=== PATIENT | female | born 1935 | race Caucasian/White ===

== ENCOUNTER 2017-03-21 13:17 | Emergency (ER) | payer MEDICARE ==
--- NOTE | 2017-03-21 16:05 | XRay Report ---
RIGHT KNEE RADIOGRAPHS INDICATION: Fall with right knee injury. COMPARISON: None similar at this institution. FINDINGS: AP, lateral and oblique right knee radiographs demonstrate at least 2 horizontal proximal to mid patellar fractures with maximum separation of approximately 0.8 cm superiorly. Prepatellar swelling and suprapatellar effusion suspected. Atherosclerotic vascular calcifications posteriorly. Few posteromedial surgical clips at the knee also noted. Slight valgus appearance of the knee joint. CONCLUSION: Right patellar acute fractures with prepatellar swelling/hematoma, suprapatellar effusion and few other incidental findings, as described. Please correlate. Thank you for the opportunity to participate in this patient's care.
--- NOTE | 2017-03-21 16:13 | Emergency Department Report ---
ED Fall HPI - General Chief Complaint: Fall Stated Complaint: Knee Injury Time Seen by Provider: 03/21/17 15:43 Source: patient, family Mode of arrival: Wheelchair - History of Present Illness Initial Comments: Patient relates she was shopping with her daughter grocery store and had a trip and fall landing on her right knee. Patient's complaining of right knee pain and mild right hip pain. Patient denies any loss of consciousness, chest pain, confusion, dizziness, nausea vomiting, blurred vision or syncope. MD Complaint: fall -: Sudden Fall From: standing When Fall Occurred: [address] Fall Witnessed: yes, by family Place Fall Occurred: other Loss of Consciousness: none (grocery store) Prolonged Down Time?: no Symptoms Prior to Fall: none Location - Extremities: Right: Knee Severity: severe Severity scale (0 -10): 8 Quality: sharp, stabbing, aching Context: tripped/slipped Associated Symptoms: denies - Related Data Home Medications Medication Instructions Recorded Confirmed Last Taken Aspirin EC [Aspirin Enteric Coated 81 mg PO QDAY 03/21/17 03/21/17 03/21/17 TAB] AtorvaSTATin [Lipitor] 20 mg PO QHS 03/21/17 03/21/17 03/21/17 Bumetanide [Bumex 1 mg tab] 1 mg PO BID 03/21/17 03/21/17 03/21/17 Carvedilol [Coreg] 3.125 mg PO BID 03/21/17 03/21/17 03/21/17 Folic Acid [Folvite] 1 mg PO QDAY 03/21/17 03/21/17 03/21/17 Lisinopril [Zestril] 5 mg PO BID 03/21/17 03/21/17 03/21/17 [place]-3 Fatty Acids/Fish Oil [Fish 1 each PO DAILY 03/21/17 03/21/17 03/21/17 Oil] Omeprazole 40 mg PO DAILY 03/21/17 03/21/17 03/21/17 Spironolactone [Aldactone] 25 mg PO QDAY 03/21/17 03/21/17 03/21/17 hydrALAZINE [Apresoline] 25 mg PO PRN 03/21/17 03/21/17 Unknown Previous Rx's Medication Instructions Recorded Last Taken Type HYDROcodone/APAP 5-325 [[place] 1 each PO Q4HR PRN #12 tablet 03/21/17 Unknown Rx 5/325] Allergies Allergy/AdvReac Type Severity Reaction Status Date / Time No Known Allergies Allergy Unverified 03/21/17 13:55 ED Review of Systems ROS: Stated complaint: Knee Injury Other details as noted in HPI Constitutional: denies: chills, fever Eyes: denies: eye pain, eye discharge, vision change ENT: denies: ear pain, throat pain Respiratory: denies: cough, shortness of breath, wheezing Cardiovascular: denies: chest pain, palpitations Endocrine: no symptoms reported Gastrointestinal: denies: abdominal pain, nausea, vomiting, diarrhea, constipation Genitourinary: denies: urgency, dysuria, frequency, hematuria, discharge Musculoskeletal: joint swelling. denies: back pain, arthralgia Skin: denies: rash, lesions Neurological: denies: headache, weakness, numbness, paresthesias, confusion, abnormal gait, vertigo Psychiatric: denies: anxiety, depression Hematological/Lymphatic: denies: easy bleeding, easy bruising ED Past Medical Hx - Past Medical History Previous Medical History?: Yes Hx Hypertension: Yes - Surgical History Past Surgical History?: No - Social History Smoking Status: Never Smoker Substance Use Type: Prescribed - Medications Home Medications: Home Medications Medication Instructions Recorded Confirmed Last Taken Type Aspirin EC [Aspirin Enteric Coated 81 mg PO QDAY 03/21/17 03/21/17 03/21/17 History TAB] AtorvaSTATin [Lipitor] 20 mg PO QHS 03/21/17 03/21/17 03/21/17 History Bumetanide [Bumex 1 mg tab] 1 mg PO BID 03/21/17 03/21/17 03/21/17 History Carvedilol [Coreg] 3.125 mg PO BID 03/21/17 03/21/17 03/21/17 History Folic Acid [Folvite] 1 mg PO QDAY 03/21/17 03/21/17 03/21/17 History HYDROcodone/APAP 5-325 [[place] 1 each PO Q4HR PRN #12 tablet 03/21/17 Unknown Rx 5/325] Lisinopril [Zestril] 5 mg PO BID 03/21/17 03/21/17 03/21/17 History [place]-3 Fatty Acids/Fish Oil [Fish 1 each PO DAILY 03/21/17 03/21/17 03/21/17 History Oil] Omeprazole 40 mg PO DAILY 03/21/17 03/21/17 03/21/17 History Spironolactone [Aldactone] 25 mg PO QDAY 03/21/17 03/21/17 03/21/17 History hydrALAZINE [Apresoline] 25 mg PO PRN 03/21/17 03/21/17 Unknown History ED Physical Exam - General Limitations: Language Barrier General appearance: alert, in no apparent distress - Head Head exam: Present: atraumatic, normocephalic - Eye Eye exam: Present: normal appearance, PERRL, EOMI - ENT ENT exam: Present: normal exam, mucous membranes moist - Neck Neck exam: Present: normal inspection, full ROM, other (no vertebral point tenderness). Absent: tenderness, meningismus - Respiratory Respiratory exam: Present: normal lung sounds bilaterally. Absent: respiratory distress, wheezes, rales, rhonchi, stridor - Cardiovascular Cardiovascular Exam: Present: regular rate. Absent: systolic murmur, diastolic murmur, rubs, gallop - GI/Abdominal GI/Abdominal exam: Present: soft, normal bowel sounds. Absent: distended, tenderness, guarding, rebound, rigid - Extremities Exam Extremities exam: Present: normal inspection - Expanded Lower Extremity Exam Right Hip exam: Present: tenderness (mild tenderness, pelvis stable no pelvic tenderness), pelvic stability. Absent: swelling, deformity, crepidus, dislocation, external rotation, internal rotation, shortening Knee exam: Present: tenderness (severe patellar tenderness on mild palpation), swelling, ecchymosis, deformity, erythema, effusion. Absent: dislocation Lower Leg exam: Present: normal inspection Ankle exam: Present: normal inspection Foot/Toe exam: Present: normal inspection Neuro vascular tendon exam: Present: no vascular compromise. Absent: pulse deficit, abnormal cap refill, motor deficit, sensory deficit, extremity cold to touch, pallor, abnormal 2-point discrimination, decreased fine/light touch - Back Exam Back exam: Present: normal inspection - Neurological Exam Neurological exam: Present: alert, oriented X3 - Psychiatric Psychiatric exam: Present: normal affect, normal mood - Skin Skin exam: Present: warm, dry, intact, normal color. Absent: rash ED Course Vital Signs 03/21/17 13:55 Temperature 98.3 F Pulse Rate 55 L Respiratory 20 Rate Blood Pressure 196/63 O2 Sat by Pulse 100 Oximetry Critical care attestation.: If time is entered above; I have spent that time in minutes in the direct care of this critically ill patient, excluding procedure time. ED Disposition Clinical Impression: Right patella fracture Disposition: DISCHARGED TO HOME OR SELFCARE Is pt being admited?: No Condition: Stable Instructions: Patellar Fracture (ED) Prescriptions: HYDROcodone/APAP 5-325 [[place] 5/325] 1 each PO Q4HR PRN #12 tablet PRN Reason: Pain Referrals: TARIK MCKENNA MD [Primary Care Provider] - 3-5 Days CHLOÉ ANDRADE MD [Staff Physician] - 3-5 Days
[2017-03-21 16:25] VITALS: BP 175/66
--- NOTE | 2017-03-21 17:55 | XRay Report ---
FINAL REPORT EXAM: XR HIP 2-3V RT HISTORY: fall with pain in the right hip TECHNIQUE: AP view of the pelvis and a single coned-down view of the right hip. PRIORS: None. FINDINGS: No evidence for acute fracture or dislocation is seen. Joint spaces are maintained. The soft tissues demonstrate vascular calcifications and several surgical clips in the right thigh. Bony mineralization is normal. IMPRESSION: No acute soft tissue or bony abnormality noted in the right hip.
[2017-03-21] MEDS ORDERED: MORPHINE IM ONE (18:12)
== END 2017-03-21 19:50 | disposition home or self-care (01) ==
LOC: ED 13:17
DX: S82.001A Unspecified fracture of right patella, initial encounter for closed fracture (principal); I10 Essential (primary) hypertension; Z79.82 Long term (current) use of aspirin; W01.0XXA Fall on same level from slipping, tripping and stumbling without subsequent striking against object, initial encounter; Y93.89 Activity, other specified; Y99.9 Unspecified external cause status; Y92.512 Supermarket, store or market as the place of occurrence of the external cause
CPT/HCPCS: 29505; 73502; 73562; 96372; 99283; J2270

== ENCOUNTER 2017-03-29 09:14 | Day surgery (SDC) | payer MEDICARE ==
[~2017-03-29 09:14] MED LIST: VANCOMYCIN/NS 1 GM/250 ML 1 GM/250 ML BAG IV NR
[2017-03-29] MEDS ORDERED: NACL BACTERIOSTATIC INFILTRATI ONE (09:58)
--- NOTE | 2017-03-29 10:19 | Anesthesia Consultation ---
Anesthesia Consult and Med Hx Date of service: 03/29/17 - Airway Anesthetic Teeth Evaluation: Good ROM Head & Neck: Adequate Mental/Hyoid Distance: Adequate Mallampati Class: Class II Intubation Access Assessment: Probably Good - Pulmonary Exam CTA: Yes - Cardiac Exam Cardiac Exam: RRR - Pre-Operative Health Status ASA Pre-Surgery Classification: ASA2 Proposed Anesthetic Plan: General Nerve Block: Femoral - Pulmonary Hx Smoking: No Hx Sleep Apnea: No (CHRISSY PRE SCREEN HIGH RISK) - Cardiovascular System Hx Hypertension: Yes (X 30 YRS) Hx Heart Attack/AMI: No Hx Valvular Heart Disease: Yes (AORTIC VALVE REPLACEMENT) - Other Systems Hx Cancer: No
--- NOTE | 2017-03-29 10:19 | Anesthesia Day of Surgery ---
Anesthesia Day of Surgery - Day of Surgery Patient Examined: Yes Patient H&P Reviewed: Yes Patient is NPO: Yes Beta Blockers: Yes
[2017-03-29] MEDS ORDERED: DECADRON ONE ×2 (10:22→11:56)
[2017-03-29] MEDS ORDERED: MARCAINE-EPI/PF 0.5%-1:200,000 INFILTRATI ONE ×2 (10:22→11:07)
[2017-03-29 10:50] LABS: Basophils % (Auto) 0.5 % (0.0-1.8); Eosinophils % (Auto) 1.2 % (0.0-4.3); Hematocrit 31.5 % (30.3-42.9); Hemoglobin 10.3 gm/dl (10.1-14.3); Mean Corpuscular HGB Conc 33 % (30-34); Mean Corpuscular Hemoglobin 27 pg (28-32); Mean Corpuscular Volume 82 fl (79-97); Platelet Count 249 K/mm3 (140-440); Red Blood Count 3.83 M/mm3 (3.65-5.03); Red Cell Distribution Width 15.1 % (13.2-15.2); White Blood Count 12.4 K/mm3 (4.5-11.0)
[2017-03-29 10:51] LABS: Anion Gap 17 mmol/L; BUN/Creatinine Ratio 31.42; Blood Urea Nitrogen 22 mg/dL (7-17); Calcium 9.1 mg/dL (8.4-10.2); Carbon Dioxide 25 mmol/L (22-30); Chloride 95.2 mmol/L (98-107); Glucose 123 mg/dL (65-100); Sodium 132 mmol/L (137-145)
[2017-03-29] MEDS ORDERED: NACL 0.9% 1000 ML 1,000 ML IV SCH (11:00)
[2017-03-29] MEDS ORDERED: VERSED IV NR (11:00)
[2017-03-29] MEDS ORDERED: NACL P/F VIAL (10 ML) 0 ML ONE (11:06)
[2017-03-29] MEDS ORDERED: NACL ONE (11:06)
[2017-03-29] MEDS ORDERED: DIPRIVAN 10 MG/ML IV ONE (11:19)
[2017-03-29] MEDS ORDERED: SUBLIMAZE ONE (11:19)
[2017-03-29] MEDS ORDERED: XYLOCAINE MPF 2% ONE (11:20)
[2017-03-29] MEDS ORDERED: ZOFRAN ONE (11:56)
[2017-03-29] MEDS ORDERED: ePHEDrine SULFATE ONE (12:06)
[2017-03-29] MEDS ORDERED: NEO SYNEPHRINE ONE (12:15)
[2017-03-29] MEDS ORDERED: NACL 0.9% 100 ML ONE (12:15)
[2017-03-29] MEDS ORDERED: ROBINUL ONE (12:26)
--- NOTE | 2017-03-29 13:38 | XRay Report ---
RIGHT KNEE, ONE VIEW History: Right patella fracture. Findings: A single AP fluoroscopic image of the right knee was obtained during surgery which demonstrates open reduction and internal fixation of a right patella fracture. No obvious acute abnormality.
--- NOTE | 2017-03-29 14:18 | Short Stay Summary ---
Short Stay Documentation Date of service: 03/29/17 - History H&P: obtained from office - Allergies and Medications Current Medications: Allergies Penicillins Allergy (Verified 08/20/14 21:20) Rash Sulfa (Sulfonamide Antibiotics) Allergy (Verified 08/20/14 21:20) Rash Home Medications Medication Instructions Recorded Confirmed Last Taken Type Carvedilol [Coreg] 12.5 mg PO BID 08/20/14 03/29/17 03/29/17 08:00 History Aspirin EC [Aspirin Enteric Coated 81 mg PO QDAY 03/21/17 03/29/17 03/24/17 History TAB] AtorvaSTATin [Lipitor] 20 mg PO QHS 03/21/17 03/29/17 03/28/17 20:00 History Bumetanide [Bumex 1 mg tab] 1 mg PO DAILY 03/21/17 03/29/17 03/21/17 History Folic Acid [Folvite] 1 mg PO QDAY 03/21/17 03/29/17 03/21/17 History Lisinopril [Zestril] 5 mg PO DAILY 03/21/17 03/29/17 03/29/17 08:00 History [place]-3 Fatty Acids/Fish Oil [Fish 1 each PO DAILY 03/21/17 03/29/17 03/21/17 History Oil] Spironolactone [Aldactone] 25 mg PO QDAY 03/21/17 03/29/17 03/21/17 History hydrALAZINE [Apresoline] 25 mg PO PRN PRN 03/21/17 03/25/17 Unknown History Active Medications Vancomycin HCl (Vancomycin/Ns 1 Gm/250 Ml) 1 gm in 250 mls @ 166.667 mls/hr IV PREOP NR PRN Reason: Protocol Stop: 03/29/17 23:59 Last Admin: 03/29/17 11:15 Dose: 166.667 mls/hr Sodium Chloride (Nacl 0.9% 1000 Ml) 1,000 mls @ 100 mls/hr IV DIRECT TEX Last Admin: 03/29/17 10:37 Dose: 100 mls/hr Midazolam HCl (Versed) 2 mg IV PREOP NR Stop: 03/29/17 23:59 Last Admin: 03/29/17 10:42 Dose: 2 mg - Brief post op/procedure progress note Date of procedure: 03/29/17 Pre-op diagnosis: Right patella fracture Post-op diagnosis: same Procedure: ORIF patella fracture Anesthesia: ILSA Surgeon: JOSUE RAMIREZ Engineer Chief: VARSHA PAIGE Estimated blood loss: minimal Pathology: none Specimen disposition: discarded Condition: stable - Disposition Condition at discharge: Stable Disposition: DC-01 TO HOME OR SELFCARE Short Stay Discharge Plan Follow up with: TARIK MCKENNA MD [Primary Care Provider] - 7 Days
[2017-03-29] MEDS ORDERED: DILAUDID IV PRN (14:22)
[2017-03-29] MEDS ORDERED: NORCO 10/325 PO PRN (14:26)
[2017-03-29 14:50] VITALS: BP 136/48
--- NOTE | 2017-03-29 15:05 | Post Anesthesia Evaluation ---
- Post Anesthesia Evaluation Patient Participated: Yes Airway Patent: Yes Stable Respiratory Function: Yes Nausea/Vomiting: No Temp > 96.8F: Yes Pain Manageable: Yes Adequeate Hydration: Yes Anesthesia Complications: No Block Receding Appropriately: Not Applicable Patient on Ventilator: No
--- NOTE | 2017-03-29 17:21 | Operative Report ---
PREOPERATIVE DIAGNOSES: Patellar fracture, displaced right knee. POSTOPERATIVE DIAGNOSES: Patellar fracture, displaced right knee. PROCEDURES: Exploration of right knee, open reduction internal fixation of the patellar fracture with screws and ____ wire. SURGEON: Odessa Jorge MD TOOL DESIGNER APPRENTICE: Stanford Woodruff RN COMPLICATIONS: None. PROCEDURE IN DETAIL: Once the patient was in surgical room, a time-out was carried out to identify the patient and procedure, prepping and draping of the patient was done in usual fashion. The procedure was carried out without any problems or complications. The leg was elevated and exsanguination was carried out. The tourniquet was elevated to 300 mmHg. The procedure was carried out by making a 10 cm straight incision in front of the patella. Dissection was carried out through the subcutaneous tissue to expose the patellar fracture. The flaps were elevated medially and laterally, following that the patient underwent irrigation of the wound, irrigation of fracture ____. Once the fracture ____ was identified, the patient was found to have a transverse fracture with a small threaded fiber that was loose. The ____ that was loose was removed. Once this was done, they proceeded with continue to do a medial arthrotomy into which point ____ the knee was irrigated. The patella was aligned by palpation and reduced. Once this was done two K-wires were passed from distal to proximal through the knee. Once the two K-wires were in place, the procedure was continued by the application of cerclage of the patella. This was done using 4 mm FiberTape ____ with needle and it was passed ____ the suture all around the periosteum around the distal ____ patella. This suture was tied to maintain the fracture in place. Once this was done, the ____ was placed over the guidewires, the guidewires were measured and two compression screws cannulated were inserted. Once this was done, the guidewires was removed, x-ray demonstrated anatomic reduction, following that using the same tape suture multiple suture for ____ to repair the tear on the retinaculum on the lateral side, and closed the arthrotomy on the medial side. Once this was done, the procedure was terminated. The wound was infiltrated with ____ Afrin. Closure of the wound was carried out by closing the skin with good anesthesia for ____ all the way up to skin. The skin was closed with skin clips. Compression ____ where knee brace applied in extension. The patient tolerated the procedure well. There were no complications. JOB# [id number] LUIS E/JACOBO
== END 2017-03-29 16:06 | disposition home or self-care (01) ==
LOC: OR 09:14
DX: S82.001A Unspecified fracture of right patella, initial encounter for closed fracture (principal); I11.0 Hypertensive heart disease with heart failure; I50.9 Heart failure, unspecified; K21.9 Gastro-esophageal reflux disease without esophagitis; Z90.710 Acquired absence of both cervix and uterus; Z95.2 Presence of prosthetic heart valve; Z95.1 Presence of aortocoronary bypass graft; Z88.2 Allergy status to sulfonamides; Z88.0 Allergy status to penicillin; Z79.899 Other long term (current) drug therapy; Z82.3 Family history of stroke; Z83.3 Family history of diabetes mellitus; Z82.49 Family history of ischemic heart disease and other diseases of the circulatory system; W19.XXXA Unspecified fall, initial encounter
CPT/HCPCS: 27524; 36415; 64447; 73560; 80048; 85025; C1713; J1100; J2250; J2370; J2405; J2704; J3010; J3370; J7030

== ENCOUNTER 2017-05-08 14:01 | Emergency (ER) | payer MEDICARE ==
[2017-05-08] MEDS ORDERED: MORPHINE ONE (14:40)
[2017-05-08] MEDS ORDERED: ZOFRAN ONE (14:40)
[2017-05-08] MEDS ORDERED: MORPHINE IV ONE (14:51)
[2017-05-08] MEDS ORDERED: ZOFRAN IV ONE (14:51)
--- NOTE | 2017-05-08 14:56 | Emergency Department Report ---
ED Upper Extremity Inj HPI - General Chief Complaint: Extremity Injury, Upper Stated Complaint: ARM PAIN Time Seen by Provider: 05/08/17 14:41 Source: patient, family Mode of arrival: Wheelchair Limitations: Language Barrier - History of Present Illness MD Complaint: Injury to:: left, shoulder, arm -: This morning Context: fall - Related Data Home Medications Medication Instructions Recorded Confirmed Last Taken Carvedilol [Coreg] 12.5 mg PO BID 08/20/14 03/29/17 03/29/17 08:00 Aspirin EC [Aspirin Enteric Coated 81 mg PO QDAY 03/21/17 03/29/17 03/24/17 TAB] AtorvaSTATin [Lipitor] 20 mg PO QHS 03/21/17 03/29/17 03/28/17 20:00 Bumetanide [Bumex 1 mg tab] 1 mg PO DAILY 03/21/17 03/29/17 03/21/17 Folic Acid [Folvite] 1 mg PO QDAY 03/21/17 03/29/17 03/21/17 Lisinopril [Zestril] 5 mg PO DAILY 03/21/17 03/29/17 03/29/17 08:00 [place]-3 Fatty Acids/Fish Oil [Fish 1 each PO DAILY 03/21/17 03/29/17 03/21/17 Oil] Spironolactone [Aldactone] 25 mg PO QDAY 03/21/17 03/29/17 03/21/17 hydrALAZINE [Apresoline] 25 mg PO PRN PRN 03/21/17 03/25/17 Unknown Previous Rx's Medication Instructions Recorded Last Taken Type Ondansetron [Zofran Odt] 4 mg PO Q8HR PRN #14 tab.rapdis 05/08/17 Unknown Rx oxyCODONE /ACETAMINOPHEN [Percocet 1 tab PO Q6HR PRN #14 tablet 05/08/17 Unknown Rx 5/325] Allergies Allergy/AdvReac Type Severity Reaction Status Date / Time Penicillins Allergy Rash Verified 08/20/14 21:20 Sulfa (Sulfonamide Allergy Rash Verified 08/20/14 21:20 Antibiotics) ED Review of Systems ROS: Stated complaint: ARM PAIN Other details as noted in HPI Comment: All other systems reviewed and negative Constitutional: denies: fever Respiratory: denies: cough, shortness of breath, SOB with exertion Cardiovascular: denies: chest pain, palpitations Gastrointestinal: denies: abdominal pain, nausea, vomiting Genitourinary: denies: dysuria, hematuria Neurological: denies: headache ED Past Medical Hx - Past Medical History Hx Hypertension: Yes Hx CVA: No Hx Heart Attack/AMI: No Hx Congestive Heart Failure: Yes (9 YRS AGO) Hx Diabetes: No Hx Renal Disease: No Hx Arthritis: No Hx Seizures: No Hx Asthma: No - Surgical History Hx Open Heart Surgery: Yes (CABG 2008) Hx Pacemaker: No Additional Surgical History: open heart surgery right knee replacement - Social History Smoking Status: Never Smoker Substance Use Type: None - Medications Home Medications: Home Medications Medication Instructions Recorded Confirmed Last Taken Type Carvedilol [Coreg] 12.5 mg PO BID 08/20/14 03/29/17 03/29/17 08:00 History Aspirin EC [Aspirin Enteric Coated 81 mg PO QDAY 03/21/17 03/29/17 03/24/17 History TAB] AtorvaSTATin [Lipitor] 20 mg PO QHS 03/21/17 03/29/17 03/28/17 20:00 History Bumetanide [Bumex 1 mg tab] 1 mg PO DAILY 03/21/17 03/29/17 03/21/17 History Folic Acid [Folvite] 1 mg PO QDAY 03/21/17 03/29/17 03/21/17 History Lisinopril [Zestril] 5 mg PO DAILY 03/21/17 03/29/17 03/29/17 08:00 History [place]-3 Fatty Acids/Fish Oil [Fish 1 each PO DAILY 03/21/17 03/29/17 03/21/17 History Oil] Spironolactone [Aldactone] 25 mg PO QDAY 03/21/17 03/29/17 03/21/17 History hydrALAZINE [Apresoline] 25 mg PO PRN PRN 03/21/17 03/25/17 Unknown History Ondansetron [Zofran Odt] 4 mg PO Q8HR PRN #14 tab.rapdis 05/08/17 Unknown Rx oxyCODONE /ACETAMINOPHEN [Percocet 1 tab PO Q6HR PRN #14 tablet 05/08/17 Unknown Rx 5/325] ED Physical Exam - General Limitations: No Limitations General appearance: alert, in distress (SECONDARY TO PAIN) - Head Head exam: Present: atraumatic - Eye Eye exam: Present: normal appearance Pupils: Present: normal accommodation - ENT ENT exam: Present: normal exam - Neck Neck exam: Present: normal inspection - Respiratory Respiratory exam: Present: normal lung sounds bilaterally. Absent: rales, rhonchi, chest wall tenderness, prolonged expiratory - Cardiovascular Cardiovascular Exam: Present: regular rate, normal heart sounds - GI/Abdominal GI/Abdominal exam: Present: soft - Expanded Upper Extremity Exam Left Shoulder Exam: Present: tenderness. Absent: swelling, abrasion, laceration, ecchymosis, deformity, crepidus, dislocation, erythema, tenderness over AC joint Upper Arm exam: Present: tenderness. Absent: swelling, dislocation Elbow exam: Present: normal inspection, full ROM Forearm Wrist exam: Present: normal inspection, full ROM. Absent: tenderness Hand Wrist exam: Present: normal inspection, full ROM. Absent: tenderness Neuro motor exam: Present: wrist extension intact, thumb opposition intact, thumb IP flexion intact, thumb adduction intact, fingers 2-5 abduction intact Neurosensory exam: Present: 2-point discrimination, radial nerve intact, ulnar nerve intact, median nerve intact Vascular: Absent: vascular compromise, pulse deficit brachial art - Back Exam Back exam: Present: normal inspection - Neurological Exam Neurological exam: Present: alert, oriented X3, CN II-XII intact - Skin Skin exam: Present: warm, intact ED Course Vital Signs 05/08/17 05/08/17 05/08/17 14:12 14:40 14:55 Temperature 98.3 F Pulse Rate 61 58 L Respiratory 22 18 22 Rate Blood Pressure 182/60 Blood Pressure 164/48 [Right] O2 Sat by Pulse 98 97 98 Oximetry - Reevaluation(s) Reevaluation #1: 05/08/17 16:19 PATIENT STATED THAT SHE IS FEELING MUCH BETTER. D/W DR SHIRLEY ADVISED PATIENT CAN FOLLOW UP WITH HIM IN HIS OFFICE THIS WEEK. ED Medical Decision Making - Lab Data Result diagrams: 05/08/17 15:19 05/08/17 15:19 Critical care attestation.: If time is entered above; I have spent that time in minutes in the direct care of this critically ill patient, excluding procedure time. ED Disposition Clinical Impression: Humeral fracture Disposition: DC-01 TO HOME OR SELFCARE Is pt being admited?: No Does the pt Need Aspirin: No Condition: Stable Instructions: Arm Fracture in Adults (ED) Prescriptions: Ondansetron [Zofran Odt] 4 mg PO Q8HR PRN #14 tab.rapdis PRN Reason: Vomiting oxyCODONE /ACETAMINOPHEN [Percocet 5/325] 1 tab PO Q6HR PRN #14 tablet PRN Reason: Pain Referrals: JOUSE RAMIREZ MD [Staff Physician] - 3-5 Days
--- NOTE | 2017-05-08 15:31 | XRay Report ---
FINAL REPORT PROCEDURE: XR HUMERUS 1V LT TECHNIQUE: Single view of the left humerus is submitted. HISTORY: r/o fx COMPARISON: None FINDINGS: There is a comminuted fracture of the left humeral head. No other fractures are identified. IMPRESSION: Comminuted humeral head fracture
[2017-05-08 15:47] LABS: Basophils % (Auto) 0.3 % (0.0-1.8); Eosinophils % (Auto) 0.5 % (0.0-4.3); Hematocrit 30.1 % (30.3-42.9); Hemoglobin 9.9 gm/dl (10.1-14.3); Mean Corpuscular HGB Conc 33 % (30-34); Mean Corpuscular Hemoglobin 28 pg (28-32); Mean Corpuscular Volume 84 fl (79-97); Platelet Count 279 K/mm3 (140-440); Red Blood Count 3.59 M/mm3 (3.65-5.03); Red Cell Distribution Width 15.8 % (13.2-15.2); White Blood Count 10.8 K/mm3 (4.5-11.0)
[2017-05-08 15:56] LABS: Alanine Aminotransferase 11 units/L (7-56); Albumin 3.8 g/dL (3.9-5); Albumin/Globulin Ratio 1.5 %; Alkaline Phosphatase 100 units/L (35-129); Anion Gap 19 mmol/L; BUN/Creatinine Ratio 28.75; Blood Urea Nitrogen 23 mg/dL (7-17); Calcium 8.8 mg/dL (8.4-10.2); Carbon Dioxide 23 mmol/L (22-30); Glucose 124 mg/dL (65-100); Potassium 5.4 mmol/L (3.6-5.0); Sodium 133 mmol/L (137-145); Total Protein 6.3 g/dL (6.3-8.2)
[2017-05-08 15:59] LABS: INR 0.99 (0.87-1.13)
[2017-05-08 16:00] LABS: Partial Thromboplastin Time 27.8 Sec. (24.2-36.6)
[2017-05-08] MEDS ORDERED: PERCOCET 5/325 ONE (16:39)
[2017-05-08] MEDS ORDERED: PERCOCET 5/325 PO ONE (16:41)
--- NOTE | 2017-05-08 16:45 | XRay Report ---
FINAL REPORT PROCEDURE: XR CHEST 1V AP TECHNIQUE: Chest radiograph anteroposterior view. CPT 08973 HISTORY: FEVER,COUGH, HIV COMPARISON: None FINDINGS: Prior median sternotomy is noted. The heart is top-normal in size. There is mild central vascular congestion. Mild increased interstitial markings are present without focal consolidation. There is no pneumothorax. Pleural thickening of the right lower thorax laterally is present. Old fracture of the left humeral head is seen. Diffuse osteopenia and degenerative changes of the spine and shoulders is seen. Mild thoracic dextroscoliosis is present. IMPRESSION: Prior median sternotomy. Mild central vascular congestion. Mild increased interstitial markings possibly chronic. An element of bronchitis, interstitial pneumonia as well as pulmonary edema is not excluded..
[2017-05-08 16:47] VITALS: BP 169/46
== END 2017-05-08 16:58 | disposition home or self-care (01) ==
LOC: ED 14:01
DX: S42.302A Unspecified fracture of shaft of humerus, left arm, initial encounter for closed fracture (principal); X58.XXXA Exposure to other specified factors, initial encounter; Y93.89 Activity, other specified; Y92.89 Other specified places as the place of occurrence of the external cause; Y99.8 Other external cause status; Z88.0 Allergy status to penicillin; Z88.2 Allergy status to sulfonamides
CPT/HCPCS: 29105; 36415; 71010; 73060; 80053; 85025; 85610; 85730; 96374; 96375; 99284; J2270; J2405

== ENCOUNTER 2019-01-16 04:03 | Inpatient (IN) | payer MEDICARE ==
[2019-01-16] MEDS ORDERED: CARDIZEM IV ONE (04:22)
[2019-01-16] MEDS ORDERED: LASIX IV ONE (04:37)
[2019-01-16 04:53] LABS: Basophils # (Auto) 0.1 K/mm3 (0.0-0.1); Basophils % (Auto) 0.4 % (0.0-1.8); Eosinophils % (Auto) 0.2 % (0.0-4.3); Hematocrit 35.4 % (30.3-42.9); Hemoglobin 11.1 gm/dl (10.1-14.3); Lymphocytes # (Auto) 4.2 K/mm3 (1.2-5.4); Lymphocytes % (Auto) 25.6 % (13.4-35.0); Mean Corpuscular HGB Conc 31 % (30-34); Mean Corpuscular Volume 88 fl (79-97); Monocytes # (Auto) 1.3 K/mm3 (0.0-0.8); Monocytes % (Auto) 7.9 % (0.0-7.3); Platelet Count 226 K/mm3 (140-440); Red Blood Count 4.05 M/mm3 (3.65-5.03); Red Cell Distribution Width 16.2 % (13.2-15.2)
--- NOTE | 2019-01-16 04:55 | XRay Report ---
PROCEDURE: XR CHEST 1V AP TECHNIQUE: AP portable chest radiograph HISTORY: Chest Pain COMPARISONS: 08/27/2018 FINDINGS: No mediastinal shift. Cardiac silhouette is not enlarged for portable technique. Overlying sternotomy wires. Diffuse interstitial prominence. Minimal blunting of the costophrenic angles. Thickening of t he right lower lung pleural appears unchanged from prior. No pneumothorax or focal airspace disease. IMPRESSION: Suggested mild pulmonary interstitial edema with small pleural effusions. Chronic right pleural thickening is unchanged from prior. This document is electronically signed by Rishabh Garcia MD., January 16 2019 04:53:18 AM ET
[2019-01-16] MEDS ORDERED: CARDIZEM 100 MG in D5W 80 ML IV SCH (05:00)
[2019-01-16 05:18] LABS: Albumin 3.6 g/dL (3.9-5); Calcium 8.6 mg/dL (8.4-10.2)
--- NOTE | 2019-01-16 05:18 | Emergency Department Report ---
ED Shortness of Breath HPI - General Chief Complaint: Dyspnea/Respdistress Stated Complaint: CHEST PAIN Time Seen by Provider: 01/16/19 05:14 Source: patient Mode of arrival: Wheelchair Limitations: No Limitations - History of Present Illness Initial Comments: Mrs. Burgess is a very pleasant Croatian speaking female with hx of CHF, atrial fibrillation on Eliquis, AVR with bovine valve who presents with pallor and severe shortness of breath. She returned from a short trip to [place] this past weekend. Daughter noticed cold symptoms. Today daughter noticed severe shortness of breath and wheezing. Daughter concerned for CHF. Dry cough. Subjective fever. Patient denies chest pain. PCP Dr. Lee Under Presser Dr. Jose Luis RAPP Complaint: shortness of breath, cough -: Gradual, days(s) (2) Severity: severe Consistency: constant Worsens With: exertion Known History Of: congestive heart failure Context: recent URI, recent travel Associated Symptoms: cough - Related Data Home Medications Medication Instructions Recorded Confirmed Last Taken Aspirin EC [Aspirin Enteric Coated 81 mg PO QDAY 03/21/17 11/10/17 08/27/18 TAB] AtorvaSTATin [Lipitor] 20 mg PO QHS 03/21/17 11/10/17 08/26/18 Bumetanide [Bumex 1 mg tab] 1 mg PO DAILY 03/21/17 11/10/17 08/27/18 Folic Acid [Folvite] 1 mg PO QDAY 03/21/17 11/10/17 08/27/18 Lisinopril [Zestril TAB] 40 mg PO DAILY 03/21/17 08/27/18 08/27/18 [place]-3 Fatty Acids/Fish Oil [Fish 1 each PO DAILY 03/21/17 11/10/17 08/27/18 Oil] Spironolactone [Aldactone] 25 mg PO QDAY 03/21/17 11/10/17 08/25/18 hydrALAZINE [Apresoline TAB] 25 mg PO PRN PRN 03/21/17 11/10/17 08/27/18 Previous Rx's Medication Instructions Recorded Last Taken Type Apixaban [Eliquis] 2.5 mg PO Q12HR #60 tablet 11/15/17 08/27/18 Rx Metoprolol [Lopressor TAB] 100 mg PO BID #120 tablet 11/15/17 08/27/18 Rx Bumetanide [Bumex 1 mg tab] 1.5 mg PO DAILY #14 tab 08/27/18 Unknown Rx Nitrofurantoin [place]/M-Cryst 100 mg PO Q12HR #14 capsule 08/27/18 Unknown Rx [Macrobid CAP] Allergies Allergy/AdvReac Type Severity Reaction Status Date / Time Penicillins Allergy Rash Verified 08/20/14 21:20 Sulfa (Sulfonamide Allergy Rash Verified 08/20/14 21:20 Antibiotics) levofloxacin [From Levaquin] AdvReac Shortness Verified 11/11/17 18:31 of Breath ED Review of Systems ROS: Stated complaint: CHEST PAIN Other details as noted in HPI Comment: Unobtainable due to pts medical conditions (severe work of breathing) Constitutional: malaise. denies: fever Respiratory: cough, shortness of breath ED Past Medical Hx - Past Medical History Previous Medical History?: Yes Hx Hypertension: Yes Hx CVA: No Hx Heart Attack/AMI: No Hx Congestive Heart Failure: Yes (9 YRS AGO) Hx Diabetes: No Hx Renal Disease: No Hx Arthritis: No Hx Seizures: No Hx Asthma: No - Surgical History Past Surgical History?: Yes Hx Open Heart Surgery: Yes (CABG 2008-valve replacements-2 stents) Hx Pacemaker: No Additional Surgical History: open heart surgery /right knee replacement - Social History Smoking Status: Never Smoker Substance Use Type: None Other Social History: , house , 4 children, lives with and daughter - Medications Home Medications: Home Medications Medication Instructions Recorded Confirmed Last Taken Type Aspirin EC [Aspirin Enteric Coated 81 mg PO QDAY 03/21/17 11/10/17 08/27/18 History TAB] AtorvaSTATin [Lipitor] 20 mg PO QHS 03/21/17 11/10/17 08/26/18 History Bumetanide [Bumex 1 mg tab] 1 mg PO DAILY 03/21/17 11/10/17 08/27/18 History Folic Acid [Folvite] 1 mg PO QDAY 03/21/17 11/10/17 08/27/18 History Lisinopril [Zestril TAB] 40 mg PO DAILY 03/21/17 08/27/18 08/27/18 History [place]-3 Fatty Acids/Fish Oil [Fish 1 each PO DAILY 03/21/17 11/10/17 08/27/18 History Oil] Spironolactone [Aldactone] 25 mg PO QDAY 03/21/17 11/10/17 08/25/18 History hydrALAZINE [Apresoline TAB] 25 mg PO PRN PRN 03/21/17 11/10/17 08/27/18 History Apixaban [Eliquis] 2.5 mg PO Q12HR #60 tablet 11/15/17 08/27/18 Rx Metoprolol [Lopressor TAB] 100 mg PO BID #120 tablet 11/15/17 08/27/18 Rx Bumetanide [Bumex 1 mg tab] 1.5 mg PO DAILY #14 tab 08/27/18 Unknown Rx Nitrofurantoin [place]/M-Cryst 100 mg PO Q12HR #14 capsule 08/27/18 Unknown Rx [Macrobid CAP] ED Physical Exam - General Limitations: No Limitations General appearance: alert, in distress (respiratory distress, sternal retrac tions, tachypnea) - Head Head exam: Present: atraumatic, normocephalic - Eye Eye exam: Present: normal appearance - ENT ENT exam: Present: mucous membranes moist - Neck Neck exam: Present: normal inspection - Respiratory Respiratory exam: Present: respiratory distress, rales, accessory muscle use, prolonged expiratory. Absent: wheezes, rhonchi - Cardiovascular Cardiovascular Exam: Present: tachycardia, irregular rhythm, JVD (at 90 degrees). Absent: systolic murmur, diastolic murmur - GI/Abdominal GI/Abdominal exam: Present: soft, normal bowel sounds. Absent: distended, tenderness, guarding, rebound - Extremities Exam Extremities exam: Present: normal inspection - Back Exam Back exam: Present: normal inspection - Neurological Exam Neurological exam: Present: alert, oriented X3 - Psychiatric Psychiatric exam: Present: normal affect, normal mood - Skin Skin exam: Present: warm, dry, intact, pallor. Absent: rash ED Course Vital Signs 01/16/19 01/16/19 01/16/19 04:13 04:16 04:43 Temperature 97.9 F 97.9 F Pulse Rate 142 H 149 H 133 H Respiratory 22 18 34 H Rate Blood Pressure 146/77 146/77 O2 Sat by Pulse 68 L 66 L 88 Oximetry 01/16/19 01/16/19 01/16/19 04:45 04:47 04:50 Temperature Pulse Rate 146 H 167 H Respiratory 44 H 43 H Rate Blood Pressure 127/69 127/69 O2 Sat by Pulse 90 87 87 Oximetry 01/16/19 01/16/19 01/16/19 04:56 05:00 05:05 Temperature Pulse Rate 144 H 84 102 H Respiratory 30 H 40 H 34 H Rate Blood Pressure 130/55 97/37 98/46 O2 Sat by Pulse 89 88 88 Oximetry 01/16/19 01/16/19 05:10 05:15 Temperature Pulse Rate 103 H 92 H Respiratory 36 H 36 H Rate Blood Pressure 104/60 113/45 O2 Sat by Pulse 92 Oximetry ED Medical Decision Making - Lab Data Result diagrams: 01/16/19 04:19 01/16/19 04:19 - Radiology Data Radiology results: report reviewed, image reviewed pulmonary edema - Medical Decision Making Mrs. Burgess presents with acute respiratory failure hypoxia, acute CHF exacerbation, ACS/NSTEMI, afib RVR. Treated with rate control diltiazem bolus/infusion, diuresis. Requiring venti mask for oxygenation. oxygen saturation still decreased on 4 L NC O2 89%. HR 160's at mask, suspect ACS due to demand ischemia Did consider pulmonary embolism, however, lung exam and CXR will account for hypoxia. She is compliant with Eliquis which should decrease PE risk Dr. [place] cone winder consulted Dr. Marroquin hospitalist accepted patient to inpatient service Respiratory therapist brought BiPAP to bedside, now on Venturi mask. After treatment, HR 90-100 bpm, normotensive, oxygen saturation improved to 95% from 68% RA on Venturi mask. Mrs. Burgess feels better subjectively. RR decrease d from 39 to 28 breaths per minute Critical Care Time: Yes Critical care time in (mins) excluding proc time.: 40 Critical care attestation.: If time is entered above; I have spent that time in minutes in the direct care of this critically ill patient, excluding procedure time. 65 minutes of critical care time excluding procedures were used in the care of the patient. I was at the bedside during the entire first 75 minutes of ED treatment. I was concerned for worsening respiratory failure. I asked RT to bring BiPAP to bedside. Venturi mask applied. I monitored diltiazem administration. Mild transient hypotension did ensue. I kept daughter and updated. I reviewed EMR. I spoke with consultants. I also requested urgent bed assignment through charge nurse. ED Disposition Clinical Impression: Acute respiratory failure with hypoxemia, Acute exacerbation of CHF (congestive heart failure), Atrial fibrillation with rapid ventricular response Disposition: OP ADMIT IP TO THIS HOSP Is pt being admited?: Yes Does the pt Need Aspirin: No Condition: Fair
[2019-01-16] MEDS ORDERED: ZOFRAN IV PRN (05:53)
[2019-01-16] MEDS ORDERED: MORPHINE IV PRN (05:53)
[2019-01-16] MEDS ORDERED: NORCO 5/325 PO PRN (05:53)
[2019-01-16] MEDS ORDERED: SODIUM CHLORIDE FLUSH SYRINGE 10 ML IV PRN (05:53)
[2019-01-16] MEDS ORDERED: MILK OF MAGNESIA PO PRN (05:53)
[2019-01-16] MEDS ORDERED: TYLENOL PO PRN (05:53)
[2019-01-16] MEDS ORDERED: ALUM-MAG HYDROX-SIMETH 200-200-20MG/5ML PO PRN (05:53)
[2019-01-16 05:59] LABS: Chol/HDL Ratio 2.1 %
--- NOTE | 2019-01-16 06:11 | History and Physical Report ---
History of Present Illness Date of examination: 01/16/19 Chief complaint: Shortness of breath History of present illness: Pt is a 83 year old female with history of CHF and at bedtime fibrillation who presented to the ED on account of a day history of shortness of breath. She has associated wheezing, dry cough, pleuritic chest pain, palpitation, nausea without vomiting and generalized weakness. She denies fever, chills, sore throat, runny nose or congestion, diaphoresis, leg swelling, orthopnea or PND. No headaches, lightheadedness, syncope or loss of consciousness. She has positive history of constipation but no abdominal pain, dysuria or frequency. Past History Past Medical History: CAD, heart failure, hypertension, other (atrial fibrillation on oral anticoagulation) Past Surgical History: CABG, Other (aortic valve replacement, cardiac stents placement) Social history: no significant social history (she denies tobacco, alcohol or illicit drug use) Family history: hypertension Medications and Allergies Allergies Allergy/AdvReac Type Severity Reaction Status Date / Time Penicillins Allergy Rash Verified 08/20/14 21:20 Sulfa (Sulfonamide Allergy Rash Verified 08/20/14 21:20 Antibiotics) levofloxacin [From Levaquin] AdvReac Shortness Verified 11/11/17 18:31 of Breath Home Medications Medication Instructions Recorded Confirmed Last Taken Type Aspirin EC [Aspirin Enteric Coated 81 mg PO QDAY 03/21/17 01/16/19 08/27/18 History TAB] AtorvaSTATin [Lipitor] 20 mg PO QHS 03/21/17 01/16/19 08/26/18 History Bumetanide [Bumex 1 mg tab] 1 mg PO DAILY 03/21/17 01/16/19 08/27/18 History Lisinopril [Zestril TAB] 40 mg PO DAILY 03/21/17 01/16/19 08/27/18 History Apixaban [Eliquis] 2.5 mg PO Q12HR #60 tablet 11/15/17 01/16/19 08/27/18 Rx Amlodipine Besylate 5 mg PO DAILY 01/16/19 01/16/19 Unknown History Metoprolol [Lopressor TAB] 100 mg PO DAILY 01/16/19 01/16/19 Unknown History Active Meds: Active Medications Acetaminophen (Tylenol) 650 mg PO Q4H PRN PRN Reason: Pain MILD(1-3)/Fever >100.5/ALICEA Acetaminophen/Hydrocodone Bitart ([place] 5/325) 1 each PO Q6H PRN PRN Reason: Pain, Moderate (4-6) Al Hydrox/Mg Hydrox/Simethicone (Alum-Mag Hydrox-Simeth 600-004-31tt/5ml) 30 ml PO Q4H PRN PRN Reason: Indigestion Apixaban (Eliquis) 2.5 mg PO Q12HR TEX; Protocol Aspirin (Halfprin Ec) 81 mg PO QDAY TEX Atorvastatin Calcium (Lipitor) 20 mg PO QHS TEX Docusate Sodium (Colace) 100 mg PO BID TEX Diltiazem HCl 100 mg/ Dextrose 100 mls @ 5 mls/hr IV DIRECT TEX; Protocol Last Admin: 01/16/19 05:15 Dose: 5 mg/hr, 5 mls/hr Documented by: Magnesium Hydroxide (Milk Of Magnesia) 30 ml PO Q4H PRN PRN Reason: Constipation Metoprolol Tartrate (Lopressor) 25 mg PO BID TEX Morphine Sulfate (Morphine) 2 mg IV Q4H PRN PRN Reason: Pain, Moderate (4-6) Ondansetron HCl (Zofran) 4 mg IV Q8H PRN PRN Reason: Nausea And Vomiting Sodium Chloride (Sodium Chloride Flush Syringe 10 Ml) 10 ml IV BID TEX Sodium Chloride (Sodium Chloride Flush Syringe 10 Ml) 10 ml IV PRN PRN PRN Reason: LINE FLUSH Review of Systems All systems: negative (except as documented in the HPI, all other systems were reviewed and negative) Exam - Constitutional Vitals: Temp Pulse Resp BP Pulse Ox 97.9 F 121 H 34 H 114/46 93 01/16/19 04:16 01/16/19 05:25 01/16/19 05:25 01/16/19 05:25 01/16/19 05:25 General appearance: Present: no acute distress, other (on Ventimask) - EENT Eyes: Present: PERRL, EOM intact ENT: hearing intact, clear oral mucosa - Neck Neck: Present: supple, normal ROM - Respiratory Respiratory effort: normal Respiratory: bilateral: diminished (bibasilar crackles) - Cardiovascular Rhythm: irregularly irregular Heart Sounds: Present: S1 & S2. Absent: rub, click - Extremities Extremities: No edema Peripheral Pulses: within normal limits - Abdominal General gastrointestinal: Present: soft, non-tender, non-distended, normal bowel sounds Female genitourinary: Present: deferred - Integumentary Integumentary: Present: clear, warm, dry - Musculoskeletal Musculoskeletal: generalized weakness - Psychiatric Psychiatric: appropriate mood/affect, intact judgment & insight - Neurologic Neurologic: CNII-XII intact, moves all extremities Results - Labs CBC & Chem 7: 01/16/19 04:19 01/16/19 04:19 Labs: Laboratory Last Values WBC 16.3 K/mm3 (4.5-11.0) H 01/16/19 04:19 RBC 4.05 M/mm3 (3.65-5.03) 01/16/19 04: Hgb 11.1 gm/dl (10.1-14.3) 01/16/19 04:19 Hct 35.4 % (30.3-42.9) 01/16/19 04:19 MCV 88 fl (79-97) 01/16/19 04:19 MCH 27 pg (28-32) L 01/16/19 04:19 MCHC 31 % (30-34) 01/16/19 04:19 RDW 16.2 % (13.2-15.2) H 01/16/19 04:19 Plt Count 226 K/mm3 (140-440) 01/16/19 04:19 Lymph % (Auto) 25.6 % (13.4-35.0) 01/16/19 04:19 [place] % (Auto) 7.9 % (0.0-7.3) H 01/16/19 04:19 Eos % (Auto) 0.2 % (0.0-4.3) 01/16/19 04:19 Baso % (Auto) 0.4 % (0.0-1.8) 01/16/19 04:19 Lymph # 4.2 K/mm3 (1.2-5.4) 01/16/19 04:19 [place] # 1.3 K/mm3 (0.0-0.8) H 01/16/19 04:19 Eos # 0.0 K/mm3 (0.0-0.4) 01/16/19 04:19 Baso # 0.1 K/mm3 (0.0-0.1) 01/16/19 04:19 Seg Neutrophils % 65.9 % (40.0-70.0) 01/16/19 04:19 Seg Neutrophils # 10.7 K/mm3 (1.8-7.7) H 01/16/19 04:19 Sodium 135 mmol/L (137-145) L 01/16/19 04:19 Potassium 4.8 mmol/L (3.6-5.0) 01/16/19 04:19 Chloride 97.8 mmol/L (98-107) L 01/16/19 04:19 Carbon Dioxide 18 mmol/L (22-30) L 01/16/19 04:19 Anion Gap 24 mmol/L 01/16/19 04:19 BUN 22 mg/dL (7-17) H 01/16/19 04:19 Creatinine 1.0 mg/dL (0.7-1.2) 01/16/19 04:19 Estimated GFR 53 ml/min 01/16/19 04:19 BUN/Creatinine Ratio 22 % 01/16/19 04:19 Glucose 270 mg/dL (65-100) H 01/16/19 04:19 Lactic Acid 4.00 mmol/L (0.7-2.0) H* 01/16/19 04:46 Calcium 8.6 mg/dL (8.4-10.2) 01/16/19 04:19 Total Bilirubin 0.40 mg/dL (0.1-1.2) 01/16/19 04:19 AST 225 units/L (5-40) H 01/16/19 04:19 ALT 79 units/L (7-56) H 01/16/19 04:19 Alkaline Phosphatase 226 units/L (35-129) H 01/16/19 04:19 Troponin T 0.951 ng/mL (0.00-0.029) H* 01/16/19 04:19 NT-Pro-B Natriuret Pep 83493 pg/mL (0-900) H 01/16/19 04:46 Total Protein 6.8 g/dL (6.3-8.2) 01/16/19 04:19 Albumin 3.6 g/dL (3.9-5) L 01/16/19 04:19 Albumin/Globulin Ratio 1.1 % 01/16/19 04:19 Triglycerides 55 mg/dL (2-149) 01/16/19 04:19 Cholesterol 126 mg/dL (50-199) 01/16/19 04:19 LDL Cholesterol Direct 67 mg/dL (50-130) 01/16/19 04:19 HDL Cholesterol 60 mg/dL (40-59) H 01/16/19 04:19 Cholesterol/HDL Ratio 2.10 % 01/16/19 04:19 Assessment and Plan Assessment and plan: Acute on chronic diastolic heart failure with EF of 50-55% -On CHF protocol -Last echo was in 10/2017, will repeat Atrial fibrillation with RVR -On IV Cardizem drip -Home oral anticoagulation with eliquis resumed Acute respiratory failure with hypoxia -Likely secondary to CHF exacerbation -Continue oxygen supplementation as needed Elevated troponin -Probably secondary to demand ischemia due to the CHF -Continue serial troponin and EKG monitoring -Cardiology consulted SIRS with lactic acidosis -Exact source of infection unknown -On empiric IV antibiotic -Urinalysis and blood cultures pending -Chest x-ray negative for acute infiltrates Hyperglycemia -We'll check hemoglobin A1c level Transaminitis -Probably secondary to the acute process, will monitor -Hepatitis panel and abdominal ultrasound pending Hypertension, stable Disposition: Patient will be admitted to the stepdown unit. Discharge will depend on clinical course Time spent: 45 minutes
[2019-01-16] MEDS ORDERED: D50W (25GM) Syringe IV PRN (06:17)
[2019-01-16] MEDS ORDERED: VANCOMYCIN/NS 1 GM/250 ML 1 GM/250 ML BAG IV ONE (07:00)
[2019-01-16] MEDS ORDERED: VANCOMYCIN PHARMACY TO DOSE IV SCH (07:00)
[2019-01-16] MEDS ORDERED: LASIX IV SCH (07:00)
[2019-01-16] MEDS: HumaLOG SUB-Q SCH ×3 (07:52→22:00)
--- NOTE | 2019-01-16 07:54 | Ultrasound Report ---
ULTRASOUND ABDOMEN COMPLETE: TECHNIQUE: Transabdominal ultrasound with color Doppler interrogation. HISTORY: Elevated liver function tests. COMPARISON: none. FINDINGS: LIVER: Within normal limits. BILIARY SYSTEM: The gallbladder is poorly visualized secondary to body habitus. There appears to be a small amount of sludge in the fundus of the gallbladder. No evidence for gallbladder wall thickening or surrounding fluid. The CBD measures 3.4 mm. PANCREAS: Obscured by bowel gas. SPLEEN: Within normal limits. 9.3 cm in length. KIDNEYS: Both kidneys demonstrate mild diffuse cortical thinning and increased renal parenchymal echotexture. This probably represents mild chronic renal parenchymal disease. There are scattered simple cysts in both kidneys. No obvious mass, calculus or hydronephrosis. AORTA/IVC: Normal. ASCITES: None. IMPRESSION: Limited exam. A small amount of sludge is identified in the gallbladder but no obvious findings of acute cholecystitis although the gallbladder is poorly imaged on this exam. Unremarkable liver. Mild chronic renal parenchymal disease with scattered renal cysts.
[2019-01-16 08:35] LABS: Bacteria,Urine 1+ /HPF (Negative); Bilirubin,Urine NEG (Negative); Blood,Urine NEG (Negative); Color,Urine Yellow (Yellow); Protein,Urine <15 mg/dL mg/dL (Negative); Urobilinogen,Urine < 2.0 mg/dL (<2.0)
[2019-01-16 09:03] LABS: Hepatitis B Surface Antigen Non-Reactive (Negative); Hepatitis C Virus Antibody Non-Reactive (NonReactive)
--- NOTE | 2019-01-16 09:49 | Consultation ---
History of Present Illness Consult date: 01/16/19 Requesting physician: ABHISHEK POOLE Consult reason: elevated troponin History of present illness: The pt is an 83 YO female with a past medical history of CAD s/p CABG x2 (saphenous to mid obtuse marginal and saphenous to posterior descending coronary) in 01/2008, s/p aortic valve replacement with bioprosthetic valve in 01/2008, atrial fibrillation, anticoagulated with Eliquis, HTN, HLP. She is followed in our office by Dr. Amaya. She presented with complaints of cold-like symptoms (SOB, wheezing, fever, dry cough, lethargy) since Tuesday. This morning, pt c/o midsternal chest pain and thus her daughter decided to have pt evaluated. Following arrival, pt was found to have acute respiratory failure, HF, UTI, fe nini, leukocytosis and AFib with RVR. She was initiated on cardizem gtt. She was also noted to have significantly elevated troponin (0.951 -> 1.740). Echo done 10/2017 showed mild LVH, LV motion and contractility WNL, LA mildly dilated, s/p bioprosthetic AV functioning well, mild AR, mean gradient of AV 14mmHg, mild to mod MR, mod TR, RVSP 47mmHg. Lexiscan MPI stress test done 10/2015 was negative for ischemia, fixed anteroapical defect, EF 53%. Past History Past Medical History: atrial fib, CAD, hypertension, hyperlipidemia Past Surgical History: CABG, Other (aortic valve replacement) Social history: no significant social history (she denies tobacco, alcohol or illicit drug use), lives with family Family history: hypertension Medications and Allergies Allergies Allergy/AdvReac Type Severity Reaction Status Date / Time Penicillins Allergy Rash Verified 08/20/14 21:20 Sulfa (Sulfonamide Allergy Rash Verified 08/20/14 21:20 Antibiotics) levofloxacin [From Levaquin] AdvReac Shortness Verified 11/11/17 18:31 of Breath Home Medications Medication Instructions Recorded Confirmed Last Taken Type Aspirin EC [Aspirin Enteric Coated 81 mg PO QDAY 03/21/17 01/16/19 08/27/18 History TAB] AtorvaSTATin [Lipitor] 20 mg PO QHS 03/21/17 01/16/19 08/26/18 History Bumetanide [Bumex 1 mg tab] 1 mg PO DAILY 03/21/17 01/16/19 08/27/18 History Lisinopril [Zestril TAB] 40 mg PO DAILY 03/21/17 01/16/19 08/27/18 History Apixaban [Eliquis] 2.5 mg PO Q12HR #60 tablet 11/15/17 01/16/19 08/27/18 Rx Amlodipine Besylate 5 mg PO DAILY 01/16/19 01/16/19 Unknown History Metoprolol [Lopressor TAB] 100 mg PO DAILY 01/16/19 01/16/19 Unknown History Active Meds: Active Medications Acetaminophen (Tylenol) 650 mg PO Q4H PRN PRN Reason: Pain MILD(1-3)/Fever >100.5/ALICEA Acetaminophen/Hydrocodone Bitart ([place] 5/325) 1 each PO Q6H PRN PRN Reason: Pain, Moderate (4-6) Al Hydrox/Mg Hydrox/Simethicone (Alum-Mag Hydrox-Simeth [id number]/5ml) 30 ml PO Q4H PRN PRN Reason: Indigestion Apixaban (Eliquis) 2.5 mg PO Q12HR TEX; Protocol Aspirin (Halfprin Ec) 81 mg PO QDAY TEX Atorvastatin Calcium (Lipitor) 20 mg PO QHS TEX Dextrose (D50w (25gm) Syringe) 50 ml IV PRN PRN PRN Reason: Hypoglycemia Docusate Sodium (Colace) 100 mg PO BID TEX Furosemide (Lasix) 40 mg IV Q8HR TEX Last Admin: 01/16/19 07:52 Dose: Not Given Documented by: Diltiazem HCl 100 mg/ Dextrose 100 mls @ 5 mls/hr IV DIRECT TEX; Protocol Last Infusion: 01/16/19 08:56 Dose: 7.5 mg/hr, 7.5 mls/hr Documented by: Vancomycin HCl (Vancomycin/Ns 1 Gm/250 Ml) 1 gm in 250 mls @ 166.667 mls/hr IV Q24HR TEX Insulin Human Lispro (Humalog) 0 unit SUB-Q ACHS TEX; Protocol Last Admin: 01/16/19 07:52 Dose: Not Given Documented by: Magnesium Hydroxide (Milk Of Magnesia) 30 ml PO Q4H PRN PRN Reason: Constipation Metoprolol Tartrate (Lopressor) 25 mg PO BID [facility] Morphine Sulfate (Morphine) 2 mg IV Q4H PRN PRN Reason: Pain, Moderate (4-6) Ondansetron HCl (Zofran) 4 mg IV Q8H PRN PRN Reason: Nausea And Vomiting Sodium Chloride (Sodium Chloride Flush Syringe 10 Ml) 10 ml IV BID [facility] Sodium Chloride (Sodium Chloride Flush Syringe 10 Ml) 10 ml IV PRN PRN PRN Reason: LINE FLUSH Review of Systems Constitutional: fever, chills Ears, nose, mouth and throat: no ear pain, no nose pain, no sinus pressure, no sinus pain Cardiovascular: chest pain, shortness of breath, dyspnea on exertion, no orthopnea, no palpitations, no rapid/irregular heart beat, no edema, no syncope, no lightheadedness, no leg edema Respiratory: cough, shortness of breath, dyspnea on exertion, wheezing, no cough with sputum, no congestion, no pain on inspiration Gastrointestinal: no abdominal pain, no nausea, no vomiting, no diarrhea, no constipation, no change in bowel habits Genitourinary Female: no pelvic pain, no flank pain Musculoskeletal: no neck stiffness, no neck pain, no shooting arm pain, no arm numbness/tingling, no low back pain, no shooting leg pain Integumentary: no rash, no pruritis, no redness, no sores, no wounds Neurological: no head injury, no paralysis, no parathesias, no numbness, no tingling, no seizures, no syncope Psychiatric: no anxiety Endocrine: no cold intolerance, no heat intolerance Hematologic/Lymphatic: no easy bruising, no easy bleeding Allergic/Immunologic: wheezing, no urticaria Physical Examination Vital Signs Temp Pulse Resp BP Pulse Ox 97.9 F 142 H 22 146/77 68 L 01/16/19 04:13 01/16/19 04:13 01/16/19 04:13 01/16/19 04:13 01/16/19 04:13 General appearance: other (lethargic ) HEENT: Positive: PERRL, Normocephaly, Mucus Membranes Moist Cardiac: Positive: irregularly irregular, S1/S2, Systolic Murmur, Tachycardia Lungs: Positive: Decreased Breath Sounds, Rales Neuro: Positive: Grossly Intact Abdomen: Negative: Tender Skin: Negative: Rash Musculoskeletal: No Pain Extremities: Absent: edema Results 01/16/19 04:19 01/16/19 04:19 Cardiac Enzymes 01/16/19 Range/Units 04:19 AST 225 H (5-40) units/L Lipids 01/16/19 Range/Units 04:19 Triglycerides 55 (2-149) mg/dL Cholesterol 126 (50-199) mg/dL HDL Cholesterol 60 H (40-59) mg/dL Cholesterol/HDL Ratio 2.10 % CBC 01/16/19 Range/Units 04:19 WBC 16.3 H (4.5-11.0) K/mm3 RBC 4.05 (3.65-5.03) M/mm3 Hgb 11.1 (10.1-14.3) gm/dl Hct 35.4 (30.3-42.9) % Plt Count 226 (140-440) K/mm3 Lymph # 4.2 (1.2-5.4) K/mm3 [place] # 1.3 H (0.0-0.8) K/mm3 Eos # 0.0 (0.0-0.4) K/mm3 Baso # 0.1 (0.0-0.1) K/mm3 Comprehensive Metabolic Panel 01/16/19 Range/Units 04:19 Sodium 135 L (137-145) mmol/L Potassium 4.8 (3.6-5.0) mmol/L Chloride 97.8 L (98-107) mmol/L Carbon Dioxide 18 L (22-30) mmol/L BUN 22 H (7-17) mg/dL Creatinine 1.0 (0.7-1.2) mg/dL Glucose 270 H (65-100) mg/dL Calcium 8.6 (8.4-10.2) mg/dL AST 225 H (5-40) units/L ALT 79 H (7-56) units/L Alkaline Phosphatase 226 H (35-129) units/L Total Protein 6.8 (6.3-8.2) g/dL Albumin 3.6 L (3.9-5) g/dL - Imaging and Cardiology Echo: pending, report reviewed (10/2017 showed mild LVH, LV motion and contractility WNL, LA mildly dilated, s/p bioprosthetic AV functioning well, mild AR, mean gradient of AV 14mmHg, mild to mod MR, mod TR, RVSP 47mmHg. ) EKG: report reviewed, image reviewed EKG interpretations - Telemetry EKG Rhythm: Atrial Fibrillation - EKG Supraventricular dysrhythmia: atrial fibrillation Assessment and Plan Cont lopressor and IV diuresis as tolerated. Wean cardizem gtt. Suspect NSTEMI type I. Cont to trend Efe and repeat ECG in AM. Pt's reported last dose of Eliquis was last night. Cont to hold home Eliquis and initiate heparin gtt. Optimize anti-ischemic regimen. Plan for coronary angiography in AM. NPO after MN. Indications, potential risks and benefits of LHC reviewed with pt and pt's family members at bedside and they are agreeable to proceed with LHC. F/u echo. The patient has been seen in conjunction with Dr. Sanchez who agrees with the assessment and plan of care. - Patient Problems (1) NSTEMI (non-ST elevated myocardial infarction) Current Visit: Yes Status: Acute (2) Acute respiratory failure Current Visit: Yes Status: Acute (3) Atrial fibrillation with rapid ventricular response Current Visit: Yes Status: Acute (4) Acute heart failure with preserved ejection fraction Current Visit: Yes Status: Acute (5) HTN (hypertension) Current Visit: Yes Status: Chronic (6) Hyperlipidemia Current Visit: Yes Status: Chronic (7) CAD (coronary artery disease) Current Visit: Yes Status: Chronic (8) S/P CABG (coronary artery bypass graft) Current Visit: Yes Status: Chronic (9) S/P aortic valve replacement with bioprosthetic valve Current Visit: Yes Status: Chronic (10) UTI (urinary tract infection) Current Visit: Yes Status: Acute (11) Sepsis Current Visit: Yes Status: Suspected
[2019-01-16] MEDS ORDERED: HALFPRIN EC PO SCH (10:00)
[2019-01-16] MEDS ORDERED: VANCOMYCIN/NS 1 GM/250 ML 1 GM/250 ML BAG IV SCH (10:00)
[2019-01-16] MEDS ORDERED: LOPRESSOR PO SCH (10:00)
[2019-01-16] MEDS ORDERED: ELIQUIS PO SCH (10:00)
[2019-01-16] MEDS: SODIUM CHLORIDE FLUSH SYRINGE 10 ML IV SCH ×2 (10:23→21:46)
[2019-01-16] MEDS ORDERED: HEPARIN 10,000 UNITS/10 ML IV ONE (10:30)
[2019-01-16 10:41] LABS: Hematocrit 32.4 % (30.3-42.9); Hemoglobin 10.6 gm/dl (10.1-14.3)
[2019-01-16 10:50] LABS: INR 1.17 (0.87-1.13)
[2019-01-16 10:51] LABS: Partial Thromboplastin Time 31.9 Sec. (24.2-36.6)
[2019-01-16] MEDS ORDERED: HEPARIN/ 0.45% NACL-25,000 UNIT/500 ML 25,000 UNIT/500 ML BAG IV SCH (11:00)
[2019-01-16] MEDS ORDERED: ASPIRIN ONE (12:34)
[2019-01-16] MEDS ORDERED: HEPARIN 10,000 UNITS/10 ML ONE (12:34)
[2019-01-16] MEDS ORDERED: HEPARIN/ 0.45% NACL-25,000 UNIT/500 ML 25,000 UNIT/500 ML BAG ONE (12:34)
[2019-01-16] MEDS: COLACE PO SCH ×2 (12:47→21:45)
[2019-01-16] MEDS: ASPIRIN PO SCH (12:47)
[2019-01-16] MEDS ORDERED: LOPRESSOR ONE (16:06)
[2019-01-16] MEDS: LOPRESSOR PO SCH ×2 (16:10→20:38)
--- NOTE | 2019-01-16 16:11 | Event Note ---
Date: 01/16/19 SEEN AND EXAMINED, DAUGHTER AT BEDSIDE,. AWAITING CARDIAC CATH. CONTINUE CURRENT MANAGEMENT
[2019-01-16] MEDS: NACL 0.9% 500 ML 500 ML IV SCH (19:23)
[2019-01-16] MEDS: LASIX IV SCH (21:46)
[2019-01-17 04:48] LABS: Basophils % (Auto) 0.4 % (0.0-1.8); Eosinophils % (Auto) 0.1 % (0.0-4.3); Hematocrit 29.5 % (30.3-42.9); Hemoglobin 9.6 gm/dl (10.1-14.3); Lymphocytes # (Auto) 1.6 K/mm3 (1.2-5.4); Lymphocytes % (Auto) 21.7 % (13.4-35.0); Mean Corpuscular HGB Conc 33 % (30-34); Mean Corpuscular Volume 85 fl (79-97); Monocytes # (Auto) 0.8 K/mm3 (0.0-0.8); Monocytes % (Auto) 10.7 % (0.0-7.3); Platelet Count 162 K/mm3 (140-440); Red Blood Count 3.47 M/mm3 (3.65-5.03); Red Cell Distribution Width 15.4 % (13.2-15.2)
[2019-01-17 04:54] LABS: INR 1.17 (0.87-1.13)
[2019-01-17] MEDS ORDERED: NACL 0.9% 500 ML 500 ML ONE ×3 (05:04→11:31)
[2019-01-17 05:15] LABS: Albumin 2.9 g/dL (3.9-5); Calcium 7.8 mg/dL (8.4-10.2)
[2019-01-17] MEDS: HumaLOG SUB-Q SCH ×3 (07:54→16:17)
[2019-01-17] MEDS: LOPRESSOR PO SCH ×3 (08:02→21:37)
[2019-01-17] MEDS: ASPIRIN PO SCH (08:13)
[2019-01-17] MEDS ORDERED: HEPARIN 10,000 UNITS/10 ML ONE (08:35)
[2019-01-17] MEDS ORDERED: HEPARIN/NS 5000 UNIT/500ML(CATH LAB) 1,000 ML IR ONE (08:35)
[2019-01-17] MEDS ORDERED: VERSED ONE (08:35)
[2019-01-17] MEDS ORDERED: XYLOCAINE 2% INFILTRATI ONE (08:36)
[2019-01-17] MEDS ORDERED: NITROGLYCERIN SYRINGE 3 ML ONE (08:36)
[2019-01-17] MEDS ORDERED: CALAN ONE (08:36)
[2019-01-17] MEDS: NACL 0.9% 500 ML 500 ML IV SCH (09:00)
[2019-01-17] MEDS: SUBLIMAZE ONE ×2 (09:16→10:24)
[2019-01-17] MEDS ORDERED: PLAVIX ONE (09:55)
[2019-01-17] MEDS ORDERED: ALUM-MAG HYDROX-SIMETH 200-200-20MG/5ML ONE (09:56)
--- NOTE | 2019-01-17 10:38 | Progress Note ---
Assessment and Plan pt had nstemi type 1 and with occlusion of sv tg om and unable to stent om1 secondary to calcium and private sector executive of lad and patent svg to pda and right to left collaterals to lad (mid) and normal lv function, transfer to [facility] and for afib will add dig for better rate control and discuss with patient and daughter in detail about cardiac status and plan. - Patient Problems (1) Afib Current Visit: Yes Status: Chronic Qualifiers: Atrial fibrillation type: chronic Qualified Code(s): I48.2 - Chronic atrial fibrillation (2) Acute exacerbation of CHF (congestive heart failure) Current Visit: Yes Status: Acute Qualifiers: Heart failure type: combined systolic and diastolic Qualified Code(s): I50.43 - Acute on chronic combined systolic (congestive) and diastolic (congestive) heart failure (3) NSTEMI (non-ST elevated myocardial infarction) Current Visit: Yes Status: Acute (4) HTN (hypertension) Current Visit: Yes Status: Chronic Qualifiers: Hypertension type: essential hypertension Qualified Code(s): I10 - Essential (primary) hypertension (5) Hyperlipidemia Current Visit: Yes Status: Chronic Qualifiers: Hyperlipidemia type: mixed hyperlipidemia Qualified Code(s): E78.2 - Mixed hyperlipidemia (6) S/P CABG (coronary artery bypass graft) Current Visit: Yes Status: Chronic (7) S/P aortic valve replacement with bioprosthetic valve Current Visit: Yes Status: Chronic Subjective Date of service: 01/17/19 Principal diagnosis: nstemi Interval history: no chest pain and sob has improved Objective Vital Signs Temp Pulse Pulse Resp BP Pulse Ox 01/17/19 08:00 100.2 F H 122 H 127 H 20 116/57 98 01/17/19 07:00 100.2 F H 130 H 27 H 105/54 99 01/17/19 06:30 129 H 25 H 105/54 98 01/17/19 06:20 129 H 19 105/54 98 01/17/19 06:10 132 H 20 105/54 99 01/17/19 06:00 125 H 19 105/54 97 01/17/19 05:50 135 H 22 91/55 97 01/17/19 05:40 113 H 21 91/55 96 01/17/19 05:30 110 H 22 91/55 97 01/17/19 05:20 135 H 22 91/55 99 01/17/19 05:10 116 H 17 91/55 99 01/17/19 05:00 137 H 25 H 97/46 81 L 01/17/19 04:50 119 H 28 H 97/46 82 L 01/17/19 04:40 134 H 24 97/46 87 01/17/19 04:30 154 H 14 97/46 92 01/17/19 04:20 116 H 23 97/46 92 01/17/19 04:10 128 H 19 97/46 96 01/17/19 04:00 99.3 F 125 H 20 97/46 93 01/17/19 03:50 116 H 16 107/52 93 01/17/19 03:40 101 H 21 107/52 93 01/17/19 03:30 111 H 17 107/52 97 01/17/19 03:20 106 H 20 107/52 96 01/17/19 03:10 111 H 21 107/52 96 01/17/19 03:00 124 H 22 107/52 97 01/17/19 02:50 121 H 21 104/48 98 01/17/19 02:40 114 H 21 104/48 99 01/17/19 02:30 108 H 17 104/48 98 01/17/19 02:20 115 H 19 104/48 98 01/17/19 02:10 121 H 19 104/48 96 01/17/19 02:00 105 H 19 104/48 98 01/17/19 01:50 120 H 18 100/47 97 01/17/19 01:40 120 H 19 100/47 97 01/17/19 01:30 110 H 18 100/47 99 01/17/19 01:20 108 H 18 100/47 99 01/17/19 01:10 108 H 20 100/47 97 01/17/19 01:00 124 H 19 100/47 97 01/17/19 00:50 120 H 22 96/39 97 01/17/19 00:40 24 96/39 97 01/17/19 00:30 112 H 17 96/39 97 01/17/19 00:20 109 H 20 96/39 97 01/17/19 00:10 115 H 17 96/39 98 01/17/19 00:00 100.1 F H 101 H 21 96/39 98 01/16/19 23:50 113 H 22 95/53 98 01/16/19 23:40 104 H 17 95/53 98 01/16/19 23:34 122 H 19 95/53 96 01/16/19 23:30 111 H 22 95/53 96 01/16/19 23:29 119 H 20 95/53 98 01/16/19 23:20 116 H 24 95/53 98 01/16/19 23:10 119 H 18 95/53 97 01/16/19 23:00 107 H 21 132/52 94 01/16/19 22:50 102 H 24 132/52 95 01/16/19 22:40 121 H 22 132/52 98 01/16/19 22:30 139 H 23 132/52 98 01/16/19 22:20 134 H 21 132/52 96 01/16/19 22:10 110 H 21 132/52 98 01/16/19 22:00 133 H 23 132/52 97 01/16/19 21:50 134 H 26 H 117/50 97 01/16/19 21:40 112 H 27 H 117/50 96 01/16/19 21:30 127 H 32 H 117/50 96 01/16/19 21:20 104 H 25 H 117/50 99 01/16/19 21:10 121 H 23 117/50 96 01/16/19 21:00 117 H 30 H 117/50 96 01/16/19 20:50 131 H 22 119/60 95 01/16/19 20:40 115 H 17 119/60 95 01/16/19 20:38 77 119/60 01/16/19 20:30 114 H 28 H 119/60 96 01/16/19 20:20 115 H 29 H 119/60 97 01/16/19 20:10 102 H 26 H 119/60 95 01/16/19 20:00 100.6 F H 117 H 28 H 97/51 96 01/16/19 19:50 111 H 33 H 97/51 95 01/16/19 19:40 125 H 19 97/51 93 01/16/19 19:30 124 H 29 H 94/55 94 01/16/19 19:20 117 H 28 H 94/55 93 01/16/19 19:10 108 H 34 H 94/55 96 01/16/19 19:00 108 H 24 94/55 93 01/16/19 18:50 106 H 33 H 94/55 94 01/16/19 18:40 105 H 36 H 94/55 94 01/16/19 18:30 94 H 26 H 94/55 91 01/16/19 18:20 105 H 31 H 94/55 92 01/16/19 18:10 110 H 28 H 94/55 94 01/16/19 18:01 136 H 01/16/19 16:50 91 H 21 105/52 97 01/16/19 16:45 94 H 29 H 105/52 98 01/16/19 16:30 99 H 29 H 111/44 97 01/16/19 16:15 86 30 H 114/49 97 01/16/19 16:10 89 01/16/19 16:00 88 19 95/51 90 01/16/19 15:46 78 31 H 95/51 93 01/16/19 15:30 107 H 20 99/49 97 01/16/19 15:15 90 25 H 99/41 98 01/16/19 15:00 86 24 98/38 98 01/16/19 14:45 103 H 27 H 94/33 98 01/16/19 14:30 98 H 24 136/43 98 01/16/19 14:15 96 H 28 H 136/43 97 01/16/19 14:00 85 27 H 114/48 94 01/16/19 13:45 100 H 23 114/48 93 01/16/19 13:30 93 H 16 107/49 90 01/16/19 13:15 96 H 27 H 107/49 97 01/16/19 13:00 92 H 30 H 109/49 98 01/16/19 12:46 77 15 99/41 94 01/16/19 12:30 83 14 98/46 93 01/16/19 12:15 88 29 H 106/39 99 01/16/19 12:00 88 29 H 109/40 98 01/16/19 11:45 97 H 27 H 99/36 98 01/16/19 11:30 110 H 31 H 118/55 96 - Physical Examination General: Appears Well HEENT: Positive: PERRL, Normocephaly, Mucus Membranes Moist Cardiac: Positive: Irregularly Regular, Tachycardia Lungs: Positive: clear to auscultation Neuro: Positive: Grossly Intact Abdomen: Negative: Tender Skin: Negative: Rash Musculoskeletal: No Pain Extremities: Absent: edema - Labs and Meds Cardiac Enzymes 01/17/19 Range/Units 04:15 AST 160 H (5-40) units/L Coagulation 01/16/19 01/17/19 Range/Units 10:30 04:15 PT 15.6 H 15.6 H (12.2-14.9) Sec. INR 1.17 H 1.17 H (0.87-1.13) APTT 31.9 (24.2-36.6) Sec. CBC 01/16/19 01/17/19 Range/Units 10:30 04:15 WBC 7.3 (4.5-11.0) K/mm3 RBC 3.47 L (3.65-5.03) M/mm3 Hgb 10.6 9.6 L (10.1-14.3) gm/dl Hct 32.4 29.5 L (30.3-42.9) % Plt Count 181 162 (140-440) K/mm3 Lymph # 1.6 (1.2-5.4) K/mm3 [place] # 0.8 (0.0-0.8) K/mm3 Eos # 0.0 (0.0-0.4) K/mm3 Baso # 0.0 (0.0-0.1) K/mm3 Comprehensive Metabolic Panel 01/17/19 Range/Units 04:15 Sodium 139 (137-145) mmol/L Potassium 3.8 D (3.6-5.0) mmol/L Chloride 101.5 (98-107) mmol/L Carbon Dioxide 23 (22-30) mmol/L BUN 25 H (7-17) mg/dL Creatinine 0.9 (0.7-1.2) mg/dL Glucose 107 H (65-100) mg/dL Calcium 7.8 L (8.4-10.2) mg/dL AST 160 H (5-40) units/L ALT 59 H (7-56) units/L Alkaline Phosphatase 149 H (35-129) units/L Total Protein 5.9 L (6.3-8.2) g/dL Albumin 2.9 L (3.9-5) g/dL - Imaging and Cardiology EKG: report reviewed, image reviewed Echo: pending, report reviewed (10/2017 showed mild LVH, LV motion and contractility WNL, LA mildly dilated, s/p bioprosthetic AV functioning well, mild AR, mean gradient of AV 14mmHg, mild to mod MR, mod TR, RVSP 47mmHg. ) Cardiac cath: report reviewed (lt main mid 20%, lad proximal 100%, lcx patent om1 proximal 80%, ca2#, rca osital 90%, svg to pda patent with right to left collaterals to lad and normal lv function, svg to om1 100%, private sector executive of lad, and calcified om1 poba with 2.75 x 8 mm and unable to reduce stenosis and will transfer to cathay for rota of om) - Telemetry EKG Rhythm: Atrial Fibrillation
[2019-01-17] MEDS ORDERED: LANOXIN IV ONE (10:41)
[2019-01-17] MEDS: LANOXIN IV SCH ×2 (11:01→17:10)
[2019-01-17] MEDS ORDERED: NACL 0.9% 500 ML 500 ML IV SCH (12:00)
--- NOTE | 2019-01-17 14:51 | Cardiac Catherization Report ---
LEFT HEART CATHETERIZATION/PERCUTANEOUS CORONARY INTERVENTION/INTRAVASCULAR ULTRASOUND WITH BYPASS GRAFTS PROCEDURE DONE BY: Cam Wetzel MD CLINICAL INFORMATION: This is an 83-year-old female in 2006, had bypass surgery, SVG to OM and SVG to PDA with a bypass of aortic valve presents to ED with AFib with RVR with an acute heart failure, systolic with non-ST elevation myocardial infarction. Procedure was done with moderate sedation supervised 0.5 mg Versed and 25 mcg of fentanyl. Sedation time started at 9:16 a.m., finished at 10:01 a.m. Total of 45 minutes supervises sedation. DESCRIPTION OF PROCEDURE: 1. Left heart catheterization was done via the right femoral artery, sterile technique, local anesthesia, 5-[place] groin sheath inserted. 2. Left system engaged, JL4 catheter is calcified, aorta is noted and calcification noted of the coronary system. Left main is large and patent with 20%, mid LAD proximal 100%, circumflex proximal is large caliber, patent with mild irregularities, goes into a medium caliber OM1 that has proximal 80%, calcified and prior to a trifurcation of upper, middle and lower branches. 3. RCA engaged with JR4 ostial 80% with a large caliber vessel that is patent with mild to moderate luminal irregularities. SVG to PDA engaged with JR4 catheter, it is a large caliber graft with mild luminal irregularities and mild ectasia from proximally and distally, feeds into the distal PDA and feeds into a medium caliber PDA and PLV, which has extensive collaterals via the septal's feeding into the mid to distal LAD with flow all the way up to the mid LAD calcified vessel. 4. SVG to OM is 100% engaged with JR4 catheter. 5. CASIANO was subselective and it was not used medium caliber vessel. 6. LV gram shows normal LV function, EF 55% with LVEDP 9 mmHg, LV is 118, aortic is 113/50. No gradient across the bioprosthetic valve. 7. Attempted PCI of the LAD: 8. changed out the 5-[place] groin sheath for a 6-[place] groin sheath. 9. Engaged the left system with an EBU 3.75 guiding catheter. 10. Unable to cross the LAD with a run-through or a Detail Supervisor 50 so it's the chronicity of the vessel. 11. PCI and IVUS of the OM using the same 6-[place] EBU 3.75 guide. 12. Crossed and distal OM with a short run-through wire. 13. Ballooned with 2.5 x 12 balloon but unable to expand it because of calcification then used another 2.75 x 8 balloon, still unable to expanded. 14. Angiogram showed continued ANITA 3 flow, no dissection or perforation cont 80% but calcified vessel. 15. Waited 10 minutes and repeat angiogram, continued ANITA 3 flow, no dissection or perforation or embolization noted. 16. Coronary wire was removed. Continued ANITA 3 flow with the left main, mid 20%, LAD proximal 100%, circumflex is patent, OM1, proximal 80%, calcified. 17. A 6-[place] guiding catheter taken over guidewire, 6-[place] groin sewn in. No hematoma, no bleeding. SUMMARY: 1. Unsuccessful PCI of LAD because of chronic total occlusion and unsuccessful PCI of OM1. We did balloon, but because of the calcification, unable to deliver stent. Did intravascular ultrasound, which showed left main calcified, but [id number] stenosis and circumflex is reference vessel, calcified with 3-0 vessel. 2. The patient will be transferred to [place] for rotational atherectomy of the OM and then possible staged PCI for TRAVEL AGENCY MANAGER of LAD. 3. Normal LV function. 4. Patent SVG to OM with collaterals, right to left, feeding the mid to distal LAD, normal LV function. 5. The patient was loaded with Plavix or aspirin, Plavix, hold off Eliquis at this time until PCI and heart rate control with. [facility]# [id number] ANJEL/JACOBO PEREIRA
[2019-01-17] MEDS ORDERED: TYLENOL ONE (14:54)
--- NOTE | 2019-01-17 15:33 | Cat Scan Report ---
CT scan of abdomen and pelvis without IV contrast: History: Right flank pain. Retroperitoneal bleed. Findings: Bilateral pleural effusion. Small hiatal hernia. Normal liver spleen gallbladder and pancreas. Normal adrenals. Bilateral renal cysts. Contrast-filled bladder probably from previous study. Gaseous colon with stool in colon. No significant bowel distention. Diverticulosis colon. Suspected small left ovarian cyst. No retroperitoneal bleed. Impression: No retroperitoneal bleed. Additional findings as detailed above.
[2019-01-17] MEDS: COLACE PO SCH ×2 (16:18→21:38)
[2019-01-17] MEDS: SODIUM CHLORIDE FLUSH SYRINGE 10 ML IV SCH ×2 (16:21→21:38)
--- NOTE | 2019-01-17 18:30 | Progress Note ---
Assessment and Plan Assessment and plan: Pt is a 83 year old female with history of CHF and at bedtime fibrillation who presented to the ED on account of a day history of shortness of breath. She has associated wheezing, dry cough, pleuritic chest pain, palpitation, nausea without vomiting and generalized weakness. She denies fever, chills, sore throat, runny nose or congestion, diaphoresis, leg swelling, orthopnea or PND. No headaches, lightheadedness, syncope or loss of consciousness. She has positive history of constipation but no abdominal pain, dysuria or frequency. * Patient underwent cardiac cath with findings as noted below by Cardiology "pt had nstemi type 1 and with occlusion of sv tg om and unable to stent om1 secondary to calcium and center director of lad and patent svg to pda and right to left collaterals to lad (mid) and normal lv function, transfer to [facility] and for afib will add dig for better rate control and discuss with patient and daughter in detail about cardiac status and plan. 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% -On CHF protocol -Last echo was in 10/2017, Atrial fibrillation with RVR -On IV Cardizem drip -Digoxin added -Hold Eliquis due to possible cardiac procedure Acute respiratory failure with hypoxia -Likely secondary to CHF exacerbation -Continue oxygen supplementation as needed NSTEMI Type 1 -As noted above Acute Cystitis with no clear evidence of sepsis -Continue abx -Cultures negative so far Hyperglycemia -A1C 5.7 Hyperlipidemia Transaminitis -Resolving Hypertension, stable s/p CABG S/P aortic valve replacement with bioprosthetic valve Disposition: IMCU History Interval history: Patient seen and examined, no acute distress. Resting. Had cath done today. Hospitalist Physical - Physical exam Narrative exam: VITAL SIGNS: Reviewed. GENERAL: The patient appeared well nourished and normally developed, Vital signs as documented. HEAD: No signs of head trauma. EYES: Pupils are equal. Extraocular motions intact. EARS: Hearing grossly intact. MOUTH: Oropharynx is normal. NECK: No adenopathy, no JVD. CHEST: Chest with clear breath sounds bilaterally. No wheezes, rales, or rhonchi. CARDIAC: Irregularly irregular. S1 and S2, without murmurs, gallops, or rubs. VASCULAR: No Edema. Peripheral pulses normal and equal in all extremities. ABDOMEN: Soft, non tender and non distended. No rebound or guarding, and no masses palpated. Bowel Sounds normal. MUSCULOSKELETAL: Good range of motion of all major joints. Extremities without clubbing, cyanosis or edema. NEUROLOGIC EXAM: Alert and oriented x 3 No focal sensory or strength deficit s. Speech normal. Follows commands. PSYCHIATRIC: Mood normal. SKIN: No rash or lesions. - Constitutional Vitals: Temp Pulse Resp BP Pulse Ox 99.4 F 112 H 14 116/64 95 01/17/19 16:00 01/17/19 17:01 01/17/19 17:01 01/17/19 17:01 01/17/19 17:01 General appearance: Present: other (lethargic ) Results - Labs CBC & Chem 7: 01/17/19 04:15 01/17/19 04:15 Labs: Laboratory Last Values WBC 7.3 K/mm3 (4.5-11.0) 01/17/19 04:15 RBC 3.47 M/mm3 (3.65-5.03) L 01/17/19 04:15 Hgb 9.6 gm/dl (10.1-14.3) L 01/17/19 04:15 Hct 29.5 % (30.3-42.9) L 01/17/19 04:15 MCV 85 fl (79-97) 01/17/19 04:15 MCH 28 pg (28-32) 01/17/19 04:15 MCHC 33 % (30-34) 01/17/19 04:15 RDW 15.4 % (13.2-15.2) H 01/17/19 04:15 Plt Count 162 K/mm3 (140-440) 01/17/19 04:15 Lymph % (Auto) 21.7 % (13.4-35.0) 01/17/19 04:15 Bertie % (Auto) 10.7 % (0.0-7.3) H 01/17/19 04:15 Eos % (Auto) 0.1 % (0.0-4.3) 01/17/19 04:15 Baso % (Auto) 0.4 % (0.0-1.8) 01/17/19 04:15 Lymph # 1.6 K/mm3 (1.2-5.4) 01/17/19 04:15 Bertie # 0.8 K/mm3 (0.0-0.8) 01/17/19 04:15 Eos # 0.0 K/mm3 (0.0-0.4) 01/17/19 04:15 Baso # 0.0 K/mm3 (0.0-0.1) 01/17/19 04:15 Seg Neutrophils % 67.1 % (40.0-70.0) 01/17/19 04:15 Seg Neutrophils # 4.9 K/mm3 (1.8-7.7) 01/17/19 04:15 PT 15.6 Sec. (12.2-14.9) H 01/17/19 04:15 INR 1.17 (0.87-1.13) H 01/17/19 04:15 APTT 31.9 Sec. (24.2-36.6) 01/16/19 10:30 Activated Clotting Time 180 (74-137) H 01/17/19 12:17 Heparin Anti-Xa Level 1.54 U.I./ml (0.3-0.7) H 01/17/19 04:15 Sodium 139 mmol/L (137-145) 01/17/19 04:15 Potassium 3.8 mmol/L (3.6-5.0) D 01/17/19 04:15 Chloride 101.5 mmol/L (98-107) 01/17/19 04:15 Carbon Dioxide 23 mmol/L (22-30) 01/17/19 04:15 Anion Gap 18 mmol/L 01/17/19 04:15 BUN 25 mg/dL (7-17) H 01/17/19 04:15 Creatinine 0.9 mg/dL (0.7-1.2) 01/17/19 04:15 Estimated GFR 60 ml/min 01/17/19 04:15 BUN/Creatinine Ratio 28 % 01/17/19 04:15 Glucose 107 mg/dL (65-100) H 01/17/19 04:15 POC Glucose 96 (70-105) 01/17/19 16:21 Hemoglobin A1c 5.7 % (4-6) 01/16/19 07:33 Lactic Acid 1.90 mmol/L (0.7-2.0) 01/16/19 07:33 Calcium 7.8 mg/dL (8.4-10.2) L 01/17/19 04:15 Magnesium 2.20 mg/dL (1.7-2.3) 01/16/19 07:33 Total Bilirubin 0.40 mg/dL (0.1-1.2) 01/17/19 04:15 AST 160 units/L (5-40) H 01/17/19 04:15 ALT 59 units/L (7-56) H 01/17/19 04:15 Alkaline Phosphatase 149 units/L (35-129) H 01/17/19 04:15 Troponin T 1.790 ng/mL (0.00-0.029) H* 01/16/19 10:12 NT-Pro-B Natriuret Pep 18615 pg/mL (0-900) H 01/16/19 04:46 Total Protein 5.9 g/dL (6.3-8.2) L 01/17/19 04:15 Albumin 2.9 g/dL (3.9-5) L 01/17/19 04:15 Albumin/Globulin Ratio 1.0 % 01/17/19 04:15 Triglycerides 55 mg/dL (2-149) 01/16/19 04:19 Cholesterol 126 mg/dL (50-199) 01/16/19 04:19 LDL Cholesterol Direct 67 mg/dL (50-130) 01/16/19 04:19 HDL Cholesterol 60 mg/dL (40-59) H 01/16/19 04:19 Cholesterol/HDL Ratio 2.10 % 01/16/19 04:19 Urine Color Yellow (Yellow) 01/16/19 07:54 Urine Turbidity Clear (Clear) 01/16/19 07:54 Urine pH 5.0 (5.0-7.0) 01/16/19 07:54 Ur Specific [place] 1.010 (1.003-1.030) 01/16/19 07:54 Urine Protein <15 mg/dl mg/dL (Negative) 01/16/19 07:54 Urine Glucose (UA) 50 mg/dL (Negative) 01/16/19 07:54 Urine Ketones Neg mg/dL (Negative) 01/16/19 07:54 Urine Blood Neg (Negative) 01/16/19 07:54 Urine Nitrite Neg (Negative) 01/16/19 07:54 Urine Bilirubin Neg (Negative) 01/16/19 07:54 Urine Urobilinogen < 2.0 mg/dL (<2.0) 01/16/19 07:54 Ur Leukocyte Esterase Lg (Negative) 01/16/19 07:54 Urine WBC (Auto) 12.0 /HPF (0.0-6.0) H 01/16/19 07:54 Urine RBC (Auto) 2.0 /HPF (0.0-6.0) 01/16/19 07:54 U Epithel Cells (Auto) 1.0 /HPF (0-13.0) 01/16/19 07:54 Urine Bacteria (Auto) 1+ /HPF (Negative) 01/16/19 07:54 Hepatitis A IgM Ab Non-reactive (NonReactive) 01/16/19 07:33 Hep Bs Antigen Non-reactive (Negative) 01/16/19 07:33 Hep B Core IgM Ab Non-reactive (NonReactive) 01/16/19 07:33 Hepatitis C Antibody Non-reactive (NonReactive) 01/16/19 07:33 Active Medications - Current Medications Current Medications: Generic Name Dose Route Start Last Admin Trade Name Freq PRN Reason Stop Dose Admin Acetaminophen 650 mg 01/16/19 05:53 01/17/19 14:54 Tylenol PO 650 mg Q4H PRN Administration Pain MILD(1-3)/Fever >100.5/ALICEA Acetaminophen/Hydrocodone Bitart 1 each 01/16/19 05:53 [place] 5/325 PO Q6H PRN Pain, Moderate (4-6) Al Hydrox/Mg Hydrox/Simethicone 30 ml 01/16/19 05:53 Alum-Mag Hydrox-Simeth 241-555-32cx/5ml PO Q4H PRN Indigestion Aspirin 81 mg 01/18/19 10:00 Baby Aspirin PO QDAY TEX Atorvastatin Calcium 20 mg 01/16/19 22:00 01/16/19 21:45 Lipitor PO 20 mg QHS TEX Administration Clopidogrel Bisulfate 75 mg 01/18/19 10:00 Plavix PO QDAY TEX Dextrose 50 ml 01/16/19 06:17 D50w (25gm) Syringe IV PRN PRN Hypoglycemia Digoxin 0.25 mg 01/17/19 12:00 01/17/19 17:10 Lanoxin IV 01/18/19 06:01 0.25 mg Q6HR TEX Administration Docusate Sodium 100 mg 01/16/19 10:00 01/17/19 16:18 Colace PO Not Given BID TEX Sodium Chloride 500 mls @ 50 mls/hr 01/17/19 12:00 01/17/19 11:32 Nacl 0.9% 500 Ml IV 50 mls/hr DIRECT TEX Administration Insulin Human Lispro 0 unit 01/16/19 07:30 01/17/19 16:17 Humalog SUB-Q Not Given ACHS [facility] Protocol Magnesium Hydroxide 30 ml 01/16/19 05:53 Milk Of Magnesia PO Q4H PRN Constipation Metoprolol Tartrate 25 mg 01/16/19 14:00 01/17/19 17:10 Lopressor PO 25 mg TID TEX Administration Morphine Sulfate 2 mg 01/16/19 05:53 Morphine IV Q4H PRN Pain, Moderate (4-6) Ondansetron HCl 4 mg 01/16/19 05:53 Zofran IV Q8H PRN Nausea And Vomiting Sodium Chloride 10 ml 01/16/19 10:00 01/17/19 16:21 Sodium Chloride Flush Syringe 10 Ml IV Not Given BID TEX Sodium Chloride 10 ml 01/16/19 05:53 Sodium Chloride Flush Syringe 10 Ml IV PRN PRN LINE FLUSH Nutrition/Malnutrition Assess - Dietary Evaluation Nutrition/Malnutrition Findings: Nutrition Notes Start: 01/17/19 10:23 Freq: Status: Active Protocol: Document 01/17/19 10:23 EB (Rec: 01/17/19 10:24 [id number]) Co-Sign 01/17/19 10:23 LP Nutrition Notes Need for Assessment generated from: almond paste mixer Initial or Follow up Brief Note Height 5 ft 2 in Weight 56.245 kg Leon Body Weight (kg) 50.00 BMI 22.6 Subjective/Other Information Pt screened for Skin Risk, however, Andrea score >18 (20) . Nutrition Intervention Revisit per MD consult or patient Sign Off request:
[2019-01-18] MEDS: HumaLOG SUB-Q SCH ×2 (00:35→02:17)
[2019-01-18] MEDS: LANOXIN IV SCH (01:00)
[2019-01-18] MEDS: LASIX IV SCH (02:16)
[2019-01-18] MEDS: ASPIRIN PO SCH (02:16)
[2019-01-18 04:15] VITALS: BP 115/44
[2019-01-18 05:24] LABS: Basophils % (Auto) 0.3 % (0.0-1.8); Eosinophils % (Auto) 0.1 % (0.0-4.3); Hematocrit 28.5 % (30.3-42.9); Hemoglobin 9.3 gm/dl (10.1-14.3); Lymphocytes % (Auto) 19.9 % (13.4-35.0); Mean Corpuscular HGB Conc 33 % (30-34); Mean Corpuscular Volume 84 fl (79-97); Monocytes # (Auto) 0.6 K/mm3 (0.0-0.8); Monocytes % (Auto) 13.1 % (0.0-7.3); Platelet Count 170 K/mm3 (140-440); Red Blood Count 3.38 M/mm3 (3.65-5.03); Red Cell Distribution Width 15.1 % (13.2-15.2)
[2019-01-18 05:42] LABS: Creatine Kinase MB 6.4 ng/mL (0.0-4.0)
[2019-01-18 05:44] LABS: BUN/Creatinine Ratio 27; Blood Urea Nitrogen 19 mg/dL (7-17); Calcium 7.8 mg/dL (8.4-10.2); Hemolysis Index 3
[2019-01-18] MEDS ORDERED: BABY ASPIRIN PO SCH (10:00)
[2019-01-18] MEDS ORDERED: PLAVIX PO SCH (10:00)
--- NOTE | 2019-01-18 17:22 | Discharge Summary ---
Providers - Providers Date of Admission: 01/16/19 05:53 Attending physician: MARIBELL THRASHER MD 01/17/19 Consult to Cardiac Rehabilitation [CONS] Routine Reason For Exam: post pci Primary care physician: DYLAN ROBLES Hospitalization Reason for admission: chest pain Condition: Fair Hospital course: Pt is a 83 year old female with history of CHF and at bedtime fibrillation who presented to the ED on account of a day history of shortness of breath. She has associated wheezing, dry cough, pleuritic chest pain, palpitation, nausea without vomiting and generalized weakness. She denies fever, chills, sore throat, runny nose or congestion, diaphoresis, leg swelling, orthopnea or PND. No headaches, lightheadedness, syncope or loss of consciousness. She has positive history of constipation but no abdominal pain, dysuria or frequency. * Patient underwent cardiac cath with findings as noted below by Cardiology "pt had nstemi type 1 and with occlusion of sv tg om and unable to stent om1 secondary to calcium and inspector outside production of lad and patent svg to pda and right to left collaterals to lad (mid) and normal lv function, transfer to [place] tommorow and for afib will add dig for better rate control and discuss with patient and daughter in detail about cardiac status and plan. 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% -On CHF protocol -Last echo was in 10/2017, Atrial fibrillation with RVR -On IV Cardizem drip -Digoxin added -Hold Eliquis due to possible cardiac procedure Acute respiratory failure with hypoxia -Likely secondary to CHF exacerbation -Continue oxygen supplementation as needed NSTEMI Type 1 -As noted above Acute Cystitis with no clear evidence of sepsis -Continue abx -Cultures negative so far Hyperglycemia -A1C 5.7 Hyperlipidemia Transaminitis -Resolving Hypertension, stable s/p CABG S/P aortic valve replacement with bioprosthetic valve Patient transferred to [place] based on cardiac cath finding from the lean specialist. Transfer was arranged by the lean specialist. [facility] IP Time spent for discharge: 35 mins Core Measure Documentation - Palliative Care Palliative Care/ Comfort Measures: Not Applicable - Core Measures Any of the following diagnoses?: none Exam - Physical Exam Narrative exam: VITAL SIGNS: Reviewed. GENERAL: The patient appeared well nourished and normally developed, Vital signs as documented. HEAD: No signs of head trauma. EYES: Pupils are equal. Extraocular motions intact. EARS: Hearing grossly intact. MOUTH: Oropharynx is normal. NECK: No adenopathy, no JVD. CHEST: Chest with clear breath sounds bilaterally. No wheezes, rales, or rhon chi. CARDIAC: Irregularly irregular. S1 and S2, without murmurs, gallops, or rubs. VASCULAR: No Edema. Peripheral pulses normal and equal in all extremities. ABDOMEN: Soft, non tender and non distended. No rebound or guarding, and no masses palpated. Bowel Sounds normal. MUSCULOSKELETAL: Good range of motion of all major joints. Extremities without clubbing, cyanosis or edema. NEUROLOGIC EXAM: Alert and oriented x 3 No focal sensory or strength deficits. Speech normal. Follows commands. PSYCHIATRIC: Mood normal. SKIN: No rash or lesions. - Constitutional Vitals: Temp Pulse Resp BP Pulse Ox 101.8 F H 104 H 16 115/44 99 01/18/19 00:00 01/18/19 04:00 01/18/19 04:00 01/18/19 04:00 01/18/19 04:00 Plan Follow up with: PRIMARY CARE, [Referring] - 3-5 Days
== END 2019-01-17 18:00 | disposition short-term general hospital (02) | DRG 280 ==
LOC: SUATTDRO 04:03 → ED 04:03 → 4A 05:53 → IMCU 07:34
PROVIDERS: ADMIT Internal Medicine; ATTEND Internal Medicine
PROC: 02JA3ZZ Inspection of Heart, Percutaneous Approach (ICD-10-PCS; principal; 2019-01-17)
PROC: 4A023N7 Measurement of Cardiac Sampling and Pressure, Left Heart, Percutaneous Approach (ICD-10-PCS; 2019-01-17)
PROC: B2111ZZ Fluoroscopy of Multiple Coronary Arteries using Low Osmolar Contrast (ICD-10-PCS; 2019-01-17)
PROC: B2151ZZ Fluoroscopy of Left Heart using Low Osmolar Contrast (ICD-10-PCS; 2019-01-17)
PROC: B240ZZ3 Ultrasonography of Single Coronary Artery, Intravascular (ICD-10-PCS; 2019-01-17)
DX: T82.898A Other specified complication of vascular prosthetic devices, implants and grafts, initial encounter (principal); I21.4 Non-ST elevation (NSTEMI) myocardial infarction; J96.01 Acute respiratory failure with hypoxia; I50.43 Acute on chronic combined systolic (congestive) and diastolic (congestive) heart failure; N30.00 Acute cystitis without hematuria; R65.10 Systemic inflammatory response syndrome (SIRS) of non-infectious origin without acute organ dysfunction; I48.91 Unspecified atrial fibrillation; E78.2 Mixed hyperlipidemia; R73.9 Hyperglycemia, unspecified; I25.10 Atherosclerotic heart disease of native coronary artery without angina pectoris; I25.82 Chronic total occlusion of coronary artery; Y83.2 Surgical operation with anastomosis, bypass or graft as the cause of abnormal reaction of the patient, or of later complication, without mention of misadventure at the time of the procedure; I11.0 Hypertensive heart disease with heart failure; Z79.01 Long term (current) use of anticoagulants; Z82.49 Family history of ischemic heart disease and other diseases of the circulatory system; Z88.0 Allergy status to penicillin; Z88.2 Allergy status to sulfonamides; Z88.1 Allergy status to other antibiotic agents; Z95.1 Presence of aortocoronary bypass graft; Z95.4 Presence of other heart-valve replacement; Z79.82 Long term (current) use of aspirin; Y92.098 Other place in other non-institutional residence as the place of occurrence of the external cause
CPT/HCPCS: 36415; 71045; 74176; 76700; 80048; 80053; 80061; 80074; 81001; 82140; 82550; 82553; 82962; 83036; 83735; 83880; 84484; 85014; 85018; 85025; 85049; 85347; 85520; 85610; 85730; 87040; 87086; 92920; 92978; 93005; 93010; 93306; 93458; 94760; G0378; A9270-GY; C1725; C1753; C1769; C1887; C1894; J1160; J1644; J1940; J2250; J3010; J3370; J7040; Q9967

== ENCOUNTER 2019-01-24 20:54 | Inpatient (IN) | payer MEDICARE ==
--- NOTE | 2019-01-24 21:20 | Emergency Department Report ---
Blank Doc - Documentation Documentation: This is a 83-year-old female that presents with SOB. Dr. Amaya sent patient to the ED. HX of LA and stents. This initial assessment/diagnostic orders/clinical plan/treatment(s) is/are subject to change based on patient's health status, clinical progression and re- assessment by fellow clinical providers in the ED. Further treatment and workup at subsequent clinical providers discretion. Patient/guardians urged not to elope from the ED as their condition may be serious if not clinically assessed and managed. Initial orders include: 1- Patient sent to MAIN ED for further evaluation and treatment 2- labs 3- EKG 4- CXR
[2019-01-24 21:48] LABS: Hematocrit 30.6 % (30.3-42.9); Hemoglobin 9.7 gm/dl (10.1-14.3); Mean Corpuscular HGB Conc 32 % (30-34); Mean Corpuscular Volume 84 fl (79-97); Platelet Count 409 K/mm3 (140-440); Red Blood Count 3.64 M/mm3 (3.65-5.03); Red Cell Distribution Width 14.8 % (13.2-15.2)
[2019-01-24 21:57] LABS: INR 1.04 (0.87-1.13)
[2019-01-24 21:58] LABS: Partial Thromboplastin Time 32.1 Sec. (24.2-36.6)
[2019-01-24 22:06] LABS: Creatine Kinase MB 2.3 ng/mL (0.0-4.0)
[2019-01-24 22:09] LABS: BUN/Creatinine Ratio 23; Blood Urea Nitrogen 18 mg/dL (7-17); Calcium 8.8 mg/dL (8.4-10.2); Hemolysis Index 1
[2019-01-24 22:23] LABS: RBC Morphology Normal; Total Cells Counted 100
--- NOTE | 2019-01-24 23:11 | Emergency Department Report ---
ED Shortness of Breath HPI - General Chief Complaint: Dyspnea/Respdistress Stated Complaint: SOB Time Seen by Provider: 01/24/19 21:18 Source: family Mode of arrival: Ambulatory Limitations: No Limitations - History of Present Illness Initial Comments: 83-year-old female with history of CAD with recent stent placement one week ago, CHF, atrial fibrillation, presents to ED with intermittent, brief episodes of shortness of breath. Patient was seen here in this facility 8 days ago and admitted for an NSTEMI. The patient was unable to be stented here due to severe calcification, so pt was transferred to [place], where coronary stent was placed. Patient was discharged from [place] a few days ago, but has been having intermittent episodes of shortness of breath. Denies chest pain. Patient currently on aspirin, Plavix, and also Eliquis. MD Complaint: shortness of breath -: days(s) (5) Severity: mild Consistency: intermittent Improves With: nothing Worsens With: nothing Known History Of: congestive heart failure Associated Symptoms: denies other symptoms Treatments Prior to Arrival: none - Related Data Home Oxygen Therapy: No Home Medications Medication Instructions Recorded Confirmed Last Taken AtorvaSTATin [Lipitor] 20 mg PO QHS 03/21/17 01/24/19 08/26/18 Bumetanide [Bumex 1 mg tab] 1 mg PO DAILY 03/21/17 01/24/19 08/27/18 Lisinopril [Zestril TAB] 40 mg PO DAILY 03/21/17 01/24/19 08/27/18 Amlodipine Besylate 5 mg PO DAILY 01/16/19 01/24/19 Unknown Metoprolol [Lopressor TAB] 100 mg PO DAILY 01/16/19 01/24/19 Unknown Clopidogrel [Plavix] 75 mg PO QDAY 01/24/19 01/24/19 Unknown hydrALAZINE [Apresoline] 25 mg PO Q8HR PRN 01/24/19 01/24/19 Unknown Previous Rx's Medication Instructions Recorded Last Taken Type Apixaban [Eliquis] 2.5 mg PO Q12HR #60 tablet 11/15/17 08/27/18 Rx Allergies Allergy/AdvReac Type Severity Reaction Status Date / Time Penicillins Allergy Rash Verified 08/20/14 21:20 Sulfa (Sulfonamide Allergy Rash Verified 08/20/14 21:20 Antibiotics) levofloxacin [From Levaquin] AdvReac Shortness Verified 11/11/17 18:31 of Breath ED Review of Systems ROS: Stated complaint: SOB Other details as noted in HPI Comment: All other systems reviewed and negative Constitutional: denies: chills, fever Respiratory: shortness of breath. denies: cough Cardiovascular: denies: chest pain Gastrointestinal: denies: nausea, vomiting ED Past Medical Hx - Past Medical History Previous Medical History?: Yes Hx Hypertension: Yes Hx CVA: No Hx Heart Attack/AMI: No Hx Congestive Heart Failure: Yes (9 YRS AGO) Hx Diabetes: No Hx Renal Disease: No Hx Arthritis: No Hx Seizures: No Hx Asthma: No - Surgical History Past Surgical History?: Yes Hx Open Heart Surgery: Yes (CABG 2008-valve replacements-2 stents) Hx Pacemaker: No Additional Surgical History: open heart surgery right knee replacement - Social History Smoking Status: Never Smoker Substance Use Type: None - Medications Home Medications: Home Medications Medication Instructions Recorded Confirmed Last Taken Type AtorvaSTATin [Lipitor] 20 mg PO QHS 03/21/17 01/24/19 08/26/18 History Bumetanide [Bumex 1 mg tab] 1 mg PO DAILY 03/21/17 01/24/19 08/27/18 History Lisinopril [Zestril TAB] 40 mg PO DAILY 03/21/17 01/24/19 08/27/18 History Apixaban [Eliquis] 2.5 mg PO Q12HR #60 tablet 11/15/17 01/24/19 08/27/18 Rx Amlodipine Besylate 5 mg PO DAILY 01/16/19 01/24/19 Unknown History Metoprolol [Lopressor TAB] 100 mg PO DAILY 01/16/19 01/24/19 Unknown History Clopidogrel [Plavix] 75 mg PO QDAY 01/24/19 01/24/19 Unknown History hydrALAZINE [Apresoline] 25 mg PO Q8HR PRN 01/24/19 01/24/19 Unknown History ED Physical Exam - General Limitations: No Limitations General appearance: alert, in no apparent distress - Head Head exam: Present: atraumatic, normocephalic - Eye Eye exam: Present: normal appearance - ENT ENT exam: Present: mucous membranes moist - Neck Neck exam: Present: normal inspection - Respiratory Respiratory exam: Present: normal lung sounds bilaterally. Absent: respiratory distress - Cardiovascular Cardiovascular Exam: Present: regular rate, normal rhythm - GI/Abdominal GI/Abdominal exam: Present: soft. Absent: distended - Extremities Exam Extremities exam: Present: normal inspection. Absent: pedal edema, calf tenderness - Neurological Exam Neurological exam: Present: alert, oriented X3 - Psychiatric Psychiatric exam: Present: normal affect, normal mood - Skin Skin exam: Present: warm, dry, intact, normal color ED Course Vital Signs 01/24/19 01/24/19 01/24/19 21:19 21:58 23:00 Temperature 98.6 F 98.3 F Pulse Rate 68 74 70 Respiratory 20 25 H Rate Blood Pressure 122/44 127/56 Blood Pressure 125/60 [Left] O2 Sat by Pulse 96 94 Oximetry 01/24/19 01/25/19 23:13 00:00 Temperature Pulse Rate 76 77 Respiratory 15 20 Rate Blood Pressure 127/48 123/62 Blood Pressure [Left] O2 Sat by Pulse 93 93 Oximetry ED Medical Decision Making - Lab Data Result diagrams: 01/24/19 21:23 01/24/19 21:23 - EKG Data -: EKG Interpreted by Co EKG shows normal: QRS complexes, ST-T waves - EKG Data Interpretation: no acute changes, other (Afib) - Radiology Data Radiology results: report reviewed, image reviewed - Medical Decision Making 83-year-old female with CAD, CHF, recent coronary stent placement presents to ED with intermittent episodes of dyspnea. Patient in no respiratory distress at this time, O2 sats normal on room air. Denies chest pain. Troponin is elevated at 0.4, however during last admission, troponin was much higher at 2.3. It is likely that current troponin is a result of downward trend from her initial NSTEMI 8 days ago. Chest x-ray shows signs of CHF with pulmonary edema and small pleural effusion. IV Lasix given here in ED. Will admit to hospitalist, Dr Li. Bridge orders placed. - Differential Diagnosis ACS, CHF, pneumonia Critical care attestation.: If time is entered above; I have spent that time in minutes in the direct care of this critically ill patient, excluding procedure time. ED Disposition Clinical Impression: Acute exacerbation of CHF (congestive heart failure), Elevated troponin Disposition: OP ADMIT IP TO THIS HOSP Is pt being admited?: Yes Condition: Stable Referrals: JACK HEWITT MD [Primary Care Provider] - 3-5 Days Time of Disposition: 01:29
[2019-01-24 23:26] LABS: Chol/HDL Ratio 3.25 %; HDL Cholesterol 40 mg/dL (40-59); LDL Cholesterol,Direct 82 mg/dL (50-130)
--- NOTE | 2019-01-24 23:59 | XRay Report ---
PROCEDURE: XR CHEST 1V AP TECHNIQUE: A portable upright view the chest was obtained. HISTORY: sob COMPARISONS: 01/16/2019 FINDINGS: The heart is mildly enlarged. There are sternotomy sutures. The lungs remain mildly congested. There is a small right-sided effusion. There is bilateral mild interstitial edema. The skeletal structures reveal chronic deformity of the left humeral head from a previous fracture. IMPRESSION: Stable congestive heart failure pattern with small right-sided effusion.. This document is electronically signed by Julián Pepper MD., January 24 2019 11:57:50 PM ET
[2019-01-25] MEDS ORDERED: LASIX IV ONE (00:14)
[2019-01-25] MEDS ORDERED: ZOFRAN IV PRN (01:50)
[2019-01-25] MEDS ORDERED: PROVENTIL IH PRN (01:51)
[2019-01-25 01:52] LABS: Bilirubin,Urine NEG (Negative); Blood,Urine NEG (Negative); Color,Urine Straw (Yellow); Mucus,Urine FEW /HPF; Protein,Urine <15 mg/dL mg/dL (Negative); Urobilinogen,Urine < 2.0 mg/dL (<2.0)
[2019-01-25] MEDS: NITRO-BID 2% TP SCH ×4 (02:53→22:04)
[2019-01-25] MEDS ORDERED: TYLENOL PO PRN (04:17)
--- NOTE | 2019-01-25 05:29 | History and Physical Report ---
CHIEF COMPLAINT: Shortness of breath. HISTORY OF PRESENTING ILLNESS: The patient is an 83-year-old female who was recently admitted to this hospital for coronary artery disease and transferred to [place] where she had stent placed about 1 week ago and was recently discharged and then started having shortness of breath at home. Denied history of chest pain. Denied history of fever or chills. Denied also history of cough, nausea, or vomiting and presented for evaluation. PAST MEDICAL HISTORY: Pertinent for hypertension, coronary artery disease, status post myocardial infarction, congestive heart failure. PAST SURGICAL HISTORY: Pertinent for coronary artery bypass graft, right knee replacement surgery. FAMILY HISTORY: Noncontributory. SOCIAL HISTORY: The patient does not smoke, does not drink alcohol, and does not use illicit drugs. MEDICATIONS: The patient is on Lipitor 20 mg by mouth at bedtime, bumetanide or Bumex 1 mg by mouth daily. The patient is also on lisinopril 40 mg by mouth daily, Eliquis 2.5 mg by mouth every 12 hours, amlodipine 5 mg by mouth daily, Lopressor 100 mg by mouth daily, Plavix 75 mg by mouth daily, Apresoline 25 mg by mouth every 8 hours as needed for elevated blood pressure. ALLERGIES: THE PATIENT IS ALLERGIC TO PENICILLIN, SULFA DRUGS, AND LEVOFLOXACIN. REVIEW OF SYSTEMS: CONSTITUTIONAL: There is no fever, no chills, no diaphoresis. HEENT: There is no headache or sore throat. CARDIOVASCULAR SYSTEM: There is no chest pain or orthopnea. RESPIRATORY SYSTEM: Shortness of breath is present. There is no cough. GASTROINTESTINAL SYSTEM: There is no nausea, no vomiting. No abdominal pain, diarrhea, or constipation. NEUROLOGICAL SYSTEM: There is no numbness, no dizziness, no altered mental status. MUSCULOSKELETAL SYSTEM: There is no joint pain or swelling. DERMATOLOGICAL SYSTEM: There is no skin rash or itching. GENITOURINARY SYSTEM: There is no dysuria, hematuria, or flank pain. Rest of system review is normal. PHYSICAL EXAMINATION: GENERAL: At the time of exam, the patient was found to be alert, oriented x 3, and not in acute distress. VITAL SIGNS: Showed temperature of 98.6 degrees Fahrenheit, pulse of 68, respirations 20, blood pressure 122/44, O2 sat of 96% on room air. HEENT: Showed pupils to be equal, round, and reactive to light and accommodating. Extraocular muscles were intact. NECK: Supple with no JVD or carotid bruit. CARDIOVASCULAR SYSTEM: Showed first and second heart sounds with irregularly irregular rhythm. RESPIRATORY SYSTEM: Showed good air entry on both sides. Lungs with bibasilar rales. GASTROINTESTINAL: Showed abdomen to be full, soft, and nontender with no organomegaly or rigidity. NEUROLOGIC: Showed no focal deficit. MUSCULOSKELETAL SYSTEM: Showed no joint swelling or tenderness. DERMATOLOGICAL SYSTEM: Showed no skin rash. GENITOURINARY SYSTEM: Showing no costovertebral angle tenderness. PERTINENT LABORATORY DATA AND IMAGING STUDIES: The patient had chest x-ray that shows stable congestive heart failure pattern with small right pleural effusion. Lab results; the patient's CBC showed normal white count, low hemoglobin of 9.7, low hematocrit of 30.6 with normal coagulation studies. The patient's chemistry was unremarkable except for elevated troponin level of 0.40. The patient's urinalysis shows high urine pH of 8, otherwise unremarkable. DIAGNOSES: 1. Congestive heart failure exacerbation. 2. Elevated troponin. 3. Atrial fibrillation. PLAN OF CARE: 1. The patient will be admitted to telemetry. 2. The patient will have cardiac enzymes involving troponin, total CK and CK-MB check q. 6 hours x 2 more levels. 3. The patient will have 2D echo done in the morning. 4. The patient will have Cardiology consult with Dr. Lopez Amaya because of CHF exacerbation with elevated troponin in a patient with recent stent placement. 5. The patient will be on nitro paste half inch to anterior chest wall q. 6 hours. 6. The patient will be on IV Lasix 40 mg daily and will be on albuterol nebulizer 2.5 mg q. 6 hours as needed for shortness of breath. 7. The patient will be on Tylenol 650 mg by mouth every 4 hours for fever and headache. The patient will be on IV Zofran 4 mg every 8 hours for nausea and vomiting. 8. We will have cardiology consult with Dr. Lopez Amaya who has seen the patient in the past. JOB# [id number] OCN/NTS
[2019-01-25 05:55] LABS: Creatine Kinase MB 2.4 ng/mL (0.0-4.0)
[2019-01-25] MEDS: LASIX IV SCH (09:42)
[2019-01-25] MEDS ORDERED: APRESOLINE PO PRN (10:05)
[2019-01-25] MEDS ORDERED: NON-FORMULARY (Amlodipine Besylate 5 MG) PO SCH (10:15)
[2019-01-25] MEDS ORDERED: ZESTRIL PO SCH (11:00)
[2019-01-25] MEDS ORDERED: BUMEX PO SCH (11:00)
[2019-01-25] MEDS: PLAVIX PO SCH (11:07)
[2019-01-25] MEDS: BABY ASPIRIN PO SCH (11:07)
[2019-01-25] MEDS: ELIQUIS PO SCH ×2 (11:07→22:04)
[2019-01-25] MEDS: NORVASC PO SCH (11:07)
[2019-01-25] MEDS: LOPRESSOR PO SCH ×2 (11:11→22:04)
[2019-01-25 12:42] LABS: Creatine Kinase MB 2.1 ng/mL (0.0-4.0)
--- NOTE | 2019-01-25 13:29 | Consultation ---
History of Present Illness Consult date: 01/25/19 Requesting physician: MOR TOLEDO Consult reason: congestive heart failure History of present illness: The pt is an 83 YO female with a past medical history of CAD s/p CABG x2 (saphenous to mid obtuse marginal and saphenous to posterior descending coronary) in 01/2008 and recent PCI - arthrectomy of mid LCx at [facility] on 01/18/2019 (tx from [facility] after presentation with NSTEMI type I and [facility] which showed [employer]ER prox LAD, occluded SVG-MOM and 80% calcified mid LCx s/p failed POBA so she got transferred to [facility] for PCI), s/p aortic valve replacement with bioprosthetic valve in 01/2008, atrial fibrillation, anticoagulated with Eliquis, HTN, HLP. She is followed in our office by Dr. Amaya. She presented with complaints of intermittent dyspnea for the past several days. She sometimes become SOB while at rest and sometimes with exertion. She was discharged from [facility] on 01/20. She denies any swelling, chest pain, palpitations, n/v, diaphoresis, dizziness or syncope. She reports compliance with medication regimen, including ASA 81, plavix and eliquis. [facility] 01/17/2019 - pt had nstemi type 1 and with occlusion of sv tg om and unable to stent om1 secondary to calcium and waste collector of lad and patent svg to pda and right to left collaterals to lad (mid) and normal lv function, transferred to [place]. Echo done 01/2019 showed EF 50-55%, severely dilated LA, bioprosthetic AV well seated with mild AI and trace perivalvular leak, mod MR, mild to mod TR, RVSP 47mmHg. Past History Past Medical History: atrial fib, CAD, hypertension, hyperlipidemia Past Surgical History: CABG, PTCA, Other (bioprosthetic AV ) Medications and Allergies Allergies Allergy/AdvReac Type Severity Reaction Status Date / Time Penicillins Allergy Rash Verified 08/20/14 21:20 Sulfa (Sulfonamide Allergy Rash Verified 08/20/14 21:20 Antibiotics) levofloxacin [From Levaquin] AdvReac Shortness Verified 11/11/17 18:31 of Breath Home Medications Medication Instructions Recorded Confirmed Last Taken Type AtorvaSTATin [Lipitor] 20 mg PO QHS 03/21/17 01/24/19 08/26/18 History Bumetanide [Bumex 1 mg tab] 1 mg PO DAILY 03/21/17 01/24/19 08/27/18 History Lisinopril [Zestril TAB] 40 mg PO DAILY 03/21/17 01/24/19 08/27/18 History Apixaban [Eliquis] 2.5 mg PO Q12HR #60 tablet 11/15/17 01/24/19 08/27/18 Rx Amlodipine Besylate 5 mg PO DAILY 01/16/19 01/24/19 Unknown History Metoprolol [Lopressor TAB] 100 mg PO DAILY 01/16/19 01/24/19 Unknown History Clopidogrel [Plavix] 75 mg PO QDAY 01/24/19 01/24/19 Unknown History hydrALAZINE [Apresoline] 25 mg PO Q8HR PRN 01/24/19 01/24/19 Unknown History Active Meds: Active Medications Acetaminophen (Tylenol) 650 mg PO Q4H PRN PRN Reason: Fever >101 Albuterol (Proventil) 2.5 mg IH Q6H PRN PRN Reason: Shortness Of Breath Amlodipine Besylate (Norvasc) 5 mg PO QDAY [facility] Last Admin: 01/25/19 11:07 Dose: 5 mg Documented by: Apixaban (Eliquis) 2.5 mg PO Q12HR [facility]; Protocol Last Admin: 01/25/19 11:07 Dose: 2.5 mg Documented by: Aspirin (Baby Aspirin) 81 mg PO QDAY [facility] Stop: 01/27/19 11:01 Last Admin: 01/25/19 11:07 Dose: 81 mg Documented by: Atorvastatin Calcium (Lipitor) 20 mg PO QHS [facility] Clopidogrel Bisulfate (Plavix) 75 mg PO QDAY [facility] Last Admin: 01/25/19 11:07 Dose: 75 mg Documented by: Furosemide (Lasix) 40 mg IV QDAY [facility] Last Admin: 01/25/19 09:42 Dose: 40 mg Documented by: Hydralazine HCl (Apresoline) 25 mg PO Q8HR PRN PRN Reason: Blood Pressure Lisinopril (Zestril) 20 mg PO QDAY [facility] Metoprolol Tartrate (Lopressor) 100 mg PO BID [facility] Last Admin: 01/25/19 11:11 Dose: 100 mg Documented by: Nitroglycerin (Nitro-Bid 2%) 0.5 inch TP Q6H [facility]; Protocol Last Admin: 01/25/19 09:42 Dose: 0.5 inch Documented by: Ondansetron HCl (Zofran) 4 mg IV Q8H PRN PRN Reason: Nausea And Vomiting Review of Systems Constitutional: no weight loss, no weight gain, no fever, no chills, no sweats Ears, nose, mouth and throat: no ear pain, no sinus pressure, no sinus pain Cardiovascular: shortness of breath, dyspnea on exertion, no chest pain, no orthopnea, no palpitations, no rapid/irregular heart beat, no edema, no syncope, no lightheadedness, no high blood pressure, no leg edema Respiratory: shortness of breath, dyspnea on exertion, no cough, no congestion, no wheezing, no pain on inspiration Gastrointestinal: no abdominal pain, no nausea, no vomiting, no diarrhea, no constipation, no change in bowel habits Genitourinary Female: no pelvic pain, no flank pain, no dysuria, no urinary f requency, no urgency Musculoskeletal: no neck stiffness, no neck pain, no shooting arm pain, no arm numbness/tingling, no low back pain, no shooting leg pain Integumentary: no rash, no pruritis, no redness, no sores, no wounds Neurological: no head injury, no paralysis, no weakness, no parathesias, no numbness, no tingling, no seizures, no syncope Psychiatric: no anxiety Endocrine: no cold intolerance, no heat intolerance Hematologic/Lymphatic: no easy bruising, no easy bleeding Allergic/Immunologic: no urticaria, no wheezing Physical Examination Vital Signs Temp Pulse BP 98.6 F 68 122/44 01/24/19 21:19 01/24/19 21:19 01/24/19 21:19 General appearance: no acute distress HEENT: Positive: PERRL, Normocephaly, Mucus Membranes Moist Neck: Positive: neck supple, trachea midline Cardiac: Positive: Reg Rate and Rhythm, S1/S2 Lungs: Positive: Rales (fine bibasilar) Neuro: Positive: Grossly Intact Abdomen: Positive: Soft. Negative: Tender Skin: Negative: Rash Musculoskeletal: No Pain Extremities: Absent: edema Results 01/24/19 21:23 01/24/19 21:23 Cardiac Enzymes 01/24/19 01/25/19 01/25/19 Range/Units 21:23 04:57 11:59 CK-MB (CK-2) 2.3 2.4 2.1 (0.0-4.0) ng/mL Coagulation 01/24/19 Range/Units 21:23 PT 14.2 (12.2-14.9) Sec. INR 1.04 (0.87-1.13) APTT 32.1 (24.2-36.6) Sec. Lipids 01/24/19 Range/Units 21:23 Triglycerides 88 (2-149) mg/dL Cholesterol 130 (50-199) mg/dL HDL Cholesterol 40 (40-59) mg/dL Cholesterol/HDL Ratio 3.25 % CBC 01/24/19 Range/Units 21:23 WBC 7.9 (4.5-11.0) K/mm3 RBC 3.64 L (3.65-5.03) M/mm3 Hgb 9.7 L (10.1-14.3) gm/dl Hct 30.6 (30.3-42.9) % Plt Count 409 (140-440) K/mm3 Comprehensive Metabolic Panel 01/24/19 Range/Units 21:23 Sodium 139 (137-145) mmol/L Potassium 4.6 (3.6-5.0) mmol/L Chloride 98.0 (98-107) mmol/L Carbon Dioxide 30 (22-30) mmol/L BUN 18 H (7-17) mg/dL Creatinine 0.8 (0.7-1.2) mg/dL Glucose 118 H (65-100) mg/dL Calcium 8.8 (8.4-10.2) mg/dL - Imaging and Cardiology Echo: report reviewed ( 01/2019 showed EF 50-55%, severely dilated LA, bioprosthetic AV well seated with mild AI and trace perivalvular leak, mod MR, mild to mod TR, RVSP 47mmHg. ) Cardiac cath: report reviewed (PCI - arthrectomy of mid LCx at [facility] on 01/18/2019) EKG: report reviewed, image reviewed EKG interpretations - Telemetry EKG Rhythm: Atrial Fibrillation - EKG Supraventricular dysrhythmia: atrial fibrillation Chamber hypertrophy or enlargement: left ventricular hypertro Assessment and Plan Agree with present management. Pt denies chest pain, ECG with no acute ischemic changes. Troponin elevation currently nonspecific in setting of recent NSTEMI with PCI. The patient has been seen in conjunction with Dr. Garner who agrees with the as sessment and plan of care. - Patient Problems (1) Acute heart failure with preserved ejection fraction Current Visit: Yes Status: Acute (2) CAD (coronary artery disease) Current Visit: Yes Status: Chronic (3) Stented coronary artery Current Visit: Yes Status: Chronic (4) S/P CABG (coronary artery bypass graft) Current Visit: Yes Status: Chronic (5) Elevated troponin Current Visit: Yes Status: Acute (6) HTN (hypertension) Current Visit: Yes Status: Chronic Qualifiers: Hypertension type: essential hypertension Qualified Code(s): I10 - Essential (primary) hypertension (7) Hyperlipidemia Current Visit: Yes Status: Chronic Qualifiers: Hyperlipidemia type: mixed hyperlipidemia Qualified Code(s): E78.2 - Mixed hyperlipidemia (8) S/P aortic valve replacement with bioprosthetic valve Current Visit: Yes Status: Chronic
--- NOTE | 2019-01-25 14:16 | Progress Note ---
Assessment and Plan Assessment and plan: Patient is a 83 yo Arabic speaking woman with a history of hypertension, combined CHF EF 50-55%, afib, cystitis, OA, tissue AVR, severe pulmonary hypertension, CAD s/p cabg and recent NSTEMI who was sent from here to [facility] on 01/17/19 for Rotary Athrectomy stenting (not done here) of mid Left circumflex at [place] (the 100% LAD occlusion is chronic with collaterals and will be treated medically) who presents now to [facility] ED with worsening SOB. -Acute on chronic diastolic heart failure: iv lasix is helping, monitor renal function closely, d/w Account Installer -CAD s/p recent PCI: asa/plavix/eliquis x 1 week then plavix/eliquis x 12 months -Afib; continue Eliquis and rate control History Interval history: Patient was seen and examined. Follow-up on current diagnosis CHF. Overnight uneventful. Patient denies any chest pain, nausea/vomiting or severe headaches. Imaging, nursing note, chart, labs and old chart reviewed. Discussed with patient. Daughters Radha and Erika at bedside were the spanish interpreter Gen: WDWN, NAD, Awake, Alert, Orientated HEENT: NCAT, EOMI, PERRL, OP Clear Neck: supple, no adenopathy, no thyromegaly, no JVD CVS/Heart: irregular irregular, normal S1S2, pulses present bilaterally Chest/Lungs: diminished bs bilaterally, Symmetrical chest expansion, good air entry bilaterally GI/Abdomen: soft, NTND, good bowel sounds, no guarding or rebound /Bladder: no suprapubic tenderness, no CVA or paraspinal tenderness Extermity/Skin: no c/c/e, no obvious rash MSK: FROM x 4 Neuro: CN 2-12 grossly intact, no new focal deficits Psych: calm Hospitalist Physical - Constitutional Vitals: Temp Pulse Resp BP Pulse Ox 98.7 F 74 18 128/52 95 01/25/19 09:30 01/25/19 11:11 01/25/19 09:30 01/25/19 11:11 01/25/19 05:11 General appearance: Present: no acute distress Results - Labs CBC & Chem 7: 01/24/19 21:23 01/24/19 21:23 Labs: Laboratory Last Values WBC 7.9 K/mm3 (4.5-11.0) 01/24/19 21: RBC 3.64 M/mm3 (3.65-5.03) L 01/24/19 21: Hgb 9.7 gm/dl (10.1-14.3) L 01/24/19 21: Hct 30.6 % (30.3-42.9) 01/24/19 21: MCV 84 fl (79-97) 01/24/19 21: MCH 27 pg (28-32) L 01/24/19 21: MCHC 32 % (30-34) 01/24/19 21: RDW 14.8 % (13.2-15.2) 01/24/19: Plt Count 409 K/mm3 (140-440) 01/24/19 21: Add Manual Diff Complete 01/24/19 21: Total Counted 100 01/24/19 21: Seg Neuts % (Manual) 60.0 % (40.0-70.0) 01/24/19 21: Band Neutrophils % 0 % 01/24/19 21: Lymphocytes % (Manual) 22.0 % (13.4-35.0) 01/24/19 21: Reactive Lymphs % (Man) 0 % 01/24/19 21: Monocytes % (Manual) 13.0 % (0.0-7.3) H 01/24/19 21: Eosinophils % (Manual) 4.0 % (0.0-4.3) 01/24/19: Basophils % (Manual) 1.0 % (0.0-1.8) 01/24/19 21: Metamyelocytes % 0 % 01/24/19 21: Myelocytes % 0 % 01/24/19 21: Promyelocytes % 0 % 01/24/19 21: Blast Cells % 0 % 01/24/19 21: Nucleated RBC % Not Reportable 01/24/19 21: Seg Neutrophils # Man 4.7 K/mm3 (1.8-7.7) 01/24/19 21: Band Neutrophils # 0.0 K/mm3 01/24/19 21: Lymphocytes # (Manual) 1.7 K/mm3 (1.2-5.4) 01/24/19 21:23 Abs React Lymphs (Man) 0.0 K/mm3 01/24/19 21:23 Monocytes # (Manual) 1.0 K/mm3 (0.0-0.8) H 01/24/19 21:23 Eosinophils # (Manual) 0.3 K/mm3 (0.0-0.4) 01/24/19 21:23 Basophils # (Manual) 0.1 K/mm3 (0.0-0.1) 01/24/19 21:23 Metamyelocytes # 0.0 K/mm3 01/24/19 21:23 Myelocytes # 0.0 K/mm3 01/24/19 21:23 Promyelocytes # 0.0 K/mm3 01/24/19 21:23 Blast Cells # 0.0 K/mm3 01/24/19 21:23 WBC Morphology Not Reportable 01/24/19 21:23 Hypersegmented Neuts Not Reportable 01/24/19 21:23 Hyposegmented Neuts Not Reportable 01/24/19 21:23 Hypogranular Neuts Not Reportable 01/24/19 21:23 Smudge Cells Not Reportable 01/24/19 21:23 Toxic Granulation Not Reportable 01/24/19 21:23 Toxic Vacuolation Not Reportable 01/24/19 21:23 Dohle Bodies Not Reportable 01/24/19 21:23 Pelger-Huet Anomaly Not Reportable 01/24/19 21:23 Tiffanie Rods Not Reportable 01/24/19 21:23 Platelet Estimate Not Reportable 01/24/19 21:23 Clumped Platelets Not Reportable 01/24/19 21:23 Plt Clumps, EDTA Not Reportable 01/24/19 21:23 Large Platelets Not Reportable 01/24/19 21:23 Giant Platelets Not Reportable 01/24/19 21:23 Platelet Satelliting Not Reportable 01/24/19 21:23 Plt Morphology Comment Not Reportable 01/24/19 21:23 RBC Morphology Normal 01/24/19 21:23 Dimorphic RBCs Not Reportable 01/24/19 21:23 Polychromasia Not Reportable 01/24/19 21:23 Hypochromasia Not Reportable 01/24/19 21:23 Poikilocytosis Not Reportable 01/24/19 21:23 Anisocytosis Not Reportable 01/24/19 21:23 Microcytosis Not Reportable 01/24/19 21:23 Macrocytosis Not Reportable 01/24/19 21:23 Spherocytes Not Reportable 01/24/19 21:23 Pappenheimer Bodies Not Reportable 01/24/19 21:23 Sickle Cells Not Reportable 01/24/19 21:23 Target Cells Not Reportable 01/24/19 21:23 Tear Drop Cells Not Reportable 01/24/19 21:23 Ovalocytes Not Reportable 01/24/19 21:23 Helmet Cells Not Reportable 01/24/19 21:23 Martínez-Dolores Bodies Not Reportable 01/24/19 21:23 [place] Rings Not Reportable 01/24/19 21:23 [place] Cells Not Reportable 01/24/19 21:23 Bite Cells Not Reportable 01/24/19 21:23 Crenated Cell Not Reportable 01/24/19 21:23 Elliptocytes Not Reportable 01/24/19 21:23 Acanthocytes (Spur) Not Reportable 01/24/19 21:23 Rouleaux Not Reportable 01/24/19 21:23 Hemoglobin C Crystals Not Reportable 01/24/19 21:23 Schistocytes Not Reportable 01/24/19 21:23 Malaria parasites Not Reportable 01/24/19 21:23 Sadiq Bodies Not Reportable 01/24/19 21:23 Hem Pathologist Commnt No 01/24/19 21:23 PT 14.2 Sec. (12.2-14.9) 01/24/19 21:23 INR 1.04 (0.87-1.13) 01/24/19 21:23 APTT 32.1 Sec. (24.2-36.6) 01/24/19 21:23 Sodium 139 mmol/L (137-145) 01/24/19 21:23 Potassium 4.6 mmol/L (3.6-5.0) 01/24/19 21:23 Chloride 98.0 mmol/L (98-107) 01/24/19 21:23 Carbon Dioxide 30 mmol/L (22-30) 01/24/19 21:23 Anion Gap 16 mmol/L 01/24/19 21:23 BUN 18 mg/dL (7-17) H 01/24/19 21:23 Creatinine 0.8 mg/dL (0.7-1.2) 01/24/19 21:23 Estimated GFR > 60 ml/min 01/24/19 21:23 BUN/Creatinine Ratio 23 % 01/24/19 21:23 Glucose 118 mg/dL (65-100) H 01/24/19 21:23 Calcium 8.8 mg/dL (8.4-10.2) 01/24/19 21:23 Total Creatine Kinase 87 units/L (30-135) 01/25/19 11:59 CK-MB (CK-2) 2.1 ng/mL (0.0-4.0) 01/25/19 11:59 CK-MB (CK-2) Rel Index 2.4 (0-4) 01/25/19 11:59 Troponin T 0.203 ng/mL (0.00-0.029) H* D 01/25/19 11:59 Triglycerides 88 mg/dL (2-149) 01/24/19 21:23 Cholesterol 130 mg/dL (50-199) 01/24/19 21:23 LDL Cholesterol Direct 82 mg/dL (50-130) 01/24/19 21:23 HDL Cholesterol 40 mg/dL (40-59) 01/24/19 21:23 Cholesterol/HDL Ratio 3.25 % 01/24/19 21:23 Urine Color Straw (Yellow) 01/25/19 01:30 Urine Turbidity Clear (Clear) 01/25/19 01:30 Urine pH 8.0 (5.0-7.0) H 01/25/19 01:30 Ur Specific [place] 1.005 (1.003-1.030) 01/25/19 01:30 Urine Protein <15 mg/dl mg/dL (Negative) 01/25/19 01:30 Urine Glucose (UA) Neg mg/dL (Negative) 01/25/19 01:30 Urine Ketones Neg mg/dL (Negative) 01/25/19 01:30 Urine Blood Neg (Negative) 01/25/19 01:30 Urine Nitrite Neg (Negative) 01/25/19 01:30 Urine Bilirubin Neg (Negative) 01/25/19 01:30 Urine Urobilinogen < 2.0 mg/dL (<2.0) 01/25/19 01:30 Ur Leukocyte Esterase Neg (Negative) 01/25/19 01:30 Urine WBC (Auto) 2.0 /HPF (0.0-6.0) 01/25/19 01:30 Urine RBC (Auto) 1.0 /HPF (0.0-6.0) 01/25/19 01:30 U Epithel Cells (Auto) 1.0 /HPF (0-13.0) 01/25/19 01:30 Urine Mucus Few /HPF 01/25/19 01:30 Active Medications - Current Medications Current Medications: Generic Name Dose Route Start Last Admin Trade Name Freq PRN Reason Stop Dose Admin Acetaminophen 650 mg 01/25/19 04:17 Tylenol PO Q4H PRN Fever >101 Albuterol 2.5 mg 01/25/19 01:51 Proventil IH Q6H PRN Shortness Of Breath Amlodipine Besylate 5 mg 01/25/19 12:00 01/25/19 11:07 Norvasc PO 5 mg QDAY TEX Administration Apixaban 2.5 mg 01/25/19 12:00 01/25/19 11:07 Eliquis PO 2.5 mg Q12HR TEX Administration Protocol Aspirin 81 mg 01/25/19 11:00 01/25/19 11:07 Baby Aspirin PO 01/27/19 11:01 81 mg QDAY TEX Administration Atorvastatin Calcium 20 mg 01/25/19 22:00 Lipitor PO QHS TEX Clopidogrel Bisulfate 75 mg 01/25/19 12:00 01/25/19 11:07 Plavix PO 75 mg QDAY TEX Administration Furosemide 40 mg 01/25/19 10:00 01/25/19 09:42 Lasix IV 40 mg QDAY TEX Administration Hydralazine HCl 25 mg 01/25/19 10:05 Apresoline PO Q8HR PRN Blood Pressure Lisinopril 20 mg 01/26/19 10:00 Zestril PO QDAY TEX Metoprolol Tartrate 100 mg 01/25/19 12:00 01/25/19 11:11 Lopressor PO 100 mg BID TEX Administration Nitroglycerin 0.5 inch 01/25/19 02:00 01/25/19 09:42 Nitro-Bid 2% TP 0.5 inch Q6H TEX Administration Protocol Ondansetron HCl 4 mg 04/11/19 01:50 Zofran IV Q8H PRN Nausea And Vomiting
[2019-01-26] MEDS: NITRO-BID 2% TP SCH ×2 (05:59→10:00)
[2019-01-26] MEDS: LOPRESSOR PO SCH ×2 (09:43→21:12)
[2019-01-26] MEDS: PLAVIX PO SCH (09:43)
[2019-01-26] MEDS: LASIX IV SCH (09:43)
[2019-01-26] MEDS: ZESTRIL PO SCH (09:45)
[2019-01-26] MEDS: BABY ASPIRIN PO SCH (09:46)
[2019-01-26] MEDS: ELIQUIS PO SCH ×2 (09:46→21:13)
[2019-01-26] MEDS: NORVASC PO SCH (09:46)
[2019-01-26] MEDS ORDERED: LOPRESSOR PO SCH (10:00)
--- NOTE | 2019-01-26 10:54 | Progress Note ---
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 -Acute on chronic diastolic heart failure: iv lasix is helping, monitor renal function closely, d/w Brim Cutter, d/c ntg paste. -CAD s/p recent PCI: asa/plavix/eliquis x 1 week then plavix/eliquis x 12 months -Afib; continue Eliquis and rate control -Bradycardia: adjusted medications per Cardiology, now HR 99 -CHRISSY suspect: consult RT for assessment, recommended outpatient sleep study, try to wean off 2 liters of o2 DVT ppx: Eliquis full code Disposition: continue inpatient care, d/c once heart rate stabilizes and off o2, hopefully d/c tomorrow History Interval history: Patient was seen and examined. Follow-up on current diagnosis CHF. Overnight uneventful. Patient denies any chest pain, nausea/vomiting or severe headaches. Imaging, nursing note, chart, labs and old chart reviewed. Discussed with patient. Daughter Erika and son Jessica at bedside; they were the [place] inte rpreter. Yesterday heart rate dropped and pt had another gasping SOB episode yesterday during the day. Lowest heart rate was 43 at 8:18pm yesterday and hr 45 was at 5:41pm yesterday. Hospitalist Physical - Physical exam Narrative exam: Gen: WDWN, NAD, Awake, Alert, Orientated HEENT: NCAT, EOMI, PERRL, OP Clear Neck: supple, no adenopathy, no thyromegaly, no JVD CVS/Heart: irregular irregular, normal S1S2, pulses present bilaterally Chest/Lungs: diminished bs bilaterally, Symmetrical chest expansion, good air entry bilaterally GI/Abdomen: soft, NTND, good bowel sounds, no guarding or rebound /Bladder: no suprapubic tenderness, no CVA or paraspinal tenderness Extermity/Skin: no c/c/e, no obvious rash MSK: FROM x 4 Neuro: CN 2-12 grossly intact, no new focal deficits Psych: calm - Constitutional Vitals: Temp Pulse Resp BP Pulse Ox 98.2 F 99 H 16 138/54 97 01/26/19 09:06 01/26/19 10:00 01/26/19 09:06 01/26/19 09:06 01/26/19 09:06 General appearance: Present: no acute distress Results - Labs CBC & Chem 7: 01/24/19 21:23 01/24/19 21:23 Labs: Laboratory Last Values WBC 7.9 K/mm3 (4.5-11.0) 01/24/19 21:23 RBC 3.64 M/mm3 (3.65-5.03) L 01/24/19 21:23 Hgb 9.7 gm/dl (10.1-14.3) L 01/24/19 21:23 Hct 30.6 % (30.3-42.9) 01/24/19 21:23 MCV 84 fl (79-97) 01/24/19 21:23 MCH 27 pg (28-32) L 01/24/19 21:23 MCHC 32 % (30-34) 01/24/19 21:23 RDW 14.8 % (13.2-15.2) 01/24/19 21:23 Plt Count 409 K/mm3 (140-440) 01/24/19 21:23 Add Manual Diff Complete 01/24/19 21:23 Total Counted 100 01/24/19 21:23 Seg Neuts % (Manual) 60.0 % (40.0-70.0) 01/24/19 21:23 Band Neutrophils % 0 % 01/24/19 21:23 Lymphocytes % (Manual) 22.0 % (13.4-35.0) 01/24/19 21:23 Reactive Lymphs % (Man) 0 % 01/24/19 21:23 Monocytes % (Manual) 13.0 % (0.0-7.3) H 01/24/19 21:23 Eosinophils % (Manual) 4.0 % (0.0-4.3) 01/24/19 21:23 Basophils % (Manual) 1.0 % (0.0-1.8) 01/24/19 21:23 Metamyelocytes % 0 % 01/24/19 21:23 Myelocytes % 0 % 01/24/19 21:23 Promyelocytes % 0 % 01/24/19 21:23 Blast Cells % 0 % 01/24/19 21:23 Nucleated RBC % Not Reportable 01/24/19 21:23 Seg Neutrophils # Man 4.7 K/mm3 (1.8-7.7) 01/24/19 21:23 Band Neutrophils # 0.0 K/mm3 01/24/19 21:23 Lymphocytes # (Manual) 1.7 K/mm3 (1.2-5.4) 01/24/19 21:23 Abs React Lymphs (Man) 0.0 K/mm3 01/24/19 21: Monocytes # (Manual) 1.0 K/mm3 (0.0-0.8) H 01/24/19 21:23 Eosinophils # (Manual) 0.3 K/mm3 (0.0-0.4) 01/24/19 21:23 Basophils # (Manual) 0.1 K/mm3 (0.0-0.1) 01/24/19 21:23 Metamyelocytes # 0.0 K/mm3 01/24/19 21:23 Myelocytes # 0.0 K/mm3 01/24/19 21:23 Promyelocytes # 0.0 K/mm3 01/24/19 21:23 Blast Cells # 0.0 K/mm3 01/24/19 21:23 WBC Morphology Not Reportable 01/24/19 21:23 Hypersegmented Neuts Not Reportable 01/24/19 21:23 Hyposegmented Neuts Not Reportable 01/24/19 21:23 Hypogranular Neuts Not Reportable 01/24/19 21:23 Smudge Cells Not Reportable 01/24/19 21:23 Toxic Granulation Not Reportable 01/24/19 21:23 Toxic Vacuolation Not Reportable 01/24/19 21:23 Dohle Bodies Not Reportable 01/24/19 21:23 Pelger-Huet Anomaly Not Reportable 01/24/19 21:23 Tiffanie Rods Not Reportable 01/24/19 21:23 Platelet Estimate Not Reportable 01/24/19 21:23 Clumped Platelets Not Reportable 01/24/19 21:23 Plt Clumps, EDTA Not Reportable 01/24/19 21:23 Large Platelets Not Reportable 01/24/19 21:23 Giant Platelets Not Reportable 01/24/19 21:23 Platelet Satelliting Not Reportable 01/24/19 21:23 Plt Morphology Comment Not Reportable 01/24/19 21:23 RBC Morphology Normal 01/24/19 21:23 Dimorphic RBCs Not Reportable 01/24/19 21:23 Polychromasia Not Reportable 01/24/19 21:23 Hypochromasia Not Reportable 01/24/19 21:23 Poikilocytosis Not Reportable 01/24/19 21:23 Anisocytosis Not Reportable 01/24/19 21:23 Microcytosis Not Reportable 01/24/19 21:23 Macrocytosis Not Reportable 01/24/19 21:23 Spherocytes Not Reportable 01/24/19 21:23 Pappenheimer Bodies Not Reportable 01/24/19 21:23 Sickle Cells Not Reportable 01/24/19 21:23 Target Cells Not Reportable 01/24/19 21:23 Tear Drop Cells Not Reportable 01/24/19 21:23 Ovalocytes Not Reportable 01/24/19 21:23 Helmet Cells Not Reportable 01/24/19 21:23 [place] Bodies Not Reportable 01/24/19 21:23 [place] Rings Not Reportable 01/24/19 21:23 [place] Cells Not Reportable 01/24/19 21:23 Bite Cells Not Reportable 01/24/19 21:23 Crenated Cell Not Reportable 01/24/19 21:23 Elliptocytes Not Reportable 01/24/19 21:23 Acanthocytes (Spur) Not Reportable 01/24/19 21:23 Rouleaux Not Reportable 01/24/19 21:23 Hemoglobin C Crystals Not Reportable 01/24/19 21:23 Schistocytes Not Reportable 01/24/19 21:23 Malaria parasites Not Reportable 01/24/19 21:23 Sadiq Bodies Not Reportable 01/24/19 21:23 Hem Pathologist Commnt No 01/24/19 21:23 PT 14.2 Sec. (12.2-14.9) 01/24/19 21:23 INR 1.04 (0.87-1.13) 01/24/19 21:23 APTT 32.1 Sec. (24.2-36.6) 01/24/19 21:23 Sodium 139 mmol/L (137-145) 01/24/19 21:23 Potassium 4.6 mmol/L (3.6-5.0) 01/24/19 21:23 Chloride 98.0 mmol/L (98-107) 01/24/19 21:23 Carbon Dioxide 30 mmol/L (22-30) 01/24/19 21:23 Anion Gap 16 mmol/L 01/24/19 21:23 BUN 18 mg/dL (7-17) H 01/24/19 21:23 Creatinine 0.8 mg/dL (0.7-1.2) 01/24/19 21:23 Estimated GFR > 60 ml/min 01/24/19 21:23 BUN/Creatinine Ratio 23 % 01/24/19 21:23 Glucose 118 mg/dL (65-100) H 01/24/19 21:23 Calcium 8.8 mg/dL (8.4-10.2) 01/24/19 21:23 Total Creatine Kinase 87 units/L (30-135) 01/25/19 11:59 CK-MB (CK-2) 2.1 ng/mL (0.0-4.0) 01/25/19 11:59 CK-MB (CK-2) Rel Index 2.4 (0-4) 01/25/19 11:59 Troponin T 0.203 ng/mL (0.00-0.029) H* D 01/25/19 11:59 NT-Pro-B Natriuret Pep 4886 pg/mL (0-900) H 01/25/19 13:44 Triglycerides 88 mg/dL (2-149) 01/24/19 21:23 Cholesterol 130 mg/dL (50-199) 01/24/19 21:23 LDL Cholesterol Direct 82 mg/dL (50-130) 01/24/19 21:23 HDL Cholesterol 40 mg/dL (40-59) 01/24/19 21:23 Cholesterol/HDL Ratio 3.25 % 01/24/19 21:23 Urine Color Straw (Yellow) 01/25/19 01:30 Urine Turbidity Clear (Clear) 01/25/19 01:30 Urine pH 8.0 (5.0-7.0) H 01/25/19 01:30 Ur Specific [place] 1.005 (1.003-1.030) 01/25/19 01:30 Urine Protein <15 mg/dl mg/dL (Negative) 01/25/19 01:30 Urine Glucose (UA) Neg mg/dL (Negative) 01/25/19 01:30 Urine Ketones Neg mg/dL (Negative) 01/25/19 01:30 Urine Blood Neg (Negative) 01/25/19 01:30 Urine Nitrite Neg (Negative) 01/25/19 01:30 Urine Bilirubin Neg (Negative) 01/25/19 01:30 Urine Urobilinogen < 2.0 mg/dL (<2.0) 01/25/19 01:30 Ur Leukocyte Esterase Neg (Negative) 01/25/19 01:30 Urine WBC (Auto) 2.0 /HPF (0.0-6.0) 01/25/19 01:30 Urine RBC (Auto) 1.0 /HPF (0.0-6.0) 01/25/19 01:30 U Epithel Cells (Auto) 1.0 /HPF (0-13.0) 01/25/19 01:30 Urine Mucus Few /HPF 01/25/19 01:30 Active Medications - Current Medications Current Medications: Generic Name Dose Route Start Last Admin Trade Name Freq PRN Reason Stop Dose Admin Acetaminophen 650 mg 01/25/19 04:17 Tylenol PO Q4H PRN Fever >101 Albuterol 2.5 mg 01/25/19 01:51 Proventil IH Q6H PRN Shortness Of Breath Amlodipine Besylate 5 mg 01/25/19 12:00 01/26/19 09:46 Norvasc PO 5 mg QDAY TEX Administration Apixaban 2.5 mg 01/25/19 12:00 01/26/19 09:46 Eliquis PO 2.5 mg Q12HR TEX Administration Protocol Aspirin 81 mg 01/25/19 11:00 01/26/19 09:46 Baby Aspirin PO 01/27/19 11:01 81 mg QDAY TEX Administration Atorvastatin Calcium 20 mg 01/25/19 22:00 01/25/19 22:03 Lipitor PO 20 mg QHS TEX Administration Clopidogrel Bisulfate 75 mg 01/25/19 12:00 01/26/19 09:43 Plavix PO 75 mg QDAY TEX Administration Furosemide 40 mg 01/25/19 10:00 01/26/19 09:43 Lasix IV 40 mg QDAY TEX Administration Hydralazine HCl 25 mg 01/25/19 10:05 Apresoline PO Q8HR PRN Blood Pressure Lisinopril 20 mg 01/26/19 10:00 01/26/19 09:45 Zestril PO 20 mg QDAY TEX Administration Metoprolol Tartrate 100 mg 01/25/19 12:00 01/26/19 09:43 Lopressor PO 100 mg BID TEX Administration Ondansetron HCl 4 mg 01/25/19 01:50 Zofran IV Q8H PRN Nausea And Vomiting
--- NOTE | 2019-01-26 11:19 | Progress Note ---
Assessment and Plan Pt was noted to have bouts of AFib with SVR and dyspnea yesterday evening and was moved closer to nursing station. She was in AFib with HR 80s - 90s overnight. Decrease lopressor to 50mg BID and cont to monitor on telemetry. Cont diuresis. Possible d/c home in AM. The patient has been seen in conjunction with Dr. Garner who agrees with the assessment and plan of care. - Patient Problems (1) Acute heart failure with preserved ejection fraction Current Visit: Yes Status: Acute (2) CAD (coronary artery disease) Current Visit: Yes Status: Chronic (3) Stented coronary artery Current Visit: Yes Status: Chronic (4) S/P CABG (coronary artery bypass graft) Current Visit: Yes Status: Chronic (5) Elevated troponin Current Visit: Yes Status: Acute (6) HTN (hypertension) Current Visit: Yes Status: Chronic Qualifiers: Hypertension type: essential hypertension Qualified Code(s): I10 - Essential (primary) hypertension (7) Hyperlipidemia Current Visit: Yes Status: Chronic Qualifiers: Hyperlipidemia type: mixed hyperlipidemia Qualified Code(s): E78.2 - Mixed hyperlipidemia (8) S/P aortic valve replacement with bioprosthetic valve Current Visit: Yes Status: Chronic Subjective Date of service: 01/26/19 Principal diagnosis: HF Interval history: pt resting up in chair, states she feels weak today. SOB improving. no acute events overnight. in AFib with HR 80s -90s. Objective Last Vital Signs Temp 98.2 F 01/26/19 09:06 Pulse 99 H 01/26/19 10:00 Resp 16 01/26/19 09:06 BP 138/54 01/26/19 09:06 Pulse Ox 97 01/26/19 09:06 - Physical Examination General: No Apparent Distress HEENT: Positive: PERRL, Normocephaly, Mucus Membranes Moist Neck: Positive: neck supple, trachea midline Cardiac: Positive: irregularly irregular, S1/S2 Lungs: Positive: Decreased Breath Sounds Neuro: Positive: Grossly Intact Abdomen: Positive: Soft. Negative: Tender Skin: Negative: Rash Musculoskeletal: No Pain Extremities: Absent: edema - Labs and Meds Cardiac Enzymes 01/25/19 Range/Units 11:59 CK-MB (CK-2) 2.1 (0.0-4.0) ng/mL - Imaging and Cardiology EKG: report reviewed, image reviewed Echo: report reviewed ( 01/2019 showed EF 50-55%, severely dilated LA, bioprosthetic AV well seated with mild AI and trace perivalvular leak, mod MR, mild to mod TR, RVSP 47mmHg. ) Cardiac cath: report reviewed (PCI - arthrectomy of mid LCx at [place] on 01/18/2019) Chamber hypertrophy or enlargement: left ventricular hypertro
[2019-01-27] MEDS: NITRO-BID 2% TP SCH (07:22)
[2019-01-27] MEDS: PLAVIX PO SCH (09:32)
[2019-01-27] MEDS: BABY ASPIRIN PO SCH (09:32)
[2019-01-27] MEDS: ELIQUIS PO SCH (09:32)
[2019-01-27] MEDS: NORVASC PO SCH (09:32)
[2019-01-27] MEDS: LASIX IV SCH (09:32)
[2019-01-27] MEDS: LOPRESSOR PO SCH (09:32)
[2019-01-27] MEDS: ZESTRIL PO SCH (09:32)
--- NOTE | 2019-01-27 11:31 | Progress Note ---
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 Echo done 01/2019 showed EF 50-55%, severely dilated LA, bioprosthetic AV well seated with mild AI and trace perivalvular leak, mod MR, mild to mod TR, RVSP 47mmHg. Subjective Date of service: 01/27/19 Principal diagnosis: HF Interval history: Patient sitting up in bed without any complaints. Objective Vital Signs Temp Pulse Pulse Resp BP Pulse Ox 01/27/19 09:56 66 66 01/27/19 07:57 97.5 F L 18 146/56 01/27/19 04:12 98.3 F 78 14 144/62 96 01/26/19 23:16 98.4 F 68 12 137/51 95 01/26/19 21:12 85 110/45 01/26/19 20:06 98.2 F 69 12 110/45 96 01/26/19 20:00 80 01/26/19 12:06 98.2 F 57 L 16 113/46 98 - Physical Examination General: No Apparent Distress HEENT: Positive: PERRL, Normocephaly, Mucus Membranes Moist Neck: Positive: neck supple, trachea midline Cardiac: Positive: Regular Rate, Irregularly Regular Lungs: Positive: Normal Exam Neuro: Positive: Grossly Intact Abdomen: Positive: Soft, Active Bowel Sounds. Negative: Tender Skin: Negative: Rash Musculoskeletal: No Pain Extremities: Present: warm. Absent: edema - Imaging and Cardiology EKG: report reviewed, image reviewed Echo: report reviewed ( 01/2019 showed EF 50-55%, severely dilated LA, bioprosthetic AV well seated with mild AI and trace perivalvular leak, mod MR, mild to mod TR, RVSP 47mmHg. ) Cardiac cath: report reviewed (PCI - arthrectomy of mid LCx at [place] on 01/18/2019) Chamber hypertrophy or enlargement: left ventricular hypertro
[2019-01-27 12:54] VITALS: BP 118/54
--- NOTE | 2019-01-27 12:58 | Discharge Summary ---
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 -Acute on chronic diastolic heart failure: iv lasix is helping, monitor renal function closely, d/w Outdoor Illuminating Engineer, d/c ntg paste. -CAD s/p recent PCI: asa/plavix/eliquis x 1 week then plavix/eliquis x 12 months -Afib; continue Eliquis and rate control -Bradycardia: adjusted medications per Cardiology, -CHRISSY suspect: consult RT for assessment, recommended outpatient sleep study, try to wean off 2 liters of o2 DVT ppx: Eliquis full code Disposition: home today Disposition: DC- TO HOME OR SELFCARE Time spent for discharge: 34 minutes Core Measure Documentation - Palliative Care Palliative Care/ Comfort Measures: Not Applicable - Core Measures Any of the following diagnoses?: heart failure - VTE Discharge Requirements Deep Vein Thrombosis/Pulmonary Embolism Present on Admission: No Has pt received <5 days of overlap therapy or INR<2.0: No Anticoagulant overlap therapy prescribed at discharge: No Contraindication No Overlap Therapy order at DC: Not Indicated - Heart Failure Discharge Requirements MANUEL/ARB for LVSD if EF <40%: Yes Beta katelyn at discharge: Yes Exam - Physical Exam Narrative exam: Gen: WDWN, NAD, Awake, Alert, Orientated HEENT: NCAT, EOMI, PERRL, OP Clear Neck: supple, no adenopathy, no thyromegaly, no JVD CVS/Heart: irregular irregular, normal S1S2, pulses present bilaterally Chest/Lungs: diminished bs bilaterally, Symmetrical chest expansion, good air entry bilaterally GI/Abdomen: soft, NTND, good bowel sounds, no guarding or rebound /Bladder: no suprapubic tenderness, no CVA or paraspinal tenderness Extermity/Skin: no c/c/e, no obvious rash MSK: FROM x 4 Neuro: CN 2-12 grossly intact, no new focal deficits Psych: calm - Constitutional Vitals: Temp Pulse Resp BP Pulse Ox 97.5 F L 66 18 146/56 96 01/27/19 07:57 01/27/19 09:56 01/27/19 07:57 01/27/19 07:57 01/27/19 04:12 Plan Activity: other (no strenous activity unless cleared by shoe shiner) Diet: low salt Special Instructions: record daily BP diary Follow up with: JACK HEWITT MD [Staff Physician] - 3-5 Days SARA FOX MD [Staff Physician] - 7 Days
== END 2019-01-27 13:15 | disposition home or self-care (01) | DRG 282 ==
LOC: ED 20:54 → 4A 01-25 01:42
PROVIDERS: ADMIT Internal Medicine; ATTEND Internal Medicine
DX: I11.0 Hypertensive heart disease with heart failure (principal); I21.4 Non-ST elevation (NSTEMI) myocardial infarction; I48.91 Unspecified atrial fibrillation; I50.43 Acute on chronic combined systolic (congestive) and diastolic (congestive) heart failure; M19.90 Unspecified osteoarthritis, unspecified site; I25.10 Atherosclerotic heart disease of native coronary artery without angina pectoris; R00.1 Bradycardia, unspecified; G47.33 Obstructive sleep apnea (adult) (pediatric); E78.2 Mixed hyperlipidemia; Z96.651 Presence of right artificial knee joint; I25.2 Old myocardial infarction; Z95.1 Presence of aortocoronary bypass graft; Z95.2 Presence of prosthetic heart valve; Z95.5 Presence of coronary angioplasty implant and graft; Z79.01 Long term (current) use of anticoagulants; Z88.0 Allergy status to penicillin; Z88.2 Allergy status to sulfonamides; Z88.1 Allergy status to other antibiotic agents; Z79.899 Other long term (current) drug therapy
CPT/HCPCS: 36415; 71045; 80048; 80061; 81001; 82550; 82553; 83880; 84484; 85007; 85025; 85610; 85730; 93005; 93010; 96374; G0378; A9270-GY; J1940

== ENCOUNTER 2021-08-10 12:07 | Inpatient (IN) | payer MEDICARE ==
[2021-08-10] MEDS ORDERED: HYDROmorphone 1 MG/1 ML INJ IV PRN ×3 (12:32→14:49)
[2021-08-10] MEDS ORDERED: SODIUM CHLORIDE 0.9% 1000 ML IV SOLN IV ONE (12:32)
[2021-08-10] MEDS ORDERED: ACETAMINOPHEN 325 MG TAB PO PRN ×3 (12:32→14:49)
[2021-08-10] MEDS ORDERED: ACETAMINOPHEN 500 MG TAB PO ONE (12:33)
--- NOTE | 2021-08-10 12:52 | Emergency Department Report ---
ED General Adult HPI - General Chief complaint: Fever Stated complaint: WEAKNESS Time Seen by Provider: 08/10/21 12:31 Source: patient, EMS, drum printer Mode of arrival: Stretcher Limitations: Language Barrier - History of Present Illness Initial comments: Patient is 85-year-old female with history of CABG, hypertension, congestive heart failure and frequent UTI. Patient brought to the emergency room via EMS from home for evaluation of fever, shortness of breath and decreased p.o. intake for the last few days. Patient denied any chest pain, abdominal pain. Severity scale (0 -10): 0 - Related Data Home Medications Medication Instructions Recorded Confirmed Last Taken AtorvaSTATin [Lipitor] 20 mg PO QHS 03/21/17 01/24/19 08/26/18 Bumetanide [Bumex 1 mg tab] 1 mg PO DAILY 03/21/17 01/24/19 08/27/18 lisinopriL [Zestril TAB] 40 mg PO DAILY 03/21/17 01/24/19 08/27/18 Amlodipine Besylate 5 mg PO DAILY 01/16/19 01/24/19 Unknown Clopidogrel [Plavix] 75 mg PO QDAY 01/24/19 01/24/19 Unknown hydrALAZINE [Apresoline TAB] 25 mg PO Q8HR PRN 01/24/19 01/24/19 Unknown Previous Rx's Medication Instructions Recorded Last Taken Type Apixaban [Eliquis] 2.5 mg PO Q12HR #60 tablet 11/15/17 08/27/18 Rx Metoprolol [Lopressor TAB] 50 mg PO BID #60 01/27/19 Unknown Rx Allergies Allergy/AdvReac Type Severity Reaction Status Date / Time Penicillins Allergy Rash Verified 08/20/14 21:20 Sulfa (Sulfonamide Allergy Rash Verified 08/20/14 21:20 Antibiotics) levofloxacin [From Levaquin] AdvReac Shortness Verified 11/11/17 18:31 of Breath ED Review of Systems ROS: Stated complaint: WEAKNESS Other details as noted in HPI Comment: All other systems reviewed and negative Constitutional: chills, fever Respiratory: shortness of breath. denies: wheezing Cardiovascular: denies: chest pain, palpitations Gastrointestinal: nausea. denies: abdominal pain, vomiting, diarrhea, constipation, hematemesis Musculoskeletal: denies: back pain Neurological: denies: headache, weakness ED Past Medical Hx - Past Medical History Hx Hypertension: Yes Hx CVA: No Hx Heart Attack/AMI: Yes Hx Congestive Heart Failure: Yes Hx Diabetes: No Hx Renal Disease: No Hx Arthritis: No Hx Seizures: No Hx Asthma: No Additional medical history: frequent uti's - Surgical History Hx Coronary Stent: Yes Hx Open Heart Surgery: Yes (CABG 2008-valve replacements-2 stents) Hx Pacemaker: No Additional Surgical History: open heart surgery right knee replacement - Social History Smoking Status: Unknown if ever smoked Substance Use Type: None - Medications Home Medications: Home Medications Medication Instructions Recorded Confirmed Last Taken Type AtorvaSTATin [Lipitor] 20 mg PO QHS 03/21/17 01/24/19 08/26/18 History Bumetanide [Bumex 1 mg tab] 1 mg PO DAILY 03/21/17 01/24/19 08/27/18 History lisinopriL [Zestril TAB] 40 mg PO DAILY 03/21/17 01/24/19 08/27/18 History Apixaban [Eliquis] 2.5 mg PO Q12HR #60 tablet 11/15/17 01/24/19 08/27/18 Rx Amlodipine Besylate 5 mg PO DAILY 01/16/19 01/24/19 Unknown History Clopidogrel [Plavix] 75 mg PO QDAY 01/24/19 01/24/19 Unknown History hydrALAZINE [Apresoline TAB] 25 mg PO Q8HR PRN 01/24/19 01/24/19 Unknown History Metoprolol [Lopressor TAB] 50 mg PO BID #60 01/27/19 01/24/19 Unknown Rx ED Physical Exam - General Limitations: Language Barrier General appearance: alert, in distress - Head Head exam: Present: atraumatic, normocephalic, normal inspection - Eye Eye exam: Present: normal appearance - ENT ENT exam: Present: mucous membranes dry - Neck Neck exam: Present: normal inspection, full ROM. Absent: tenderness, meningismus - Respiratory Respiratory exam: Present: normal lung sounds bilaterally, rales. Absent: respi ratory distress, wheezes - Cardiovascular Cardiovascular Exam: Present: tachycardia - GI/Abdominal GI/Abdominal exam: Present: soft, normal bowel sounds. Absent: distended, tenderness, guarding, rebound, rigid, organomegaly, mass, bruit, pulsatile mass, hernia - Extremities Exam Extremities exam: Present: normal inspection, full ROM, normal capillary refill. Absent: tenderness - Back Exam Back exam: Present: normal inspection, full ROM. Absent: CVA tenderness (R), CVA tenderness (L) - Neurological Exam Neurological exam: Present: alert, oriented X3, CN II-XII intact, reflexes normal. Absent: motor sensory deficit - Psychiatric Psychiatric exam: Present: normal mood - Skin Skin exam: Present: warm, dry, intact, normal color ED Course Vital Signs 08/10/21 08/10/21 08/10/21 12:27 12:30 12:40 Temperature 102.4 F H 102.4 F H Pulse Rate 108 H 110 H Respiratory 30 H 30 H 30 H Rate Blood Pressure 148/63 Blood Pressure 148/63 [Left] O2 Sat by Pulse 97 97 97 Oximetry ED Medical Decision Making - Lab Data Result diagrams: 08/10/21 13:23 08/10/21 13:23 - EKG Data -: EKG Interpreted by Ma Rate: normal - EKG Data 08/10/21 14:47 Atrial fibrillation - Radiology Data Radiology results: report reviewed - Medical Decision Making Patient is 85-year-old female with history of CABG, hypertension, congestive heart failure and frequent UTI. Patient brought to the emergency room via EMS from home for evaluation of fever, shortness of breath and decreased p.o. intake for the last few days. Patient denied any chest pain, abdominal pain. Sepsis protocol immediately initiated and patient started on normal saline at 250 mL/h for a total of 30 mils per KG since patient had congestive heart failure. Labs reviewed and showed leukocytosis of 22,000. Chest x-ray showed bilateral infiltrate concerning for pneumonia. Patient received cefepime and vancomycin in the emergency room. I discussed the patient with Dr. Estrada, he agreed to admit the patient to medical service for further management. Critical Care Time: Yes Critical care time in (mins) excluding proc time.: 30 Critical care attestation.: If time is entered above; I have spent that time in minutes in the direct care of this critically ill patient, excluding procedure time. ED Disposition Clinical Impression: Fever, Bilateral pneumonia Disposition: 09 ADMITTED INPATIENT Is pt being admited?: Yes Condition: Stable Instructions: Bacterial Pneumonia (ED)
--- NOTE | 2021-08-10 13:19 | XRay Report ---
XR chest 1V ap INDICATION / CLINICAL INFORMATION: SEPSIS. COMPARISON: 01/24/2019 FINDINGS: SUPPORT DEVICES: None. HEART /PULMONARY VASCULATURE: Median sternotomy changes. The heart is mildly enlarged. There is pulmo nary vasculature congestion. LUNGS / PLEURA: Bibasilar interstitial opacities remain. Trace bibasilar pleural effusions are suspec jana. No focal airspace consolidation. No pneumothorax. ADDITIONAL FINDINGS: No significant additional findings. IMPRESSION: Stable mild CHF with bibasilar interstitial edema and trace bibasilar pleural effusions. No evidence of consolidative pneumonia. Signer Name: Will Artis MD Signed: 08/10/2021 1:15 PM Workstation Name: [employer]
[2021-08-10 13:53] LABS: Hematocrit 34.3 % (30.3-42.9); Mean Corpuscular HGB Conc 32 % (30-34); Mean Corpuscular Volume 80 fl (79-97); Platelet Count 305 K/mm3 (140-440); Red Blood Count 4.31 M/mm3 (3.65-5.03); Red Cell Distribution Width 16.7 % (13.2-15.2)
[2021-08-10 14:04] LABS: Albumin 3.8 g/dL (3.9-5); Calcium 8.8 mg/dL (8.4-10.2)
[2021-08-10] MEDS ORDERED: VANCOMYCIN/NS 1 GM/250 ML 1 GM/250 ML BAG IV ONE (14:44)
[2021-08-10] MEDS ORDERED: CEFEPIME/NS 1 GM/100 ML 1 GM/100 ML BAG IV ONE (14:44)
--- NOTE | 2021-08-10 14:48 | History and Physical Report ---
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 Patient has diminished cognition and is unable to provide history. Patient history taken from EMS staff, ED staff, as well as the patient's family who was made available by telephone for interview. As per family the patient has experienced increased confusion, diminished oral intake, and shortness of breath over the past 3 days with persistent or worsening symptoms over the same timeframe. EMS was notified and upon arrival the patient was found to be in distress and subsequent transported to [facility] for further care and evaluation of the aforementioned symptoms. The patient was seen and evaluated in the emergency department. All lab and imaging studies reviewed. The patient was found to have a temperature of 102.4 F, a heart rate of 110 bpm, and respiratory rate of 38 as well as a pulse oximetry of 88% on room air which is consistent with acute hypoxemic respiratory failure. Chest x-ray revealed bilateral pneumonia which was complicated by sepsis. Patient admitted to medical floor due to increased risk of worsening symptoms. Patient admitted on pneumonia protocol as well as sepsis protocol and coronavirus protocol. No reports of fever, chills, chest pain, palpitation, productive cough, skin rash, recent ill contact, or known exposure to COVID-19. Patient is fully vaccinated against COVID-19. Prior admission on 01/25/2019 reviewed. All medication listed at time of admission has been reconciled. Advanced care planning conducted in ED. Past History Past Medical History: atrial fib, arthritis, heart failure, hypertension, hyperlipidemia, other (See HPI) Past Surgical History: CABG, total knee replacement Social history: , lives with family Family history: hypertension Medications and Allergies Allergies Allergy/AdvReac Type Severity Reaction Status Date / Time Penicillins Allergy Rash Verified 08/20/14 21:20 Sulfa (Sulfonamide Allergy Rash Verified 08/20/14 21:20 Antibiotics) levofloxacin [From Levaquin] AdvReac Shortness Verified 11/11/17 18:31 of Breath Home Medications Medication Instructions Recorded Confirmed Last Taken Type AtorvaSTATin [Lipitor] 20 mg PO QHS 03/21/17 01/24/19 08/26/18 History Bumetanide [Bumex 1 mg tab] 1 mg PO DAILY 03/21/17 01/24/19 08/27/18 History lisinopriL [Zestril TAB] 40 mg PO DAILY 03/21/17 01/24/19 08/27/18 History Apixaban [Eliquis] 2.5 mg PO Q12HR #60 tablet 11/15/17 01/24/19 08/27/18 Rx Amlodipine Besylate 5 mg PO DAILY 01/16/19 01/24/19 Unknown History Clopidogrel [Plavix] 75 mg PO QDAY 01/24/19 01/24/19 Unknown History hydrALAZINE [Apresoline TAB] 25 mg PO Q8HR PRN 01/24/19 01/24/19 Unknown History Metoprolol [Lopressor TAB] 50 mg PO BID #60 01/27/19 01/24/19 Unknown Rx Active Meds: Active Medications Acetaminophen (Acetaminophen 325 Mg Tab) 650 mg PO Q6H PRN PRN Reason: Pain, Mild (1-3) Vancomycin HCl (Vancomycin/Ns 1 Gm/250 Ml) 1 gm in 250 mls @ 167.007 mls/hr IV ONCE ONE; Protocol Stop: 08/10/21 16:13 Cefepime HCl (Cefepime/Ns 1 Gm/100 Ml) 1 gm in 100 mls @ 200 mls/hr IV ONCE ONE; Protocol Stop: 08/10/21 15:13 Review of Systems ROS unobtainable: due to mental status Exam - Constitutional Vitals: Temp Pulse Resp BP Pulse Ox 102.4 F H 110 H 30 H 148/63 97 08/10/21 12:30 08/10/21 12:30 08/10/21 12:40 08/10/21 12:30 08/10/21 12:40 General appearance: Present: mild distress - EENT Eyes: Present: PERRL ENT: hearing decreased - Neck Neck: Present: supple, normal ROM - Respiratory Respiratory effort: labored, accessory muscle use Respiratory: bilateral: diminished, rhonchi - Cardiovascular Rhythm: irregularly irregular - Extremities Extremities: pulses symmetrical, No edema Peripheral Pulses: abnormal (Capillary refill greater than 3.5 seconds) - Abdominal General gastrointestinal: Present: soft, non-tender, non-distended, normal bowel sounds Female genitourinary: Present: normal - Integumentary Integumentary: Present: clear, dry, clammy, decreased turgor - Musculoskeletal Musculoskeletal: generalized weakness - Psychiatric Psychiatric: no appropriate mood/affect, no intact judgment & insight, no memory intact, agitated - Neurologic Neurologic: CNII-XII intact, no focal deficits, moves all extremities, no gait normal Results - Labs CBC & Chem 7: 08/10/21 13:23 08/10/21 13:23 Labs: Abnormal lab results 08/10/21 08/10/21 Range/Units 13:23 13:23 WBC 22.7 H (4.5-11.0) K/mm3 MCH 26 L (28-32) pg RDW 16.7 H (13.2-15.2) % Sodium 133 L (137-145) mmol/L Chloride 93.4 L (98-107) mmol/L BUN 36 H (7-17) mg/dL Glucose 131 H (65-100) mg/dL AST 68 H (5-40) units/L Alkaline Phosphatase 250 H (35-129) units/L Albumin 3.8 L (3.9-5) g/dL Assessment and Plan - Patient Problems (1) Sepsis Current Visit: Yes Status: Acute Plan to address problem: Sepsis protocol: Chest x-ray, CBC, CMP, urinalysis, IV fluid resuscitation therapy, IV antibiotic therapy, supplemental oxygen, strict I/O, maintain mean arterial pressure greater than or equal to 65, serial lactic acid level, blood culture. (2) Acute hypoxemic respiratory failure Current Visit: Yes Status: Acute Plan to address problem: Chest x-ray, CBC, CMP, supplemental oxygen, pulse oximetry, nebulizer therapy, pulmonary toilet. (3) COVID-19 vaccination not done Current Visit: Yes Status: Acute Plan to address problem: Coronavirus protocol: IV antibiotic therapy, IV steroid therapy, vitamin C therapy, vitamin D therapy, zinc therapy, supplemental oxygen, pulse oximetry. (4) Pneumonia Current Visit: Yes Status: Acute Plan to address problem: Pneumonia protocol: Chest x-ray, CBC, CMP, IV antibiotic therapy, blood culture, supplemental oxygen, pulse oximetry (5) Debility Current Visit: Yes Status: Acute Plan to address problem: Supportive care, treat sepsis, (6) Paroxysmal atrial fibrillation Current Visit: Yes Status: Acute Plan to address problem: Rate control, therapeutic anticoagulation with Eliquis. Continue medical management. (7) Diastolic CHF Current Visit: Yes Status: Acute Qualifiers: Heart failure chronicity: acute on chronic Qualified Code(s): I50.33 - Acute on chronic diastolic (congestive) heart failure Plan to address problem: Strict I/O, monitor urine output every shift, daily weight, afterload reduction, blood pressure control. (8) Pulmonary hypertension Current Visit: Yes Status: Acute Plan to address problem: Supplemental oxygen, supportive care. Outpatient pulmonary follow-up (9) DVT prophylaxis Current Visit: Yes Status: Acute Plan to address problem: SCD to bilateral lower extremities while in bed, continue therapeutic anticoagulation (10) Advance care planning Current Visit: Yes Status: Acute Plan to address problem: Disease education conducted, care plan discussed, diagnoses discussed, prognosis discussed, patient is full code, patient daughter Key Burgess notified via telephone of patient status. Patient daughter acknowledges understanding and agreement with care plan, +30 minutes.
[2021-08-10] MEDS ORDERED: VANCOMYCIN 1,500 MG in SODIUM CHLORIDE 0.9% 500 ML 500 ML IV ONE (14:49)
[2021-08-10] MEDS ORDERED: ONDANSETRON 4 MG/2 ML INJ IV PRN (14:49)
[2021-08-10] MEDS ORDERED: oxyCODONE /ACETAMINOPHEN 5-325MG TAB PO PRN (14:49)
[2021-08-10] MEDS ORDERED: ALBUTEROL 2.5 MG/3 ML NEBU IH PRN (14:49)
[2021-08-10] MEDS ORDERED: hydrALAZINE 25 MG TAB PO PRN (14:53)
[2021-08-10] MEDS ORDERED: VANCOMYCIN PHARMACY TO DOSE IV SCH (15:00)
[2021-08-10] MEDS ORDERED: AZITHROMYCIN/NS 500 MG/250 ML 500 MG/250 ML BAG IV SCH (15:00)
[2021-08-10 15:11] LABS: Bilirubin,Urine NEG (Negative); Blood,Urine NEG (Negative); Color,Urine Straw (Yellow); Protein,Urine <15 mg/dL mg/dL (Negative); Urobilinogen,Urine < 2.0 mg/dL (<2.0); WBC,Urine < 1.0 /HPF (0.0-6.0)
[2021-08-10 16:51] LABS: C-Reactive Protein 6.1 mg/dL (0.00-1.30)
[2021-08-10 19:28] LABS: Band Neutrophils # (Manual) 0.7 K/mm3; Platelet Estimate Consistent w Auto; Total Cells Counted 100
[2021-08-10] MEDS ORDERED: NON-FORMULARY EACH (Apixaban 2.5 MG Tablet) PO SCH (22:00)
[2021-08-10] MEDS ORDERED: METOPROLOL TARTRATE 50 MG TAB PO SCH (22:00)
[2021-08-10] MEDS ORDERED: HEPARIN 5,000 UNIT/1 ML VIAL SUB-Q SCH (22:00)
[2021-08-10] MEDS: methylPREDNISolone Sod Succinate 40 MG/1 ML INJ IV SCH (22:26)
[2021-08-10] MEDS: APIXABAN 2.5 MG TAB PO SCH (22:27)
[2021-08-10] MEDS: ASCORBIC ACID 500 MG TAB PO SCH (22:27)
[2021-08-10] MEDS: ZINC SULFATE 220 MG CAP PO SCH (22:28)
[2021-08-11] MEDS: methylPREDNISolone Sod Succinate 40 MG/1 ML INJ IV SCH ×3 (05:09→22:14)
[2021-08-11 07:43] LABS: Hematocrit 29.8 % (30.3-42.9); Hemoglobin 9.5 gm/dl (10.1-14.3); Mean Corpuscular HGB Conc 32 % (30-34); Mean Corpuscular Volume 80 fl (79-97); Platelet Count 258 K/mm3 (140-440); Red Blood Count 3.74 M/mm3 (3.65-5.03); Red Cell Distribution Width 16.6 % (13.2-15.2)
--- NOTE | 2021-08-11 08:01 | Progress Note ---
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 Patient has diminished cognition and is unable to provide history. Patient history taken from EMS staff, ED staff, as well as the patient's family who was made available by telephone for interview. As per family the patient has experienced increased confusion, diminished oral intake, and shortness of breath over the past 3 days with persistent or worsening symptoms over the same timeframe. EMS was notified and upon arrival the patient was found to be in distress and subsequent transported to [facility] for further care and evaluation of the aforementioned symptoms. The patient was seen and evaluated in the emergency department. All lab and imaging studies reviewed. The patient was found to have a temperature of 102.4 F, a heart rate of 110 bpm, and respiratory rate of 38 as well as a pulse oximetry of 88% on room air which is consistent with acute hypoxemic respiratory failure. Chest x-ray revealed bilateral pneumonia which was complicated by sepsis. Patient admitted to medical floor due to increased risk of worsening symptoms. Patient admitted on pneumonia protocol as well as sepsis protocol and coronavirus protocol. No reports of fever, chills, chest pain, palpitation, productive cough, skin rash, recent ill contact, or known exposure to COVID-19. Patient is fully vaccinated against COVID-19. Prior admission on 01/25/2019 reviewed. All medication listed at time of admission has been reconciled. Advanced care planning conducted in ED. Hospital course to date: 08/11: Improvement in respiratory status. She states that she is feeling better and is hungry. Will attempt to place on room air today. Resume diet, continue supportive management with antibiotics, steroids. If Covid RT-PCR positive will order remdesivir per ID instruction. Anticipated discharge in 24 to 48 hours. Assessment and plan: (1) Sepsis Current Visit: Yes Status: Acute Plan to address problem: Sepsis protocol: Chest x-ray, CBC, CMP, urinalysis, IV fluid resuscitation therapy, IV antibiotic therapy, supplemental oxygen, strict I/O, maintain mean arterial pressure greater than or equal to 65, serial lactic acid level, blood culture. (2) Acute hypoxemic respiratory failure Current Visit: Yes Status: Acute Plan to address problem: Chest x-ray, CBC, CMP, supplemental oxygen, pulse oximetry, nebulizer therapy, pulmonary toilet. (3) COVID-19 vaccination not done Current Visit: Yes Status: Acute Plan to address problem: Coronavirus protocol: IV antibiotic therapy, IV steroid therapy, vitamin C therapy, vitamin D therapy, zinc therapy, supplemental oxygen, pulse oximetry. (4) Pneumonia Current Visit: Yes Status: Acute Plan to address problem: Pneumonia protocol: Chest x-ray, CBC, CMP, IV antibiotic therapy, blood culture, supplemental oxygen, pulse oximetry (5) Debility Current Visit: Yes Status: Acute Plan to address problem: Supportive care, treat sepsis (6) Paroxysmal atrial fibrillation Current Visit: Yes Status: Acute Plan to address problem: Rate control, therapeutic anticoagulation with Eliquis. Continue medical management. (7) Diastolic CHF Current Visit: Yes Status: Acute Qualifiers: Heart failure chronicity: acute on chronic Qualified Code(s): I50.33 - Acute on chronic diastolic (congestive) heart failure Plan to address problem: Strict I/O, monitor urine output every shift, daily weight, afterload reduction, blood pressure control. (8) Pulmonary hypertension Current Visit: Yes Status: Acute Plan to address problem: Supplemental oxygen, supportive care. Outpatient pulmonary follow-up (9) Vascular dementia Plan to address problem: chronic (10) DVT prophylaxis Current Visit: Yes Status: Acute Plan to address problem: SCD to bilateral lower extremities while in bed, continue therapeutic anticoagulation (11) Advance care planning Current Visit: Yes Status: Acute Plan to address problem: Disease education conducted, care plan discussed, diagnoses discussed, prognosis discussed, patient is full code, patient daughter Key Burgess notified via telephone of patient status. Patient daughter acknowledges understanding and agreement with care plan, +30 minutes. History Interval history: Patient states that her respiratory status has slightly improved. Oral intake is improved as well. Patient at bedside was on 2 L nasal cannula. Hospitalist Physical - Physical exam Narrative exam: Physical Exam: VITAL SIGNS: Reviewed. GENERAL: The patient appears normally developed, Vital signs as documented. Pleasant. NAD. On 2 L nasal cannula HEAD: No signs of head trauma. EYES: Pupils are equal. Extraocular motions intact. EARS: Hearing grossly intact. MOUTH: Oropharynx is normal. NECK: No adenopathy, no JVD. CHEST: Diminished bilateral rhonchi. CARDIAC: Regular rate and rhythm. S1 and S2, without murmurs, gallops, or r ubs. VASCULAR: No Edema. Peripheral pulses normal and equal in all extremities. ABDOMEN: Soft, non tender and non distended. No rebound or guarding, and no masses palpated. Bowel Sounds normal. MUSCULOSKELETAL: Good range of motion of all major joints. Extremities without clubbing, cyanosis or edema. NEUROLOGIC EXAM: Alert although orientation could not be verified as patient withdrawn no focal sensory or strength deficits. PSYCHIATRIC: Mood normal. SKIN: detail exam as documented in skin assessment - Constitutional Vitals: Temp Pulse Resp BP Pulse Ox 97.7 F 59 L 18 114/41 98 08/11/21 05:14 08/11/21 05:14 08/11/21 05:14 08/11/21 05:14 08/11/21 05:14 General appearance: Present: mild distress Results - Labs CBC & Chem 7: 08/11/21 06:25 08/11/21 06:25 Labs: Laboratory Last Values WBC 18.2 K/mm3 (4.5-11.0) H 08/11/21 06:25 RBC 3.74 M/mm3 (3.65-5.03) 08/11/21 06:25 Hgb 9.5 gm/dl (10.1-14.3) L 08/11/21 06:25 Hct 29.8 % (30.3-42.9) L 08/11/21 06:25 MCV 80 fl (79-97) 08/11/21 06:25 MCH 25 pg (28-32) L 08/11/21 06:25 MCHC 32 % (30-34) 08/11/21 06:25 RDW 16.6 % (13.2-15.2) H 08/11/21 06:25 Plt Count 258 K/mm3 (140-440) 08/11/21 06:25 Add Manual Diff Complete 08/10/21 13:23 Total Counted 100 08/10/21 13:23 Seg Neutrophils % Product Distribution Specialist 08/11/21 06:25 Seg Neuts % (Manual) 88.0 % (40.0-70.0) H 08/10/21 13:23 Band Neutrophils % 3.0 % 08/10/21 13:23 Lymphocytes % (Manual) 2.0 % (13.4-35.0) L 08/10/21 13:23 Reactive Lymphs % (Man) 2.0 % 08/10/21 13:23 Monocytes % (Manual) 5.0 % (0.0-7.3) 08/10/21 13:23 Nucleated RBC % Not Reportable 08/10/21 13:23 Seg Neutrophils # Man 20.0 K/mm3 (1.8-7.7) H 08/10/21 13:23 Band Neutrophils # 0.7 K/mm3 08/10/21 13:23 Lymphocytes # (Manual) 0.5 K/mm3 (1.2-5.4) L 08/10/21 13:23 Abs React Lymphs (Man) 0.5 K/mm3 08/10/21 13:23 Monocytes # (Manual) 1.1 K/mm3 (0.0-0.8) H 08/10/21 13:23 Eosinophils # (Manual) 0.0 K/mm3 (0.0-0.4) 08/10/21 13:23 Basophils # (Manual) 0.0 K/mm3 (0.0-0.1) 08/10/21 13:23 Metamyelocytes # 0.0 K/mm3 08/10/21 13:23 Myelocytes # 0.0 K/mm3 08/10/21 13:23 Promyelocytes # 0.0 K/mm3 08/10/21 13:23 Blast Cells # 0.0 K/mm3 08/10/21 13:23 WBC Morphology Not Reportable 08/10/21 13:23 Hypersegmented Neuts Not Reportable 08/10/21 13:23 Hyposegmented Neuts Not Reportable 08/10/21 13:23 Hypogranular Neuts Not Reportable 08/10/21 13:23 Smudge Cells Not Reportable 08/10/21 13:23 Toxic Granulation Not Reportable 08/10/21 13:23 Toxic Vacuolation Not Reportable 08/10/21 13:23 Dohle Bodies Not Reportable 08/10/21 13:23 Pelger-Huet Anomaly Not Reportable 08/10/21 13:23 Tiffanie Rods Not Reportable 08/10/21 13:23 Platelet Estimate Consistent w auto 08/10/21 13:23 Clumped Platelets Not Reportable 08/10/21 13:23 Plt Clumps, EDTA Not Reportable 08/10/21 13:23 Large Platelets Not Reportable 08/10/21 13:23 Giant Platelets Not Reportable 08/10/21 13:23 Platelet Satelliting Not Reportable 08/10/21 13:23 Plt Morphology Comment Not Reportable 08/10/21 13:23 RBC Morphology Not Reportable 08/10/21 13:23 Dimorphic RBCs Not Reportable 08/10/21 13:23 Polychromasia Not Reportable 08/10/21 13:23 Hypochromasia Not Reportable 08/10/21 13:23 Poikilocytosis Not Reportable 08/10/21 13:23 Anisocytosis Not Reportable 08/10/21 13:23 Microcytosis Not Reportable 08/10/21 13:23 Macrocytosis Not Reportable 08/10/21 13:23 Spherocytes Not Reportable 08/10/21 13:23 Pappenheimer Bodies Not Reportable 08/10/21 13:23 Sickle Cells Not Reportable 08/10/21 13:23 Target Cells Not Reportable 08/10/21 13:23 Tear Drop Cells Not Reportable 08/10/21 13:23 Ovalocytes Not Reportable 08/10/21 13:23 Helmet Cells Not Reportable 08/10/21 13:23 [place] Bodies Not Reportable 08/10/21 13:23 [place] Rings Not Reportable 08/10/21 13:23 Lakisha Cells Not Reportable 08/10/21 13:23 Bite Cells Not Reportable 08/10/21 13:23 Crenated Cell Not Reportable 08/10/21 13:23 Elliptocytes Not Reportable 08/10/21 13:23 Acanthocytes (Spur) Not Reportable 08/10/21 13:23 Rouleaux Not Reportable 08/10/21 13:23 Hemoglobin C Crystals Not Reportable 08/10/21 13:23 Schistocytes Not Reportable 08/10/21 13:23 Malaria parasites Not Reportable 08/10/21 13:23 Sadiq Bodies Not Reportable 08/10/21 13:23 Hem Pathologist Commnt No 08/10/21 13:23 D-Dimer 916.49 ng/mlDDU (0-234) H 08/10/21 15:20 Sodium 133 mmol/L (137-145) L 08/10/21 13:23 Potassium 3.7 mmol/L (3.6-5.0) 08/10/21 13:23 Chloride 93.4 mmol/L (98-107) L 08/10/21 13:23 Carbon Dioxide 24 mmol/L (22-30) 08/10/21 13:23 Anion Gap 19 mmol/L 08/10/21 13:23 BUN 36 mg/dL (7-17) H 08/10/21 13:23 Creatinine 1.0 mg/dL (0.6-1.2) 08/10/21 13:23 Estimated GFR 53 ml/min 08/10/21 13:23 BUN/Creatinine Ratio 36 % 08/10/21 13:23 Glucose 131 mg/dL (65-100) H 08/10/21 13:23 Lactic Acid 1.00 mmol/L (0.7-2.0) 08/10/21 17:50 Calcium 8.8 mg/dL (8.4-10.2) 08/10/21 13:23 Total Bilirubin 0.30 mg/dL (0.1-1.2) 08/10/21 13:23 AST 68 units/L (5-40) H 08/10/21 13:23 ALT 38 units/L (7-56) 08/10/21 13:23 Alkaline Phosphatase 250 units/L (35-129) H 08/10/21 13:23 Lactate Dehydrogenase 395 units/L (91-180) H 08/10/21 15:20 C-Reactive Protein 6.10 mg/dL (0.00-1.30) H 08/10/21 15:20 Total Protein 7.8 g/dL (6.3-8.2) 08/10/21 13:23 Albumin 3.8 g/dL (3.9-5) L 08/10/21 13:23 Albumin/Globulin Ratio 1.0 % 08/10/21 13:23 Urine Color Straw (Yellow) 08/10/21 14:50 Urine Turbidity Clear (Clear) 08/10/21 14:50 Urine pH 7.0 (5.0-7.0) 08/10/21 14:50 Ur Specific Lennon 1.006 (1.003-1.030) 08/10/21 14:50 Urine Protein <15 mg/dl mg/dL (Negative) 08/10/21 14:50 Urine Glucose (UA) Neg mg/dL (Negative) 08/10/21 14:50 Urine Ketones Neg mg/dL (Negative) 08/10/21 14:50 Urine Blood Neg (Negative) 08/10/21 14:50 Urine Nitrite Neg (Negative) 08/10/21 14:50 Urine Bilirubin Neg (Negative) 08/10/21 14:50 Urine Urobilinogen < 2.0 mg/dL (<2.0) 08/10/21 14:50 Ur Leukocyte Esterase Neg (Negative) 08/10/21 14:50 Urine WBC (Auto) < 1.0 /HPF (0.0-6.0) 08/10/21 14:50 Urine RBC (Auto) 1.0 /HPF (0.0-6.0) 08/10/21 14:50 U Epithel Cells (Auto) < 1.0 /HPF (0-13.0) 08/10/21 14:50 Blood Type A NEGATIVE 08/10/21 13:23 Antibody Screen Negative 08/10/21 13:23 Microbiology: Microbiology 08/10/21 13:23 Peripheral/Venous Blood Culture - Preliminary Culture in Progress 08/10/21 13:23 Peripheral/Venous Blood Culture - Preliminary Culture in Progress Zimmer/IV: Voiding Method External Female Catheter Active Medications - Current Medications Current Medications: Generic Name Dose Route Start Last Admin Trade Name Freq PRN Reason Stop Dose Admin Acetaminophen 650 mg 08/10/21 14:49 Acetaminophen 325 Mg Tab PO Q4H PRN Pain MILD(1-3)/Fever >100.5/ALICEA Albuterol 2.5 mg 08/10/21 14:49 Albuterol 2.5 Mg/3 Ml Nebu IH Q4HRT PRN Shortness Of Breath Apixaban 2.5 mg 08/10/21 22:00 08/10/21 22:27 Apixaban 2.5 Mg Tab PO 2.5 mg Q12HR TEX Administration Ascorbic Acid 500 mg 08/10/21 22:00 08/10/21 22:27 Ascorbic Acid 500 Mg Tab PO 500 mg BID TEX Administration Atorvastatin Calcium 20 mg 08/10/21 22:00 08/10/21 22:27 Atorvastatin 20 Mg Tab PO 20 mg QHS TEX Administration Bumetanide 1 mg 08/11/21 10:00 Bumetanide 1 Mg Tab PO DAILY [facility] Cholecalciferol 1,000 unit 08/11/21 10:00 Cholecalciferol (Vit D3) 400 Unit Tab PO QDAY TEX Clopidogrel Bisulfate 75 mg 08/11/21 10:00 Clopidogrel 75 Mg Tab PO QDAY [facility] Hydromorphone HCl 0.25 mg 08/10/21 14:49 Hydromorphone 1 Mg/1 Ml Inj IV Q4H PRN Pain, Moderate (4-6) Hydromorphone HCl 0.5 mg 08/10/21 14:49 Hydromorphone 1 Mg/1 Ml Inj IV Q23H PRN Pain , Severe (7-10) Azithromycin 500 mg in 250 mls @ 250 mls/hr 08/10/21 15:00 Zithromax/Ns IV 08/14/21 15:59 Q24H [facility] Protocol Methylprednisolone Sodium Succinate 40 mg 08/10/21 22:00 08/11/21 05:09 Methylprednisolone Sod Succinate 40 Mg/1 Ml Inj IV 40 mg Q8HR TEX Administration Ondansetron HCl 4 mg 08/10/21 14:49 Ondansetron 4 Mg/2 Ml Inj IV Q8H PRN Nausea And Vomiting Oxycodone/Acetaminophen 1 tab 08/10/21 14:49 Oxycodone /Acetaminophen 5-325mg Tab PO Q12H PRN Pain, Moderate (4-6) Sodium Chloride 10 ml 08/10/21 22:00 08/10/21 22:26 Sodium Chloride 0.9% 10 Ml Flush Syringe IV 10 ml BID TEX Administration Sodium Chloride 10 ml 08/10/21 14:49 Sodium Chloride 0.9% 10 Ml Flush Syringe IV PRN PRN LINE FLUSH Zinc Sulfate 220 mg 08/10/21 22:00 08/10/21 22:28 Zinc Sulfate 220 Mg Cap PO 220 mg BID TEX Administration
[2021-08-11 08:05] LABS: Calcium 8.4 mg/dL (8.4-10.2)
[2021-08-11 08:38] LABS: Anisocytosis 1+; Poikilocytosis 1+; Total Cells Counted 100
[2021-08-11 08:39] LABS: Burr Cells 1+; Hypochromasia 1+; Platelet Estimate Consistent w Auto
[2021-08-11] MEDS: CHOLECALCIFEROL (VIT D3) 400 UNIT TAB PO SCH (09:10)
[2021-08-11] MEDS: ASCORBIC ACID 500 MG TAB PO SCH ×2 (09:10→22:13)
[2021-08-11] MEDS: CLOPIDOGREL 75 MG TAB PO SCH (09:10)
[2021-08-11] MEDS: APIXABAN 2.5 MG TAB PO SCH ×2 (09:10→22:14)
[2021-08-11] MEDS: BUMETANIDE 1 MG TAB PO SCH (09:10)
[2021-08-11] MEDS: ZINC SULFATE 220 MG CAP PO SCH ×2 (09:10→22:13)
[2021-08-11] MEDS ORDERED: amLODIPine 5 MG TAB PO SCH (10:00)
[2021-08-11] MEDS ORDERED: NON-FORMULARY EACH (Amlodipine Besylate 5 MG) PO SCH (10:00)
[2021-08-11] MEDS ORDERED: LISINOPRIL 5 MG TAB PO SCH (10:00)
--- NOTE | 2021-08-11 12:18 | Consultation ---
History of Present Illness - Reason for Consult Consult date: 08/11/21 pneumonia Requesting physician: RACHAEL BLOCK - History of Present Illness The patient is an 85-year-old female with vascular dementia, CVA, hypertension, CHF, pulmonary hypertension, coronary artery disease status post CABG, prior heart valve replacement, atrial fibrillation on anticoagulation was admitted with worsening shortness of breath and poor oral intake. Upon evaluation in the ER, noted to be febrile, tachycardic and tachypneic. She was also hypoxic with chest x-ray evidence of bilateral pneumonia. Labs showed leukocytosis of 22.7, D-dimer 916, CRP 6.1, proBNP 3710, LDH 395. COVID-19 PCR is pending. Review of Systems: reviewed in the chart, unable to obtain, minimize risk of transmission Past History Past Medical History: atrial fib, arthritis, heart failure, hypertension, hyperlipidemia, other (See HPI) Past Surgical History: CABG, total knee replacement Social history: , lives with family Family history: hypertension Medications and Allergies Allergies Allergy/AdvReac Type Severity Reaction Status Date / Time Penicillins Allergy Rash and Verified 08/11/21 11:06 chest tightness Sulfa (Sulfonamide Allergy Rash and Verified 08/11/21 11:06 Antibiotics) chest tightness levofloxacin [From Levaquin] AdvReac Shortness Verified 11/11/17 18:31 of Breath Home Medications Medication Instructions Recorded Confirmed Last Taken Type AtorvaSTATin [Lipitor] 20 mg PO QHS 03/21/17 08/11/21 08/10/21 History Bumetanide [Bumex 1 mg tab] 1 mg PO DAILY 03/21/17 08/11/21 08/10/21 History lisinopriL [Zestril TAB] 20 mg PO DAILY 03/21/17 08/11/21 08/10/21 History Apixaban [Eliquis] 2.5 mg PO Q12HR #60 tablet 11/15/17 08/11/21 08/10/21 Rx Amlodipine Besylate 5 mg PO DAILY 01/16/19 08/11/21 08/10/21 History Metoprolol [Lopressor TAB] 50 mg PO BID #60 01/27/19 08/11/21 08/10/21 Rx Chlorthalidone [Thalitone] 12.5 mg PO DAILY 08/11/21 08/11/2121 History Active Meds: Active Medications Acetaminophen (Acetaminophen 325 Mg Tab) 650 mg PO Q4H PRN PRN Reason: Pain MILD(1-3)/Fever >100.5/ALICEA Albuterol (Albuterol 2.5 Mg/3 Ml Nebu) 2.5 mg IH Q4HRT PRN PRN Reason: Shortness Of Breath Apixaban (Apixaban 2.5 Mg Tab) 2.5 mg PO Q12HR [facility] Last Admin: 08/11/21 09:10 Dose: 2.5 mg Documented by: Ascorbic Acid (Ascorbic Acid 500 Mg Tab) 500 mg PO BID [facility] Last Admin: 08/11/21 09:10 Dose: 500 mg Documented by: Atorvastatin Calcium (Atorvastatin 20 Mg Tab) 20 mg PO QHS [facility] Last Admin: 08/10/21 22:27 Dose: 20 mg Documented by: Bumetanide (Bumetanide 1 Mg Tab) 1 mg PO DAILY [facility] Last Admin: 08/11/21 09:10 Dose: 1 mg Documented by: Cholecalciferol (Cholecalciferol (Vit D3) 400 Unit Tab) 1,000 unit PO QDAY [facility] Last Admin: 08/11/21 09:10 Dose: 1,000 unit Documented by: Clopidogrel Bisulfate (Clopidogrel 75 Mg Tab) 75 mg PO QDAY [facility] Last Admin: 08/11/21 09:10 Dose: 75 mg Documented by: Hydromorphone HCl (Hydromorphone 1 Mg/1 Ml Inj) 0.25 mg IV Q4H PRN PRN Reason: Pain, Moderate (4-6) Hydromorphone HCl (Hydromorphone 1 Mg/1 Ml Inj) 0.5 mg IV Q23H PRN PRN Reason: Pain , Severe (7-10) Azithromycin (Zithromax/Ns) 500 mg in 250 mls @ 250 mls/hr IV Q24H [facility]; Protocol Stop: 08/14/21 15:59 Ceftriaxone Sodium (Rocephin/Ns 2 Gm/100 Ml) 2 gm in 100 mls @ 200 mls/hr IV Q24HR [facility]; Protocol Methylprednisolone Sodium Succinate (Methylprednisolone Sod Succinate 40 Mg/1 Ml Inj) 40 mg IV Q8HR [facility] Last Admin: 08/11/21 05:09 Dose: 40 mg Documented by: Ondansetron HCl (Ondansetron 4 Mg/2 Ml Inj) 4 mg IV Q8H PRN PRN Reason: Nausea And Vomiting Oxycodone/Acetaminophen (Oxycodone /Acetaminophen 5-325mg Tab) 1 tab PO Q12H PRN PRN Reason: Pain, Moderate (4-6) Sodium Chloride (Sodium Chloride 0.9% 10 Ml Flush Syringe) 10 ml IV BID [facility] Last Admin: 08/11/21 09:10 Dose: 10 ml Documented by: Sodium Chloride (Sodium Chloride 0.9% 10 Ml Flush Syringe) 10 ml IV PRN PRN PRN Reason: LINE FLUSH Zinc Sulfate (Zinc Sulfate 220 Mg Cap) 220 mg PO BID [facility] Last Admin: 08/11/21 09:10 Dose: 220 mg Documented by: Physical Examination - Physical Exam Narrative exam: Physical Exam (reviewed in chart to minimize risk of transmission) Constitutional: deferred Head, Ears, Nose: deferred Eyes: deferred Neck: deferred Oral: deferred Cardiovascular: deferred Respiratory: deferred GI: deferred Musculoskeletal: deferred Skin: deferred Hem/Lymphatic: deferred Psych: deferred Neurological: deferred - Constitutional Vitals: Vital Signs Temp Pulse Resp BP Pulse Ox 97.7 F 59 L 18 114/41 97 08/11/21 05:14 08/11/21 05:14 08/11/21 05:14 08/11/21 05:14 08/11/21 09:14 Temperature -Last 24 Hours Temperature 97.7 F Temperature 97.8 F Temperature 98.6 F Temperature 99.7 F Temperature 102.4 F Temperature 102.4 F Results - Labs CBC & Chem 7: 08/11/21 06:25 08/11/21 06:25 Labs: Abnormal lab results 08/10/21 08/10/21 08/10/21 Range/Units 13:23 13:23 15:20 WBC 22.7 H (4.5-11.0) K/mm3 Hgb (10.1-14.3) gm/dl Hct (30.3-42.9) % MCH 26 L (28-32) pg RDW 16.7 H (13.2-15.2) % Seg Neuts % (Manual) 88.0 H (40.0-70.0) % Lymphocytes % (Manual) 2.0 L (13.4-35.0) % Seg Neutrophils # Man 20.0 H (1.8-7.7) K/mm3 Lymphocytes # (Manual) 0.5 L (1.2-5.4) K/mm3 Monocytes # (Manual) 1.1 H (0.0-0.8) K/mm3 D-Dimer 916.49 H (0-234) ng/mlDDU Sodium 133 L (137-145) mmol/L Chloride 93.4 L (98-107) mmol/L BUN 36 H (7-17) mg/dL Glucose 131 H (65-100) mg/dL AST 68 H (5-40) units/L Alkaline Phosphatase 250 H (35-129) units/L Lactate Dehydrogenase (91-180) units/L C-Reactive Protein (0.00-1.30) mg/dL NT-Pro-B Natriuret Pep (0-900) pg/mL Albumin 3.8 L (3.9-5) g/dL 08/10/21 08/11/21 08/11/21 Range/Units 15:20 06:25 06:25 WBC 18.2 H (4.5-11.0) K/mm3 Hgb 9.5 L (10.1-14.3) gm/dl Hct 29.8 L (30.3-42.9) % MCH 25 L (28-32) pg RDW 16.6 H (13.2-15.2) % Seg Neuts % (Manual) 98.0 H (40.0-70.0) % Lymphocytes % (Manual) 2.0 L (13.4-35.0) % Seg Neutrophils # Man 17.8 H (1.8-7.7) K/mm3 Lymphocytes # (Manual) 0.4 L (1.2-5.4) K/mm3 Monocytes # (Manual) (0.0-0.8) K/mm3 D-Dimer (0-234) ng/mlDDU Sodium 134 L (137-145) mmol/L Chloride 97.4 L (98-107) mmol/L BUN 41 H (7-17) mg/dL Glucose 154 H (65-100) mg/dL AST (5-40) units/L Alkaline Phosphatase (35-129) units/L Lactate Dehydrogenase 395 H (91-180) units/L C-Reactive Protein 6.10 H (0.00-1.30) mg/dL NT-Pro-B Natriuret Pep (0-900) pg/mL Albumin (3.9-5) g/dL 08/11/21 Range/Units 06:25 WBC (4.5-11.0) K/mm3 Hgb (10.1-14.3) gm/dl Hct (30.3-42.9) % MCH (28-32) pg RDW (13.2-15.2) % Seg Neuts % (Manual) (40.0-70.0) % Lymphocytes % (Manual) (13.4-35.0) % Seg Neutrophils # Man (1.8-7.7) K/mm3 Lymphocytes # (Manual) (1.2-5.4) K/mm3 Monocytes # (Manual) (0.0-0.8) K/mm3 D-Dimer (0-234) ng/mlDDU Sodium (137-145) mmol/L Chloride (98-107) mmol/L BUN (7-17) mg/dL Glucose (65-100) mg/dL AST (5-40) units/L Alkaline Phosphatase (35-129) units/L Lactate Dehydrogenase (91-180) units/L C-Reactive Protein (0.00-1.30) mg/dL NT-Pro-B Natriuret Pep 3710 H (0-900) pg/mL Albumin (3.9-5) g/dL - Imaging and Cardiology Chest x-ray: report reviewed, image reviewed (mild interstitial edema) Assessment and Plan Cultures: SARS CoV2 PCR: Pending 08/10/2021 blood culture: In process 08/10/2021 urine culture: No growth A/P: 85-year-old female with vascular dementia, CVA, hypertension, CHF, pulmonary hypertension, coronary artery disease status post CABG, prior heart valve replacement, atrial fibrillation on anticoagulation was admitted with worsening shortness of breath and poor oral intake: #Sepsis secondary to bilateral pneumonia: CAP v/s COVID-19 v/s component of CHF. Labs showed leukocytosis of 22.7, D-dimer 916, CRP 6.1, proBNP 3710, LDH 395. #Acute hypoxic respiratory failure: on NC. #Penicillin allergy: Has received ceftriaxone in the past as per EMR review. #CHF, pulmonary hypertension, coronary artery disease Recs: -Follow-up COVID-19 PCR, if positive, start remdesivir x 5 days -Continue empiric ceftriaxone, azithromycin for now -On steroids, continue for now pending COVID-19 PCR Jimmy Acuña MD, FACP [facility] ([facility] O: [phone] F: [phone]
[2021-08-11] MEDS: cefTRIAXone/NS 2 GM/100 ML 2 GM/100 ML BAG IV SCH (15:09)
--- NOTE | 2021-08-11 19:01 | Electrocardiograph Report ---
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
[2021-08-12] MEDS: BUMETANIDE 1 MG TAB PO SCH ×2 (03:12→10:54)
[2021-08-12] MEDS: CLOPIDOGREL 75 MG TAB PO SCH ×2 (03:12→09:56)
[2021-08-12] MEDS: APIXABAN 2.5 MG TAB PO SCH ×3 (03:12→22:53)
[2021-08-12] MEDS: CHOLECALCIFEROL (VIT D3) 400 UNIT TAB PO SCH (03:13)
[2021-08-12] MEDS: ASCORBIC ACID 500 MG TAB PO SCH ×3 (03:13→22:53)
[2021-08-12] MEDS: cefTRIAXone/NS 2 GM/100 ML 2 GM/100 ML BAG IV SCH ×2 (03:13→10:03)
[2021-08-12] MEDS: ZINC SULFATE 220 MG CAP PO SCH ×3 (03:13→22:53)
[2021-08-12] MEDS: methylPREDNISolone Sod Succinate 40 MG/1 ML INJ IV SCH ×4 (03:14→22:54)
--- NOTE | 2021-08-12 08:12 | Progress Note ---
Assessment and Plan Assessment and plan: History of present illness: 85 YO Female with Vascular Dementia, Cerebral Atherosclerosis, HTN, Diastolic CHF, Debility, Pulmonary HTN, NE, HLD, OA, NE, CAD S/P CABG with Heart Valve Replacement, Paroxysmal Atrial Fib on therapeutic anticoagulation with Eliquis presents to ED for evaluation. Patient has diminished cognition and is unable to provide history. Patient history taken from EMS staff, ED staff, as well as the patient's family who was made available by telephone for interview. As per family the patient has experienced increased confusion, diminished oral intake, and shortness of breath over the past 3 days with persistent or worsening symptoms over the same timeframe. EMS was notified and upon arrival the patient was found to be in distress and subsequent transported to [facility] for further care and evaluation of the aforementioned symptoms. The patient was seen and evaluated in the emergency department. All lab and imaging studies reviewed. The patient was found to have a temperature of 102.4 F, a heart rate of 110 bpm, and respiratory rate of 38 as well as a pulse oximetry of 88% on room air which is consistent with acute hypoxemic respiratory failure. Chest x-ray revealed bilateral pneumonia which was complicated by sepsis. Patient admitted to medical floor due to increased risk of worsening symptoms. Patient admitted on pneumonia protocol as well as sepsis protocol and coronavirus protocol. No reports of fever, chills, chest pain, palpitation, productive cough, skin rash, recent ill contact, or known exposure to COVID-19. Patient is fully vaccinated against COVID-19. Prior admission on 01/25/2019 reviewed. All medication listed at time of admission has been reconciled. Advanced care planning conducted in ED. Hospital course to date: 08/11: Improvement in respiratory status. She states that she is feeling better and is hungry. Will attempt to place on room air today. Resume diet, continue supportive management with antibiotics, steroids. If Covid RT-PCR positive will order remdesivir per ID instruction. Anticipated discharge in 24 to 48 hours. 08/12: Allergic reaction to azithromycin yesterday. D/c azithromycin. Currently only on rocephin, will defer to ID for abx. Assessment and plan: (1) Sepsis Current Visit: Yes Status: Acute Plan to address problem: Sepsis protocol: Chest x-ray, CBC, CMP, urinalysis, IV fluid resuscitation therapy, IV antibiotic therapy, supplemental oxygen, strict I/O, maintain mean arterial pressure greater than or equal to 65, serial lactic acid level, blood culture. AVOID : macrolide, pennicilin, sulfa, quinolone class due to allergy Continue Ceftriaxone ID consulted, will differ to them for antibiotic selection. (2) Acute hypoxemic respiratory failure Current Visit: Yes Status: Acute Plan to address problem: Chest x-ray, CBC, CMP, supplemental oxygen, pulse oximetry, nebulizer therapy, pulmonary toilet. (3) COVID-19 vaccination not done Current Visit: Yes Status: Acute Plan to address problem: Coronavirus protocol: IV antibiotic therapy, IV steroid therapy, vitamin C the rapy, vitamin D therapy, zinc therapy, supplemental oxygen, pulse oximetry. (4) Pneumonia Current Visit: Yes Status: Acute Plan to address problem: Pneumonia protocol: Chest x-ray, CBC, CMP, IV antibiotic therapy, blood culture, supplemental oxygen, pulse oximetry (5) Debility Current Visit: Yes Status: Acute Plan to address problem: Supportive care, treat sepsis (6) Atrial fibrillation with rapid ventricular response Current Visit: Yes Status: Acute Plan to address problem: Rate control, therapeutic anticoagulation with Eliquis. Continue medical management. cardiology consult for runs of afib will follow recs for medication echo pending (7) Diastolic CHF Current Visit: Yes Status: Acute Qualifiers: Heart failure chronicity: acute on chronic Qualified Code(s): I50.33 - Acute on chronic diastolic (congestive) heart failure Plan to address problem: Strict I/O, monitor urine output every shift, daily weight, afterload reduction, blood pressure control. (8) Pulmonary hypertension Current Visit: Yes Status: Acute Plan to address problem: Supplemental oxygen, supportive care. Outpatient pulmonary follow-up (9) Vascular dementia Plan to address problem: chronic (10) DVT prophylaxis Current Visit: Yes Status: Acute Plan to address problem: SCD to bilateral lower extremities while in bed, continue therapeutic an ticoagulation (11) Advance care planning Current Visit: Yes Status: Acute Plan to address problem: Disease education conducted, care plan discussed, diagnoses discussed, prognosis discussed, patient is full code, patient daughter Key Burgess notified via telephone of patient status. Patient daughter acknowledges understanding and agreement with care plan, +30 minutes. History Interval history: no acute complaints. daguther at bedside. inital plan was for d/c however patient in afib rvr so need cardiology eval. Hospitalist Physical - Constitutional Vitals: Temp Pulse Resp BP Pulse Ox 97.6 F 65 20 136/39 96 08/12/21 06:46 08/12/21 06:46 08/12/21 06:46 08/12/21 06:46 08/12/21 06:46 General appearance: Present: mild distress Results - Labs CBC & Chem 7: 08/13/21 04:00 08/11/21 06:25 Labs: Laboratory Last Values WBC 18.2 K/mm3 (4.5-11.0) H 08/11/21 06:25 RBC 3.74 M/mm3 (3.65-5.03) 08/11/21 06:25 Hgb 9.5 gm/dl (10.1-14.3) L 08/11/21 06:25 Hct 29.8 % (30.3-42.9) L 08/11/21 06:25 MCV 80 fl (79-97) 08/11/21 06:25 MCH 25 pg (28-32) L 08/11/21 06:25 MCHC 32 % (30-34) 08/11/21 06:25 RDW 16.6 % (13.2-15.2) H 08/11/21 06:25 Plt Count 258 K/mm3 (140-440) 08/11/21 06:25 Add Manual Diff Complete 08/11/21 06:25 Total Counted 100 08/11/21 06:25 Seg Neutrophils % Christmas Tree Grader 08/11/21 06:25 Seg Neuts % (Manual) 98.0 % (40.0-70.0) H 08/11/21 06:25 Band Neutrophils % 3.0 % 08/10/21 13:23 Lymphocytes % (Manual) 2.0 % (13.4-35.0) L 08/11/21 06:25 Reactive Lymphs % (Man) 2.0 % 08/10/21 13:23 Monocytes % (Manual) 5.0 % (0.0-7.3) 08/10/21 13:23 Nucleated RBC % Not Reportable 08/11/21 06:25 Seg Neutrophils # Man 17.8 K/mm3 (1.8-7.7) H 08/11/21 06:25 Band Neutrophils # 0.0 K/mm3 08/11/21 06:25 Lymphocytes # (Manual) 0.4 K/mm3 (1.2-5.4) L 08/11/21 06:25 Abs React Lymphs (Man) 0.0 K/mm3 08/11/21 06:25 Monocytes # (Manual) 0.0 K/mm3 (0.0-0.8) 08/11/21 06:25 Eosinophils # (Manual) 0.0 K/mm3 (0.0-0.4) 08/11/21 06:25 Basophils # (Manual) 0.0 K/mm3 (0.0-0.1) 08/11/21 06:25 Metamyelocytes # 0.0 K/mm3 08/11/21 06:25 Myelocytes # 0.0 K/mm3 08/11/21 06:25 Promyelocytes # 0.0 K/mm3 08/11/21 06:25 Blast Cells # 0.0 K/mm3 08/11/21 06:25 WBC Morphology Not Reportable 08/11/21 06:25 Hypersegmented Neuts Not Reportable 08/11/21 06:25 Hyposegmented Neuts Not Reportable 08/11/21 06:25 Hypogranular Neuts Not Reportable 08/11/21 06:25 Smudge Cells Not Reportable 08/11/21 06:25 Toxic Granulation Not Reportable 08/11/21 06:25 Toxic Vacuolation Not Reportable 08/11/21 06:25 Dohle Bodies Not Reportable 08/11/21 06:25 Pelger-Huet Anomaly Not Reportable 08/11/21 06:25 Tiffanie Rods Not Reportable 08/11/21 06:25 Platelet Estimate Consistent w auto 08/11/21 06:25 Clumped Platelets Not Reportable 08/11/21 06:25 Plt Clumps, EDTA Not Reportable 08/11/21 06:25 Large Platelets Not Reportable 08/11/21 06:25 Giant Platelets Not Reportable 08/11/21 06:25 Platelet Satelliting Not Reportable 08/11/21 06:25 Plt Morphology Comment Not Reportable 08/11/21 06:25 RBC Morphology Not Reportable 08/11/21 06:25 Dimorphic RBCs Not Reportable 08/11/21 06:25 Polychromasia Not Reportable 08/11/21 06:25 Hypochromasia 1+ 08/11/21 06:25 Poikilocytosis 1+ 08/11/21 06:25 Anisocytosis 1+ 08/11/21 06:25 Microcytosis Not Reportable 08/11/21 06:25 Macrocytosis Not Reportable 08/11/21 06:25 Spherocytes Not Reportable 08/11/21 06:25 Pappenheimer Bodies Not Reportable 08/11/21 06:25 Sickle Cells Not Reportable 08/11/21 06:25 Target Cells Not Reportable 08/11/21 06:25 Tear Drop Cells Not Reportable 08/11/21 06:25 Ovalocytes Not Reportable 08/11/21 06:25 Helmet Cells Not Reportable 08/11/21 06:25 Martínez-Cabool Bodies Not Reportable 08/11/21 06:25 Sanford Rings Not Reportable 08/11/21 06:25 Lakisha Cells 1+ 08/11/21 06:25 Bite Cells Not Reportable 08/11/21 06:25 Crenated Cell Not Reportable 08/11/21 06:25 Elliptocytes Not Reportable 08/11/21 06:25 Acanthocytes (Spur) Not Reportable 08/11/21 06:25 Rouleaux Not Reportable 08/11/21 06:25 Hemoglobin C Crystals Not Reportable 08/11/21 06:25 Schistocytes Not Reportable 08/11/21 06:25 Malaria parasites Not Reportable 08/11/21 06:25 Sadiq Bodies Not Reportable 08/11/21 06:25 Hem Pathologist Commnt No 08/11/21 06:25 D-Dimer 916.49 ng/mlDDU (0-234) H 08/10/21 15:20 Sodium 134 mmol/L (137-145) L 08/11/21 06:25 Potassium 3.9 mmol/L (3.6-5.0) 08/11/21 06:25 Chloride 97.4 mmol/L (98-107) L 08/11/21 06:25 Carbon Dioxide 23 mmol/L (22-30) 08/11/21 06:25 Anion Gap 18 mmol/L 08/11/21 06:25 BUN 41 mg/dL (7-17) H 08/11/21 06:25 Creatinine 1.0 mg/dL (0.6-1.2) 08/11/21 06:25 Estimated GFR 53 ml/min 08/11/21 06:25 BUN/Creatinine Ratio 41 % 08/11/21 06:25 Glucose 154 mg/dL (65-100) H 08/11/21 06:25 Lactic Acid 1.00 mmol/L (0.7-2.0) 08/10/21 17:50 Calcium 8.4 mg/dL (8.4-10.2) 08/11/21 06:25 Total Bilirubin 0.30 mg/dL (0.1-1.2) 08/10/21 13:23 AST 68 units/L (5-40) H 08/10/21 13:23 ALT 38 units/L (7-56) 08/10/21 13:23 Alkaline Phosphatase 250 units/L (35-129) H 08/10/21 13:23 Lactate Dehydrogenase 395 units/L (91-180) H 08/10/21 15:20 C-Reactive Protein 6.10 mg/dL (0.00-1.30) H 08/10/21 15:20 NT-Pro-B Natriuret Pep 3710 pg/mL (0-900) H 08/11/21 06:25 Total Protein 7.8 g/dL (6.3-8.2) 08/10/21 13:23 Albumin 3.8 g/dL (3.9-5) L 08/10/21 13:23 Albumin/Globulin Ratio 1.0 % 08/10/21 13:23 Procalcitonin 4.15 ng/mL (<0.15) 08/10/21 15:20 Urine Color Straw (Yellow) 08/10/21 14:50 Urine Turbidity Clear (Clear) 08/10/21 14:50 Urine pH 7.0 (5.0-7.0) 08/10/21 14:50 Ur Specific Murray 1.006 (1.003-1.030) 08/10/21 14:50 Urine Protein <15 mg/dl mg/dL (Negative) 08/10/21 14:50 Urine Glucose (UA) Neg mg/dL (Negative) 08/10/21 14:50 Urine Ketones Neg mg/dL (Negative) 08/10/21 14:50 Urine Blood Neg (Negative) 08/10/21 14:50 Urine Nitrite Neg (Negative) 08/10/21 14:50 Urine Bilirubin Neg (Negative) 08/10/21 14:50 Urine Urobilinogen < 2.0 mg/dL (<2.0) 08/10/21 14:50 Ur Leukocyte Esterase Neg (Negative) 08/10/21 14:50 Urine WBC (Auto) < 1.0 /HPF (0.0-6.0) 08/10/21 14:50 Urine RBC (Auto) 1.0 /HPF (0.0-6.0) 08/10/21 14:50 U Epithel Cells (Auto) < 1.0 /HPF (0-13.0) 08/10/21 14:50 Coronavirus (PCR) Negative (Negative) 08/11/21 08:00 Blood Type A NEGATIVE 08/10/21 13:23 Antibody Screen Negative 08/10/21 13:23 Microbiology: Microbiology 08/10/21 13:23 Peripheral/Venous Blood Culture - Preliminary NO GROWTH AFTER 24 HOURS 08/10/21 13:23 Peripheral/Venous Blood Culture - Preliminary NO GROWTH AFTER 24 HOURS 08/10/21 14:50 Urine,Catheterized - Straight Catheter Urine Culture - Preliminary NO GROWTH AFTER 24 HOURS Zimmer/IV: Voiding Method External Female Catheter Active Medications - Current Medications Current Medications: Generic Name Dose Route Start Last Admin Trade Name Freq PRN Reason Stop Dose Admin Acetaminophen 650 mg 08/10/21 14:49 Acetaminophen 325 Mg Tab PO Q4H PRN Pain MILD(1-3)/Fever >100.5/ALICEA Albuterol 2.5 mg 08/10/21 14:49 Albuterol 2.5 Mg/3 Ml Nebu IH Q4HRT PRN Shortness Of Breath Apixaban 2.5 mg 08/10/21 22:00 08/12/21 03:12 Apixaban 2.5 Mg Tab PO Not Given Q12HR TEX Ascorbic Acid 500 mg 08/10/21 22:00 08/12/21 03:13 Ascorbic Acid 500 Mg Tab PO Not Given BID TEX Atorvastatin Calcium 20 mg 08/10/21 22:00 08/11/21 22:13 Atorvastatin 20 Mg Tab PO 20 mg QHS [facility] Administration Bumetanide 1 mg 08/11/21 10:00 08/12/21 03:12 Bumetanide 1 Mg Tab PO Not Given DAILY REPLACED BY [facility] Cholecalciferol 1,000 unit 08/11/21 10:00 08/12/21 03:13 Cholecalciferol (Vit D3) 400 Unit Tab PO Not Given QDAY REPLACED BY [facility] Clopidogrel Bisulfate 75 mg 08/11/21 10:00 08/12/21 03:12 Clopidogrel 75 Mg Tab PO Not Given QDAY REPLACED BY [facility] Hydromorphone HCl 0.25 mg 08/10/21 14:49 Hydromorphone 1 Mg/1 Ml Inj IV Q4H PRN Pain, Moderate (4-6) Hydromorphone HCl 0.5 mg 08/10/21 14:49 Hydromorphone 1 Mg/1 Ml Inj IV Q23H PRN Pain , Severe (7-10) Ceftriaxone Sodium 2 gm in 100 mls @ 200 mls/hr 08/11/21 13:00 08/12/21 03:13 Rocephin/Ns 2 Gm/100 Ml IV Not Given Q24HR REPLACED BY [facility] Protocol Methylprednisolone Sodium Succinate 40 mg 08/10/21 22:00 08/12/21 06:03 Methylprednisolone Sod Succinate 40 Mg/1 Ml Inj IV 40 mg Q8HR REPLACED BY [facility] Administration Ondansetron HCl 4 mg 08/10/21 14:49 Ondansetron 4 Mg/2 Ml Inj IV Q8H PRN Nausea And Vomiting Oxycodone/Acetaminophen 1 tab 08/10/21 14:49 Oxycodone /Acetaminophen 5-325mg Tab PO Q12H PRN Pain, Moderate (4-6) Sodium Chloride 10 ml 08/10/21 22:00 08/12/21 03:13 Sodium Chloride 0.9% 10 Ml Flush Syringe IV Not Given BID REPLACED BY [facility] Sodium Chloride 10 ml 08/10/21 14:49 Sodium Chloride 0.9% 10 Ml Flush Syringe IV PRN PRN LINE FLUSH Zinc Sulfate 220 mg 08/10/21 22:00 08/12/21 03:13 Zinc Sulfate 220 Mg Cap PO Not Given BID REPLACED BY [facility]
[2021-08-12] MEDS: CHOLECALCIFEROL (VIT D3) 1000 UNIT (25 mcg) TAB PO SCH (10:03)
--- NOTE | 2021-08-12 14:09 | Progress Note ---
Assessment and Plan Cultures: SARS CoV2 PCR: negative 08/10/2021 blood culture: no growth 08/10/2021 urine culture: No growth A/P: 85-year-old female with vascular dementia, CVA, hypertension, CHF, pulmonary hypertension, coronary artery disease status post CABG, prior heart valve replacement, atrial fibrillation on anticoagulation was admitted with worsening shortness of breath and poor oral intake: #Sepsis secondary to bilateral pneumonia: CAP v/s component of CHF. Labs showed leukocytosis of 22.7, D-dimer 916, proBNP 3710, LDH 395. CRP 6.1, procalcitonin 4.1 #Acute hypoxic respiratory failure: improved. #Penicillin allergy: Has received ceftriaxone in the past as per EMR review. #CHF, pulmonary hypertension, coronary artery disease Recs: -Continue empiric ceftriaxone, azithromycin for now -COVID is negative, steroids not needed -Recheck WBC in a.m., if improved, discharge on p.o. Ceftin 500 mg twice daily for 5 days Jimmy Acuña MD, FACP [facility] ([facility] O: [phone] F: [phone] Subjective Date of service: 08/12/21 Interval history: No fever. Dry cough present. Feeling better. Weaned off oxygen. COVID-19 came back negative. Objective - Exam Narrative Exam: Physical Exam: Constitutional: Alert, cooperative. No acute distress Head, Ears, Nose: Normocephalic, atraumatic. External ears, nose normal Eyes: Conjunctivae/corneas clear. No icterus. No ptosis. Neck: Supple, no meningeal signs Cardiovascular: S1, S2 + Respiratory: mainly clear b/l GI: Soft, non-tender; bowel sounds normal. No peritoneal signs Musculoskeletal: No pedal edema, no cyanosis. Skin: No rash or abscess Hem/Lymphatic: No palpable cervical or supraclavicular nodes. No lymphangitis Psych: Mood ok. Affect normal Neurological: Awake, alert, oriented. No gross abnormality - Constitutional Vitals: Vital Signs Temp Pulse Resp BP Pulse Ox 98.4 F 63 18 122/46 96 08/12/21 11:18 08/12/21 11:18 08/12/21 11:18 08/12/21 11:18 08/12/21 11:18 Temperature -Last 24 Hours Temperature 98.4 F Temperature 97.6 F Temperature 97.8 F - Labs CBC & Chem 7: 08/11/21 06:25 08/11/21 06:25
--- NOTE | 2021-08-12 16:33 | Consultation ---
History of Present Illness Consult date: 08/12/21 Requesting physician: RACHAEL BLOCK Consult reason: atrial fibrillation (w/RVR) History of present illness: Patient is an 85-year-old woman followed by Dr. Amaya/Dr. Toledo of our practice. She has a past medical history of chronic atrial fibrillation (anticoagulated on Eliquis), aortic valve stenosis s/p valce replacement, Coronary artery disease, H/O coronary artery bypass surgery Hyperlipidemia, Hypertension, vascular dementia presented to the ED with a complaint of diminished cognition, shortness of breath, and weakness which began on Tuesday. History taken from documentation and patient's daughter who was at bedside due to language barrier. During patient's hospital course patient was found to have bilateral pneumonia and be septic. Patient is currently being treated with antibiotic. Patient tested negative for Covid. At time of interview patient was alert and oriented and had no cardiac complaints. Cardiology is consulted because patient had a burst of A. fib with RVR with a rate into the 150s. However patient has been trending in the 60s and 70s. Of note patient has not been receiving their beta- blockers Past History Past Medical History: atrial fib, arthritis, heart failure, hypertension, hyperlipidemia, other (See HPI) Past Surgical History: CABG, total knee replacement Social history: , lives with family Family history: hypertension Medications and Allergies Allergies Allergy/AdvReac Type Severity Reaction Status Date / Time azithromycin Allergy Shortness Verified 08/11/21 18:29 of Breath Penicillins Allergy Rash and Verified 08/11/21 11:06 chest tightness Sulfa (Sulfonamide Allergy Rash and Verified 08/11/21 11:06 Antibiotics) chest tightness levofloxacin [From Levaquin] AdvReac Shortness Verified 11/11/17 18:31 of Breath Home Medications Medication Instructions Recorded Confirmed Last Taken Type AtorvaSTATin [Lipitor] 20 mg PO QHS 03/21/17 08/11/21 08/10/21 History Bumetanide [Bumex 1 mg tab] 1 mg PO DAILY 03/21/17 08/11/21 08/10/21 History lisinopriL [Zestril TAB] 20 mg PO DAILY 03/21/17 08/11/21 08/10/21 History Apixaban [Eliquis] 2.5 mg PO Q12HR #60 tablet 11/15/17 08/11/21 08/10/21 Rx Amlodipine Besylate 5 mg PO DAILY 01/16/19 08/11/21 08/10/21 History Metoprolol [Lopressor TAB] 50 mg PO BID #60 01/27/19 08/11/21 08/10/21 Rx Chlorthalidone [Thalitone] 12.5 mg PO DAILY 08/11/21 08/11/21 08/10/21 History Active Meds: Active Medications Acetaminophen (Acetaminophen 325 Mg Tab) 650 mg PO Q4H PRN PRN Reason: Pain MILD(1-3)/Fever >100.5/ALICEA Albuterol (Albuterol 2.5 Mg/3 Ml Nebu) 2.5 mg IH Q4HRT PRN PRN Reason: Shortness Of Breath Apixaban (Apixaban 2.5 Mg Tab) 2.5 mg PO Q12HR [facility] Last Admin: 08/12/21 09:56 Dose: 2.5 mg Documented by: Ascorbic Acid (Ascorbic Acid 500 Mg Tab) 500 mg PO BID [facility] Last Admin: 08/12/21 09:56 Dose: 500 mg Documented by: Atorvastatin Calcium (Atorvastatin 20 Mg Tab) 20 mg PO QHS [facility] Last Admin: 08/11/21 22:13 Dose: 20 mg Documented by: Bumetanide (Bumetanide 1 Mg Tab) 1 mg PO DAILY [facility] Last Admin: 08/12/21 10:54 Dose: 1 mg Documented by: Cholecalciferol (Cholecalciferol (Vit D3) 1000 Unit (25 Mcg) Tab) 1,000 unit PO DAILY [facility] Last Admin: 08/12/21 10:03 Dose: 1,000 unit Documented by: Clopidogrel Bisulfate (Clopidogrel 75 Mg Tab) 75 mg PO QDAY [facility] Last Admin: 08/12/21 09:56 Dose: 75 mg Documented by: Hydromorphone HCl (Hydromorphone 1 Mg/1 Ml Inj) 0.25 mg IV Q4H PRN PRN Reason: Pain, Moderate (4-6) Hydromorphone HCl (Hydromorphone 1 Mg/1 Ml Inj) 0.5 mg IV Q23H PRN PRN Reason: Pain , Severe (7-10) Ceftriaxone Sodium (Rocephin/Ns 2 Gm/100 Ml) 2 gm in 100 mls @ 200 mls/hr IV Q24HR [facility]; Protocol Last Admin: 08/12/21 10:03 Dose: 200 mls/hr Documented by: Methylprednisolone Sodium Succinate (Methylprednisolone Sod Succinate 40 Mg/1 Ml Inj) 40 mg IV Q8HR [facility] Last Admin: 08/12/21 15:20 Dose: 40 mg Documented by: Ondansetron HCl (Ondansetron 4 Mg/2 Ml Inj) 4 mg IV Q8H PRN PRN Reason: Nausea And Vomiting Oxycodone/Acetaminophen (Oxycodone /Acetaminophen 5-325mg Tab) 1 tab PO Q12H PRN PRN Reason: Pain, Moderate (4-6) Sodium Chloride (Sodium Chloride 0.9% 10 Ml Flush Syringe) 10 ml IV BID [facility] Last Admin: 08/12/21 10:04 Dose: 10 ml Documented by: Sodium Chloride (Sodium Chloride 0.9% 10 Ml Flush Syringe) 10 ml IV PRN PRN PRN Reason: LINE FLUSH Zinc Sulfate (Zinc Sulfate 220 Mg Cap) 220 mg PO BID [facility] Last Admin: 08/12/21 09:56 Dose: 220 mg Documented by: Review of Systems Constitutional: no weight loss, no weight gain Cardiovascular: palpitations, no chest pain, no orthopnea Respiratory: no cough, no cough with sputum, no excessive sputum, no shortness of breath, no dyspnea on exertion Gastrointestinal: no nausea, no vomiting, no diarrhea Integumentary: no rash, no pruritis, no redness Neurological: no head injury, no transient paralysis Psychiatric: no anxiety, no memory loss Hematologic/Lymphatic: no easy bruising, no easy bleeding Physical Examination Vital Signs Temp Pulse Resp BP Pulse Ox 102.4 F H 108 H 30 H 148/63 97 08/10/21 12:27 08/10/21 12:27 08/10/21 12:27 08/10/21 12:27 08/10/21 12:27 General appearance: no acute distress HEENT: Positive: PERRL Cardiac: Positive: irregularly irregular Lungs: Positive: Decreased Breath Sounds Neuro: Positive: Grossly Intact Abdomen: Positive: Soft, Active Bowel Sounds Skin: Negative: Rash, Suspicious Lesions, Ulceration Extremities: Present: upper extr. pulses, lower extr. pulses. Absent: edema Results 08/11/21 06:25 08/11/21 06:25 - Imaging and Cardiology Echo: pending EKG interpretations - Telemetry EKG Rhythm: Atrial Fibrillation - EKG Supraventricular dysrhythmia: atrial fibrillation Assessment and Plan Patient is an 85-year-old woman followed by Dr. Amaya/Dr. Toledo of our practice. She has a past medical history of chronic atrial fibrillation (anticoagulated on Eliquis), aortic valve stenosis s/p valce replacement, Coronary artery disease, H/O coronary artery bypass surgery Hyperlipidemia, Hypertension, vascular dementia who has been dianosed with PNA Echo 01/2019 Left ventricular ejection fraction is 50-55%. Mildly increased left ventricular wall thickness. Elevated left atrial pressure. Severely dilated left atrium. Bioprosthetic aortic valve is well seated with mild aortic insufficiency and trace paravalvular leak. Mean gradient across the valve is about 20 mmHg (irregular rhythm so inconsistent).Mitral regurgitation is eccentric and is at least moderate. Mild pulmonic valve insufficiency. Mild- moderate tricuspid regurgitation Plan: EKG shows A. fib with a rate of 90s no acute ischemic changes. Telemetry reviewed patient currently A. fib trending in the 60s with episode of RVR earlier this a.m. ID following for treatment of patient's pneumonia/sepsis Echo pending Patient anticoagulated on Eliquis We will continue to hold beta-blockers, Lisinopril, and amlodipine due to patient soft blood pressures Patient seen in conjunction with Dr. Toledo who agrees with this plan of care. We will continue to follow - Patient Problems (1) Chronic a-fib Current Visit: Yes Status: Acute (2) Acute hypoxemic respiratory failure Current Visit: Yes Status: Acute (3) Bilateral pneumonia Current Visit: Yes Status: Acute (4) Fever Current Visit: Yes Status: Acute (5) CAD (coronary artery disease) Current Visit: No Status: Chronic (6) HTN (hypertension) Current Visit: No Status: Chronic Qualifiers: Hypertension type: essential hypertension (7) S/P CABG (coronary artery bypass graft) Current Visit: No Status: Chronic (8) S/P aortic valve replacement with bioprosthetic valve Current Visit: No Status: Chronic (9) Stented coronary artery Current Visit: No Status: Chronic (10) Sepsis Current Visit: No Status: Suspected
[2021-08-13 05:36] LABS: Basophils % (Auto) 0.1 % (0.0-1.8); Hematocrit 31.1 % (30.3-42.9); Hemoglobin 9.9 gm/dl (10.1-14.3); Lymphocytes # (Auto) 1.2 K/mm3 (1.2-5.4); Lymphocytes % (Auto) 7.1 % (13.4-35.0); Mean Corpuscular HGB Conc 32 % (30-34); Mean Corpuscular Volume 80 fl (79-97); Monocytes # (Auto) 0.7 K/mm3 (0.0-0.8); Monocytes % (Auto) 3.8 % (0.0-7.3); Platelet Count 334 K/mm3 (140-440); Red Blood Count 3.91 M/mm3 (3.65-5.03); Red Cell Distribution Width 16.5 % (13.2-15.2)
[2021-08-13] MEDS: methylPREDNISolone Sod Succinate 40 MG/1 ML INJ IV SCH (06:45)
[2021-08-13] MEDS: BUMETANIDE 1 MG TAB PO SCH (09:37)
[2021-08-13] MEDS: ASCORBIC ACID 500 MG TAB PO SCH ×2 (09:38→21:31)
[2021-08-13] MEDS: cefTRIAXone/NS 2 GM/100 ML 2 GM/100 ML BAG IV SCH (09:38)
[2021-08-13] MEDS: ZINC SULFATE 220 MG CAP PO SCH ×2 (09:38→21:31)
[2021-08-13] MEDS: APIXABAN 2.5 MG TAB PO SCH ×2 (09:39→21:31)
[2021-08-13] MEDS: CLOPIDOGREL 75 MG TAB PO SCH (09:39)
[2021-08-13] MEDS: CHOLECALCIFEROL (VIT D3) 1000 UNIT (25 mcg) TAB PO SCH (09:39)
--- NOTE | 2021-08-13 12:01 | Progress Note ---
Assessment and Plan Assessment and plan: History of present illness: 85 YO Female with Vascular Dementia, Cerebral Atherosclerosis, HTN, Diastolic CHF, Debility, Pulmonary HTN, DC, HLD, OA, DC, CAD S/P CABG with Heart Valve Replacement, Paroxysmal Atrial Fib on therapeutic anticoagulation with Eliquis presents to ED for evaluation. Patient has diminished cognition and is unable to provide history. Patient history taken from EMS staff, ED staff, as well as the patient's family who was made available by telephone for interview. As per family the patient has experienced increased confusion, diminished oral intake, and shortness of breath over the past 3 days with persistent or worsening symptoms over the same timeframe. EMS was notified and upon arrival the patient was found to be in distress and subsequent transported to [facility] for further care and evaluation of the aforementioned symptoms. The patient was seen and evaluated in the emergency department. All lab and imaging studies reviewed. The patient was found to have a temperature of 102.4 F, a heart rate of 110 bpm, and respiratory rate of 38 as well as a pulse oximetry of 88% on room air which is consistent with acute hypoxemic respiratory failure. Chest x-ray revealed bilateral pneumonia which was complicated by sepsis. Patient admitted to medical floor due to increased risk of worsening symptoms. Patient admitted on pneumonia protocol as well as sepsis protocol and coronavirus protocol. No reports of fever, chills, chest pain, palpitation, productive cough, skin rash, recent ill contact, or known exposure to COVID-19. Patient is fully vaccinated against COVID-19. Prior admission on 01/25/2019 reviewed. All medication listed at time of admission has been reconciled. Advanced care planning conducted in ED. Hospital course to date: 08/11: Improvement in respiratory status. She states that she is feeling better and is hungry. Will attempt to place on room air today. Resume diet, continue supportive management with antibiotics, steroids. If Covid RT-PCR positive will order remdesivir per ID instruction. Anticipated discharge in 24 to 48 hours. 08/12: Allergic reaction to azithromycin yesterday. D/c azithromycin. Currently only on rocephin, will defer to ID for abx. 08/13: Remains in afib rvr. asymptomatic. awaiting echo results and cardiology recs for medication management. Plan for potential d/c today if echo normal and HR under better control. Assessment and plan: (1) Sepsis Current Visit: Yes Status: Acute Plan to address problem: Sepsis protocol: Chest x-ray, CBC, CMP, urinalysis, IV fluid resuscitation therapy, IV antibiotic therapy, supplemental oxygen, strict I/O, maintain mean arterial pressure greater than or equal to 65, serial lactic acid level, blood culture. AVOID : macrolide, pennicilin, sulfa, quinolone class due to allergy Continue Ceftriaxone ID consulted, will differ to them for antibiotic selection. (2) Acute hypoxemic respiratory failure Current Visit: Yes Status: Acute Plan to address problem: Chest x-ray, CBC, CMP, supplemental oxygen, pulse oximetry, nebulizer therapy, pulmonary toilet. (3) COVID-19 vaccination not done Current Visit: Yes Status: Acute Plan to address problem: Coronavirus protocol: IV antibiotic therapy, IV steroid therapy, vitamin C therapy, vitamin D therapy, zinc therapy, supplemental oxygen, pulse oximetry. (4) Pneumonia Current Visit: Yes Status: Acute Plan to address problem: Pneumonia protocol: Chest x-ray, CBC, CMP, IV antibiotic therapy, blood culture, supplemental oxygen, pulse oximetry (5) Debility Current Visit: Yes Status: Acute Plan to address problem: Supportive care, treat sepsis (6) Atrial fibrillation with rapid ventricular response Current Visit: Yes Status: Acute Plan to address problem: Rate control, therapeutic anticoagulation with Eliquis. Continue medical management. cardiology consult for runs of afib will follow recs for medication echo pending (7) Diastolic CHF Current Visit: Yes Status: Acute Qualifiers: Heart failure chronicity: acute on chronic Qualified Code(s): I50.33 - Acute on chronic diastolic (congestive) heart failure Plan to address problem: Strict I/O, monitor urine output every shift, daily weight, afterload reduction, blood pressure control. (8) Pulmonary hypertension Current Visit: Yes Status: Acute Plan to address problem: Supplemental oxygen, supportive care. Outpatient pulmonary follow-up (9) Vascular dementia Plan to address problem: chronic (10) DVT prophylaxis Current Visit: Yes Status: Acute Plan to address problem: SCD to bilateral lower extremities while in bed, continue therapeutic anticoagulation (11) Advance care planning Current Visit: Yes Status: Acute Plan to address problem: Disease education conducted, care plan discussed, diagnoses discussed, prognosis discussed, patient is full code, patient daughter Key Burgess notified via telephone of patient status. Patient daughter acknowledges understanding and agreement with care plan, +30 minutes. History Interval history: Remains in afib, asymptomatic on encounter. Updated daughter on care plan. If patient HR better control and echo normal, can likely go home. Hospitalist Physical - Physical exam Narrative exam: Physical Exam: VITAL SIGNS: Reviewed. GENERAL: The patient appears normally developed, Vital signs as documented. Pleasant. NAD. On 2 L nasal cannula HEAD: No signs of head trauma. EYES: Pupils are equal. Extraocular motions intact. EARS: Hearing grossly intact. MOUTH: Oropharynx is normal. NECK: No adenopathy, no JVD. CHEST: Diminished bilateral rhonchi. CARDIAC: tachycardic , irregular rhythm. S1 and S2, without murmurs, gallops, or rubs. VASCULAR: No Edema. Peripheral pulses normal and equal in all extremities. ABDOMEN: Soft, non tender and non distended. No rebound or guarding, and no masses palpated. Bowel Sounds normal. MUSCULOSKELETAL: Good range of motion of all major joints. Extremities without clubbing, cyanosis or edema. NEUROLOGIC EXAM: Alert although orientation could not be verified as patient withdrawn no focal sensory or strength deficits. PSYCHIATRIC: Mood normal. SKIN: detail exam as documented in skin assessment - Constitutional Vitals: Temp Pulse Resp BP Pulse Ox 98.2 F 106 H 20 143/54 96 08/13/21 06:32 08/13/21 06:32 08/13/21 06:32 08/13/21 06:32 08/13/21 10:30 General appearance: Present: mild distress Results - Labs CBC & Chem 7: 08/13/21 04:00 08/11/21 06:25 Labs: Laboratory Last Values WBC 17.0 K/mm3 (4.5-11.0) H 08/13/21 04:00 RBC 3.91 M/mm3 (3.65-5.03) 08/13/21 04:00 Hgb 9.9 gm/dl (10.1-14.3) L 08/13/21 04:00 Hct 31.1 % (30.3-42.9) 08/13/21 04:00 MCV 80 fl (79-97) 08/13/21 04:00 MCH 25 pg (28-32) L 08/13/21 04:00 MCHC 32 % (30-34) 08/13/21 04:00 RDW 16.5 % (13.2-15.2) H 08/13/21 04:00 Plt Count 334 K/mm3 (140-440) 08/13/21 04:00 Lymph % (Auto) 7.1 % (13.4-35.0) L 08/13/21 04:00 [place] % (Auto) 3.8 % (0.0-7.3) 08/13/21 04:00 Eos % (Auto) 0.0 % (0.0-4.3) 08/13/21 04:00 Baso % (Auto) 0.1 % (0.0-1.8) 08/13/21 04:00 Lymph # (Auto) 1.2 K/mm3 (1.2-5.4) 08/13/21 04:00 [place] # (Auto) 0.7 K/mm3 (0.0-0.8) 08/13/21 04:00 Eos # (Auto) 0.0 K/mm3 (0.0-0.4) 08/13/21 04:00 Baso # (Auto) 0.0 K/mm3 (0.0-0.1) 08/13/21 04:00 Add Manual Diff Complete 08/11/21 06:25 Total Counted 100 08/11/21 06:25 Seg Neutrophils % 89.0 % (40.0-70.0) H 08/13/21 04:00 Seg Neuts % (Manual) 98.0 % (40.0-70.0) H 08/11/21 06:25 Band Neutrophils % 3.0 % 08/10/21 13:23 Lymphocytes % (Manual) 2.0 % (13.4-35.0) L 08/11/21 06:25 Reactive Lymphs % (Man) 2.0 % 08/10/21 13:23 Monocytes % (Manual) 5.0 % (0.0-7.3) 08/10/21 13:23 Nucleated RBC % Not Reportable 08/11/21 06:25 Seg Neutrophils # 15.2 K/mm3 (1.8-7.7) H 08/13/21 04:00 Seg Neutrophils # Man 17.8 K/mm3 (1.8-7.7) H 08/11/21 06:25 Band Neutrophils # 0.0 K/mm3 08/11/21 06:25 Lymphocytes # (Manual) 0.4 K/mm3 (1.2-5.4) L 08/11/21 06:25 Abs React Lymphs (Man) 0.0 K/mm3 08/11/21 06:25 Monocytes # (Manual) 0.0 K/mm3 (0.0-0.8) 08/11/21 06:25 Eosinophils # (Manual) 0.0 K/mm3 (0.0-0.4) 08/11/21 06:25 Basophils # (Manual) 0.0 K/mm3 (0.0-0.1) 08/11/21 06:25 Metamyelocytes # 0.0 K/mm3 08/11/21 06:25 Myelocytes # 0.0 K/mm3 08/11/21 06:25 Promyelocytes # 0.0 K/mm3 08/11/21 06:25 Blast Cells # 0.0 K/mm3 08/11/21 06:25 WBC Morphology Not Reportable 08/11/21 06:25 Hypersegmented Neuts Not Reportable 08/11/21 06:25 Hyposegmented Neuts Not Reportable 08/11/21 06:25 Hypogranular Neuts Not Reportable 08/11/21 06:25 Smudge Cells Not Reportable 08/11/21 06:25 Toxic Granulation Not Reportable 08/11/21 06:25 Toxic Vacuolation Not Reportable 08/11/21 06:25 Dohle Bodies Not Reportable 08/11/21 06:25 Pelger-Huet Anomaly Not Reportable 08/11/21 06:25 Tiffanie Rods Not Reportable 08/11/21 06:25 Platelet Estimate Consistent w auto 08/11/21 06:25 Clumped Platelets Not Reportable 08/11/21 06:25 Plt Clumps, EDTA Not Reportable 08/11/21 06:25 Large Platelets Not Reportable 08/11/21 06:25 Giant Platelets Not Reportable 08/11/21 06:25 Platelet Satelliting Not Reportable 08/11/21 06:25 Plt Morphology Comment Not Reportable 08/11/21 06:25 RBC Morphology Not Reportable 08/11/21 06:25 Dimorphic RBCs Not Reportable 08/11/21 06:25 Polychromasia Not Reportable 08/11/21 06:25 Hypochromasia 1+ 08/11/21 06:25 Poikilocytosis 1+ 08/11/21 06:25 Anisocytosis 1+ 08/11/21 06:25 Microcytosis Not Reportable 08/11/21 06:25 Macrocytosis Not Reportable 08/11/21 06:25 Spherocytes Not Reportable 08/11/21 06:25 Pappenheimer Bodies Not Reportable 08/11/21 06:25 Sickle Cells Not Reportable 08/11/21 06:25 Target Cells Not Reportable 08/11/21 06:25 Tear Drop Cells Not Reportable 08/11/21 06:25 Ovalocytes Not Reportable 08/11/21 06:25 Helmet Cells Not Reportable 08/11/21 06:25 [place] Bodies Not Reportable 08/11/21 06:25 [place] Rings Not Reportable 08/11/21 06:25 [place] Cells 1+ 08/11/21 06:25 Bite Cells Not Reportable 08/11/21 06:25 Crenated Cell Not Reportable 08/11/21 06:25 Elliptocytes Not Reportable 08/11/21 06:25 Acanthocytes (Spur) Not Reportable 08/11/21 06:25 Rouleaux Not Reportable 08/11/21 06:25 Hemoglobin C Crystals Not Reportable 08/11/21 06:25 Schistocytes Not Reportable 08/11/21 06:25 Malaria parasites Not Reportable 08/11/21 06:25 Sadiq Bodies Not Reportable 08/11/21 06:25 Hem Pathologist Commnt No 08/11/21 06:25 D-Dimer 916.49 ng/mlDDU (0-234) H 08/10/21 15:20 Sodium 134 mmol/L (137-145) L 08/11/21 06:25 Potassium 3.9 mmol/L (3.6-5.0) 08/11/21 06:25 Chloride 97.4 mmol/L (98-107) L 08/11/21 06:25 Carbon Dioxide 23 mmol/L (22-30) 08/11/21 06:25 Anion Gap 18 mmol/L 08/11/21 06:25 BUN 41 mg/dL (7-17) H 08/11/21 06:25 Creatinine 1.0 mg/dL (0.6-1.2) 08/11/21 06:25 Estimated GFR 53 ml/min 08/11/21 06:25 BUN/Creatinine Ratio 41 % 08/11/21 06:25 Glucose 154 mg/dL (65-100) H 08/11/21 06:25 Lactic Acid 1.00 mmol/L (0.7-2.0) 08/10/21 17:50 Calcium 8.4 mg/dL (8.4-10.2) 08/11/21 06:25 Total Bilirubin 0.30 mg/dL (0.1-1.2) 08/10/21 13:23 AST 68 units/L (5-40) H 08/10/21 13:23 ALT 38 units/L (7-56) 08/10/21 13:23 Alkaline Phosphatase 250 units/L (35-129) H 08/10/21 13:23 Lactate Dehydrogenase 395 units/L (91-180) H 08/10/21 15:20 C-Reactive Protein 6.10 mg/dL (0.00-1.30) H 08/10/21 15:20 NT-Pro-B Natriuret Pep 3710 pg/mL (0-900) H 08/11/21 06:25 Total Protein 7.8 g/dL (6.3-8.2) 08/10/21 13:23 Albumin 3.8 g/dL (3.9-5) L 08/10/21 13:23 Albumin/Globulin Ratio 1.0 % 08/10/21 13:23 Procalcitonin 4.15 ng/mL (<0.15) 08/10/21 15:20 Urine Color Straw (Yellow) 08/10/21 14:50 Urine Turbidity Clear (Clear) 08/10/21 14:50 Urine pH 7.0 (5.0-7.0) 08/10/21 14:50 Ur Specific [place] 1.006 (1.003-1.030) 08/10/21 14:50 Urine Protein <15 mg/dl mg/dL (Negative) 08/10/21 14:50 Urine Glucose (UA) Neg mg/dL (Negative) 08/10/21 14:50 Urine Ketones Neg mg/dL (Negative) 08/10/21 14:50 Urine Blood Neg (Negative) 08/10/21 14:50 Urine Nitrite Neg (Negative) 08/10/21 14:50 Urine Bilirubin Neg (Negative) 08/10/21 14:50 Urine Urobilinogen < 2.0 mg/dL (<2.0) 08/10/21 14:50 Ur Leukocyte Esterase Neg (Negative) 08/10/21 14:50 Urine WBC (Auto) < 1.0 /HPF (0.0-6.0) 08/10/21 14:50 Urine RBC (Auto) 1.0 /HPF (0.0-6.0) 08/10/21 14:50 U Epithel Cells (Auto) < 1.0 /HPF (0-13.0) 08/10/21 14:50 Coronavirus (PCR) Negative (Negative) 08/11/21 08:00 Blood Type A NEGATIVE 08/10/21 13:23 Antibody Screen Negative 08/10/21 13:23 Microbiology: Microbiology 08/10/21 13:23 Peripheral/Venous Blood Culture - Preliminary NO GROWTH AFTER 48 HOURS 08/10/21 13:23 Peripheral/Venous Blood Culture - Preliminary NO GROWTH AFTER 48 HOURS 08/10/21 14:50 Urine,Catheterized - Straight Catheter Urine Culture - Final NO GROWTH AFTER 48 HOURS Zimmer/IV: Voiding Method External Female Catheter Active Medications - Current Medications Current Medications: Generic Name Dose Route Start Last Admin Trade Name Freq PRN Reason Stop Dose Admin Acetaminophen 650 mg 08/10/21 14:49 Acetaminophen 325 Mg Tab PO Q4H PRN Pain MILD(1-3)/Fever >100.5/ALICEA Albuterol 2.5 mg 08/10/21 14:49 Albuterol 2.5 Mg/3 Ml Nebu IH Q4HRT PRN Shortness Of Breath Apixaban 2.5 mg 08/10/21 22:00 08/13/21 09:39 Apixaban 2.5 Mg Tab PO 2.5 mg Q12HR TEX Administration Ascorbic Acid 500 mg 08/10/21 22:00 08/13/21 09:38 Ascorbic Acid 500 Mg Tab PO 500 mg BID TEX Administration Atorvastatin Calcium 20 mg 08/10/21 22:00 08/12/21 22:53 Atorvastatin 20 Mg Tab PO 20 mg QHS TEX Administration Bumetanide 1 mg 08/11/21 10:00 08/13/21 09:37 Bumetanide 1 Mg Tab PO 1 mg DAILY TEX Administration Cholecalciferol 1,000 unit 08/12/21 10:00 08/13/21 09:39 Cholecalciferol (Vit D3) 1000 Unit (25 Mcg) Tab PO 1,000 unit DAILY TEX Administration Clopidogrel Bisulfate 75 mg 08/11/21 10:00 08/13/21 09:39 Clopidogrel 75 Mg Tab PO 75 mg QDAY TEX Administration Hydromorphone HCl 0.25 mg 08/10/21 14:49 08/12/21 16:33 Hydromorphone 1 Mg/1 Ml Inj IV 0.25 mg Q4H PRN Administration Pain, Moderate (4-6) Hydromorphone HCl 0.5 mg 08/10/21 14:49 Hydromorphone 1 Mg/1 Ml Inj IV Q23H PRN Pain , Severe (7-10) Ceftriaxone Sodium 2 gm in 100 mls @ 200 mls/hr 08/11/21 13:00 08/13/21 09:38 Rocephin/Ns 2 Gm/100 Ml IV 200 mls/hr Q24HR TEX Administration Protocol Metoprolol Tartrate 25 mg 08/13/21 14:00 Metoprolol Tartrate 25 Mg Tab PO TID [facility] Ondansetron HCl 4 mg 08/10/21 14:49 Ondansetron 4 Mg/2 Ml Inj IV Q8H PRN Nausea And Vomiting Oxycodone/Acetaminophen 1 tab 08/10/21 14:49 Oxycodone /Acetaminophen 5-325mg Tab PO Q12H PRN Pain, Moderate (4-6) Sodium Chloride 10 ml 08/10/21 22:00 08/13/21 09:39 Sodium Chloride 0.9% 10 Ml Flush Syringe IV 10 ml BID TEX Administration Sodium Chloride 10 ml 08/10/21 14:49 Sodium Chloride 0.9% 10 Ml Flush Syringe IV PRN PRN LINE FLUSH Zinc Sulfate 220 mg 08/10/21 22:00 08/13/21 09:38 Zinc Sulfate 220 Mg Cap PO 220 mg BID TEX Administration
[2021-08-13] MEDS: METOPROLOL TARTRATE 25 MG TAB PO SCH ×2 (13:11→21:30)
--- NOTE | 2021-08-13 13:20 | Progress Note ---
Assessment and Plan Cultures: SARS CoV2 PCR: negative 08/10/2021 blood culture: no growth 08/10/2021 urine culture: No growth A/P: 85-year-old female with vascular dementia, CVA, hypertension, CHF, pulmonary hypertension, coronary artery disease status post CABG, prior heart valve replacement, atrial fibrillation on anticoagulation was admitted with worsening shortness of breath and poor oral intake: #Sepsis secondary to bilateral pneumonia: CAP v/s component of CHF. Labs showed leukocytosis of 22.7, D-dimer 916, proBNP 3710, LDH 395. CRP 6.1, procalcitonin 4.1 #Acute hypoxic respiratory failure: improved. #Penicillin allergy: Has received ceftriaxone in the past as per EMR review. #CHF, pulmonary hypertension, coronary artery disease Recs: -Continue ceftriaxone, azithromycin while inpatient, discharge on p.o. Ceftin 500 mg twice daily for 4 days -leucocytosis is likely due to steroids. Clinically she is much better. ID will sign off. Please reconsult if needed. Jimmy Acuña MD, FACP [facility] O: [phone] F: [phone] Subjective Date of service: 08/13/21 Interval history: No fever, no complaints. Remains on room air. Daughter at bedside. Objective - Exam Narrative Exam: Physical Exam: Constitutional: Alert, cooperative. No acute distress Head, Ears, Nose: Normocephalic, atraumatic. External ears, nose normal Eyes: Conjunctivae/corneas clear. No icterus. No ptosis. Neck: Supple, no meningeal signs Cardiovascular: S1, S2 + Respiratory: mainly clear b/l GI: Soft, non-tender; bowel sounds normal. No peritoneal signs Musculoskeletal: No pedal edema, no cyanosis. Skin: No rash or abscess Hem/Lymphatic: No palpable cervical or supraclavicular nodes. No lymphangitis Psych: Mood ok. Affect normal Neurological: Awake, alert, oriented. No gross abnormality - Constitutional Vitals: Vital Signs Temp Pulse Resp BP Pulse Ox 98.2 F 99 H 20 110/47 96 08/13/21 06:32 08/13/21 13:11 08/13/21 06:32 08/13/21 13:11 08/13/21 10:30 Temperature -Last 24 Hours Temperature 98.2 F Temperature 98.3 F Temperature 97.6 F - Labs CBC & Chem 7: 08/13/21 04:00 08/11/21 06:25 Labs: Abnormal lab results 08/13/21 Range/Units 04:00 WBC 17.0 H (4.5-11.0) K/mm3 Hgb 9.9 L (10.1-14.3) gm/dl MCH 25 L (28-32) pg RDW 16.5 H (13.2-15.2) % Lymph % (Auto) 7.1 L (13.4-35.0) % Seg Neutrophils % 89.0 H (40.0-70.0) % Seg Neutrophils # 15.2 H (1.8-7.7) K/mm3
--- NOTE | 2021-08-13 14:51 | Progress Note ---
Assessment and Plan Patient is an 85-year-old woman followed by Dr. Amaya/Dr. Toledo of our practice. She has a past medical history of chronic atrial fibrillation (anticoagulated on Eliquis), aortic valve stenosis s/p valce replacement, Coronary artery disease, H/O coronary artery bypass surgery Hyperlipidemia, Hypertension, vascular dementia who has been dianosed with PNA Echo 08/12/2021-EF 50 to 55%, AV function normal. Bioprosthetic aortic valve present. Mild mitral regurgitation. No pericardial effusion Echo 01/2019 Left ventricular ejection fraction is 50-55%. Mildly increased left ventricular wall thickness. Elevated left atrial pressure. Severely dilated left atrium. Bioprosthetic aortic valve is well seated with mild aortic insufficiency and trace paravalvular leak. Mean gradient across the valve is about 20 mmHg (irregular rhythm so inconsistent).Mitral regurgitation is eccentric and is at least moderate. Mild pulmonic valve insufficiency. Mild-moderate tricuspid regurgitation Plan: EKG shows A. fib with a rate of 90s no acute ischemic changes. ID following for treatment of patient's pneumonia/sepsis Patient anticoagulated on Eliquis Initiate metoprolol 20mg PO TID for rate control. Conttineu to hold lisinopril and amlodipine due to soft BP Patient seen in conjunction with Dr. Toledo who agrees with this plan of care. We will continue to follow - Patient Problems (1) Chronic a-fib Current Visit: Yes Status: Acute (2) Acute hypoxemic respiratory failure Current Visit: Yes Status: Acute (3) Bilateral pneumonia Current Visit: Yes Status: Acute (4) Fever Current Visit: Yes Status: Acute (5) CAD (coronary artery disease) Current Visit: No Status: Chronic (6) HTN (hypertension) Current Visit: No Status: Chronic Qualifiers: Hypertension type: essential hypertension (7) S/P CABG (coronary artery bypass graft) Current Visit: No Status: Chronic (8) S/P aortic valve replacement with bioprosthetic valve Current Visit: No Status: Chronic (9) Stented coronary artery Current Visit: No Status: Chronic (10) Sepsis Current Visit: No Status: Suspected Subjective Date of service: 08/13/21 Principal diagnosis: PNA, Afib w/RVR Interval history: PAtient in room with daughter as 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 Patient reports feeling much better Afib w/ RVR in trending 110s but episodes into 150s Objective Vital Signs Temp Pulse Resp BP Pulse Ox 08/13/21 13:11 99 H 110/47 08/13/21 11:16 98.1 F 93 H 18 133/53 96 08/13/21 10:30 96 08/13/21 06:32 98.2 F 106 H 20 143/54 97 08/12/21 22:55 95 08/12/21 22:45 98.3 F 104 H 18 113/55 95 08/12/21 17:31 97.6 F 129 H 20 132/61 96 08/12/21 15:00 96 - Physical Examination General: No Apparent Distress HEENT: Positive: PERRL Neck: Positive: trachea midline Cardiac: Positive: irregularly irregular Lungs: Positive: Decreased Breath Sounds Neuro: Positive: Grossly Intact Abdomen: Positive: Soft, Active Bowel Sounds Skin: Negative: Rash, Suspicious Lesions, Ulceration Extremities: Present: upper extr. pulses, lower extr. pulses. Absent: edema - Labs and Meds CBC 08/13/21 Range/Units 04:00 WBC 17.0 H (4.5-11.0) K/mm3 RBC 3.91 (3.65-5.03) M/mm3 Hgb 9.9 L (10.1-14.3) gm/dl Hct 31.1 (30.3-42.9) % Plt Count 334 (140-440) K/mm3 Lymph # (Auto) 1.2 (1.2-5.4) K/mm3 [place] # (Auto) 0.7 (0.0-0.8) K/mm3 Eos # (Auto) 0.0 (0.0-0.4) K/mm3 Baso # (Auto) 0.0 (0.0-0.1) K/mm3 - Imaging and Cardiology Echo: report reviewed - Telemetry EKG Rhythm: Atrial Fibrillation - EKG Supraventricular dysrhythmia: atrial fibrillation
[2021-08-13] MEDS ORDERED: FLEET ENEMA PR ONE (22:30)
[2021-08-14] MEDS: DOCUSATE SODIUM 100 MG CAP PO SCH ×3 (00:23→21:12)
--- NOTE | 2021-08-14 08:42 | Progress Note ---
Assessment and Plan Assessment and plan: 85 YO Female with Vascular Dementia, Cerebral Atherosclerosis, HTN, Diastolic CHF, Debility, Pulmonary HTN, MN, HLD, OA, MN, CAD S/P CABG with Heart Valve Replacement, Paroxysmal Atrial Fib on therapeutic anticoagulation with Eliquis presents to ED for evaluation. Patient has diminished cognition and is unable to provide history. Patient history taken from EMS staff, ED staff, as well as the patient's family who was made available by telephone for interview. As per family the patient has experienced increased confusion, diminished oral intake, and shortness of breath over the past 3 days with persistent or worsening symptoms over the same timeframe. EMS was notified and upon arrival the patient was found to be in distress and subsequent transported to [facility] for further care and evaluation of the aforementioned symptoms. The patient was seen and evaluated in the emergency department. All lab and imaging studies reviewed. The patient was found to have a temperature of 102.4 F, a heart rate of 110 bpm, and respiratory rate of 38 as well as a pulse oximetry of 88% on room air which is consistent with acute hypoxemic respiratory failure. Chest x-ray revealed bilateral pneumonia which was complicated by sepsis. Patient admitted to medical floor due to increased risk of worsening symptoms. Patient admitted on pneumonia protocol as well as sepsis protocol and coronavirus protocol. No reports of fever, chills, chest pain, palpitation, productive cough, skin rash, recent ill contact, or known exposure to COVID-19. Patient is fully vaccinated against COVID-19. Prior admission on 01/25/2019 reviewed. All medication listed at time of admission has been reconciled. Advanced care planning conducted in ED. Hospital course to date: 08/11: Improvement in respiratory status. She states that she is feeling better and is hungry. Will attempt to place on room air today. Resume diet, continue supportive management with antibiotics, steroids. If Covid RT-PCR positive will order remdesivir per ID instruction. Anticipated discharge in 24 to 48 hours. 08/12: Allergic reaction to azithromycin yesterday. D/c azithromycin. Currently only on rocephin, will defer to ID for abx. 08/13: Remains in afib rvr. asymptomatic. awaiting echo results and cardiology recs for medication management. Plan for potential d/c today if echo normal and HR under better control. 08/14/2021; patient continues to be in A. fib with rapid ventricular rate, heart rate ranging between 120s to 130s, patient has no new symptoms, anxious to go home, Cardiology added Cardizem, closely monitor, patient not stable for discharge due to uncontrolled heart rate Will follow cardiology recommendations Assessment and plan: --Atrial fibrillation with rapid ventricular response Current Visit: Yes Status: Acute Patient heart rate ranges between 110-130s Patient is already on metoprolol , cardiology added Cardizem Continue to monitor, on chronic anticoagulation with Eliquis Cardiology following --Acute hypoxemic respiratory failure Current Visit: Yes Status: Acute Present on admission requiring supplemental oxygen Currently patient is saturating on room air --Sepsis due to bilateral pneumonia Current Visit: Yes Status: Acute Elevated procalcitonin, patient is antibiotics Cultures need to date, oxygen to keep O2 sats more than 90% Supportive care --COVID-19 negative test Current Visit: Yes Status: Acute Continue oxygen titrate O2 sats more than 90% , supportive care --Bilateral pneumonia Current Visit: Yes Status: Acute Continue supplemental oxygen, antibiotics per ID --General debility Current Visit: Yes Status: Acute Treat the underlying cause ,supportive care, --Diastolic CHF Current Visit: Yes Status: Acute. Input output monitoring, fluid restriction, low-sodium diet Continue current management, cardiology following --Pulmonary hypertension Current Visit: Yes Status: Acute Supplemental oxygen, supportive care. Outpatient pulmonary follow-up --Vascular dementia Plan to address problem: chronic, continue supportive care --DVT prophylaxis Current Visit: Yes Status: Acute On therapeutic anticoagulation with Eliquis --Advance care planning/full CODE STATUS Current Visit: Yes Status: Acute Patient's condition treatment plan tests and reports discussed in detail with the patient and the daughter at the bedside They both verbalized understanding Consults and recommendations noted and appreciated Possible discharge when patient's heart rate is well controlled and patient is stable Case discussed with the patient's nurse and also the case management I also discussed the case with cardiology nurse practitioner History Interval history: I seen and examined the patient at the bedside Patient's chart and medications reviewed Patient's daughter in the room Anxious to go home however patient in A. fib with rapid ventricular rate Heart rate ranging in 120s to 150s Patient denies chest pain or shortness of breath Vital signs noted Hospitalist Physical - Constitutional Vitals: Temp Pulse Resp BP Pulse Ox 98.1 F 96 H 16 138/51 96 08/14/21 05:18 08/14/21 05:18 08/14/21 05:18 08/14/21 05:18 08/14/21 05:18 General appearance: Present: mild distress, well-nourished - EENT Eyes: Present: PERRL, EOM intact - Neck Neck: Present: supple, normal ROM - Respiratory Respiratory effort: normal Respiratory: bilateral: diminished, negative: rales, rhonchi, wheezing - Cardiovascular Rhythm: irregularly irregular Heart Sounds: Present: S1 & S2 (A. fib with rapid ventricular rate) - Extremities Extremities: no ischemia, pulses intact - Abdominal General gastrointestinal: soft, non-tender, non-distended, normal bowel sounds - Integumentary Integumentary: Present: clear, warm - Psychiatric Psychiatric: appropriate mood/affect, cooperative - Neurologic Neurologic: CNII-XII intact, moves all extremities Results - Labs CBC & Chem 7: 08/13/21 04:00 08/11/21 06:25 Labs: Laboratory Last Values WBC 17.0 K/mm3 (4.5-11.0) H 08/13/21 04:00 RBC 3.91 M/mm3 (3.65-5.03) 08/13/21 04:00 Hgb 9.9 gm/dl (10.1-14.3) L 08/13/21 04:00 Hct 31.1 % (30.3-42.9) 08/13/21 04:00 MCV 80 fl (79-97) 08/13/21 04:00 MCH 25 pg (28-32) L 08/13/21 04:00 MCHC 32 % (30-34) 08/13/21 04:00 RDW 16.5 % (13.2-15.2) H 08/13/21 04:00 Plt Count 334 K/mm3 (140-440) 08/13/21 04:00 Lymph % (Auto) 7.1 % (13.4-35.0) L 08/13/21 04:00 [place] % (Auto) 3.8 % (0.0-7.3) 08/13/21 04:00 Eos % (Auto) 0.0 % (0.0-4.3) 08/13/21 04:00 Baso % (Auto) 0.1 % (0.0-1.8) 08/13/21 04:00 Lymph # (Auto) 1.2 K/mm3 (1.2-5.4) 08/13/21 04:00 [place] # (Auto) 0.7 K/mm3 (0.0-0.8) 08/13/21 04:00 Eos # (Auto) 0.0 K/mm3 (0.0-0.4) 08/13/21 04:00 Baso # (Auto) 0.0 K/mm3 (0.0-0.1) 08/13/21 04:00 Add Manual Diff Complete 08/11/21 06:25 Total Counted 100 08/11/21 06:25 Seg Neutrophils % 89.0 % (40.0-70.0) H 08/13/21 04:00 Seg Neuts % (Manual) 98.0 % (40.0-70.0) H 08/11/21 06:25 Band Neutrophils % 3.0 % 08/10/21 13:23 Lymphocytes % (Manual) 2.0 % (13.4-35.0) L 08/11/21 06:25 Reactive Lymphs % (Man) 2.0 % 08/10/21 13:23 Monocytes % (Manual) 5.0 % (0.0-7.3) 08/10/21 13:23 Nucleated RBC % Not Reportable 08/11/21 06:25 Seg Neutrophils # 15.2 K/mm3 (1.8-7.7) H 08/13/21 04:00 Seg Neutrophils # Man 17.8 K/mm3 (1.8-7.7) H 08/11/21 06:25 Band Neutrophils # 0.0 K/mm3 08/11/21 06:25 Lymphocytes # (Manual) 0.4 K/mm3 (1.2-5.4) L 08/11/21 06:25 Abs React Lymphs (Man) 0.0 K/mm3 08/11/21 06:25 Monocytes # (Manual) 0.0 K/mm3 (0.0-0.8) 08/11/21 06:25 Eosinophils # (Manual) 0.0 K/mm3 (0.0-0.4) 08/11/21 06:25 Basophils # (Manual) 0.0 K/mm3 (0.0-0.1) 08/11/21 06:25 Metamyelocytes # 0.0 K/mm3 08/11/21 06:25 Myelocytes # 0.0 K/mm3 08/11/21 06:25 Promyelocytes # 0.0 K/mm3 08/11/21 06:25 Blast Cells # 0.0 K/mm3 08/11/21 06:25 WBC Morphology Not Reportable 08/11/21 06:25 Hypersegmented Neuts Not Reportable 08/11/21 06:25 Hyposegmented Neuts Not Reportable 08/11/21 06:25 Hypogranular Neuts Not Reportable 08/11/21 06:25 Smudge Cells Not Reportable 08/11/21 06:25 Toxic Granulation Not Reportable 08/11/21 06:25 Toxic Vacuolation Not Reportable 08/11/21 06:25 Dohle Bodies Not Reportable 08/11/21 06:25 Pelger-Huet Anomaly Not Reportable 08/11/21 06:25 Tiffanie Rods Not Reportable 08/11/21 06:25 Platelet Estimate Consistent w auto 08/11/21 06:25 Clumped Platelets Not Reportable 08/11/21 06:25 Plt Clumps, EDTA Not Reportable 08/11/21 06:25 Large Platelets Not Reportable 08/11/21 06:25 Giant Platelets Not Reportable 08/11/21 06:25 Platelet Satelliting Not Reportable 08/11/21 06:25 Plt Morphology Comment Not Reportable 08/11/21 06:25 RBC Morphology Not Reportable 08/11/21 06:25 Dimorphic RBCs Not Reportable 08/11/21 06:25 Polychromasia Not Reportable 08/11/21 06:25 Hypochromasia 1+ 08/11/21 06:25 Poikilocytosis 1+ 08/11/21 06:25 Anisocytosis 1+ 08/11/21 06:25 Microcytosis Not Reportable 08/11/21 06:25 Macrocytosis Not Reportable 08/11/21 06:25 Spherocytes Not Reportable 08/11/21 06:25 Pappenheimer Bodies Not Reportable 08/11/21 06:25 Sickle Cells Not Reportable 08/11/21 06:25 Target Cells Not Reportable 08/11/21 06:25 Tear Drop Cells Not Reportable 08/11/21 06:25 Ovalocytes Not Reportable 08/11/21 06:25 Helmet Cells Not Reportable 08/11/21 06:25 [place] Bodies Not Reportable 08/11/21 06:25 [place] Rings Not Reportable 08/11/21 06:25 Lakisha Cells 1+ 08/11/21 06:25 Bite Cells Not Reportable 08/11/21 06:25 Crenated Cell Not Reportable 08/11/21 06:25 Elliptocytes Not Reportable 08/11/21 06:25 Acanthocytes (Spur) Not Reportable 08/11/21 06:25 Rouleaux Not Reportable 08/11/21 06:25 Hemoglobin C Crystals Not Reportable 08/11/21 06:25 Schistocytes Not Reportable 08/11/21 06:25 Malaria parasites Not Reportable 08/11/21 06:25 Sadiq Bodies Not Reportable 08/11/21 06:25 Hem Pathologist Commnt No 08/11/21 06:25 D-Dimer 916.49 ng/mlDDU (0-234) H 08/10/21 15:20 Sodium 134 mmol/L (137-145) L 08/11/21 06:25 Potassium 3.9 mmol/L (3.6-5.0) 08/11/21 06:25 Chloride 97.4 mmol/L (98-107) L 08/11/21 06:25 Carbon Dioxide 23 mmol/L (22-30) 08/11/21 06:25 Anion Gap 18 mmol/L 08/11/21 06:25 BUN 41 mg/dL (7-17) H 08/11/21 06:25 Creatinine 1.0 mg/dL (0.6-1.2) 08/11/21 06:25 Estimated GFR 53 ml/min 08/11/21 06:25 BUN/Creatinine Ratio 41 % 08/11/21 06:25 Glucose 154 mg/dL (65-100) H 08/11/21 06:25 Lactic Acid 1.00 mmol/L (0.7-2.0) 08/10/21 17:50 Calcium 8.4 mg/dL (8.4-10.2) 08/11/21 06:25 Total Bilirubin 0.30 mg/dL (0.1-1.2) 08/10/21 13:23 AST 68 units/L (5-40) H 08/10/21 13:23 ALT 38 units/L (7-56) 08/10/21 13:23 Alkaline Phosphatase 250 units/L (35-129) H 08/10/21 13:23 Lactate Dehydrogenase 395 units/L (91-180) H 08/10/21 15:20 C-Reactive Protein 6.10 mg/dL (0.00-1.30) H 08/10/21 15:20 NT-Pro-B Natriuret Pep 3710 pg/mL (0-900) H 08/11/21 06:25 Total Protein 7.8 g/dL (6.3-8.2) 08/10/21 13:23 Albumin 3.8 g/dL (3.9-5) L 08/10/21 13:23 Albumin/Globulin Ratio 1.0 % 08/10/21 13:23 Procalcitonin 4.15 ng/mL (<0.15) 08/10/21 15:20 Urine Color Straw (Yellow) 08/10/21 14:50 Urine Turbidity Clear (Clear) 08/10/21 14:50 Urine pH 7.0 (5.0-7.0) 08/10/21 14:50 Ur Specific [place] 1.006 (1.003-1.030) 08/10/21 14:50 Urine Protein <15 mg/dl mg/dL (Negative) 08/10/21 14:50 Urine Glucose (UA) Neg mg/dL (Negative) 08/10/21 14:50 Urine Ketones Neg mg/dL (Negative) 08/10/21 14:50 Urine Blood Neg (Negative) 08/10/21 14:50 Urine Nitrite Neg (Negative) 08/10/21 14:50 Urine Bilirubin Neg (Negative) 08/10/21 14:50 Urine Urobilinogen < 2.0 mg/dL (<2.0) 08/10/21 14:50 Ur Leukocyte Esterase Neg (Negative) 08/10/21 14:50 Urine WBC (Auto) < 1.0 /HPF (0.0-6.0) 08/10/21 14:50 Urine RBC (Auto) 1.0 /HPF (0.0-6.0) 08/10/21 14:50 U Epithel Cells (Auto) < 1.0 /HPF (0-13.0) 08/10/21 14:50 Coronavirus (PCR) Negative (Negative) 08/11/21 08:00 Blood Type A NEGATIVE 08/10/21 13:23 Antibody Screen Negative 08/10/21 13:23 Microbiology: Microbiology 08/10/21 13:23 Peripheral/Venous Blood Culture - Preliminary NO GROWTH AFTER 72 HOURS 08/10/21 13:23 Peripheral/Venous Blood Culture - Preliminary NO GROWTH AFTER 72 HOURS Zimmer/IV: Voiding Method Toilet Active Medications - Current Medications Current Medications: Generic Name Dose Route Start Last Admin Trade Name Freq PRN Reason Stop Dose Admin Acetaminophen 650 mg 08/10/21 14:49 Acetaminophen 325 Mg Tab PO Q4H PRN Pain MILD(1-3)/Fever >100.5/ALICEA Albuterol 2.5 mg 08/10/21 14:49 Albuterol 2.5 Mg/3 Ml Nebu IH Q4HRT PRN Shortness Of Breath Apixaban 2.5 mg 08/10/21 22:00 08/13/21 21:31 Apixaban 2.5 Mg Tab PO 2.5 mg Q12HR TEX Administration Ascorbic Acid 500 mg 08/10/21 22:00 08/13/21 21:31 Ascorbic Acid 500 Mg Tab PO 500 mg BID TEX Administration Atorvastatin Calcium 20 mg 08/10/21 22:00 08/13/21 21:31 Atorvastatin 20 Mg Tab PO 20 mg QHS TEX Administration Bumetanide 1 mg 08/11/21 10:00 08/13/21 09:37 Bumetanide 1 Mg Tab PO 1 mg DAILY TEX Administration Cholecalciferol 1,000 unit 08/12/21 10:00 08/13/21 09:39 Cholecalciferol (Vit D3) 1000 Unit (25 Mcg) Tab PO 1,000 unit DAILY TEX Administration Clopidogrel Bisulfate 75 mg 08/11/21 10:00 08/13/21 09:39 Clopidogrel 75 Mg Tab PO 75 mg QDAY TEX Administration Docusate Sodium 100 mg 08/13/21 23:00 08/14/21 00:23 Docusate Sodium 100 Mg Cap PO 100 mg BID TEX Administration Hydromorphone HCl 0.25 mg 08/10/21 14:49 08/12/21 16:33 Hydromorphone 1 Mg/1 Ml Inj IV 0.25 mg Q4H PRN Administration Pain, Moderate (4-6) Hydromorphone HCl 0.5 mg 08/10/21 14:49 Hydromorphone 1 Mg/1 Ml Inj IV Q23H PRN Pain , Severe (7-10) Ceftriaxone Sodium 2 gm in 100 mls @ 200 mls/hr 08/11/21 13:00 08/13/21 09:38 Rocephin/Ns 2 Gm/100 Ml IV 200 mls/hr Q24HR TEX Administration Protocol Metoprolol Tartrate 25 mg 08/13/21 14:00 08/13/21 21:30 Metoprolol Tartrate 25 Mg Tab PO 25 mg TID TEX Administration Ondansetron HCl 4 mg 08/10/21 14:49 Ondansetron 4 Mg/2 Ml Inj IV Q8H PRN Nausea And Vomiting Oxycodone/Acetaminophen 1 tab 08/10/21 14:49 Oxycodone /Acetaminophen 5-325mg Tab PO Q12H PRN Pain, Moderate (4-6) Sodium Chloride 10 ml 08/10/21 22:00 08/13/21 21:32 Sodium Chloride 0.9% 10 Ml Flush Syringe IV 10 ml BID TEX Administration Sodium Chloride 10 ml 08/10/21 14:49 Sodium Chloride 0.9% 10 Ml Flush Syringe IV PRN PRN LINE FLUSH Zinc Sulfate 220 mg 08/10/21 22:00 08/13/21 21:31 Zinc Sulfate 220 Mg Cap PO 220 mg BID TEX Administration
[2021-08-14] MEDS: CHOLECALCIFEROL (VIT D3) 1000 UNIT (25 mcg) TAB PO SCH (09:45)
[2021-08-14] MEDS: BUMETANIDE 1 MG TAB PO SCH (09:45)
[2021-08-14] MEDS: CLOPIDOGREL 75 MG TAB PO SCH (09:45)
[2021-08-14] MEDS: APIXABAN 2.5 MG TAB PO SCH ×2 (09:45→21:12)
[2021-08-14] MEDS: ASCORBIC ACID 500 MG TAB PO SCH ×2 (09:45→21:12)
[2021-08-14] MEDS: METOPROLOL TARTRATE 25 MG TAB PO SCH ×3 (09:45→21:11)
[2021-08-14] MEDS: cefTRIAXone/NS 2 GM/100 ML 2 GM/100 ML BAG IV SCH (09:46)
[2021-08-14] MEDS: ZINC SULFATE 220 MG CAP PO SCH ×2 (09:47→21:12)
--- NOTE | 2021-08-14 14:03 | Progress Note ---
Assessment and Plan Patient is an 85-year-old woman followed by Dr. Amaya/Dr. Toledo of our practice. She has a past medical history of chronic atrial fibrillation (anticoagulated on Eliquis), aortic valve stenosis s/p valce replacement, Coronary artery disease, H/O coronary artery bypass surgery Hyperlipidemia, Hypertension, vascular dementia who has been dianosed with PNA Echo 08/12/2021-EF 50 to 55%, AV function normal. Bioprosthetic aortic valve present. Mild mitral regurgitation. No pericardial effusion Echo 01/2019 Left ventricular ejection fraction is 50-55%. Mildly increased left ventricular wall thickness. Elevated left atrial pressure. Severely dilated left atrium. Bioprosthetic aortic valve is well seated with mild aortic insufficiency and trace paravalvular leak. Mean gradient across the valve is about 20 mmHg (irregular rhythm so inconsistent).Mitral regurgitation is eccentric and is at least moderate. Mild pulmonic valve insufficiency. Mild-moderate tricuspid regurgitation Plan: Patient anticoagulated on Eliquis Continue metoprolol 25mg PO TID for rate control. Continue to hold lisinopril and amlodipine due to soft BP Due to continue afib w/ RVR will initiate diltiazem 30mg PO Q8hrs for rate control. Patient seen in conjunction with Dr. Toledo who agrees with this plan of care. We will continue to follow - Patient Problems (1) Chronic a-fib Current Visit: Yes Status: Acute (2) Acute hypoxemic respiratory failure Current Visit: Yes Status: Acute (3) Bilateral pneumonia Current Visit: Yes Status: Acute (4) Fever Current Visit: Yes Status: Acute (5) CAD (coronary artery disease) Current Visit: No Status: Chronic (6) HTN (hypertension) Current Visit: No Status: Chronic (7) S/P CABG (coronary artery bypass graft) Current Visit: No Status: Chronic (8) S/P aortic valve replacement with bioprosthetic valve Current Visit: No Status: Chronic (9) Stented coronary artery Current Visit: No Status: Chronic (10) Sepsis Current Visit: No Status: Suspected Subjective Date of service: 08/14/21 Principal diagnosis: PNA, Afib w/RVR Interval history: 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 Patient reports feeling much better Afib w/ RVR in trending 120s but episodes into 150s Objective Vital Signs Temp Pulse Resp Resp BP Pulse Ox 08/14/21 09:45 124 H 135/75 08/14/21 05:18 98.1 F 96 H 16 138/51 96 08/14/21 01:36 98.1 F 113 H 16 131/64 96 08/13/21 23:00 16 97 08/13/21 22:00 16 08/13/21 21:30 144 H 145/58 08/13/21 18:21 98.0 F 101 H 18 139/54 98 08/13/21 15:00 96 - Physical Examination General: No Apparent Distress HEENT: Positive: PERRL Neck: Positive: trachea midline Cardiac: Positive: irregularly irregular Lungs: Positive: Normal Breath Sounds Neuro: Positive: Grossly Intact Abdomen: Positive: Soft, Active Bowel Sounds Skin: Negative: Rash, Suspicious Lesions, Ulceration Extremities: Present: upper extr. pulses, lower extr. pulses. Absent: edema - Imaging and Cardiology Echo: report reviewed - Telemetry EKG Rhythm: Atrial Fibrillation - EKG Supraventricular dysrhythmia: atrial fibrillation
[2021-08-14] MEDS: dilTIAZem 30 MG TAB PO SCH ×2 (15:29→23:06)
[2021-08-15] MEDS: dilTIAZem 30 MG TAB PO SCH (05:50)
[2021-08-15] MEDS: METOPROLOL TARTRATE 25 MG TAB PO SCH ×3 (08:00→21:59)
--- NOTE | 2021-08-15 10:57 | Progress Note ---
Assessment and Plan Patient is clinically improving. At this point atrial fibrillation is not ideally controlled. Discussed with patient and daughter at length. We will go ahead and double Cardizem today. Hoping for discharge tomorrow. - Patient Problems (1) Bilateral pneumonia Current Visit: Yes Status: Acute (2) Diastolic CHF Current Visit: Yes Status: Acute Qualifiers: Heart failure chronicity: acute on chronic Qualified Code(s): I50.33 - Acute on chronic diastolic (congestive) heart failure (3) Paroxysmal atrial fibrillation Current Visit: Yes Status: Acute (4) Pulmonary hypertension Current Visit: Yes Status: Acute (5) NSTEMI (non-ST elevated myocardial infarction) Current Visit: No Status: Acute (6) Afib Current Visit: No Status: Chronic Qualifiers: Atrial fibrillation type: chronic (7) CAD (coronary artery disease) Current Visit: No Status: Chronic Subjective Date of service: 08/15/21 Principal diagnosis: PNA, Afib w/RVR Interval history: Patient is doing well. She is asymptomatic. Daughter is at bedside and very helpful. Objective Vital Signs Temp Pulse Resp Resp BP Pulse Ox 08/15/21 05:50 93 H 134/51 08/15/21 05:01 98.0 F 93 H 16 134/51 95 08/15/21 03:00 16 96 08/14/21 23:06 118 H 117/59 08/14/21 23:03 98.2 F 118 H 18 117/59 97 08/14/21 22:00 18 08/14/21 21:11 103 H 136/53 08/14/21 20:58 99.0 F 111 H 16 136/53 95 08/14/21 15:30 94 H 121/55 08/14/21 15:29 94 H 121/55 08/14/21 15:00 16 96 08/14/21 12:12 98.1 F 103 H 19 137/60 95 - Physical Examination General: No Apparent Distress HEENT: Positive: PERRL Neck: Positive: trachea midline Neuro: Positive: Grossly Intact Abdomen: Positive: Soft, Active Bowel Sounds Skin: Negative: Rash, Suspicious Lesions, Ulceration Extremities: Present: upper extr. pulses, lower extr. pulses. Absent: edema - Imaging and Cardiology Echo: report reviewed
[2021-08-15] MEDS: DOCUSATE SODIUM 100 MG CAP PO SCH ×2 (12:19→21:59)
[2021-08-15] MEDS: APIXABAN 2.5 MG TAB PO SCH ×2 (12:19→21:59)
[2021-08-15] MEDS: CLOPIDOGREL 75 MG TAB PO SCH (12:19)
[2021-08-15] MEDS: dilTIAZem 60 MG TAB PO SCH ×3 (12:19→23:37)
[2021-08-15] MEDS: ASCORBIC ACID 500 MG TAB PO SCH ×2 (12:20→21:59)
[2021-08-15] MEDS: ZINC SULFATE 220 MG CAP PO SCH ×2 (12:20→21:59)
[2021-08-15] MEDS: BUMETANIDE 1 MG TAB PO SCH (12:21)
[2021-08-15] MEDS: cefTRIAXone/NS 2 GM/100 ML 2 GM/100 ML BAG IV SCH (12:21)
[2021-08-15] MEDS: CHOLECALCIFEROL (VIT D3) 1000 UNIT (25 mcg) TAB PO SCH (12:21)
--- NOTE | 2021-08-15 12:38 | Progress Note ---
Assessment and Plan Assessment and plan: --Atrial fibrillation with rapid ventricular response Current Visit: Yes Status: Acute Patient heart rate ranges between 110-120s Patient is already on metoprolol , cardiology increase the dose of Cardizem Continue to monitor, on chronic anticoagulation with Eliquis Cardiology anticipating discharge tomorrow if stable --Acute hypoxemic respiratory failure Current Visit: Yes Status: Acute Present on admission requiring supplemental oxygen Currently patient is saturating on room air --Sepsis due to bilateral pneumonia Current Visit: Yes Status: Acute Elevated procalcitonin, continue antibiotics for total 5 days per ID Cultures negative to date, oxygen to keep O2 sats more than 90% Supportive care, home O2 evaluation prior to discharge --COVID-19 negative test Current Visit: Yes Status: Acute Continue oxygen titrate O2 sats more than 90% , supportive care --Bilateral pneumonia Current Visit: Yes Status: Acute Continue supplemental oxygen, antibiotics per ID --General debility Current Visit: Yes Status: Acute Treat the underlying cause ,supportive care, --Diastolic CHF Current Visit: Yes Status: Acute. Input output monitoring, fluid restriction, low-sodium diet Continue current management, cardiology following --Pulmonary hypertension Current Visit: Yes Status: Acute Supplemental oxygen, supportive care. Outpatient pulmonary follow-up --Vascular dementia Plan to address problem: chronic, continue supportive care --DVT prophylaxis Current Visit: Yes Status: Acute On therapeutic anticoagulation with Eliquis --Advance care planning/full CODE STATUS Current Visit: Yes Status: Acute Patient's condition treatment plan tests and reports discussed in detail with the patient and the daughter at the bedside They both verbalized understanding Consults and recommendations noted and appreciated Possible discharge when patient's heart rate is well controlled and patient is stable Plan of care reviewed with the patient, her daughter and patient's nurse Possible discharge in 1 to 2 days if stable and cleared by cardiology Hospital course to date: 08/11: Improvement in respiratory status. She states that she is feeling better and is hungry. Will attempt to place on room air today. Resume diet, continue supportive management with antibiotics, steroids. If Covid RT-PCR positive will order remdesivir per ID instruction. Anticipated discharge in 24 to 48 hours. 08/12: Allergic reaction to azithromycin yesterday. D/c azithromycin. Currently only on rocephin, will defer to ID for abx. 08/13: Remains in afib rvr. asymptomatic. awaiting echo results and cardiology recs for medication management. Plan for potential d/c today if echo normal and HR under better control. 08/14/2021; patient continues to be in A. fib with rapid ventricular rate, heart rate ranging between 120s to 130s, patient has no new symptoms, anxious to go h ome, Cardiology added Cardizem, closely monitor, patient not stable for discharge due to uncontrolled heart rate Will follow cardiology recommendations 08/15/2021; patient continues to be in A. fib with rapid ventricular rate heart rate in 120s, cardiology increased Cardizem dosage Anticipating discharge tomorrow if stable, continue Eliquis. History Interval history: I have seen and examined the patient at the bedside this morning Patient's daughter is in the room Patient is in A. fib with rapid ventricular rate, heart rate still high in the 120s Cardiology increased Cardizem dose Patient denies any chest pain or shortness of breath Anxious to go home Hospitalist Physical - Constitutional Vitals: Temp Pulse Resp BP Pulse Ox 98.1 F 106 H 18 120/64 96 08/15/21 11:42 08/15/21 11:42 08/15/21 11:42 08/15/21 11:42 08/15/21 11:42 General appearance: Present: no acute distress, well-nourished - EENT Eyes: Present: PERRL, EOM intact - Neck Neck: Present: supple, normal ROM - Respiratory Respiratory effort: normal Respiratory: bilateral: diminished, negative: rales, rhonchi, wheezing - Cardiovascular Rhythm: irregularly irregular Heart Sounds: Present: S1 & S2 (Tachycardia) - Extremities Extremities: no ischemia, No edema - Abdominal General gastrointestinal: soft, non-tender, non-distended, normal bowel sounds - Integumentary Integumentary: Present: clear, warm - Psychiatric Psychiatric: appropriate mood/affect, cooperative - Neurologic Neurologic: CNII-XII intact, moves all extremities Results - Labs CBC & Chem 7: 08/13/21 04:00 08/11/21 06:25 Labs: Laboratory Last Values WBC 17.0 K/mm3 (4.5-11.0) H 08/13/21 04:00 RBC 3.91 M/mm3 (3.65-5.03) 08/13/21 04:00 Hgb 9.9 gm/dl (10.1-14.3) L 08/13/21 04:00 Hct 31.1 % (30.3-42.9) 08/13/21 04:00 MCV 80 fl (79-97) 08/13/21 04:00 MCH 25 pg (28-32) L 08/13/21 04:00 MCHC 32 % (30-34) 08/13/21 04:00 RDW 16.5 % (13.2-15.2) H 08/13/21 04:00 Plt Count 334 K/mm3 (140-440) 08/13/21 04:00 Lymph % (Auto) 7.1 % (13.4-35.0) L 08/13/21 04:00 [place] % (Auto) 3.8 % (0.0-7.3) 08/13/21 04:00 Eos % (Auto) 0.0 % (0.0-4.3) 08/13/21 04:00 Baso % (Auto) 0.1 % (0.0-1.8) 08/13/21 04:00 Lymph # (Auto) 1.2 K/mm3 (1.2-5.4) 08/13/21 04:00 [place] # (Auto) 0.7 K/mm3 (0.0-0.8) 08/13/21 04:00 Eos # (Auto) 0.0 K/mm3 (0.0-0.4) 08/13/21 04:00 Baso # (Auto) 0.0 K/mm3 (0.0-0.1) 08/13/21 04:00 Add Manual Diff Complete 08/11/21 06:25 Total Counted 100 08/11/21 06:25 Seg Neutrophils % 89.0 % (40.0-70.0) H 08/13/21 04:00 Seg Neuts % (Manual) 98.0 % (40.0-70.0) H 08/11/21 06:25 Band Neutrophils % 3.0 % 08/10/21 13:23 Lymphocytes % (Manual) 2.0 % (13.4-35.0) L 08/11/21 06:25 Reactive Lymphs % (Man) 2.0 % 08/10/21 13:23 Monocytes % (Manual) 5.0 % (0.0-7.3) 08/10/21 13:23 Nucleated RBC % Not Reportable 08/11/21 06:25 Seg Neutrophils # 15.2 K/mm3 (1.8-7.7) H 08/13/21 04:00 Seg Neutrophils # Man 17.8 K/mm3 (1.8-7.7) H 08/11/21 06:25 Band Neutrophils # 0.0 K/mm3 08/11/21 06:25 Lymphocytes # (Manual) 0.4 K/mm3 (1.2-5.4) L 08/11/21 06:25 Abs React Lymphs (Man) 0.0 K/mm3 08/11/21 06:25 Monocytes # (Manual) 0.0 K/mm3 (0.0-0.8) 08/11/21 06:25 Eosinophils # (Manual) 0.0 K/mm3 (0.0-0.4) 08/11/21 06:25 Basophils # (Manual) 0.0 K/mm3 (0.0-0.1) 08/11/21 06:25 Metamyelocytes # 0.0 K/mm3 08/11/21 06:25 Myelocytes # 0.0 K/mm3 08/11/21 06:25 Promyelocytes # 0.0 K/mm3 08/11/21 06:25 Blast Cells # 0.0 K/mm3 08/11/21 06:25 WBC Morphology Not Reportable 08/11/21 06:25 Hypersegmented Neuts Not Reportable 08/11/21 06:25 Hyposegmented Neuts Not Reportable 08/11/21 06:25 Hypogranular Neuts Not Reportable 08/11/21 06:25 Smudge Cells Not Reportable 08/11/21 06:25 Toxic Granulation Not Reportable 08/11/21 06:25 Toxic Vacuolation Not Reportable 08/11/21 06:25 Dohle Bodies Not Reportable 08/11/21 06:25 Pelger-Huet Anomaly Not Reportable 08/11/21 06:25 Tiffanie Rods Not Reportable 08/11/21 06:25 Platelet Estimate Consistent w auto 08/11/21 06:25 Clumped Platelets Not Reportable 08/11/21 06:25 Plt Clumps, EDTA Not Reportable 08/11/21 06:25 Large Platelets Not Reportable 08/11/21 06:25 Giant Platelets Not Reportable 08/11/21 06:25 Platelet Satelliting Not Reportable 08/11/21 06:25 Plt Morphology Comment Not Reportable 08/11/21 06:25 RBC Morphology Not Reportable 08/11/21 06:25 Dimorphic RBCs Not Reportable 08/11/21 06:25 Polychromasia Not Reportable 08/11/21 06:25 Hypochromasia 1+ 08/11/21 06:25 Poikilocytosis 1+ 08/11/21 06:25 Anisocytosis 1+ 08/11/21 06:25 Microcytosis Not Reportable 08/11/21 06:25 Macrocytosis Not Reportable 08/11/21 06:25 Spherocytes Not Reportable 08/11/21 06:25 Pappenheimer Bodies Not Reportable 08/11/21 06:25 Sickle Cells Not Reportable 08/11/21 06:25 Target Cells Not Reportable 08/11/21 06:25 Tear Drop Cells Not Reportable 08/11/21 06:25 Ovalocytes Not Reportable 08/11/21 06:25 Helmet Cells Not Reportable 08/11/21 06:25 Martínez-Dundalk Bodies Not Reportable 08/11/21 06:25 [place] Rings Not Reportable 08/11/21 06:25 Barton Cells 1+ 08/11/21 06:25 Bite Cells Not Reportable 08/11/21 06:25 Crenated Cell Not Reportable 08/11/21 06:25 Elliptocytes Not Reportable 08/11/21 06:25 Acanthocytes (Spur) Not Reportable 08/11/21 06:25 Rouleaux Not Reportable 08/11/21 06:25 Hemoglobin C Crystals Not Reportable 08/11/21 06:25 Schistocytes Not Reportable 08/11/21 06:25 Malaria parasites Not Reportable 08/11/21 06:25 Sadiq Bodies Not Reportable 08/11/21 06:25 Hem Pathologist Commnt No 08/11/21 06:25 D-Dimer 916.49 ng/mlDDU (0-234) H 08/10/21 15:20 Sodium 134 mmol/L (137-145) L 08/11/21 06:25 Potassium 3.9 mmol/L (3.6-5.0) 08/11/21 06:25 Chloride 97.4 mmol/L (98-107) L 08/11/21 06:25 Carbon Dioxide 23 mmol/L (22-30) 08/11/21 06:25 Anion Gap 18 mmol/L 08/11/21 06:25 BUN 41 mg/dL (7-17) H 08/11/21 06:25 Creatinine 1.0 mg/dL (0.6-1.2) 08/11/21 06:25 Estimated GFR 53 ml/min 08/11/21 06:25 BUN/Creatinine Ratio 41 % 08/11/21 06:25 Glucose 154 mg/dL (65-100) H 08/11/21 06:25 POC Glucose 115 mg/dL (70-105) H 08/15/21 05:01 Lactic Acid 1.00 mmol/L (0.7-2.0) 08/10/21 17:50 Calcium 8.4 mg/dL (8.4-10.2) 08/11/21 06:25 Total Bilirubin 0.30 mg/dL (0.1-1.2) 08/10/21 13:23 AST 68 units/L (5-40) H 08/10/21 13:23 ALT 38 units/L (7-56) 08/10/21 13:23 Alkaline Phosphatase 250 units/L (35-129) H 08/10/21 13:23 Lactate Dehydrogenase 395 units/L (91-180) H 08/10/21 15:20 C-Reactive Protein 6.10 mg/dL (0.00-1.30) H 08/10/21 15:20 NT-Pro-B Natriuret Pep 3710 pg/mL (0-900) H 08/11/21 06:25 Total Protein 7.8 g/dL (6.3-8.2) 08/10/21 13:23 Albumin 3.8 g/dL (3.9-5) L 08/10/21 13:23 Albumin/Globulin Ratio 1.0 % 08/10/21 13:23 Procalcitonin 4.15 ng/mL (<0.15) 08/10/21 15:20 Urine Color Straw (Yellow) 08/10/21 14:50 Urine Turbidity Clear (Clear) 08/10/21 14:50 Urine pH 7.0 (5.0-7.0) 08/10/21 14:50 Ur Specific [place] 1.006 (1.003-1.030) 08/10/21 14:50 Urine Protein <15 mg/dl mg/dL (Negative) 08/10/21 14:50 Urine Glucose (UA) Neg mg/dL (Negative) 08/10/21 14:50 Urine Ketones Neg mg/dL (Negative) 08/10/21 14:50 Urine Blood Neg (Negative) 08/10/21 14:50 Urine Nitrite Neg (Negative) 08/10/21 14:50 Urine Bilirubin Neg (Negative) 08/10/21 14:50 Urine Urobilinogen < 2.0 mg/dL (<2.0) 08/10/21 14:50 Ur Leukocyte Esterase Neg (Negative) 08/10/21 14:50 Urine WBC (Auto) < 1.0 /HPF (0.0-6.0) 08/10/21 14:50 Urine RBC (Auto) 1.0 /HPF (0.0-6.0) 08/10/21 14:50 U Epithel Cells (Auto) < 1.0 /HPF (0-13.0) 08/10/21 14:50 Coronavirus (PCR) Negative (Negative) 08/11/21 08:00 Blood Type A NEGATIVE 08/10/21 13:23 Antibody Screen Negative 08/10/21 13:23 Microbiology: Microbiology 08/10/21 13:23 Peripheral/Venous Blood Culture - Preliminary NO GROWTH AFTER 4 DAYS 08/10/21 13:23 Peripheral/Venous Blood Culture - Preliminary NO GROWTH AFTER 4 DAYS Zimmer/IV: Voiding Method Toilet Active Medications - Current Medications Current Medications: Generic Name Dose Route Start Last Admin Trade Name Freq PRN Reason Stop Dose Admin Acetaminophen 650 mg 08/10/21 14:49 Acetaminophen 325 Mg Tab PO Q4H PRN Pain MILD(1-3)/Fever >100.5/ALICEA Albuterol 2.5 mg 08/10/21 14:49 Albuterol 2.5 Mg/3 Ml Nebu IH Q4HRT PRN Shortness Of Breath Apixaban 2.5 mg 08/10/21 22:00 08/15/21 12:19 Apixaban 2.5 Mg Tab PO 2.5 mg Q12HR TEX Administration Ascorbic Acid 500 mg 08/10/21 22:00 08/15/21 12:20 Ascorbic Acid 500 Mg Tab PO 500 mg BID TEX Administration Atorvastatin Calcium 20 mg 08/10/21 22:00 08/14/21 21:12 Atorvastatin 20 Mg Tab PO 20 mg QHS TEX Administration Bumetanide 1 mg 08/11/21 10:00 08/15/21 12:21 Bumetanide 1 Mg Tab PO 1 mg DAILY TEX Administration Cholecalciferol 1,000 unit 08/12/21 10:00 08/15/21 12:21 Cholecalciferol (Vit D3) 1000 Unit (25 Mcg) Tab PO 1,000 unit DAILY TEX Administration Clopidogrel Bisulfate 75 mg 08/11/21 10:00 08/15/21 12:19 Clopidogrel 75 Mg Tab PO 75 mg QDAY TEX Administration Diltiazem HCl 60 mg 08/15/21 12:00 08/15/21 12:19 Diltiazem 60 Mg Tab PO 60 mg Q6HR TEX Administration Docusate Sodium 100 mg 08/13/21 23:00 08/15/21 12:19 Docusate Sodium 100 Mg Cap PO 100 mg BID TEX Administration Hydromorphone HCl 0.25 mg 08/10/21 14:49 08/12/21 16:33 Hydromorphone 1 Mg/1 Ml Inj IV 0.25 mg Q4H PRN Administration Pain, Moderate (4-6) Hydromorphone HCl 0.5 mg 08/10/21 14:49 Hydromorphone 1 Mg/1 Ml Inj IV Q23H PRN Pain , Severe (7-10) Ceftriaxone Sodium 2 gm in 100 mls @ 200 mls/hr 08/11/21 13:00 08/15/21 12:21 Rocephin/Ns 2 Gm/100 Ml IV 08/16/21 12:59 200 mls/hr Q24HR TEX Administration Protocol Metoprolol Tartrate 25 mg 08/13/21 14:00 08/15/21 08:00 Metoprolol Tartrate 25 Mg Tab PO Not Given [facility] Ondansetron HCl 4 mg 08/10/21 14:49 Ondansetron 4 Mg/2 Ml Inj IV Q8H PRN Nausea And Vomiting Oxycodone/Acetaminophen 1 tab 08/10/21 14:49 Oxycodone /Acetaminophen 5-325mg Tab PO Q12H PRN Pain, Moderate (4-6) Sodium Chloride 10 ml 08/10/21 22:00 08/15/21 12:22 Sodium Chloride 0.9% 10 Ml Flush Syringe IV 10 ml BID TEX Administration Sodium Chloride 10 ml 08/10/21 14:49 Sodium Chloride 0.9% 10 Ml Flush Syringe IV PRN PRN LINE FLUSH Zinc Sulfate 220 mg 08/10/21 22:00 08/15/21 12:20 Zinc Sulfate 220 Mg Cap PO 220 mg BID TEX Administration
[2021-08-16 05:00] VITALS: BP 143/75
[2021-08-16] MEDS: dilTIAZem 60 MG TAB PO SCH (05:26)
[2021-08-16] MEDS: CLOPIDOGREL 75 MG TAB PO SCH (09:13)
[2021-08-16] MEDS: METOPROLOL TARTRATE 25 MG TAB PO SCH (09:14)
[2021-08-16] MEDS: ZINC SULFATE 220 MG CAP PO SCH (09:15)
[2021-08-16] MEDS: DOCUSATE SODIUM 100 MG CAP PO SCH (09:15)
[2021-08-16] MEDS: ASCORBIC ACID 500 MG TAB PO SCH (09:15)
[2021-08-16] MEDS: APIXABAN 2.5 MG TAB PO SCH (09:15)
[2021-08-16] MEDS: BUMETANIDE 1 MG TAB PO SCH (09:15)
[2021-08-16] MEDS: cefTRIAXone/NS 2 GM/100 ML 2 GM/100 ML BAG IV SCH (09:16)
[2021-08-16] MEDS: CHOLECALCIFEROL (VIT D3) 1000 UNIT (25 mcg) TAB PO SCH (09:16)
--- NOTE | 2021-08-16 10:04 | Discharge Summary ---
Providers - Providers Date of Admission: 08/10/21 14:50 Date of discharge: 08/16/21 Attending physician: RADHA PALMER 08/11/21 08:02 Consult to Physician [CONS] Routine Comment: Consulting Provider: BRITTNEY SALAZAR Physician Instructions: Reason For Exam: covid 19 08/12/21 11:09 Consult to Physician [CONS] Routine Comment: Consulting Provider: CALOS CRUMP Physician Instructions: Reason For Exam: sustained tachycardia x 5min Primary care physician: HELICOPTER MECHANIC Hospitalization Reason for admission: Worsening shortness of breath/A. fib with rapid ventricular rate Condition: Stable Pertinent studies: Chest x-ray; stable mild CHF with bibasilar interstitial edema and trace bibasilar pleural effusions, no evidence of consolidative pneumonia Echocardiogram; LV ejection fraction 50 to 55% next right ventricle is hypokinetic however normal in size left atrium is mildly dilated right atrium size is normal Hospital course: Very pleasant 85-year-old female patient with significant past medical history of coronary artery disease status post CABG dyslipidemia pulmonary hypertension osteoarthritis hypertension diastolic dysfunction atrial fibrillation was admitted through emergency room with worsening shortness of breath and initial work-up is consistent with acute hypoxic respiratory failure A. fib with rapid ventricular rate patient was admitted appropriately managed subsequently evaluated by field staff manager medications optimized patient's A. fib rate was difficult to control field staff manager adjusted metoprolol dose and stop added Cardizem titrated to the heart rate and heart rate was controlled at the dose of 60 mg diltiazem every 6 hours. Patient symptoms significantly improved, heart rate is less than 100 last 24 hours, cardiology cleared for discharge on 50 mg of Cardizem And 25 mg of metoprolol 3 times a day Patient is hemodynamically and clinically stable at discharge Discharge diagnosis: --Atrial fibrillation with rapid ventricular response/rate controlled Cardiology evaluated the patient, optimized metoprolol and Cardizem doses Cleared for discharge --Acute hypoxemic respiratory failure Resolved --Sepsis due to bilateral pneumonia Completed 5 days of antibiotics --COVID-19 negative test Negative --Bilateral pneumonia Completed antibiotics per ID --General debility supportive care, --Diastolic CHF Continue current management --Pulmonary hypertension Continue current management --Vascular dementia chronic, continue supportive care Patient is hemodynamically and clinically stable at discharge Disposition: 01 HOME / SELF CARE / HOMELESS Final Discharge Diagnosis (Prints w/discharge instructions): A. fib with rapid ventricular rate improved. Acute hypoxic respiratory failure/resolved. Sepsis/pneumonia[completed treatment with antibiotics]. COVID-19 negative. General debility. Diastolic congestive heart failure. Pulmonary hypertension. \Dementia Time spent for discharge: 35 min Core Measure Documentation - Palliative Care Palliative Care/ Comfort Measures: Not Applicable - Core Measures Any of the following diagnoses?: none Exam - Constitutional Vitals: Temp Pulse Resp BP Pulse Ox 98.5 F 81 18 143/75 99 08/16/21 04:34 08/16/21 05:26 08/16/21 04:34 08/16/21 05:26 08/16/21 04:34 General appearance: Present: no acute distress, well-nourished - EENT Eyes: Present: PERRL, EOM intact - Neck Neck: Present: supple, normal ROM - Respiratory Respiratory effort: normal Respiratory: bilateral: diminished, negative: rales, rhonchi, wheezing - Cardiovascular Rhythm: regular Heart Sounds: Present: S1 & S2 - Extremities Extremities: no ischemia, No edema - Abdominal General gastrointestinal: Present: soft, non-tender, non-distended, normal bowel sounds - Integumentary Integumentary: Present: clear, warm - Musculoskeletal Musculoskeletal: strength equal bilaterally - Psychiatric Psychiatric: appropriate mood/affect, cooperative - Neurologic Neurologic: moves all extremities Plan Activity: advance as tolerated, fall precautions Diet: other (Cardiac diet) Additional Instructions: Fall precautions. Advised to comply with medications diet and follow-up visits. If you have worsening symptoms contact MD or go to the nearest emergency room as needed. Follow-up with primary care physician, field staff manager per schedule Follow up with: PRIMARY MD LUIS [Primary Care Provider] - 3-5 Days EMMANUEL KWON MD [Staff Physician] - 7 Days Prescriptions: dilTIAZem CD [Cardizem Cd] 240 mg PO QDAY #30 cap Metoprolol [Lopressor TAB] 25 mg PO TID #90 tablet
--- NOTE | 2021-08-16 10:12 | Progress Note ---
Assessment and Plan Patient is clinically improving. Heart rate is much improved due to the adjustment yesterday. Patient stable for discharge. Discussed with Dr. Alston. Discussed with patient and daughter at length. Follow-up with us in the office. - Patient Problems (1) Bilateral pneumonia Current Visit: Yes Status: Acute (2) Diastolic CHF Current Visit: Yes Status: Acute Qualifiers: Qualified Code(s): I50.33 - Acute on chronic diastolic (congestive) heart failure (3) Paroxysmal atrial fibrillation Current Visit: Yes Status: Acute (4) Pulmonary hypertension Current Visit: Yes Status: Acute (5) NSTEMI (non-ST elevated myocardial infarction) Current Visit: No Status: Acute (6) Afib Current Visit: No Status: Chronic Qualifiers: (7) CAD (coronary artery disease) Current Visit: No Status: Chronic Subjective Principal diagnosis: PNA, Afib w/RVR Interval history: Patient is doing well. She is asymptomatic. Daughter is at bedside and very helpful. Objective Vital Signs Temp Pulse Resp BP Pulse Ox 08/16/21 05:26 81 143/75 08/16/21 04:34 98.5 F 75 18 143/75 99 08/15/21 21:56 98.7 F 83 18 114/54 96 08/15/21 21:31 97 08/15/21 21:13 96 08/15/21 16:02 98.1 F 91 H 18 120/55 98 08/15/21 11:42 98.1 F 106 H 18 120/64 96 - Physical Examination General: No Apparent Distress HEENT: Positive: PERRL Neck: Positive: trachea midline Neuro: Positive: Grossly Intact Abdomen: Positive: Soft, Active Bowel Sounds Skin: Negative: Rash, Suspicious Lesions, Ulceration Extremities: Present: upper extr. pulses, lower extr. pulses. Absent: edema - Imaging and Cardiology Echo: report reviewed
--- NOTE | 2021-08-16 12:19 | Progress Note ---
Assessment and Plan Assessment and plan: --Atrial fibrillation with rapid ventricular response Current Visit: Yes Status: Acute Patient heart rate ranges between 110-120s Patient is already on metoprolol , cardiology increase the dose of Cardizem Continue to monitor, on chronic anticoagulation with Eliquis Cardiology anticipating discharge tomorrow if stable --Acute hypoxemic respiratory failure Current Visit: Yes Status: Acute Present on admission requiring supplemental oxygen Currently patient is saturating on room air --Sepsis due to bilateral pneumonia Current Visit: Yes Status: Acute Elevated procalcitonin, continue antibiotics for total 5 days per ID Cultures negative to date, oxygen to keep O2 sats more than 90% Supportive care, home O2 evaluation prior to discharge --COVID-19 negative test Current Visit: Yes Status: Acute Continue oxygen titrate O2 sats more than 90% , supportive care --Bilateral pneumonia Current Visit: Yes Status: Acute Continue supplemental oxygen, antibiotics per ID --General debility Current Visit: Yes Status: Acute Treat the underlying cause ,supportive care, --Diastolic CHF Current Visit: Yes Status: Acute. Input output monitoring, fluid restriction, low-sodium diet Continue current management, cardiology following --Pulmonary hypertension Current Visit: Yes Status: Acute Supplemental oxygen, supportive care. Outpatient pulmonary follow-up --Vascular dementia Plan to address problem: chronic, continue supportive care Hospitalist Physical - Constitutional Vitals: Temp Pulse Resp BP Pulse Ox 98.5 F 81 18 143/75 99 08/16/21 04:34 08/16/21 05:26 08/16/21 04:34 08/16/21 05:26 08/16/21 04:34 General appearance: Present: no acute distress, well-nourished Results - Labs CBC & Chem 7: 08/13/21 04:00 08/11/21 06:25 Labs: Laboratory Last Values WBC 17.0 K/mm3 (4.5-11.0) H 08/13/21 04:00 RBC 3.91 M/mm3 (3.65-5.03) 08/13/21 04:00 Hgb 9.9 gm/dl (10.1-14.3) L 08/13/21 04:00 Hct 31.1 % (30.3-42.9) 08/13/21 04:00 MCV 80 fl (79-97) 08/13/21 04:00 MCH 25 pg (28-32) L 08/13/21 04:00 MCHC 32 % (30-34) 08/13/21 04:00 RDW 16.5 % (13.2-15.2) H 08/13/21 04:00 Plt Count 334 K/mm3 (140-440) 08/13/21 04:00 Lymph % (Auto) 7.1 % (13.4-35.0) L 08/13/21 04:00 [place] % (Auto) 3.8 % (0.0-7.3) 08/13/21 04:00 Eos % (Auto) 0.0 % (0.0-4.3) 08/13/21 04:00 Baso % (Auto) 0.1 % (0.0-1.8) 08/13/21 04:00 Lymph # (Auto) 1.2 K/mm3 (1.2-5.4) 08/13/21 04:00 Trimble # (Auto) 0.7 K/mm3 (0.0-0.8) 08/13/21 04:00 Eos # (Auto) 0.0 K/mm3 (0.0-0.4) 08/13/21 04:00 Baso # (Auto) 0.0 K/mm3 (0.0-0.1) 08/13/21 04:00 Add Manual Diff Complete 08/11/21 06:25 Total Counted 100 08/11/21 06:25 Seg Neutrophils % 89.0 % (40.0-70.0) H 08/13/21 04:00 Seg Neuts % (Manual) 98.0 % (40.0-70.0) H 08/11/21 06:25 Band Neutrophils % 3.0 % 08/10/21 13:23 Lymphocytes % (Manual) 2.0 % (13.4-35.0) L 08/11/21 06:25 Reactive Lymphs % (Man) 2.0 % 08/10/21 13:23 Monocytes % (Manual) 5.0 % (0.0-7.3) 08/10/21 13:23 Nucleated RBC % Not Reportable 08/11/21 06:25 Seg Neutrophils # 15.2 K/mm3 (1.8-7.7) H 08/13/21 04:00 Seg Neutrophils # Man 17.8 K/mm3 (1.8-7.7) H 08/11/21 06:25 Band Neutrophils # 0.0 K/mm3 08/11/21 06:25 Lymphocytes # (Manual) 0.4 K/mm3 (1.2-5.4) L 08/11/21 06:25 Abs React Lymphs (Man) 0.0 K/mm3 08/11/21 06:25 Monocytes # (Manual) 0.0 K/mm3 (0.0-0.8) 08/11/21 06:25 Eosinophils # (Manual) 0.0 K/mm3 (0.0-0.4) 08/11/21 06:25 Basophils # (Manual) 0.0 K/mm3 (0.0-0.1) 08/11/21 06:25 Metamyelocytes # 0.0 K/mm3 08/11/21 06:25 Myelocytes # 0.0 K/mm3 08/11/21 06:25 Promyelocytes # 0.0 K/mm3 08/11/21 06:25 Blast Cells # 0.0 K/mm3 08/11/21 06:25 WBC Morphology Not Reportable 08/11/21 06:25 Hypersegmented Neuts Not Reportable 08/11/21 06:25 Hyposegmented Neuts Not Reportable 08/11/21 06:25 Hypogranular Neuts Not Reportable 08/11/21 06:25 Smudge Cells Not Reportable 08/11/21 06:25 Toxic Granulation Not Reportable 08/11/21 06:25 Toxic Vacuolation Not Reportable 08/11/21 06:25 Dohle Bodies Not Reportable 08/11/21 06:25 Pelger-Huet Anomaly Not Reportable 08/11/21 06:25 Tiffanie Rods Not Reportable 08/11/21 06:25 Platelet Estimate Consistent w auto 08/11/21 06:25 Clumped Platelets Not Reportable 08/11/21 06:25 Plt Clumps, EDTA Not Reportable 08/11/21 06:25 Large Platelets Not Reportable 08/11/21 06:25 Giant Platelets Not Reportable 08/11/21 06:25 Platelet Satelliting Not Reportable 08/11/21 06:25 Plt Morphology Comment Not Reportable 08/11/21 06:25 RBC Morphology Not Reportable 08/11/21 06:25 Dimorphic RBCs Not Reportable 08/11/21 06:25 Polychromasia Not Reportable 08/11/21 06:25 Hypochromasia 1+ 08/11/21 06:25 Poikilocytosis 1+ 08/11/21 06:25 Anisocytosis 1+ 08/11/21 06:25 Microcytosis Not Reportable 08/11/21 06:25 Macrocytosis Not Reportable 08/11/21 06:25 Spherocytes Not Reportable 08/11/21 06:25 Pappenheimer Bodies Not Reportable 08/11/21 06:25 Sickle Cells Not Reportable 08/11/21 06:25 Target Cells Not Reportable 08/11/21 06:25 Tear Drop Cells Not Reportable 08/11/21 06:25 Ovalocytes Not Reportable 08/11/21 06:25 Helmet Cells Not Reportable 08/11/21 06:25 Martínez-Ruma Bodies Not Reportable 08/11/21 06:25 [place] Rings Not Reportable 08/11/21 06:25 Lakisha Cells 1+ 08/11/21 06:25 Bite Cells Not Reportable 08/11/21 06:25 Crenated Cell Not Reportable 08/11/21 06:25 Elliptocytes Not Reportable 08/11/21 06:25 Acanthocytes (Spur) Not Reportable 08/11/21 06:25 Rouleaux Not Reportable 08/11/21 06:25 Hemoglobin C Crystals Not Reportable 08/11/21 06:25 Schistocytes Not Reportable 08/11/21 06:25 Malaria parasites Not Reportable 08/11/21 06:25 Sadiq Bodies Not Reportable 08/11/21 06:25 Hem Pathologist Commnt No 08/11/21 06:25 D-Dimer 916.49 ng/mlDDU (0-234) H 08/10/21 15:20 Sodium 134 mmol/L (137-145) L 08/11/21 06:25 Potassium 3.9 mmol/L (3.6-5.0) 08/11/21 06:25 Chloride 97.4 mmol/L (98-107) L 08/11/21 06:25 Carbon Dioxide 23 mmol/L (22-30) 08/11/21 06:25 Anion Gap 18 mmol/L 08/11/21 06:25 BUN 41 mg/dL (7-17) H 08/11/21 06:25 Creatinine 1.0 mg/dL (0.6-1.2) 08/11/21 06:25 Estimated GFR 53 ml/min 08/11/21 06:25 BUN/Creatinine Ratio 41 % 08/11/21 06:25 Glucose 154 mg/dL (65-100) H 08/11/21 06:25 POC Glucose 115 mg/dL (70-105) H 08/15/21 05:01 Lactic Acid 1.00 mmol/L (0.7-2.0) 08/10/21 17:50 Calcium 8.4 mg/dL (8.4-10.2) 08/11/21 06:25 Total Bilirubin 0.30 mg/dL (0.1-1.2) 08/10/21 13:23 AST 68 units/L (5-40) H 08/10/21 13:23 ALT 38 units/L (7-56) 08/10/21 13:23 Alkaline Phosphatase 250 units/L (35-129) H 08/10/21 13:23 Lactate Dehydrogenase 395 units/L (91-180) H 08/10/21 15:20 C-Reactive Protein 6.10 mg/dL (0.00-1.30) H 08/10/21 15:20 NT-Pro-B Natriuret Pep 3710 pg/mL (0-900) H 08/11/21 06:25 Total Protein 7.8 g/dL (6.3-8.2) 08/10/21 13:23 Albumin 3.8 g/dL (3.9-5) L 08/10/21 13:23 Albumin/Globulin Ratio 1.0 % 08/10/21 13:23 Procalcitonin 4.15 ng/mL (<0.15) 08/10/21 15:20 Urine Color Straw (Yellow) 08/10/21 14:50 Urine Turbidity Clear (Clear) 08/10/21 14:50 Urine pH 7.0 (5.0-7.0) 08/10/21 14:50 Ur Specific Eddy 1.006 (1.003-1.030) 08/10/21 14:50 Urine Protein <15 mg/dl mg/dL (Negative) 08/10/21 14:50 Urine Glucose (UA) Neg mg/dL (Negative) 08/10/21 14:50 Urine Ketones Neg mg/dL (Negative) 08/10/21 14:50 Urine Blood Neg (Negative) 08/10/21 14:50 Urine Nitrite Neg (Negative) 08/10/21 14:50 Urine Bilirubin Neg (Negative) 08/10/21 14:50 Urine Urobilinogen < 2.0 mg/dL (<2.0) 08/10/21 14:50 Ur Leukocyte Esterase Neg (Negative) 08/10/21 14:50 Urine WBC (Auto) < 1.0 /HPF (0.0-6.0) 08/10/21 14:50 Urine RBC (Auto) 1.0 /HPF (0.0-6.0) 08/10/21 14:50 U Epithel Cells (Auto) < 1.0 /HPF (0-13.0) 08/10/21 14:50 Coronavirus (PCR) Negative (Negative) 08/11/21 08:00 Blood Type A NEGATIVE 08/10/21 13:23 Antibody Screen Negative 08/10/21 13:23 Microbiology: Microbiology 08/14/21 09:55 Stool Stool Culture - Final 08/10/21 13:23 Peripheral/Venous Blood Culture - Final NO GROWTH AFTER 5 DAYS 08/10/21 13:23 Peripheral/Venous Blood Culture - Final NO GROWTH AFTER 5 DAYS Zimmer/IV: Voiding Method Toilet Active Medications - Current Medications Current Medications: Generic Name Dose Route Start Last Admin Trade Name Freq PRN Reason Stop Dose Admin Acetaminophen 650 mg 08/10/21 14:49 Acetaminophen 325 Mg Tab PO Q4H PRN Pain MILD(1-3)/Fever >100.5/ALICEA Albuterol 2.5 mg 08/10/21 14:49 Albuterol 2.5 Mg/3 Ml Nebu IH Q4HRT PRN Shortness Of Breath Apixaban 2.5 mg 08/10/21 22:00 08/16/21 09:15 Apixaban 2.5 Mg Tab PO 2.5 mg Q12HR TEX Administration Ascorbic Acid 500 mg 08/10/21 22:00 08/16/21 09:15 Ascorbic Acid 500 Mg Tab PO 500 mg BID TEX Administration Atorvastatin Calcium 20 mg 08/10/21 22:00 08/15/21 21:59 Atorvastatin 20 Mg Tab PO 20 mg QHS TEX Administration Bumetanide 1 mg 08/11/21 10:00 08/16/21 09:15 Bumetanide 1 Mg Tab PO 1 mg DAILY TEX Administration Cholecalciferol 1,000 unit 08/12/21 10:00 08/16/21 09:16 Cholecalciferol (Vit D3) 1000 Unit (25 Mcg) Tab PO 1,000 unit DAILY TEX Administration Clopidogrel Bisulfate 75 mg 08/11/21 10:00 08/16/21 09:13 Clopidogrel 75 Mg Tab PO 75 mg QDAY TEX Administration Diltiazem HCl 60 mg 08/15/21 12:00 08/16/21 05:26 Diltiazem 60 Mg Tab PO 60 mg Q6HR TEX Administration Docusate Sodium 100 mg 08/13/21 23:00 08/16/21 09:15 Docusate Sodium 100 Mg Cap PO 100 mg BID TEX Administration Hydromorphone HCl 0.25 mg 08/10/21 14:49 08/12/21 16:33 Hydromorphone 1 Mg/1 Ml Inj IV 0.25 mg Q4H PRN Administration Pain, Moderate (4-6) Hydromorphone HCl 0.5 mg 08/10/21 14:49 Hydromorphone 1 Mg/1 Ml Inj IV Q23H PRN Pain , Severe (7-10) Ceftriaxone Sodium 2 gm in 100 mls @ 200 mls/hr 08/11/21 13:00 08/16/21 09:16 Rocephin/Ns 2 Gm/100 Ml IV 08/16/21 12:59 200 mls/hr Q24HR TEX Administration Protocol Metoprolol Tartrate 25 mg 08/13/21 14:00 08/16/21 09:14 Metoprolol Tartrate 25 Mg Tab PO 25 mg TID TEX Administration Ondansetron HCl 4 mg 08/10/21 14:49 Ondansetron 4 Mg/2 Ml Inj IV Q8H PRN Nausea And Vomiting Oxycodone/Acetaminophen 1 tab 08/10/21 14:49 Oxycodone /Acetaminophen 5-325mg Tab PO Q12H PRN Pain, Moderate (4-6) Sodium Chloride 10 ml 08/10/21 22:00 08/16/21 09:16 Sodium Chloride 0.9% 10 Ml Flush Syringe IV 10 ml BID TEX Administration Sodium Chloride 10 ml 08/10/21 14:49 Sodium Chloride 0.9% 10 Ml Flush Syringe IV PRN PRN LINE FLUSH Zinc Sulfate 220 mg 08/10/21 22:00 08/16/21 09:15 Zinc Sulfate 220 Mg Cap PO 220 mg BID TEX Administration
== END 2021-08-16 12:30 | disposition home or self-care (01) | DRG 871 ==
LOC: ED 12:07 → 3A 14:50
PROVIDERS: ADMIT Internal Medicine; ATTEND Internal Medicine
DX: A41.9 Sepsis, unspecified organism (principal); J96.01 Acute respiratory failure with hypoxia; J18.9 Pneumonia, unspecified organism; I50.33 Acute on chronic diastolic (congestive) heart failure; Z20.822 Contact with and (suspected) exposure to COVID-19; I48.0 Paroxysmal atrial fibrillation; F01.50 Vascular dementia, unspecified severity, without behavioral disturbance, psychotic disturbance, mood disturbance, and anxiety; I27.20 Pulmonary hypertension, unspecified; I11.0 Hypertensive heart disease with heart failure; Z95.1 Presence of aortocoronary bypass graft; Z79.899 Other long term (current) drug therapy; I25.2 Old myocardial infarction; Z96.651 Presence of right artificial knee joint; I25.10 Atherosclerotic heart disease of native coronary artery without angina pectoris; Z82.49 Family history of ischemic heart disease and other diseases of the circulatory system; R53.81 Other malaise; Z86.73 Personal history of transient ischemic attack (TIA), and cerebral infarction without residual deficits; Z79.01 Long term (current) use of anticoagulants
CPT/HCPCS: 36415; 71045; 80048; 80053; 81001; 82140; 82962; 83615; 83880; 84145; 85007; 85025; 85379; 86140; 86850; 86900; 86901; 87040; 87045; 87086; 93005; 93306; 94760; G0378; A9270-GY; J0456; J0692; J0696; J1170; J2920; J3370; J7030; J7040; U0003

== ENCOUNTER 2021-12-10 13:55 | Emergency (ER) | payer MEDICARE ==
[2021-12-10 14:36] VITALS: BP 130/65
--- NOTE | 2021-12-10 18:03 | Emergency Department Report ---
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 Patient has not had a bowel movement in at least 1 week. She complains of pain and pressure to rectal area. No complaints of bleeding, abdominal pain, nausea, vomiting, fevers, or previous abdominal surgeries. Patient has not tried any enemas or laxatives at home. Patient chronically takes iron tablet Severity scale (0 -10): 5 - Related Data Home Medications Medication Instructions Recorded Confirmed Last Taken AtorvaSTATin [Lipitor] 20 mg PO QHS 03/21/17 09/05/21 08/10/21 Bumetanide [Bumex 1 mg tab] 1 mg PO DAILY 03/21/17 09/05/21 08/10/21 lisinopriL [Zestril TAB] 20 mg PO DAILY 03/21/17 09/05/21 08/10/21 Ascorbic Acid [Vitamin C] 1,000 mg PO DAILY 09/05/21 09/05/21 Unknown Cyanocobalamin/Folic Acid [Ra Vit 09/05/21 Unknown B-12 1,000 Mcg Lozenge] Ferrous Sulfate [Feosol 325 MG tab] 325 mg PO QDAY 09/05/21 09/05/21 Unknown Magnesium Oxide 500 mg PO DAILY 09/05/21 09/05/21 Unknown Metoprolol [Lopressor TAB] 50 mg PO BID 09/05/21 09/05/21 Unknown Previous Rx's Medication Instructions Recorded Last Taken Type Apixaban [Eliquis] 2.5 mg PO Q12HR #60 tablet 11/15/17 08/10/21 Rx dilTIAZem CD [Cardizem CD] 240 mg PO QDAY #30 cap 08/16/21 Unknown Rx Polyethylene Glycol 3350 [Miralax] 17 gm PO DAILY PRN #14 dose 12/11/21 Unknown Rx Sennosides [Senna] 2 tab PO DAILY #14 cap 12/11/21 Unknown Rx Sodium Phosphate,Atlantic-Dibasic 133 ml RC DAILY PRN #2 enema 12/11/21 Unknown Rx [Fleet Enema] Allergies Allergy/AdvReac Type Severity Reaction Status Date / Time methylprednisolone Allergy Mild Anaphylaxis Verified 09/04/21 04:40 azithromycin Allergy Shortness Verified 08/11/21 18:29 of Breath Penicillins Allergy Rash and Verified 08/11/21 11:06 chest tightness Sulfa (Sulfonamide Allergy Rash and Verified 08/11/21 11:06 Antibiotics) chest tightness levofloxacin [From Levaquin] AdvReac Shortness Verified 11/11/17 18:31 of Breath ED Review of Systems ROS: Stated complaint: CONSTIPATION Other details as noted in HPI Comment: All other systems reviewed and negative ED Past Medical Hx - Past Medical History Hx Hypertension: Yes Hx CVA: No Hx Heart Attack/AMI: Yes Hx Congestive Heart Failure: Yes (Diastolic dysfunction) Hx Diabetes: No Hx Renal Disease: No Hx Arthritis: No Hx Seizures: No Hx Asthma: No Hx Dementia: No (As per daughter) Hx HIV: No Additional medical history: frequent uti's. Atrial fibrillation. Pulmonary hypertension - Surgical History Hx Coronary Stent: Yes (2017) Hx Open Heart Surgery: Yes Hx Pacemaker: No Additional Surgical History: open heart surgery 2009//right knee replacement - Social History Smoking Status: Never Smoker - Medications Home Medications: Home Medications Medication Instructions Recorded Confirmed Last Taken Type AtorvaSTATin [Lipitor] 20 mg PO QHS 03/21/17 09/05/21 08/10/21 History Bumetanide [Bumex 1 mg tab] 1 mg PO DAILY 03/21/17 09/05/21 08/10/21 History lisinopriL [Zestril TAB] 20 mg PO DAILY 03/21/17 09/05/21 08/10/21 History Apixaban [Eliquis] 2.5 mg PO Q12HR #60 tablet 11/15/17 09/05/21 08/10/21 Rx dilTIAZem CD [Cardizem CD] 240 mg PO QDAY #30 cap 08/16/21 09/05/21 Unknown Rx Ascorbic Acid [Vitamin C] 1,000 mg PO DAILY 09/05/21 09/05/21 Unknown History Cyanocobalamin/Folic Acid [Ra Vit 09/05/21 Unknown History B-12 1,000 Mcg Lozenge] Ferrous Sulfate [Feosol 325 MG tab] 325 mg PO QDAY 09/05/21 09/05/21 Unknown History Magnesium Oxide 500 mg PO DAILY 09/05/21 09/05/21 Unknown History Metoprolol [Lopressor TAB] 50 mg PO BID 09/05/21 09/05/21 Unknown History Polyethylene Glycol 3350 [Miralax] 17 gm PO DAILY PRN #14 dose 12/11/21 Unknown Rx Sennosides [Senna] 2 tab PO DAILY #14 cap 12/11/21 Unknown Rx Sodium Phosphate,Atlantic-Dibasic 133 ml RC DAILY PRN #2 enema 12/11/21 Unknown Rx [Fleet Enema] ED Physical Exam - General Limitations: No Limitations - Other Other exam information: General: No acute distress Head: Atraumatic Eyes: normal appearance ENT: Moist mucous membranes Neck: Normal appearance, no midline tenderness Chest: Clear to auscultation bilaterally CV: Irregularly irregular rhythm Abdomen: Soft, normal bowel sounds, nontender, nondistended, no rebound or guarding Rectal: Patient has mild dilation of anus due to stool with large amount of stool palpated in rectal vault, no gross blood, stool brown in color Back: Normal inspection Extremity: Normal inspection, full range of motion Neuro: Alert O x 3, no facial asymmetry, speech clear, no gross motor sensory deficit Psych: Appropriate behavior Skin: No rash ED Course Vital Signs 12/10/21 14:35 Temperature 98.5 F Pulse Rate 79 Respiratory 18 Rate Blood Pressure 130/65 [Right] O2 Sat by Pulse 97 Oximetry - Reevaluation(s) Reevaluation #1: 12/11/21 00:28 pt had 2 soap suds enema with mild relief. palpable stool in rectal vault. Pt was had rected disimpation with relief in rectal pressure. She will be d/paul with laxaxative and enema. ED Medical Decision Making - Lab Data Result diagrams: 12/10/21 18:08 12/10/21 18:08 - Medical Decision Making 86-year-old female presents to the hospital with constipation. Currently on iron tablets. No signs of anemia currently. X-ray confirms constipation. Labs unremarkable. Patient received enemas with minimal output and required manual disimpaction. Patient is no acute distress will be discharged on laxative Critical Care Time: No Critical care attestation.: If time is entered above; I have spent that time in minutes in the direct care of this critically ill patient, excluding procedure time. ED Disposition Clinical Impression: Constipation, Fecal impaction Disposition: HOME / SELF CARE / HOMELESS Is pt being admited?: No Does the pt Need Aspirin: No Condition: Stable Instructions: Constipation, Adult, Fecal Impaction, Iron-Rich Diet Additional Instructions: Take the medication as prescribed. Take your iron tablets every other day. Follow-up with your doctor early next week. Return if symptoms worsen as indicated by your discharge instructions. Prescriptions: Sodium Phosphate,Atlantic-Dibasic [Fleet Enema] 133 ml RC DAILY PRN #2 enema PRN Reason: Constipation Polyethylene Glycol 3350 [Miralax] 17 gm PO DAILY PRN #14 dose PRN Reason: Constipation Sennosides [Senna] 2 tab PO DAILY #14 cap Referrals: JACK HEWITT MD [Primary Care Provider] - 3-5 Days Time of Disposition: 00:44
--- NOTE | 2021-12-10 18:14 | XRay Report ---
ABDOMEN 2 VIEWS INDICATION / CLINICAL INFORMATION: constipation. COMPARISON: Chest radiograph 09/04/2021 FINDINGS: TUBES / LINES: None. BOWEL GAS PATTERN: Moderate stool throughout the bowel. Nonobstructive bowel gas pattern. FREE AIR / EXTRALUMINAL GAS: None seen. ADDITIONAL FINDINGS: No significant additional findings. CHEST: Prior sternotomy and aortic valve replacement. Diffuse bilateral interstitial and somewhat nod ular airspace opacities are present with pleural thickening along the lateral right chest wall. Findi ngs appear unchanged from comparison chest radiograph 09/04/2021 IMPRESSION: 1. Nonobstructive bowel gas pattern with moderate stool throughout the large bowel. Signer Name: Dvae Mclaughlin II, MD Signed: 12/10/2021 6:09 PM Workstation Name: [id number]
[2021-12-10 18:29] LABS: Hematocrit 35.8 % (30.3-42.9); Hemoglobin 11.9 gm/dl (10.1-14.3); Mean Corpuscular HGB Conc 33 % (30-34); Mean Corpuscular Volume 86 fl (79-97); Platelet Count 260 K/mm3 (140-440); Red Blood Count 4.18 M/mm3 (3.65-5.03); Red Cell Distribution Width 16.4 % (13.2-15.2)
[2021-12-10 18:35] LABS: BUN/Creatinine Ratio 20; Blood Urea Nitrogen 16 mg/dL (7-17); Hemolysis Index 8
[2021-12-11 00:21] LABS: Basophils % (Manual) 0 % (0.0-1.8); Total Cells Counted 100
[2021-12-11 00:28] LABS: Anisocytosis 1+; Platelet Estimate Consistent w Auto
== END 2021-12-11 01:42 | disposition home or self-care (01) ==
LOC: ED 13:55
DX: K59.00 Constipation, unspecified (principal); I10 Essential (primary) hypertension; Z88.1 Allergy status to other antibiotic agents; Z88.0 Allergy status to penicillin; Z88.2 Allergy status to sulfonamides
CPT/HCPCS: 36415; 74019; 80048; 85007; 85025; 99284

== ENCOUNTER 2021-12-18 08:17 | Emergency (ER) | payer MEDICARE ==
--- NOTE | 2021-12-18 08:51 | Event Note ---
ED Screening Note Date of service: 12/18/21 Time: 08:50 ED Screening Note: 86-year-old female with a past medical history of hypertension, atrial fibrillation, and CHF woke up this morning with shortness of breath and feeling like her heart was racing. Her daughter states that she gave her her morning medicines but patient states that she still felt like she was short of breath and heart racing. Daughter states that she took her blood pressure and heart rate and they were both elevated so she decided to come in for further evaluation. This initial assessment/diagnostic orders/clinical plan/treatment(s) is/are subject to change based on patients health status, clinical progression and re- assessment by fellow clinical providers in the ED. Further treatment and workup at subsequent clinical providers discretion. Patient/guardian urged not to elope from the ED as their condition may be serious if not clinically assessed and managed. Initial orders include:
--- NOTE | 2021-12-18 09:33 | XRay Report ---
CHEST 2 VIEWS INDICATION: chest pain. COMPARISON: 09/04/2021 FINDINGS: Support devices: None. Heart: Stable heart size is at the upper limits of normal. Previous valvuloplasty changes are noted. Moderate to severe aortic calcifications. Lungs/pleura: There are mild linear opacities in the right lower lung and chronic appearing pleural t hickening at the right lung base. The lungs are otherwise generally clear. No convincing pneumonia o r pneumothorax. Additional findings: None. IMPRESSION: No acute findings. Chronic appearing pleural-parenchymal disease at the right lung base. Signer Name: John Stein Jr, MD Signed: 12/18/2021 9:28 AM Workstation Name: [id number]
[2021-12-18 09:43] LABS: Hematocrit 40.1 % (30.3-42.9); Hemoglobin 12.7 gm/dl (10.1-14.3); Mean Corpuscular HGB Conc 32 % (30-34); Mean Corpuscular Volume 86 fl (79-97); Platelet Count 271 K/mm3 (140-440); Red Blood Count 4.67 M/mm3 (3.65-5.03); Red Cell Distribution Width 16.5 % (13.2-15.2)
[2021-12-18 10:12] LABS: Alanine Aminotransferase 142 units/L (7-56); Albumin 3.8 g/dL (3.9-5); Blood Urea Nitrogen 16 mg/dL (7-17); Calcium 9.7 mg/dL (8.4-10.2); Hemolysis Index 7
[2021-12-18 10:21] LABS: BUN/Creatinine Ratio 27
--- NOTE | 2021-12-18 12:01 | Emergency Department Report ---
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 She complained to her daughter about her symptoms about 7 AM. Daughter noted that s ystolic blood pressure was close to 200 and diastolic blood pressure was over 100. Also reported a room air saturation of 91%. Daughter administered her a.m. medication including her as needed hydralazine dose. Patient presented to the ED at 8 AM and evaluated by me at 11:45 AM. Daughter reports she has had 3 episodes of urinatinliant with her medications. Daughter has noted that patient has been requiring her as needed hydralazine more freg and since ED stay her symptoms have improved. Patient no longer complains of feeling shortness of breath. No complaints of chest pain. She is compquently for elevated BP. more frequently internet architect: Dr. Kwon with follow-up appointment scheduled scheduled in 6 days on December 24 Patient's current medications include Lipitor 20 mg nightly Bumex 1 mg daily Lisinopril 20 mg daily Eliquis 2.5 mg twice daily Cardizem CD 25 mg daily Metoprolol 50 mg twice daily Hydralazine 25 mg as needed for HTN - Related Data Home Medications Medication Instructions Recorded Confirmed Last Taken AtorvaSTATin [Lipitor] 20 mg PO QHS 03/21/17 09/05/21 08/10/21 Bumetanide [Bumex 1 mg tab] 1 mg PO DAILY 03/21/17 09/05/21 08/10/21 lisinopriL [Zestril TAB] 20 mg PO DAILY 03/21/17 09/05/21 08/10/21 Ascorbic Acid [Vitamin C] 1,000 mg PO DAILY 09/05/21 09/05/21 Unknown Cyanocobalamin/Folic Acid [Ra Vit 09/05/21 Unknown B-12 1,000 Mcg Lozenge] Ferrous Sulfate [Feosol 325 MG tab] 325 mg PO QDAY 09/05/21 09/05/21 Unknown Magnesium Oxide 500 mg PO DAILY 09/05/21 09/05/21 Unknown Metoprolol [Lopressor TAB] 50 mg PO BID 09/05/21 09/05/21 Unknown Previous Rx's Medication Instructions Recorded Last Taken Type Apixaban [Eliquis] 2.5 mg PO Q12HR #60 tablet 11/15/17 08/10/21 Rx dilTIAZem CD [Cardizem CD] 240 mg PO QDAY #30 cap 08/16/21 Unknown Rx Polyethylene Glycol 3350 [Miralax] 17 gm PO DAILY PRN #14 dose 12/11/21 Unknown Rx Sennosides [Senna] 2 tab PO DAILY #14 cap 12/11/21 Unknown Rx Sodium Phosphate,[place]-Dibasic 133 ml RC DAILY PRN #2 enema 12/11/21 Unknown Rx [Fleet Enema] Allergies Allergy/AdvReac Type Severity Reaction Status Date / Time methylprednisolone Allergy Mild Anaphylaxis Verified 09/04/21 04:40 azithromycin Allergy Shortness Verified 08/11/21 18:29 of Breath Penicillins Allergy Rash and Verified 08/11/21 11:06 chest tightness Sulfa (Sulfonamide Allergy Rash and Verified 08/11/21 11:06 Antibiotics) chest tightness levofloxacin [From Levaquin] AdvReac Shortness Verified 11/11/17 18:31 of Breath ED Review of Systems ROS: Stated complaint: HIGH BDP/BREATHING Other details as noted in HPI Comment: All other systems reviewed and negative ED Past Medical Hx - Past Medical History Hx Hypertension: Yes Hx CVA: No Hx Heart Attack/AMI: Yes Hx Congestive Heart Failure: Yes (Diastolic dysfunction) Hx Diabetes: No Hx Renal Disease: No Hx Arthritis: No Hx Seizures: No Hx Asthma: No Hx Dementia: No (As per daughter) Hx HIV: No Additional medical history: frequent uti's. Atrial fibrillation. Pulmonary hypertension - Surgical History Hx Coronary Stent: Yes (2017) Hx Open Heart Surgery: Yes Hx Pacemaker: No Additional Surgical History: open heart surgery 2009//right knee replacement - Social History Smoking Status: Never Smoker - Medications Home Medications: Home Medications Medication Instructions Recorded Confirmed Last Taken Type AtorvaSTATin [Lipitor] 20 mg PO QHS 03/21/17 09/05/21 08/10/21 History Bumetanide [Bumex 1 mg tab] 1 mg PO DAILY 03/21/17 09/05/21 08/10/21 History lisinopriL [Zestril TAB] 20 mg PO DAILY 03/21/17 09/05/21 08/10/21 History Apixaban [Eliquis] 2.5 mg PO Q12HR #60 tablet 11/15/17 09/05/21 08/10/21 Rx dilTIAZem CD [Cardizem CD] 240 mg PO QDAY #30 cap 08/16/21 09/05/21 Unknown Rx Ascorbic Acid [Vitamin C] 1,000 mg PO DAILY 09/05/21 09/05/21 Unknown History Cyanocobalamin/Folic Acid [Ra Vit 09/05/21 Unknown History B-12 1,000 Mcg Lozenge] Ferrous Sulfate [Feosol 325 MG tab] 325 mg PO QDAY 09/05/21 09/05/21 Unknown History Magnesium Oxide 500 mg PO DAILY 09/05/21 09/05/21 Unknown History Metoprolol [Lopressor TAB] 50 mg PO BID 09/05/21 09/05/21 Unknown History Polyethylene Glycol 3350 [Miralax] 17 gm PO DAILY PRN #14 dose 12/11/21 Unknown Rx Sennosides [Senna] 2 tab PO DAILY #14 cap 12/11/21 Unknown Rx Sodium Phosphate,[place]-Dibasic 133 ml RC DAILY PRN #2 enema 12/11/21 Unknown Rx [Fleet Enema] ED Physical Exam - General Limitations: No Limitations - Other Other exam information: General: No acute distress Head: Atraumatic Eyes: normal appearance ENT: Moist mucous membranes Neck: Normal appearance, no midline tenderness Chest: Clear to auscultation bilaterally CV: Regular rhythm normal rate Abdomen: Soft, normal bowel sounds, nontender, nondistended, no rebound or guarding Back: Normal inspection Extremity: Trace lower extremity edema, no calf tenderness Neuro: Alert O x 3, no facial asymmetry, speech clear, no gross motor sensory deficit Psych: Appropriate behavior Skin: No rash ED Course Vital Signs 12/18/21 12/18/21 08:19 13:35 Temperature 98.4 F 98.2 F Pulse Rate 82 78 Respiratory 18 18 Rate Blood Pressure 162/60 150/61 [Left] O2 Sat by Pulse 95 94 Oximetry - Consultations Consultation #1: 12/18/21 12:05 case d/w [facility] with [facility] with request for ed consult ED Medical Decision Making - Lab Data Result diagrams: 12/18/21 09:12 12/18/21 09:12 Lab Results 12/18/21 12/18/21 12/18/21 Range/Units 09:12 09:12 09:12 WBC 9.1 (4.5-11.0) K/mm3 RBC 4.67 (3.65-5.03) M/mm3 Hgb 12.7 (10.1-14.3) gm/dl Hct 40.1 (30.3-42.9) % MCV 86 (79-97) fl MCH 27 L (28-32) pg MCHC 32 (30-34) % RDW 16.5 H (13.2-15.2) % Plt Count 271 (140-440) K/mm3 PT 15.7 H (12.2-14.9) Sec. INR 1.12 (0.87-1.13) Sodium 138 (137-145) mmol/L Potassium 3.7 (3.6-5.0) mmol/L Chloride 100.0 (98-107) mmol/L Carbon Dioxide 25 (22-30) mmol/L Anion Gap 17 mmol/L BUN 16 (7-17) mg/dL Creatinine 0.6 (0.6-1.2) mg/dL Estimated GFR > 60 ml/min BUN/Creatinine Ratio 27 % Glucose 109 H (65-100) mg/dL Calcium 9.7 (8.4-10.2) mg/dL Total Bilirubin 0.40 (0.1-1.2) mg/dL AST 117 H (5-40) units/L ALT 142 H (7-56) units/L Alkaline Phosphatase 229 H (35-129) units/L Troponin T < 0.010 (0.00-0.029) ng/mL NT-Pro-B Natriuret Pep (0-900) pg/mL Total Protein 6.9 (6.3-8.2) g/dL Albumin 3.8 L (3.9-5) g/dL Albumin/Globulin Ratio 1.2 % Hepatitis A IgM Ab (NonReactive) Hep Bs Antigen (Negative) Hep B Core IgM Ab (NonReactive) Hepatitis C Antibody (NonReactive) 12/18/21 12/18/21 Range/Units 09:12 09:12 WBC (4.5-11.0) K/mm3 RBC (3.65-5.03) M/mm3 Hgb (10.1-14.3) gm/dl Hct (30.3-42.9) % MCV (79-97) fl MCH (28-32) pg MCHC (30-34) % RDW (13.2-15.2) % Plt Count (140-440) K/mm3 PT (12.2-14.9) Sec. INR (0.87-1.13) Sodium (137-145) mmol/L Potassium (3.6-5.0) mmol/L Chloride (98-107) mmol/L Carbon Dioxide (22-30) mmol/L Anion Gap mmol/L BUN (7-17) mg/dL Creatinine (0.6-1.2) mg/dL Estimated GFR ml/min BUN/Creatinine Ratio % Glucose (65-100) mg/dL Calcium (8.4-10.2) mg/dL Total Bilirubin (0.1-1.2) mg/dL AST (5-40) units/L ALT (7-56) units/L Alkaline Phosphatase (35-129) units/L Troponin T (0.00-0.029) ng/mL NT-Pro-B Natriuret Pep 3232 H (0-900) pg/mL Total Protein (6.3-8.2) g/dL Albumin (3.9-5) g/dL Albumin/Globulin Ratio % Hepatitis A IgM Ab Non-reactive (NonReactive) Hep Bs Antigen Non-reactive (Negative) Hep B Core IgM Ab Non-reactive (NonReactive) Hepatitis C Antibody Non-reactive (NonReactive) - EKG Data -: EKG Interpreted by Me (Atrial fibrillation) EKG shows normal: ST-T waves (No ST elevation) Rate: normal (71) - Radiology Data Radiology results: report reviewed CHEST 2 VIEWS INDICATION: chest pain. COMPARISON: 09/04/2021 FINDINGS: Support devices: None. Heart: Stable heart size is at the upper limits of normal. Previous valvuloplasty changes are noted. Moderate to severe aortic calcifications. Lungs/pleura: There are mild linear opacities in the right lower lung and chronic appearing pleural thickening at the right lung base. The lungs are otherwise generally clear. No convincing pneumonia or pneumothorax. Additional findings: None. IMPRESSION: No acute findings. Chronic appearing pleural-parenchymal disease at the right lung base. - Medical Decision Making 86-year female presents to the hospital with shortness of breath that resolved prior to my evaluation after diuresis. ED work-up reveals mild elevation of LFTs with negative hepatitis panel. Elevation to be secondary to CHF. Patient does not have any clinical or imaging findings of pulmonary edema or decompensated heart failure. Vital signs also improved compared to report of vital signs prior to arrival. ED cardiology consultation appreciated with recommendation to adhere to fluid restrictions and continue with outpatient follow-up as scheduled Critical Care Time: No Critical care attestation.: If time is entered above; I have spent that time in minutes in the direct care of this critically ill patient, excluding procedure time. ED Disposition Clinical Impression: Elevated LFTs, Noncompliance with dietary restriction, CHF exacerbation Is pt being admited?: No Does the pt Need Aspirin: No Condition: Stable Instructions: Heart Failure Eating Plan, Fluid Restriction, Liver Function Tests Additional Instructions: Continue your medication as prescribed. Follow-up with your primary care doctor to recheck your liver function test (normal hepatitis screen today) and a cardiology doctor for reevaluation of your heart. Return if symptoms worsen as indicated by your discharge instructions. You were provided a copy of your lab results today to take to your doctor for follow-up Referrals: your, PMD [Other] - 3-5 Days EMMANUEL KWON MD [Staff Physician] - 12/24/21 Time of Disposition: 14:05
[2021-12-18 12:49] LABS: INR 1.12 (0.87-1.13)
[2021-12-18 13:36] VITALS: BP 150/61
[2021-12-18 13:38] LABS: Hepatitis B Surface Antigen Non-Reactive (Negative); Hepatitis C Virus Antibody Non-Reactive (NonReactive)
--- NOTE | 2021-12-18 13:48 | Consultation ---
History of Present Illness Consult date: 12/18/21 Requesting physician: FIORDALIZA AVILEZ Consult reason: known to you, shortness of breath History of present illness: Patient is an 85-year-old woman with a past medical history of HFpEF, chronic atrial fibrillation (anticoagulated on Eliquis), aortic valve stenosis s/p valve replacement, Coronary artery disease, H/O coronary artery bypass surgery ,hyperlipidemia, hypertension, vascular dementia brought to the ED today for complaints of shortness of breath which occurred overnight. Patient's daughter reported that patient woke up early this a.m. short of breath and found to be hypertensive with an SBP close to 200 and reported diastolic blood pressure over 100. Daughter further reports that patient's O2 sat was around 91%. Daughter states that she gave her mother her morning medications and then brought her to the hospital. She reports that since coming to the hospital and following administration of her morning medications the patient has urinated multiple times and has had relief with her symptoms. She states that patient is compliant with her medications and low-salt requirement however she reports that the patient has not been compliant with her fluid restrictions. Patient denies any other complaints including chest pain, nausea, vomiting, diaphoresis, lightheadedness, or palpitations. Cardiology was consulted for shortness of breath. Patient is followed by Dr. Toledo in our practice. She reports that she has a follow-up appointment with Dr. Toledo on 12/24/2021 Past History Past Medical History: atrial fib, CAD, heart failure, hypertension, hyperlipidemia Past Surgical History: CABG Family history: CAD, diabetes Medications and Allergies Allergies Allergy/AdvReac Type Severity Reaction Status Date / Time methylprednisolone Allergy Mild Anaphylaxis Verified 09/04/21 04:40 azithromycin Allergy Shortness Verified 08/11/21 18:29 of Breath Penicillins Allergy Rash and Verified 08/11/21 11:06 chest tightness Sulfa (Sulfonamide Allergy Rash and Verified 08/11/21 11:06 Antibiotics) chest tightness levofloxacin [From Levaquin] AdvReac Shortness Verified 11/11/17 18:31 of Breath Home Medications Medication Instructions Recorded Confirmed Last Taken Type AtorvaSTATin [Lipitor] 20 mg PO QHS 03/21/17 09/05/21 08/10/21 History Bumetanide [Bumex 1 mg tab] 1 mg PO DAILY 03/21/17 09/05/21 08/10/21 History lisinopriL [Zestril TAB] 20 mg PO DAILY 03/21/17 09/05/21 08/10/21 History Apixaban [Eliquis] 2.5 mg PO Q12HR #60 tablet 11/15/17 09/05/21 08/10/21 Rx dilTIAZem CD [Cardizem CD] 240 mg PO QDAY #30 cap 08/16/21 09/05/21 Unknown Rx Ascorbic Acid [Vitamin C] 1,000 mg PO DAILY 09/05/21 09/05/21 Unknown History Cyanocobalamin/Folic Acid [Ra Vit 09/05/21 Unknown History B-12 1,000 Mcg Lozenge] Ferrous Sulfate [Feosol 325 MG tab] 325 mg PO QDAY 09/05/21 09/05/21 Unknown History Magnesium Oxide 500 mg PO DAILY 09/05/21 09/05/21 Unknown History Metoprolol [Lopressor TAB] 50 mg PO BID 09/05/21 09/05/21 Unknown History Polyethylene Glycol 3350 [Miralax] 17 gm PO DAILY PRN #14 dose 12/11/21 Unknown Rx Sennosides [Senna] 2 tab PO DAILY #14 cap 12/11/21 Unknown Rx Sodium Phosphate,[place]-Dibasic 133 ml RC DAILY PRN #2 enema 12/11/21 Unknown Rx [Fleet Enema] Review of Systems All systems: negative Physical Examination Vital Signs Temp Pulse Resp BP Pulse Ox 98.4 F 82 18 162/60 95 12/18/21 08:19 12/18/21 08:19 12/18/21 08:19 12/18/21 08:19 12/18/21 08:19 General appearance: no acute distress HEENT: Positive: PERRL Neck: Positive: trachea midline Cardiac: Positive: Reg Rate and Rhythm Lungs: Positive: Normal Breath Sounds Neuro: Positive: Grossly Intact Abdomen: Positive: Soft Skin: Negative: Rash, Suspicious Lesions, Ulceration Extremities: Present: upper extr. pulses. Absent: edema Results 12/18/21 09:12 12/18/21 09:12 Cardiac Enzymes 12/18/21 Range/Units 09:12 AST 117 H (5-40) units/L Coagulation 12/18/21 Range/Units 09:12 PT 15.7 H (12.2-14.9) Sec. INR 1.12 (0.87-1.13) CBC 12/18/21 Range/Units 09:12 WBC 9.1 (4.5-11.0) K/mm3 RBC 4.67 (3.65-5.03) M/mm3 Hgb 12.7 (10.1-14.3) gm/dl Hct 40.1 (30.3-42.9) % Plt Count 271 (140-440) K/mm3 Comprehensive Metabolic Panel 12/18/21 Range/Units 09:12 Sodium 138 (137-145) mmol/L Potassium 3.7 (3.6-5.0) mmol/L Chloride 100.0 (98-107) mmol/L Carbon Dioxide 25 (22-30) mmol/L BUN 16 (7-17) mg/dL Creatinine 0.6 (0.6-1.2) mg/dL Glucose 109 H (65-100) mg/dL Calcium 9.7 (8.4-10.2) mg/dL AST 117 H (5-40) units/L ALT 142 H (7-56) units/L Alkaline Phosphatase 229 H (35-129) units/L Total Protein 6.9 (6.3-8.2) g/dL Albumin 3.8 L (3.9-5) g/dL - Imaging and Cardiology Echo: report reviewed EKG interpretations - Telemetry EKG Rhythm: Atrial Fibrillation - EKG Supraventricular dysrhythmia: atrial fibrillation Assessment and Plan Patient is an 85-year-old woman with a past medical history of HFpEF, chronic atrial fibrillation (anticoagulated on Eliquis), aortic valve stenosis s/p valve replacement, Coronary artery disease, H/O coronary artery bypass surgery ,hyperlipidemia, hypertension, vascular dementia brought to the ED today for complaints of shortness of breath which occurred overnight HFpEF Chronic A. fib Aortic valve stenosis s/p valve replacement Coronary arteries History of CABG Hypertension Plan: EKG shows A. fib rate controlled rate 71. No acute ischemic changes. Troponin negative x1. Patient denies any complaints of chest pain Patient appears euvolemic on exam with no bilateral lower extremity edema, lungs clear to auscultation, and patient reports they no longer have any shortness of breath. CXR showed no acute changes Discussed importance of compliance with medication, diet, and fluid restriction. Patient and daughter verbalized understanding and acknowledgment Stressed importance of keeping follow-up appointment on 12/24/2021 Cardiac status appears otherwise stable Patient seen in conjunction with Dr. Toledo who agrees with this plan of care - Patient Problems (1) Chronic a-fib Current Visit: No Status: Acute (2) Hypertension Current Visit: No Status: Acute (3) CAD (coronary artery disease) Current Visit: No Status: Chronic (4) HTN (hypertension) Current Visit: No Status: Chronic (5) Hyperlipidemia Current Visit: No Status: Chronic Qualifiers: (6) S/P CABG (coronary artery bypass graft) Current Visit: No Status: Chronic (7) S/P aortic valve replacement with bioprosthetic valve Current Visit: No Status: Chronic
[2021-12-18 16:17] LABS: Partial Thromboplastin Time 35.5 Sec. (24.2-36.6)
--- NOTE | 2021-12-18 17:43 | Electrocardiograph Report ---
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
== END 2021-12-18 14:14 ==
LOC: ED 08:17
DX: I11.0 Hypertensive heart disease with heart failure (principal); I50.9 Heart failure, unspecified; R74.01 Elevation of levels of liver transaminase levels; Z88.1 Allergy status to other antibiotic agents; Z88.0 Allergy status to penicillin; Z88.2 Allergy status to sulfonamides; Z88.8 Allergy status to other drugs, medicaments and biological substances; Z79.01 Long term (current) use of anticoagulants; Z79.899 Other long term (current) drug therapy
CPT/HCPCS: 36415; 71046; 80053; 80074; 83880; 84484; 85027; 85610; 85730; 93005; 93010; 99283

== ENCOUNTER 2022-05-25 20:34 | Emergency (ER) | payer MEDICAID, MEDICARE ==
[2022-05-25 20:43] VITALS: BP 159/47
== END 2022-05-26 13:19 | disposition left against medical advice (07) ==
LOC: ED 20:34
DX: M54.9 Dorsalgia, unspecified (principal); R07.9 Chest pain, unspecified; Z53.21 Procedure and treatment not carried out due to patient leaving prior to being seen by health care provider; V89.2XXA Person injured in unspecified motor-vehicle accident, traffic, initial encounter; Y93.89 Activity, other specified; Y92.89 Other specified places as the place of occurrence of the external cause; Y99.8 Other external cause status

== ENCOUNTER 2022-05-26 09:38 | Inpatient (IN) | payer MEDICARE, OTHER ==
--- NOTE | 2022-05-26 16:04 | Emergency Department Report ---
ED Shortness of Breath HPI - General Chief Complaint: Fall Stated Complaint: BACK PAIN DUE TO FALL POSSIBLE CHF Time Seen by Provider: 05/26/22 15:40 Source: patient, family Mode of arrival: Wheelchair Limitations: Physical Limitation - History of Present Illness Initial Comments: 86-year-old female with multiple medical problems including atrial fibrillation congestive heart failure, reportedly fell 3 days ago now having increase shortness of breath patient fell on her buttock and not onto her chest. Her family patient had no head injury, no neck pain, no fever chills or cough. Reportedly patient gets short of breath when she walks worsening pain. MD Complaint: shortness of breath -: Gradual Severity: mild Improves With: oxygen, upright position Worsens With: lying flat Known History Of: congestive heart failure Context: other (Fall) Treatments Prior to Arrival: none - Related Data Home Oxygen Therapy: Yes Home Medications Medication Instructions Recorded Confirmed Last Taken AtorvaSTATin [Lipitor] 20 mg PO QHS 03/21/17 09/05/21 08/10/21 Bumetanide [Bumex 1 mg tab] 1 mg PO DAILY 03/21/17 09/05/21 08/10/21 lisinopriL [Zestril TAB] 20 mg PO DAILY 03/21/17 09/05/21 08/10/21 Ascorbic Acid [Vitamin C] 1,000 mg PO DAILY 09/05/21 09/05/21 Unknown Cyanocobalamin/Folic Acid [Ra Vit 09/05/21 Unknown B-12 1,000 Mcg Lozenge] Ferrous Sulfate [Feosol 325 MG tab] 325 mg PO QDAY 09/05/21 09/05/21 Unknown Magnesium Oxide 500 mg PO DAILY 09/05/21 09/05/21 Unknown Metoprolol [Lopressor TAB] 50 mg PO BID 09/05/21 09/05/21 Unknown Previous Rx's Medication Instructions Recorded Last Taken Type Apixaban [Eliquis] 2.5 mg PO Q12HR #60 tablet 11/15/17 08/10/21 Rx dilTIAZem CD [Cardizem CD] 240 mg PO QDAY #30 cap 08/16/21 Unknown Rx Polyethylene Glycol 3350 [Miralax] 17 gm PO DAILY PRN #14 dose 12/11/21 Unknown Rx Sennosides [Senna] 2 tab PO DAILY #14 cap 12/11/21 Unknown Rx Sodium Phosphate,[place]-Dibasic 133 ml RC DAILY PRN #2 enema 12/11/21 Unknown Rx [Fleet Enema] Allergies Allergy/AdvReac Type Severity Reaction Status Date / Time methylprednisolone Allergy Mild Anaphylaxis Verified 09/04/21 04:40 azithromycin Allergy Shortness Verified 08/11/21 18:29 of Breath Penicillins Allergy Rash and Verified 08/11/21 11:06 chest tightness Sulfa (Sulfonamide Allergy Rash and Verified 08/11/21 11:06 Antibiotics) chest tightness levofloxacin [From Levaquin] AdvReac Shortness Verified 11/11/17 18:31 of Breath ED Review of Systems ROS: Stated complaint: BACK PAIN DUE TO FALL POSSIBLE CHF Other details as noted in HPI ED Past Medical Hx - Past Medical History Hx Hypertension: Yes Hx CVA: No Hx Heart Attack/AMI: Yes Hx Congestive Heart Failure: Yes (Diastolic dysfunction) Hx Diabetes: No Hx Renal Disease: No Hx Arthritis: No Hx Seizures: No Hx Asthma: No Hx Dementia: No (As per daughter) Hx HIV: No Additional medical history: frequent uti's. Atrial fibrillation. Pulmonary hypertension - Surgical History Hx Coronary Stent: Yes (2017) Hx Open Heart Surgery: Yes Hx Pacemaker: No Additional Surgical History: open heart surgery 2009//right knee replacement - Social History Smoking Status: Never Smoker - Medications Home Medications: Home Medications Medication Instructions Recorded Confirmed Last Taken Type AtorvaSTATin [Lipitor] 20 mg PO QHS 03/21/17 09/05/21 08/10/21 History Bumetanide [Bumex 1 mg tab] 1 mg PO DAILY 03/21/17 09/05/21 08/10/21 History lisinopriL [Zestril TAB] 20 mg PO DAILY 03/21/17 09/05/21 08/10/21 History Apixaban [Eliquis] 2.5 mg PO Q12HR #60 tablet 11/15/17 09/05/21 08/10/21 Rx dilTIAZem CD [Cardizem CD] 240 mg PO QDAY #30 cap 08/16/21 09/05/21 Unknown Rx Ascorbic Acid [Vitamin C] 1,000 mg PO DAILY 09/05/21 09/05/21 Unknown History Cyanocobalamin/Folic Acid [Ra Vit 09/05/21 Unknown History B-12 1,000 Mcg Lozenge] Ferrous Sulfate [Feosol 325 MG tab] 325 mg PO QDAY 09/05/21 09/05/21 Unknown History Magnesium Oxide 500 mg PO DAILY 09/05/21 09/05/21 Unknown History Metoprolol [Lopressor TAB] 50 mg PO BID 09/05/21 09/05/21 Unknown History Polyethylene Glycol 3350 [Miralax] 17 gm PO DAILY PRN #14 dose 12/11/21 Unknown Rx Sennosides [Senna] 2 tab PO DAILY #14 cap 12/11/21 Unknown Rx Sodium Phosphate,[place]-Dibasic 133 ml RC DAILY PRN #2 enema 12/11/21 Unknown Rx [Fleet Enema] ED Physical Exam - General Limitations: Language Barrier General appearance: alert, in no apparent distress - Head Head exam: Present: atraumatic, normocephalic, normal inspection - Eye Eye exam: Present: normal appearance, PERRL, EOMI Pupils: Present: normal accommodation - ENT ENT exam: Present: normal exam, normal orophraynx - Neck Neck exam: Present: normal inspection, full ROM, lymphadenopathy - Respiratory Respiratory exam: Present: normal lung sounds bilaterally. Absent: respiratory distress - Cardiovascular Cardiovascular Exam: Present: regular rate, normal rhythm, normal heart sounds - GI/Abdominal GI/Abdominal exam: Present: soft, hypoactive bowel sounds. Absent: distended, tenderness, guarding, rebound - Extremities Exam Extremities exam: Present: normal inspection, full ROM, normal capillary refill - Back Exam Back exam: Present: normal inspection - Neurological Exam Neurological exam: Present: alert, altered, CN II-XII intact, normal gait, motor sensory deficit, reflexes normal ED Course Vital Signs 05/26/22 05/26/22 05/26/22 09:39 11:16 15:53 Temperature 98.8 F 98.4 F Pulse Rate 87 89 Respiratory 16 20 Rate Blood Pressure 133/53 Blood Pressure 158/65 143/56 [Right] O2 Sat by Pulse 90 91 Oximetry 05/26/22 16:01 Temperature Pulse Rate 89 Respiratory Rate Blood Pressure Blood Pressure [Right] O2 Sat by Pulse Oximetry ED Medical Decision Making - Lab Data Result diagrams: 05/26/22 16:21 05/26/22 16:21 - EKG Data -: EKG Interpreted by Mt - EKG Data Interpretation: other 05/26/22 17:36 Atrial fibrillation with ventricular response of 93 - Radiology Data Pleural effusion. - Medical Decision Making Patient has mild to moderate hypoxia and chest x-ray which shows pleural effusion we will give some patient diuretic and admit patient to hospital for evaluation and treatment. Critical care attestation.: If time is entered above; I have spent that time in minutes in the direct care of this critically ill patient, excluding procedure time. ED Disposition Clinical Impression: Acute exacerbation of CHF (congestive heart failure), Atrial fibrillation with rapid ventricular response Disposition: ADMITTED INPATIENT Is pt being admited?: Yes Does the pt Need Aspirin: No Condition: Serious Referrals: PRIMARY CARE, [Primary Care Provider] - 3-5 Days
--- NOTE | 2022-05-26 16:55 | XRay Report ---
CHEST 1 VIEW 05/26/2022 3:48 PM INDICATION / CLINICAL INFORMATION: sob. COMPARISON: 12/18/2021 FINDINGS: SUPPORT DEVICES: None. HEART / MEDIASTINUM: No significant abnormality. LUNGS / PLEURA: Worsening right pleural effusion with right basilar opacification. No pneumothorax. ADDITIONAL FINDINGS: No significant additional findings. IMPRESSION: 1. Worsening right pleural effusion with right basilar opacification. Infectious process should be co nsidered in the appropriate clinical setting. Signer Name: Adam Morales DO Signed: 05/26/2022 4:51 PM Workstation Name: [id number]
[2022-05-26 16:57] LABS: Basophils % (Auto) 0.4 % (0.0-1.8); Eosinophils % (Auto) 0.1 % (0.0-4.3); Hematocrit 39.3 % (30.3-42.9); Lymphocytes # (Auto) 0.9 K/mm3 (1.2-5.4); Lymphocytes % (Auto) 9.2 % (13.4-35.0); Mean Corpuscular HGB Conc 33 % (30-34); Mean Corpuscular Volume 87 fl (79-97); Monocytes # (Auto) 0.8 K/mm3 (0.0-0.8); Monocytes % (Auto) 7.8 % (0.0-7.3); Platelet Count 190 K/mm3 (140-440); Red Blood Count 4.54 M/mm3 (3.65-5.03); Red Cell Distribution Width 14.7 % (13.2-15.2)
--- NOTE | 2022-05-26 16:57 | XRay Report ---
AP pelvis INDICATION: fall. COMPARISON: KUB from 12/10/2021 IMPRESSION: No acute osseous abnormality. Normal alignment. 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 Soft tissues are unremarkable. Signer Name: Sarwat Borja MD Signed: 05/26/2022 4:52 PM Workstation Name: [email or web address]
[2022-05-26 17:41] LABS: Alanine Aminotransferase 38 units/L (7-56); Albumin 3.7 g/dL (3.9-5); Blood Urea Nitrogen 27 mg/dL (7-17); Calcium 9.2 mg/dL (8.4-10.2); Hemolysis Index 13
[2022-05-26 17:44] LABS: BUN/Creatinine Ratio 45
[2022-05-26] MEDS: METOPROLOL TARTRATE 50 MG TAB PO SCH (20:00)
[2022-05-26] MEDS ORDERED: ACETAMINOPHEN 325 MG TAB PO PRN (21:08)
[2022-05-26] MEDS ORDERED: ONDANSETRON 4 MG/2 ML INJ IV PRN ×2 (21:08→22:42)
[2022-05-26] MEDS ORDERED: MORPHINE 2 MG/1 ML INJ IV PRN (21:12)
--- NOTE | 2022-05-26 22:38 | History and Physical Report ---
History of Present Illness Date of examination: 05/26/22 Date of admission: May 26, 2022 Chief complaint: Increasing shortness of breath for 1 week History of present illness: 86-year-old female with multiple medical problems including congestive heart failure, hypertension and anemia and hyperlipidemia apparently fell 3 days ago on her back. Since then patient has been having increasing shortness of breath and orthopnea. Patient follows with [facility] for heart failure problems. Patient is on Bumex. Low back pain persists. But able to walk. No chest pain. - Past Medical History --Hypertension: Yes --Heart Attack/AMI: Yes --Congestive Heart Failure: Yes (Diastolic dysfunction) --Additional medical history: frequent uti's. Atrial fibrillation. Pulmonary hypertension - Surgical History --Coronary Stent: Yes (2017) --Open Heart Surgery: Ye --Additional Surgical History: open heart surgery 2008//right knee replacement - Social History --Smoking Status: Never Smoker Review of Systems ROS: Constitutional no weight loss or weight gain no fever or chills HEENT no sore throat no post nasal drip no diplopia Neck no neck stiffness no lymph gland enlargement Chest and lungs no shortness of breath cough or wheezing CVS increasing shortness of breath and orthopnea GI no nausea no vomiting no diarrhea Genitourinary system no dysuria no flank pain Musculoskeletal system no muscle pains no joint pains [employer] no syncope no seizures Skin no rash no itching Psychiatric no depression no homicidal or suicidal tendencies Hematologic no lymphedema or bruising Endocrine no polydipsia no polyuria no cold intolerance no heat intolerance Medications and Allergies Allergies Allergy/AdvReac Type Severity Reaction Status Date / Time methylprednisolone Allergy Mild Anaphylaxis Verified 09/04/21 04:40 azithromycin Allergy Shortness Verified 08/11/21 18:29 of Breath Penicillins Allergy Rash and Verified 08/11/21 11:06 chest tightness Sulfa (Sulfonamide Allergy Rash and Verified 08/11/21 11:06 Antibiotics) chest tightness levofloxacin [From Levaquin] AdvReac Shortness Verified 11/11/17 18:31 of Breath Home Medications Medication Instructions Recorded Confirmed Last Taken Type AtorvaSTATin [Lipitor] 20 mg PO QHS 03/21/17 09/05/21 08/10/21 History Bumetanide [Bumex 1 mg tab] 1 mg PO DAILY 03/21/17 09/05/21 08/10/21 History lisinopriL [Zestril TAB] 20 mg PO DAILY 03/21/17 09/05/21 08/10/21 History Apixaban [Eliquis] 2.5 mg PO Q12HR #60 tablet 11/15/17 09/05/21 08/10/21 Rx dilTIAZem CD [Cardizem CD] 240 mg PO QDAY #30 cap 08/16/21 09/05/21 Unknown Rx Ascorbic Acid [Vitamin C] 1,000 mg PO DAILY 09/05/21 09/05/21 Unknown History Cyanocobalamin/Folic Acid [Ra Vit 09/05/21 Unknown History B-12 1,000 Mcg Lozenge] Ferrous Sulfate [Feosol 325 MG tab] 325 mg PO QDAY 09/05/21 09/05/21 Unknown History Magnesium Oxide 500 mg PO DAILY 09/05/21 09/05/21 Unknown History Metoprolol [Lopressor TAB] 50 mg PO BID 09/05/21 09/05/21 Unknown History Polyethylene Glycol 3350 [Miralax] 17 gm PO DAILY PRN #14 dose 12/11/21 Unknown Rx Sennosides [Senna] 2 tab PO DAILY #14 cap 12/11/21 Unknown Rx Sodium Phosphate,[place]-Dibasic 133 ml RC DAILY PRN #2 enema 12/11/21 Unknown Rx [Fleet Enema] Active Meds: Active Medications Acetaminophen (Acetaminophen 325 Mg Tab) 650 mg PO Q4H PRN PRN Reason: Pain MILD(1-3)/Fever >100.5/ALICEA Morphine Sulfate (Morphine 2 Mg/1 Ml Inj) 2 mg IV Q4H PRN PRN Reason: Pain, Moderate (4-6) Ondansetron HCl (Ondansetron 4 Mg/2 Ml Inj) 4 mg IV Q8H PRN PRN Reason: Nausea And Vomiting Sodium Chloride (Sodium Chloride 0.9% 10 Ml Flush Syringe) 10 ml IV BID TEX Sodium Chloride (Sodium Chloride 0.9% 10 Ml Flush Syringe) 10 ml IV PRN PRN PRN Reason: LINE FLUSH Exam - Constitutional Vitals: Temp Pulse Resp BP Pulse Ox 98.4 F 82 18 135/59 99 05/26/22 15:53 05/26/22 20:42 05/26/22 20:42 05/26/22 20:42 05/26/22 20:42 General appearance: Present: no acute distress, well-nourished - EENT Eyes: Present: PERRL ENT: hearing intact, clear oral mucosa - Neck Neck: Present: supple, normal ROM - Respiratory Respiratory effort: normal Respiratory: bilateral: CTA - Cardiovascular Heart rate: 78 Rhythm: irregularly irregular Heart Sounds: Present: S1 & S2. Absent: rub, click - Extremities Extremities: pulses symmetrical, No edema Peripheral Pulses: within normal limits - Abdominal General gastrointestinal: Present: soft, non-tender, non-distended, normal bowel sounds Female genitourinary: Present: normal - Rectal Rectal Exam: deferred - Integumentary Integumentary: Present: clear, warm, dry - Musculoskeletal Musculoskeletal: gait normal, strength equal bilaterally - Psychiatric Psychiatric: appropriate mood/affect, intact judgment & insight - Neurologic Neurologic: CNII-XII intact, moves all extremities - Allied Health Allied health notes reviewed: nursing, case management HEART Score - HEART Score History: Moderately suspicious Age: > 65 Troponin: Troponin T < 0.010 ng/mL (0.00-0.029) 05/26/22 16:21 Troponin: < normal limit - Critical Actions Critical Actions: 4-6 pts:12-16.6% risk of adverse cardiac event. Should be admitted Results - Labs CBC & Chem 7: 05/27/22 03:59 05/27/22 03:59 Labs: Laboratory Last Values WBC 10.0 K/mm3 (4.5-11.0) 05/26/22 16:21 RBC 4.54 M/mm3 (3.65-5.03) 05/26/22 16:21 Hgb 13.0 gm/dl (10.1-14.3) 05/26/22 16:21 Hct 39.3 % (30.3-42.9) 05/26/22 16:21 MCV 87 fl (79-97) 05/26/22 16:21 MCH 29 pg (28-32) 05/26/22 16:21 MCHC 33 % (30-34) 05/26/22 16:21 RDW 14.7 % (13.2-15.2) 05/26/22 16:21 Plt Count 190 K/mm3 (140-440) 05/26/22 16:21 Lymph % (Auto) 9.2 % (13.4-35.0) L 05/26/22 16:21 [place] % (Auto) 7.8 % (0.0-7.3) H 05/26/22 16:21 Eos % (Auto) 0.1 % (0.0-4.3) 05/26/22 16:21 Baso % (Auto) 0.4 % (0.0-1.8) 05/26/22 16:21 Lymph # (Auto) 0.9 K/mm3 (1.2-5.4) L 05/26/22 16:21 [place] # (Auto) 0.8 K/mm3 (0.0-0.8) 05/26/22 16:21 Eos # (Auto) 0.0 K/mm3 (0.0-0.4) 05/26/22 16:21 Baso # (Auto) 0.0 K/mm3 (0.0-0.1) 05/26/22 16:21 Seg Neutrophils % 82.5 % (40.0-70.0) H 05/26/22 16:21 Seg Neutrophils # 8.3 K/mm3 (1.8-7.7) H 05/26/22 16:21 Sodium 134 mmol/L (137-145) L 05/26/22 16:21 Potassium 3.5 mmol/L (3.6-5.0) L 05/26/22 16:21 Chloride 97.0 mmol/L (98-107) L 05/26/22 16:21 Carbon Dioxide 24 mmol/L (22-30) 05/26/22 16:21 Anion Gap 17 mmol/L 05/26/22 16:21 BUN 27 mg/dL (7-17) H 05/26/22 16:21 Creatinine 0.6 mg/dL (0.6-1.2) 05/26/22 16:21 Estimated GFR > 60 ml/min 05/26/22 16:21 BUN/Creatinine Ratio 45 % 05/26/22 16:21 Glucose 213 mg/dL (65-100) H 05/26/22 16:21 Calcium 9.2 mg/dL (8.4-10.2) 05/26/22 16:21 Total Bilirubin 0.40 mg/dL (0.1-1.2) 05/26/22 16:21 AST 29 units/L (5-40) 05/26/22 16:21 ALT 38 units/L (7-56) 05/26/22 16:21 Alkaline Phosphatase 139 units/L (35-129) H 05/26/22 16:21 Troponin T < 0.010 ng/mL (0.00-0.029) 05/26/22 16:21 NT-Pro-B Natriuret Pep 5590 pg/mL (0-900) H 05/26/22 16:21 Total Protein 6.8 g/dL (6.3-8.2) 05/26/22 16:21 Albumin 3.7 g/dL (3.9-5) L 05/26/22 16:21 Albumin/Globulin Ratio 1.2 % 05/26/22 16:21 - Imaging and Cardiology EKG: report reviewed (Atrial fibrillation heart rate of 72) Imaging and Cardiology: Chest x-ray Worsening right pleural effusion with right basilar opacification. Infectious process will be consulted in the appropriate clinical setting. Pelvis x-ray No acute findings mild degenerative arthrosis in the The pubic symphysis. Soft tissues are unremarkable. Assessment and Plan Advance Directives: Yes (Full code) VTE prophylaxis?: Chemical Plan of care discussed with patient/family: Yes - Patient Problems (1) Acute respiratory failure with hypoxemia Current Visit: No Status: Acute Plan to address problem: Was hypoxic initially Patient is on 3 L nasal cannula oxygen (2) Acute exacerbation of CHF (congestive heart failure) Current Visit: Yes Status: Acute Qualifiers: Heart failure type: combined systolic and diastolic Plan to address problem: Daily intake output Daily weight Echocardiogram for ejection fraction and wall motion abnormalities and valve function Lasix 40 mg every 12 hours Aldosterone 50 mg once a day Cardiology consult requested (3) Low back pain Current Visit: Yes Status: Acute Qualifiers: Chronicity: acute Plan to address problem: S/p fall No fractures Analgesics as needed Toradol if necessary (4) Hypertension Current Visit: Yes Status: Chronic Qualifiers: Hypertension type: primary hypertension Qualified Code(s): I10 - Essential (primary) hypertension Plan to address problem: Continue antihypertensives and adjust medications as necessary (5) A-fib Current Visit: Yes Status: Chronic Qualifiers: Atrial fibrillation type: persistent (not longstanding) Qualified Code(s): I48.19 - Other persistent atrial fibrillation; I48.1 - Persistent atrial fibrillation Plan to address problem: Continue Eliquis and diltiazem (6) DVT prophylaxis Current Visit: Yes Status: Acute Plan to address problem: On Eliquis and GI prophylaxis (7) Advance care planning Current Visit: Yes Status: Acute Plan to address problem: Disease education conducted, care plan discussed, diagnosis discussed and prognosis discussed. Patient acknowledged understanding with care plan. +30 minutes.
[2022-05-26] MEDS ORDERED: METOCLOPRAMIDE 10 MG/2 ML INJ IV PRN (22:42)
[2022-05-26] MEDS ORDERED: oxyCODONE /ACETAMINOPHEN 5-325MG TAB PO PRN (22:42)
[2022-05-26] MEDS ORDERED: SPIRONOLACTONE 25 MG TAB PO ONE (22:52)
[2022-05-27] MEDS: APIXABAN 2.5 MG TAB PO SCH ×3 (00:09→21:12)
[2022-05-27 04:25] LABS: Basophils % (Auto) 0.2 % (0.0-1.8); Eosinophils % (Auto) 0.4 % (0.0-4.3); Hematocrit 36.5 % (30.3-42.9); Hemoglobin 12.1 gm/dl (10.1-14.3); Lymphocytes # (Auto) 1.2 K/mm3 (1.2-5.4); Lymphocytes % (Auto) 11.6 % (13.4-35.0); Mean Corpuscular HGB Conc 33 % (30-34); Mean Corpuscular Volume 86 fl (79-97); Monocytes # (Auto) 1.1 K/mm3 (0.0-0.8); Monocytes % (Auto) 11.2 % (0.0-7.3); Platelet Count 177 K/mm3 (140-440); Red Blood Count 4.24 M/mm3 (3.65-5.03); Red Cell Distribution Width 14.5 % (13.2-15.2)
[2022-05-27 04:45] LABS: Alanine Aminotransferase 29 units/L (7-56); Albumin 3.7 g/dL (3.9-5); Blood Urea Nitrogen 21 mg/dL (7-17); Calcium 9.3 mg/dL (8.4-10.2); Hemolysis Index 12
[2022-05-27 04:49] LABS: BUN/Creatinine Ratio 42
[2022-05-27] MEDS: FUROSEMIDE 40 MG/4 ML INJ IV SCH ×2 (05:58→17:54)
--- NOTE | 2022-05-27 08:18 | Progress Note ---
Assessment and Plan Assessment and plan: History of present illness: 86-year-old female with multiple medical problems including congestive heart failure, hypertension and anemia and hyperlipidemia apparently fell 3 days ago on her back. Since then patient has been having increasing shortness of breath and orthopnea. Patient follows with [facility] for heart failure problems. Patient is on Bumex. Low back pain persists. But able to walk. No chest pain. Assessment and Plan: #Acute respiratory failure with hypoxemia - hypoxic on admission, currently on 3L NC - CXR: worsened right pleural effusion - management as below #Acute decompensated diastolic heart failure - ECHO pending - Lasix 40 mg IV q12h - GDMT: lasix, aldactone, lisinopril, metoprolol. HOLD home bumex while on l asix. - cardiology consultation ([facility] patient) #Low back pain - fall - obtain orthostatic vitals - pelvic xr: no acute fractures appreciated. Arthrosis of hips and pubic symphysis noted. #Essential hypertension - anti-HTN meds as noted above #Chronic Atrial fibrillation - resume home eliquis, diltiazem #CAD s/p CABG surgery #hx of Aortic valve replacement #HLD - on statin...unclear why not on ASA - BB as above #Vascular dementia -noted #Advance care planning Disease education conducted, care plan discussed, diagnoses discussed, prognosis discussed, patient is full code, patient acknowledges understanding and agree with care plan, +30 minutes. Dispo: D/c tomorrow early AM. History Interval history: Feeling better this AM. Currently on 2L/min NC. Hospitalist Physical - Physical exam Narrative exam: Physical Exam: VITAL SIGNS: Reviewed. GENERAL: The patient appears normally developed, Vital signs as documented. on nasal cannula HEAD: No signs of head trauma. EYES: Pupils are equal. Extraocular motions intact. EARS: Hearing grossly intact. MOUTH: Oropharynx is normal. NECK: No adenopathy, no JVD. CHEST: Chest with clear breath sounds bilaterally. No wheezes, rales, or rhonchi. CARDIAC: Regular rate and rhythm. S1 and S2, without murmurs, gallops, or rubs. VASCULAR: No Edema. Peripheral pulses normal and equal in all extremities. ABDOMEN: Soft, non tender and non distended. No rebound or guarding, and no masses palpated. Bowel Sounds normal. MUSCULOSKELETAL: Good range of motion of all major joints. Extremities without clubbing, cyanosis or edema. NEUROLOGIC EXAM: Alert and oriented x 2 at least, dementia noted.. no focal sensory or strength deficits. PSYCHIATRIC: Dementia noted. SKIN: detail exam as documented in skin assessment - Constitutional Vitals: Temp Pulse Resp BP Pulse Ox 98.2 F 91 H 18 157/57 97 05/27/22 02:47 05/27/22 02:47 05/27/22 02:47 05/27/22 02:47 05/27/22 02:47 General appearance: Present: no acute distress, well-nourished HEART Score - HEART Score Age: > 65 Troponin: Troponin T < 0.010 ng/mL (0.00-0.029) 05/26/22 16:21 Troponin: < normal limit - Critical Actions Critical Actions: 4-6 pts:12-16.6% risk of adverse cardiac event. Should be admitted Results - Labs CBC & Chem 7: 05/27/22 03:59 05/27/22 03:59 Labs: Laboratory Last Values WBC 9.9 K/mm3 (4.5-11.0) 05/27/22 03:59 RBC 4.24 M/mm3 (3.65-5.03) 05/27/22 03:59 Hgb 12.1 gm/dl (10.1-14.3) 05/27/22 03:59 Hct 36.5 % (30.3-42.9) 05/27/22 03:59 MCV 86 fl (79-97) 05/27/22 03:59 MCH 29 pg (28-32) 05/27/22 03:59 MCHC 33 % (30-34) 05/27/22 03:59 RDW 14.5 % (13.2-15.2) 05/27/22 03:59 Plt Count 177 K/mm3 (140-440) 05/27/22 03:59 Lymph % (Auto) 11.6 % (13.4-35.0) L 05/27/22 03:59 [place] % (Auto) 11.2 % (0.0-7.3) H 05/27/22 03:59 Eos % (Auto) 0.4 % (0.0-4.3) 05/27/22 03:59 Baso % (Auto) 0.2 % (0.0-1.8) 05/27/22 03:59 Lymph # (Auto) 1.2 K/mm3 (1.2-5.4) 05/27/22 03:59 [place] # (Auto) 1.1 K/mm3 (0.0-0.8) H 05/27/22 03:59 Eos # (Auto) 0.0 K/mm3 (0.0-0.4) 05/27/22 03:59 Baso # (Auto) 0.0 K/mm3 (0.0-0.1) 05/27/22 03:59 Seg Neutrophils % 76.6 % (40.0-70.0) H 05/27/22 03:59 Seg Neutrophils # 7.6 K/mm3 (1.8-7.7) 05/27/22 03:59 Sodium 142 mmol/L (137-145) D 05/27/22 03:59 Potassium 3.8 mmol/L (3.6-5.0) 05/27/22 03:59 Chloride 101.9 mmol/L (98-107) 05/27/22 03:59 Carbon Dioxide 30 mmol/L (22-30) 05/27/22 03:59 Anion Gap 14 mmol/L 05/27/22 03:59 BUN 21 mg/dL (7-17) H 05/27/22 03:59 Creatinine 0.5 mg/dL (0.6-1.2) L 05/27/22 03:59 Estimated GFR > 60 ml/min 05/27/22 03:59 BUN/Creatinine Ratio 42 % 05/27/22 03:59 Glucose 118 mg/dL (65-100) H 05/27/22 03:59 Calcium 9.3 mg/dL (8.4-10.2) 05/27/22 03:59 Total Bilirubin 0.50 mg/dL (0.1-1.2) 05/27/22 03:59 AST 23 units/L (5-40) 05/27/22 03:59 ALT 29 units/L (7-56) 05/27/22 03:59 Alkaline Phosphatase 121 units/L (35-129) 05/27/22 03:59 Troponin T < 0.010 ng/mL (0.00-0.029) 05/26/22 16:21 NT-Pro-B Natriuret Pep 5590 pg/mL (0-900) H 05/26/22 16:21 Total Protein 6.5 g/dL (6.3-8.2) 05/27/22 03:59 Albumin 3.7 g/dL (3.9-5) L 05/27/22 03:59 Albumin/Globulin Ratio 1.3 % 05/27/22 03:59 Active Medications - Current Medications Current Medications: Generic Name Dose Route Start Last Admin Trade Name Freq PRN Reason Stop Dose Admin Acetaminophen 650 mg 05/26/22 22:42 Acetaminophen 325 Mg Tab PO Q4H PRN Pain MILD(1-3)/Fever >100.5/ALICEA Apixaban 2.5 mg 05/26/22 22:45 05/27/22 00:09 Apixaban 2.5 Mg Tab PO Not Given Q12HR [facility] Ascorbic Acid 1,000 mg 05/27/22 10:00 Ascorbic Acid 500 Mg Tab PO DAILY [facility] Atorvastatin Calcium 20 mg 05/27/22 22:00 Atorvastatin 20 Mg Tab PO QHS [facility] Bumetanide 1 mg 05/27/22 10:00 Bumetanide 1 Mg Tab PO DAILY [facility] Diltiazem HCl 240 mg 05/27/22 10:00 Diltiazem Cd 240 Mg Cap PO QDAY [facility] Famotidine 20 mg 05/27/22 10:00 Famotidine 20 Mg Tab PO BID [facility] Ferrous Sulfate 325 mg 05/27/22 10:00 Ferrous Sulfate 325 Mg Tab PO QDAY [facility] Furosemide 40 mg 05/27/22 06:00 05/27/22 05:58 Furosemide 40 Mg/4 Ml Inj IV 40 mg 0600,1800 [facility] Administration Lisinopril 20 mg 05/27/22 10:00 Lisinopril 5 Mg Tab PO DAILY [facility] Magnesium Oxide 400 mg 05/27/22 10:00 Magnesium Oxide 400 Mg Tab PO DAILY [facility] Metoclopramide HCl 10 mg 05/26/22 22:42 Metoclopramide 10 Mg/2 Ml Inj IV Q6H PRN Nausea And Vomiting Metoprolol Tartrate 50 mg 05/26/22 23:00 05/26/22 20:00 Metoprolol Tartrate 50 Mg Tab PO Not Given BID [facility] Morphine Sulfate 2 mg 05/26/22 21:12 Morphine 2 Mg/1 Ml Inj IV Q4H PRN Pain, Moderate (4-6) Ondansetron HCl 4 mg 05/26/22 22:42 Ondansetron 4 Mg/2 Ml Inj IV Q8H PRN Nausea And Vomiting Oxycodone/Acetaminophen 1 tab 05/26/22 22:42 Oxycodone /Acetaminophen 5-325mg Tab PO Q6H PRN Pain, Moderate (4-6) Senna 8.6 mg 05/27/22 10:00 Sennosides 8.6 Mg Tab PO DAILY ETX Sodium Chloride 10 ml 05/26/22 22:00 05/27/22 02:07 Sodium Chloride 0.9% 10 Ml Flush Syringe IV Not Given BID TEX Sodium Chloride 10 ml 05/26/22 21:08 Sodium Chloride 0.9% 10 Ml Flush Syringe IV PRN PRN LINE FLUSH Sodium Chloride 10 ml 05/27/22 10:00 Sodium Chloride 0.9% 10 Ml Flush Syringe IV BID [facility] Sodium Chloride 10 ml 05/26/22 22:42 Sodium Chloride 0.9% 10 Ml Flush Syringe IV PRN PRN LINE FLUSH Spironolactone 50 mg 05/27/22 10:00 Spironolactone 50 Mg Tab PO QDAY [facility]
[2022-05-27] MEDS: FAMOTIDINE 20 MG TAB PO SCH ×2 (09:16→21:12)
[2022-05-27] MEDS: METOPROLOL TARTRATE 50 MG TAB PO SCH ×2 (09:16→21:12)
[2022-05-27] MEDS: LISINOPRIL 5 MG TAB PO SCH (09:17)
[2022-05-27] MEDS: dilTIAZem CD 240 MG CAP PO SCH (09:20)
[2022-05-27] MEDS: ASCORBIC ACID 500 MG TAB PO SCH (09:20)
[2022-05-27] MEDS: FERROUS SULFATE 325 MG TAB PO SCH (09:20)
[2022-05-27] MEDS: MAGNESIUM OXIDE 400 MG TAB PO SCH (09:20)
[2022-05-27] MEDS: SENNOSIDES 8.6 MG TAB PO SCH (09:21)
[2022-05-27] MEDS ORDERED: SPIRONOLACTONE 50 MG TAB PO SCH (10:00)
[2022-05-27] MEDS ORDERED: BUMETANIDE 1 MG TAB PO SCH (10:00)
[2022-05-27] MEDS: hydrALAZINE 25 MG TAB PO SCH ×2 (13:30→21:12)
--- NOTE | 2022-05-27 14:16 | Consultation ---
History of Present Illness Consult date: 05/27/22 Requesting physician: TJ NINO Consult reason: congestive heart failure History of present illness: Patient is an 86-year-old female with a past medical history of HFpEF, chronic atrial fibrillation (anticoagulated on Eliquis), aortic valve stenosis s/p valve replacement, Coronary artery disease, H/O coronary artery bypass surgery ,hyperlipidemia, hypertension, vascular dementia brought to the after her daughter found her O2 sats 89%. Per patient and daughter patient had a fall on Tuesday. She reports that on Tuesday patient reports being a little bit sore from when she fell. Daughter states she went to check the patient's O2 sats and found O2 sats 89% and decided to have the patient evaluated in the ED. Patient and daughter deny any shortness of breath, orthopnea, PND, or dyspnea on exertio n. Patient and daughter report patient is compliant with medications, fluid intake, and salt restrictions. In the ED patient was found to have elevated BNP and CXR showed worsening right pleural effusion and right basilar opacification. Patient denies any complaints of chest pain, dizziness, lightheadedness, bilateral lower extremity. Patient follows with Dr. Toledo of our practice. Cardiology is consulted for CHF. Past History Past Medical History: atrial fib, CAD, heart failure, hypertension, hyperlipidemia Past Surgical History: valve replacement, CABG Social history: lives with family Family history: CAD, diabetes Medications and Allergies Allergies Allergy/AdvReac Type Severity Reaction Status Date / Time methylprednisolone Allergy Mild Anaphylaxis Verified 09/04/21 04:40 azithromycin Allergy Shortness Verified 08/11/21 18:29 of Breath Penicillins Allergy Rash and Verified 08/11/21 11:06 chest tightness Sulfa (Sulfonamide Allergy Rash and Verified 08/11/21 11:06 Antibiotics) chest tightness levofloxacin [From Levaquin] AdvReac Shortness Verified 11/11/17 18:31 of Breath Home Medications Medication Instructions Recorded Confirmed Last Taken Type AtorvaSTATin [Lipitor] 20 mg PO QHS 03/21/17 09/05/21 08/10/21 History Bumetanide [Bumex 1 mg tab] 1 mg PO DAILY 03/21/17 09/05/21 08/10/21 History lisinopriL [Zestril TAB] 20 mg PO DAILY 03/21/17 09/05/21 08/10/21 History Apixaban [Eliquis] 2.5 mg PO Q12HR #60 tablet 11/15/17 09/05/21 08/10/21 Rx dilTIAZem CD [Cardizem CD] 240 mg PO QDAY #30 cap 08/16/21 09/05/21 Unknown Rx Ascorbic Acid [Vitamin C] 1,000 mg PO DAILY 09/05/21 09/05/21 Unknown History Cyanocobalamin/Folic Acid [Ra Vit 09/05/21 Unknown History B-12 1,000 Mcg Lozenge] Ferrous Sulfate [Feosol 325 MG tab] 325 mg PO QDAY 09/05/21 09/05/21 Unknown History Magnesium Oxide 500 mg PO DAILY 09/05/21 09/05/21 Unknown History Metoprolol [Lopressor TAB] 50 mg PO BID 09/05/21 09/05/21 Unknown History Polyethylene Glycol 3350 [Miralax] 17 gm PO DAILY PRN #14 dose 12/11/21 Unknown Rx Sennosides [Senna] 2 tab PO DAILY #14 cap 12/11/21 Unknown Rx Sodium Phosphate,Price-Dibasic 133 ml RC DAILY PRN #2 enema 12/11/21 Unknown Rx [Fleet Enema] Active Meds: Active Medications Acetaminophen (Acetaminophen 325 Mg Tab) 650 mg PO Q4H PRN PRN Reason: Pain MILD(1-3)/Fever >100.5/ALICEA Apixaban (Apixaban 2.5 Mg Tab) 2.5 mg PO Q12HR [facility] Last Admin: 05/27/22 09:20 Dose: 2.5 mg Ascorbic Acid (Ascorbic Acid 500 Mg Tab) 1,000 mg PO DAILY [facility] Last Admin: 05/27/22 09:20 Dose: 1,000 mg Atorvastatin Calcium (Atorvastatin 20 Mg Tab) 20 mg PO QHS [facility] Diltiazem HCl (Diltiazem Cd 240 Mg Cap) 240 mg PO QDAY [facility] Last Admin: 05/27/22 09:20 Dose: 240 mg Famotidine (Famotidine 20 Mg Tab) 20 mg PO BID [facility] Last Admin: 05/27/22 09:16 Dose: 20 mg Ferrous Sulfate (Ferrous Sulfate 325 Mg Tab) 325 mg PO QDAY [facility] Last Admin: 05/27/22 09:20 Dose: 325 mg Furosemide (Furosemide 40 Mg/4 Ml Inj) 40 mg IV 0600,1800 [facility] Stop: 05/27/22 20:00 Last Admin: 05/27/22 05:58 Dose: 40 mg Furosemide (Furosemide 40 Mg Tab) 40 mg PO QDAY [facility] Hydralazine HCl (Hydralazine 25 Mg Tab) 25 mg PO Q8HR [facility] Last Admin: 05/27/22 13:30 Dose: 25 mg Lisinopril (Lisinopril 5 Mg Tab) 20 mg PO DAILY [facility] Last Admin: 05/27/22 09:17 Dose: 20 mg Magnesium Oxide (Magnesium Oxide 400 Mg Tab) 400 mg PO DAILY [facility] Last Admin: 05/27/22 09:20 Dose: 400 mg Metoclopramide HCl (Metoclopramide 10 Mg/2 Ml Inj) 10 mg IV Q6H PRN PRN Reason: Nausea And Vomiting Metoprolol Tartrate (Metoprolol Tartrate 50 Mg Tab) 50 mg PO BID [facility] Last Admin: 05/27/22 09:16 Dose: 50 mg Morphine Sulfate (Morphine 2 Mg/1 Ml Inj) 2 mg IV Q4H PRN PRN Reason: Pain, Moderate (4-6) Ondansetron HCl (Ondansetron 4 Mg/2 Ml Inj) 4 mg IV Q8H PRN PRN Reason: Nausea And Vomiting Oxycodone/Acetaminophen (Oxycodone /Acetaminophen 5-325mg Tab) 1 tab PO Q6H PRN PRN Reason: Pain, Moderate (4-6) Senna (Sennosides 8.6 Mg Tab) 8.6 mg PO DAILY [facility] Last Admin: 05/27/22 09:21 Dose: 8.6 mg Sodium Chloride (Sodium Chloride 0.9% 10 Ml Flush Syringe) 10 ml IV BID [facility] Last Admin: 05/27/22 09:25 Dose: 10 ml Sodium Chloride (Sodium Chloride 0.9% 10 Ml Flush Syringe) 10 ml IV PRN PRN PRN Reason: LINE FLUSH Review of Systems Constitutional: no weight loss, no weight gain, no fever, no chills Ears, nose, mouth and throat: no sinus pressure, no sinus pain Cardiovascular: no chest pain, no orthopnea, no palpitations, no shortness of breath, no dyspnea on exertion Respiratory: no shortness of breath, no dyspnea on exertion Gastrointestinal: no abdominal pain, no nausea, no vomiting Musculoskeletal: other (back soreness), no neck stiffness, no neck pain Integumentary: no rash, no pruritis, no redness Neurological: no head injury, no transient paralysis Psychiatric: no anxiety, no memory loss Endocrine: no cold intolerance, no heat intolerance Hematologic/Lymphatic: no easy bruising, no easy bleeding Physical Examination Vital Signs Pulse Resp BP Pulse Ox 87 16 158/65 90 05/26/22 09:39 05/26/22 09:39 05/26/22 09:39 05/26/22 09:39 General appearance: no acute distress Neck: Positive: trachea midline Cardiac: Positive: irregularly irregular Lungs: Positive: Normal Breath Sounds Neuro: Positive: Grossly Intact Abdomen: Positive: Soft Skin: Negative: Rash, Suspicious Lesions, Ulceration Extremities: Present: upper extr. pulses. Absent: edema Results 05/27/22 03:59 05/27/22 03:59 Cardiac Enzymes 05/26/22 05/26/22 05/26/22 Range/Units 16:21 16:21 16:21 WBC 10.0 (4.5-11.0) K/mm3 RBC 4.54 (3.65-5.03) M/mm3 Hgb 13.0 (10.1-14.3) gm/dl Hct 39.3 (30.3-42.9) % MCV 87 (79-97) fl MCH 29 (28-32) pg MCHC 33 (30-34) % RDW 14.7 (13.2-15.2) % Plt Count 190 (140-440) K/mm3 Lymph % (Auto) 9.2 L (13.4-35.0) % Price % (Auto) 7.8 H (0.0-7.3) % Eos % (Auto) 0.1 (0.0-4.3) % Baso % (Auto) 0.4 (0.0-1.8) % Lymph # (Auto) 0.9 L (1.2-5.4) K/mm3 Price # (Auto) 0.8 (0.0-0.8) K/mm3 Eos # (Auto) 0.0 (0.0-0.4) K/mm3 Baso # (Auto) 0.0 (0.0-0.1) K/mm3 Seg Neutrophils % 82.5 H (40.0-70.0) % Seg Neutrophils # 8.3 H (1.8-7.7) K/mm3 Sodium 134 L (137-145) mmol/L Potassium 3.5 L (3.6-5.0) mmol/L Chloride 97.0 L (98-107) mmol/L Carbon Dioxide 24 (22-30) mmol/L Anion Gap 17 mmol/L BUN 27 H (7-17) mg/dL Creatinine 0.6 (0.6-1.2) mg/dL Estimated GFR > 60 ml/min BUN/Creatinine Ratio 45 % Glucose 213 H (65-100) mg/dL POC Glucose (70-105) mg/dL Calcium 9.2 (8.4-10.2) mg/dL Total Bilirubin 0.40 (0.1-1.2) mg/dL AST 29 (5-40) units/L ALT 38 (7-56) units/L Alkaline Phosphatase 139 H (35-129) units/L Troponin T < 0.010 (0.00-0.029) ng/mL NT-Pro-B Natriuret Pep 5590 H (0-900) pg/mL Total Protein 6.8 (6.3-8.2) g/dL Albumin 3.7 L (3.9-5) g/dL Albumin/Globulin Ratio 1.2 % 05/27/22 05/27/22 05/27/22 Range/Units 03:59 03:59 11:23 WBC 9.9 (4.5-11.0) K/mm3 RBC 4.24 (3.65-5.03) M/mm3 Hgb 12.1 (10.1-14.3) gm/dl Hct 36.5 (30.3-42.9) % MCV 86 (79-97) fl MCH 29 (28-32) pg MCHC 33 (30-34) % RDW 14.5 (13.2-15.2) % Plt Count 177 (140-440) K/mm3 Lymph % (Auto) 11.6 L (13.4-35.0) % Price % (Auto) 11.2 H (0.0-7.3) % Eos % (Auto) 0.4 (0.0-4.3) % Baso % (Auto) 0.2 (0.0-1.8) % Lymph # (Auto) 1.2 (1.2-5.4) K/mm3 Price # (Auto) 1.1 H (0.0-0.8) K/mm3 Eos # (Auto) 0.0 (0.0-0.4) K/mm3 Baso # (Auto) 0.0 (0.0-0.1) K/mm3 Seg Neutrophils % 76.6 H (40.0-70.0) % Seg Neutrophils # 7.6 (1.8-7.7) K/mm3 Sodium 142 D (137-145) mmol/L Potassium 3.8 (3.6-5.0) mmol/L Chloride 101.9 (98-107) mmol/L Carbon Dioxide 30 (22-30) mmol/L Anion Gap 14 mmol/L BUN 21 H (7-17) mg/dL Creatinine 0.5 L (0.6-1.2) mg/dL Estimated GFR > 60 ml/min BUN/Creatinine Ratio 42 % Glucose 118 H (65-100) mg/dL POC Glucose 101 (70-105) mg/dL Calcium 9.3 (8.4-10.2) mg/dL Total Bilirubin 0.50 (0.1-1.2) mg/dL AST 23 (5-40) units/L ALT 29 (7-56) units/L Alkaline Phosphatase 121 (35-129) units/L Troponin T (0.00-0.029) ng/mL NT-Pro-B Natriuret Pep (0-900) pg/mL Total Protein 6.5 (6.3-8.2) g/dL Albumin 3.7 L (3.9-5) g/dL Albumin/Globulin Ratio 1.3 % CBC 05/26/22 05/27/22 Range/Units 16:21 03:59 WBC 10.0 9.9 (4.5-11.0) K/mm3 RBC 4.54 4.24 (3.65-5.03) M/mm3 Hgb 13.0 12.1 (10.1-14.3) gm/dl Hct 39.3 36.5 (30.3-42.9) % Plt Count 190 177 (140-440) K/mm3 Lymph # (Auto) 0.9 L 1.2 (1.2-5.4) K/mm3 Price # (Auto) 0.8 1.1 H (0.0-0.8) K/mm3 Eos # (Auto) 0.0 0.0 (0.0-0.4) K/mm3 Baso # (Auto) 0.0 0.0 (0.0-0.1) K/mm3 Comprehensive Metabolic Panel 05/26/22 05/27/22 Range/Units 16:21 03:59 Sodium 134 L 142 D (137-145) mmol/L Potassium 3.5 L 3.8 (3.6-5.0) mmol/L Chloride 97.0 L 101.9 (98-107) mmol/L Carbon Dioxide 24 30 (22-30) mmol/L BUN 27 H 21 H (7-17) mg/dL Creatinine 0.6 0.5 L (0.6-1.2) mg/dL Glucose 213 H 118 H (65-100) mg/dL Calcium 9.2 9.3 (8.4-10.2) mg/dL AST 29 23 (5-40) units/L ALT 38 29 (7-56) units/L Alkaline Phosphatase 139 H 121 (35-129) units/L Total Protein 6.8 6.5 (6.3-8.2) g/dL Albumin 3.7 L 3.7 L (3.9-5) g/dL - Imaging and Cardiology Echo: report reviewed EKG: pending EKG interpretations - Telemetry EKG Rhythm: Atrial Fibrillation - EKG Supraventricular dysrhythmia: atrial fibrillation Assessment and Plan Patient is an 86-year-old female with a past medical history of HFpEF, chronic atrial fibrillation (anticoagulated on Eliquis), aortic valve stenosis s/p valve replacement, Coronary artery disease, H/O coronary artery bypass surgery ,hyperlipidemia, hypertension, vascular dementia brought to the after her daughter found her O2 sats 89%. Acute on chronic HFpEF Chronic A. fib Aortic valve stenosis s/p valve replacement Coronary arteries History of CABG Hypertension Echocardiogram 01/29/2022: There is normal LV systolic function.The estimated LV ejection fraction is normal at 55-60%. There is normal right ventricular size, wall dimension, and systolic function. The LA volume is severely increased. Right Atrium chamber is mildly dilated. There is a bioprosthetic aortic valve with trace regurgitation. There is a well-seated bioprosthetic aortic valve with normal function. The mitral valve leaflet is mildly thickened. There is mild mitral annular calcification. There is moderate central and eccentric mitral regurgitation. There is moderate central and eccentric tricu spid regurgitation. The estimated RV systolic pressure is 49.55 mmHg. There is mild to moderate pulmonic regurgitation. The aortic root, ascending aorta, descending aorta, and aortic arch are all within normal limits. There is no pericardial effusion present Outpatient medications: hydralazine 25 mg p.o. 3 times daily, Lasix 40 mg p.o. daily, Cardizem CD 240 mg p.o. daily, lisinopril 20 mg p.o. daily, metoprolol 50 mg p.o. twice daily, Eliquis 2.5 mg p.o. twice daily Plan: No EKG in chart however patient denies any chest pain. Troponin negative x1. EKG pending Telemetry reviewed patient in A. fib 90s to 100 BNP noted to be elevated and chest x-ray showed worsening of her pleural effusion and opacifications Upon exam no Rales or bilateral lower extremity edema however patient currently requiring oxygen will give 1 more dose of IV Lasix 40 mg for diuresis Repeat BMP in the a.m., strict I&O's, close monitoring of renal function Will repeat CXR in the a.m. Will resume outpatient medications: hydralazine 25 mg p.o. 3 times daily, Lasix 40 mg p.o. daily, Cardizem CD 240 mg p.o. daily, lisinopril 20 mg p.o. daily, metoprolol 50 mg p.o. twice daily, Eliquis 2.5 mg p.o. twice daily Recommend PT evaluation Patient seen in conjunction with Dr. Wetzel who agrees with this plan of care - Patient Problems (1) Low back pain Current Visit: Yes Status: Acute Qualifiers: Chronicity: acute (2) A-fib Current Visit: Yes Status: Chronic Qualifiers: Atrial fibrillation type: persistent (not longstanding) Qualified Code(s): I48.19 - Other persistent atrial fibrillation; I48.1 - Persistent atrial fibrillation (3) Hypertension Current Visit: Yes Status: Chronic Qualifiers: Hypertension type: primary hypertension Qualified Code(s): I10 - Essential (primary) hypertension (4) Acute heart failure with preserved ejection fraction Current Visit: No Status: Acute (5) Acute respiratory failure Current Visit: No Status: Acute (6) CAD (coronary artery disease) Current Visit: No Status: Chronic (7) S/P CABG (coronary artery bypass graft) Current Visit: No Status: Chronic (8) S/P aortic valve replacement with bioprosthetic valve Current Visit: No Status: Chronic (9) Stented coronary artery Current Visit: No Status: Chronic
[2022-05-27] MEDS ORDERED: DEXTROSE 50% IN WATER (25GM) 50 ML SYRINGE IV PRN ×2 (17:26→19:02)
[2022-05-27] MEDS: ACETAMINOPHEN 325 MG TAB PO PRN (17:53)
[2022-05-28 06:06] LABS: Blood Urea Nitrogen 25 mg/dL (7-17); Calcium 9.1 mg/dL (8.4-10.2); Hemolysis Index 2
[2022-05-28] MEDS: hydrALAZINE 25 MG TAB PO SCH (06:14)
[2022-05-28 06:20] LABS: BUN/Creatinine Ratio 36
[2022-05-28 08:26] VITALS: BP 135/66
[2022-05-28] MEDS: INSULIN LISPRO 100 UNIT/ML SUB-Q SCH ×2 (08:30→12:10)
--- NOTE | 2022-05-28 08:49 | Electrocardiograph Report ---
[facility] Test Date: 2022-05-26 Test Time: 15:39:13 Pat Name: NAIMA DURHAM Department: Room: A473 1 Gender: F Donor Relations Manager: CATHERINE : 1935 Requested By: RACHAEL BLOCK Order Number: [id number] Reading MD: aCm Wetzel Measurements Intervals [place] Rate: 93 P: MD: QRS: 6 QRSD: 95 T: 114 QT: 380 QTc: 474 Interpretive Statements Atrial fibrillation LVH with secondary repolarization abnormality Anterior Q waves, possibly due to LVH Compared to ECG 12/18/2021 11:00:04 Q waves now present Electronically Signed On 05-28-2022 8:49:36 EDT by Cam Wetzel
[2022-05-28] MEDS: FERROUS SULFATE 325 MG TAB PO SCH (08:59)
[2022-05-28] MEDS: LISINOPRIL 5 MG TAB PO SCH (08:59)
[2022-05-28] MEDS: MAGNESIUM OXIDE 400 MG TAB PO SCH (08:59)
[2022-05-28] MEDS: dilTIAZem CD 240 MG CAP PO SCH (09:00)
[2022-05-28] MEDS: SENNOSIDES 8.6 MG TAB PO SCH (09:00)
[2022-05-28] MEDS: ACETAMINOPHEN 325 MG TAB PO PRN (09:00)
[2022-05-28] MEDS: METOPROLOL TARTRATE 50 MG TAB PO SCH (09:01)
[2022-05-28] MEDS: ASCORBIC ACID 500 MG TAB PO SCH (09:01)
[2022-05-28] MEDS: FAMOTIDINE 20 MG TAB PO SCH (09:01)
[2022-05-28] MEDS: APIXABAN 2.5 MG TAB PO SCH (09:01)
--- NOTE | 2022-05-28 09:02 | Electrocardiograph Report ---
[facility] Test Date: 2022-05-28 Test Time: 07:14:53 Pat Name: NAIMA DURHAM Department: Room: A473 1 Gender: F Manager Regional: [place] : 1935 Requested By: TARIK WILD Order Number: [id number] Reading MD: Cam Wetzel Measurements Intervals [place] Rate: 84 P: [place]: QRS: -7 QRSD: 95 T: 92 QT: 391 QTc: 464 Interpretive Statements Atrial fibrillation LVH with secondary repolarization abnormality Compared to ECG 05/26/2022 15:39:13 Q waves no longer present Electronically Signed On 05-28-2022 9:01:45 EDT by Cam Wetzel
--- NOTE | 2022-05-28 09:24 | XRay Report ---
CHEST 1 VIEW 05/28/2022 7:17 AM INDICATION / CLINICAL INFORMATION: comparison for CHF. COMPARISON: 05/26/2022 FINDINGS: SUPPORT DEVICES: None. HEART / MEDIASTINUM: Stable borderline to mild cardiomegaly. LUNGS / PLEURA: Bilateral pulmonary venous congestion and small right pleural effusion have decreased slightly. No left pleural effusion. No pneumothorax. ADDITIONAL FINDINGS: No significant additional findings. IMPRESSION: 1. Mild improvement in CHF Signer Name: John Stein Jr, MD Signed: 05/28/2022 9:19 AM Workstation Name: [id number]
[2022-05-28] MEDS ORDERED: FUROSEMIDE 40 MG TAB PO SCH (10:00)
--- NOTE | 2022-05-28 11:37 | Discharge Summary ---
Providers - Providers Date of Admission: 05/26/22 22:42 Date of discharge: 05/28/22 Attending physician: RACHAEL BLOCK MD 05/26/22 22:42 Consult to Physician [CONS] Routine Comment: Consulting Provider: EMMANUEL KWON Physician Instructions: Reason For Exam: chf exacerbation 05/27/22 06:54 Physical Therapy Evaluation and Treat [CONS] Routine Comment: Reason For Exam: Neuro deficits 05/28/22 08:02 Consult to Dietitian/Nutrition [CONS] Routine Physician Instructions: Reason For Exam: Reason for Consult: Diet education Primary care physician: EDUCATION PROGRAM MANAGER Hospitalization Reason for admission: shortness of breath Condition: Serious Hospital course: History of present illness: 86-year-old female with multiple medical problems including congestive heart failure, hypertension and anemia and hyperlipidemia apparently fell 3 days ago on her back. Since then patient has been having increasing shortness of breath and orthopnea. Patient follows with [facility] for heart failure problems. Patient is on Bumex. Low back pain persists. But able to walk. No chest pain. Hospital course Patient was admitted for acute respiratory failure with hypoxia secondary to acute decompensated diastolic heart failure. She was initiated on Lasix 40 mg IV twice daily with subsequent improvement of her respiratory function. She was reinitiated on home guideline directed medical therapy: Lasix, lisinopril, metoprolol in addition to her cardiac meds for AFib and CAD. She will be discharged on her home medications with instructions to follow-up with outpatient cardiology. Patient was evaluated for home oxygen on the day of admission and she does not qualify. She is advised to follow up with her primary care physician in 1-2 weeks. Assessment and Plan: #Acute respiratory failure with hypoxemia - hypoxic on admission, currently on 3L NC - CXR: worsened right pleural effusion - management as below #Acute decompensated diastolic heart failure - ECHO pending - Lasix 40 mg IV q12h - GDMT: lasix, aldactone, lisinopril, metoprolol. HOLD home bumex while on lasix. - cardiology consultation ([facility] patient) #Low back pain - fall - obtain orthostatic vitals - pelvic xr: no acute fractures appreciated. Arthrosis of hips and pubic symphysis noted. #Essential hypertension - anti-HTN meds as noted above #Chronic Atrial fibrillation - resume home eliquis, diltiazem #CAD s/p CABG surgery #hx of Aortic valve replacement #HLD - on statin...unclear why not on ASA - BB as above #Vascular dementia -noted #Advance care planning Disease education conducted, care plan discussed, diagnoses discussed, prognosis discussed, patient is full code, patient acknowledges understanding and agree with care plan, +30 minutes. Disposition: 01 HOME / SELF CARE / HOMELESS Final Discharge Diagnosis (Prints w/discharge instructions): acute decompensated diastolic heart failure, acute respiratory failure with hypoxia, essential hypertension Time spent for discharge: 35 Core Measure Documentation - Palliative Care Palliative Care/ Comfort Measures: Not Applicable - Core Measures Any of the following diagnoses?: heart failure - Heart Failure Discharge Requirements MANUEL/ARB for LVSD if EF <40%: Yes Beta katelyn at discharge: Yes Exam - Physical Exam Narrative exam: Physical Exam: VITAL SIGNS: Reviewed. GENERAL: The patient appears normally developed, Vital signs as documented. on nasal cannula HEAD: No signs of head trauma. EYES: Pupils are equal. Extraocular motions intact. EARS: Hearing grossly intact. MOUTH: Oropharynx is normal. NECK: No adenopathy, no JVD. CHEST: Chest with clear breath sounds bilaterally. No wheezes, rales, or rhonchi. CARDIAC: Regular rate and rhythm. S1 and S2, without murmurs, gallops, or rubs. VASCULAR: No Edema. Peripheral pulses normal and equal in all extremities. ABDOMEN: Soft, non tender and non distended. No rebound or guarding, and no masses palpated. Bowel Sounds normal. MUSCULOSKELETAL: Good range of motion of all major joints. Extremities without clubbing, cyanosis or edema. NEUROLOGIC EXAM: Alert and oriented x 2 at least, dementia noted.. no focal sensory or strength deficits. PSYCHIATRIC: Dementia noted. SKIN: detail exam as documented in skin assessment - Constitutional Vitals: Temp Pulse Resp BP Pulse Ox 98.0 F 116 H 18 135/66 96 05/28/22 08:16 05/28/22 11:21 05/28/22 11:21 05/28/22 08:16 05/28/22 11:21 Plan Follow up with: PRIMARY CARE, [Primary Care Provider] - 3-5 Days Prescriptions: AtorvaSTATin [Lipitor] 20 mg PO QHS 30 Days #30 tablet dilTIAZem CD [Cardizem CD] 240 mg PO QDAY 30 Days #30 cap Apixaban [Eliquis] 2.5 mg PO Q12HR 30 Days #60 tablet Furosemide [Lasix TAB] 40 mg PO QDAY 30 Days #30 tablet Metoprolol [Lopressor TAB] 50 mg PO BID 30 Days #60 tab lisinopriL [Zestril TAB] 20 mg PO DAILY 30 Days #30 tab
--- NOTE | 2022-05-28 12:44 | Progress Note ---
Assessment and Plan Patient is an 86-year-old female with a past medical history of HFpEF, chronic atrial fibrillation (anticoagulated on Eliquis), aortic valve stenosis s/p valve replacement, Coronary artery disease, H/O coronary artery bypass surgery ,hyperlipidemia, hypertension, vascular dementia brought to the after her daughter found her O2 sats 89%. Acute on chronic HFpEF Chronic A. fib Aortic valve stenosis s/p valve replacement Coronary arteries History of CABG Hypertension Echocardiogram 01/29/2022: There is normal LV systolic function.The estimated LV ejection fraction is normal at 55-60%. There is normal right ventricular size, wall dimension, and systolic function. The LA volume is severely increas ed. Right Atrium chamber is mildly dilated. There is a bioprosthetic aortic valve with trace regurgitation. There is a well-seated bioprosthetic aortic valve with normal function. The mitral valve leaflet is mildly thickened. There is mild mitral annular calcification. There is moderate central and eccentric mitral regurgitation. There is moderate central and eccentric tricuspid regurgitation. The estimated RV systolic pressure is 49.55 mmHg. There is mild to moderate pulmonic regurgitation. The aortic root, ascending aorta, descending aorta, and aortic arch are all within normal limits. There is no pericardial effusion present Outpatient medications: hydralazine 25 mg p.o. 3 times daily, Lasix 40 mg p.o. daily, Cardizem CD 240 mg p.o. daily, lisinopril 20 mg p.o. daily, metoprolol 50 mg p.o. twice daily, Eliquis 2.5 mg p.o. twice daily Plan: EKG shows afib Telemetry reviewed patient in A. fib 80s-90s Patient appears euvolemic on exam and reports improvement in respiratory status. Convert to Lasix 40 mg p.o. daily Repeat CXR this a.m. shows improvement Continue outpatient medications: hydralazine 25 mg p.o. 3 times daily, Lasix 40 mg p.o. daily, Cardizem CD 240 mg p.o. daily, lisinopril 20 mg p.o. daily, metoprolol 50 mg p.o. twice daily, Eliquis 2.5 mg p.o. twice daily Cardiac status otherwise stable for discharge Patient should follow-up with their primary lubricating machine tender in 1 to 2 weeks after discharge. Per conversation with daughter who is at bedside she says she will make a follow-up appoint with Dr. [place] Patient seen in conjunction with Dr. Wetzel who agrees with this plan of care - Patient Problems (1) Low back pain Current Visit: Yes Status: Acute Qualifiers: Chronicity: acute (2) A-fib Current Visit: Yes Status: Chronic Qualifiers: Atrial fibrillation type: persistent (not longstanding) Qualified Code(s): I48.19 - Other persistent atrial fibrillation; I48.1 - Persistent atrial fibrillation (3) Hypertension Current Visit: Yes Status: Chronic Qualifiers: Hypertension type: primary hypertension Qualified Code(s): I10 - Essential (primary) hypertension (4) Acute heart failure with preserved ejection fraction Current Visit: No Status: Acute (5) Acute respiratory failure Current Visit: No Status: Acute (6) CAD (coronary artery disease) Current Visit: No Status: Chronic (7) S/P CABG (coronary artery bypass graft) Current Visit: No Status: Chronic (8) S/P aortic valve replacement with bioprosthetic valve Current Visit: No Status: Chronic (9) Stented coronary artery Current Visit: No Status: Chronic Subjective Date of service: 05/28/22 Principal diagnosis: acute on chronic HFpEF Interval history: Patient sitting in bed in no acute distress. Patient reports feeling significantly better today A. fib 80s to 90s on monitor Objective Vital Signs Temp Pulse Pulse Resp BP Pulse Ox 05/28/22 11:21 116 H 18 96 05/28/22 08:16 98.0 F 95 H 18 135/66 96 05/28/22 07:45 116 H 05/28/22 04:49 97.8 F 82 15 152/51 96 05/27/22 23:21 97.2 F L 66 18 114/47 99 05/27/22 20:24 95 05/27/22 20:20 86 05/27/22 19:26 98.3 F 73 18 137/48 98 05/27/22 17:00 86 05/27/22 16:25 97.4 F L 77 18 134/48 95 05/27/22 13:00 18 94 - Physical Examination General: No Apparent Distress HEENT: Positive: Normocephaly Neck: Positive: trachea midline Cardiac: Positive: irregularly irregular Lungs: Positive: Normal Breath Sounds Neuro: Positive: Grossly Intact Abdomen: Positive: Soft Skin: Negative: Rash, Suspicious Lesions, Ulceration Extremities: Present: upper extr. pulses. Absent: edema - Labs and Meds Comprehensive Metabolic Panel 05/28/22 Range/Units 05:22 Sodium 141 (137-145) mmol/L Potassium 3.5 L (3.6-5.0) mmol/L Chloride 100.3 (98-107) mmol/L Carbon Dioxide 32 H (22-30) mmol/L BUN 25 H (7-17) mg/dL Creatinine 0.7 (0.6-1.2) mg/dL Glucose 109 H (65-100) mg/dL Calcium 9.1 (8.4-10.2) mg/dL - Imaging and Cardiology EKG: report reviewed, image reviewed Echo: report reviewed - Telemetry EKG Rhythm: Atrial Fibrillation - EKG Supraventricular dysrhythmia: atrial fibrillation
== END 2022-05-28 13:00 | disposition home or self-care (01) | DRG 291 ==
LOC: ED 09:38 → 4A 22:42
PROVIDERS: ADMIT Internal Medicine; ATTEND Internal Medicine
DX: I11.0 Hypertensive heart disease with heart failure (principal); I50.33 Acute on chronic diastolic (congestive) heart failure; J96.01 Acute respiratory failure with hypoxia; I48.19 Other persistent atrial fibrillation; M54.50 Low back pain, unspecified; W18.39XA Other fall on same level, initial encounter; Y93.89 Activity, other specified; Y92.89 Other specified places as the place of occurrence of the external cause; Y99.8 Other external cause status; Z79.899 Other long term (current) drug therapy; I25.2 Old myocardial infarction; Z96.651 Presence of right artificial knee joint; F01.50 Vascular dementia, unspecified severity, without behavioral disturbance, psychotic disturbance, mood disturbance, and anxiety; I27.20 Pulmonary hypertension, unspecified; E78.5 Hyperlipidemia, unspecified; Z88.0 Allergy status to penicillin; Z88.2 Allergy status to sulfonamides; Z88.8 Allergy status to other drugs, medicaments and biological substances; I25.10 Atherosclerotic heart disease of native coronary artery without angina pectoris; Z95.1 Presence of aortocoronary bypass graft; Z83.3 Family history of diabetes mellitus; Z82.49 Family history of ischemic heart disease and other diseases of the circulatory system
CPT/HCPCS: 36415; 71045; 72170; 80048; 80053; 82962; 83880; 84484; 85025; 93005; G0378; J1940

== ENCOUNTER 2022-06-14 08:49 | Outpatient (CLI) | payer OTHER ==
[2022-06-14 12:51] LABS: Basophils % (Auto) 0.5 % (0.0-1.8); Eosinophils # (Auto) 0.1 K/mm3 (0.0-0.4); Eosinophils % (Auto) 1.3 % (0.0-4.3); Hematocrit 39.8 % (30.3-42.9); Lymphocytes # (Auto) 1.4 K/mm3 (1.2-5.4); Lymphocytes % (Auto) 17.5 % (13.4-35.0); Mean Corpuscular HGB Conc 33 % (30-34); Mean Corpuscular Volume 86 fl (79-97); Monocytes # (Auto) 0.6 K/mm3 (0.0-0.8); Monocytes % (Auto) 7.7 % (0.0-7.3); Platelet Count 233 K/mm3 (140-440); Red Blood Count 4.62 M/mm3 (3.65-5.03); Red Cell Distribution Width 14.5 % (13.2-15.2)
== END 2022-06-14 08:50 | disposition home or self-care (01) ==
LOC: LABHHL 08:49
PROVIDERS: ATTEND Internal Medicine
DX: D64.9 Anemia, unspecified (principal)
CPT/HCPCS: 36415; 82728; 83540; 85025